=== PATIENT | female | born 1980 | race Caucasian/White ===

== ENCOUNTER 2020-01-22 07:10 | Emergency (ER) | payer OTHER, SELFPAY ==
[2020-01-22 07:11] VITALS: BP 134/115; PULSE 69; RESP 20; TEMP 36.2; O2SAT 99; BMI 40.9
--- NOTE | 2020-01-22 07:12 | CT_ITS ---
STUDY: CT ABDOMEN AND PELVIS WITHOUT CONTRAST REASON FOR EXAM: Female, 39 years old. RLQ PAIN, NAUSEA THIS AM RADIATION DOSAGE (If Supplied By Facility): CTDIvol = ( 14.80 ) mGy, DLP = ( 737.15 ) mGycm TECHNIQUE: Transaxial images were obtained from the dome of the diaphragm to the symphysis pubis without oral contrast, and without intravenous contrast. Sagittal and coronal images were reconstructed. Individualized dose optimization techniques were used for this CT. COMPARISON: None. FINDINGS: The visualized lung bases are unremarkable. The visualized portions of the heart are within normal limits. Normal liver. There is a solitary gallstone. It lies in the neck of the gallbladder. This measures 7.5 mm. Normal spleen. Normal pancreas. Normal bilateral adrenal glands. Normal right kidney. Normal left kidney. Normal visualized stomach. Normal small intestine. Normal colon. The appendix is visualized and appears normal. Normal abdominal aorta. Normal inferior vena cava. There is borderline retroperitoneal lymphadenopathy with enlarged nodes no greater than 10mm in the short axis diameter. Normal urinary bladder. IUD is seen within the lower uterine segment/cervix. There is a small umbilical hernia containing fat. Disc space narrowing and degeneration with subchondral sclerosis at the L5-S1 level. CT/Abdomen/Pelvis without Cont IMPRESSION: Solitary gallstone in the neck of the gallbladder. Low-lying IUD. Electronically Signed: Maged Madrid, at 8:04 EDT , Service support ,
[2020-01-22] MEDS: Ondansetron 4 MG/2 ML Vial IV (07:31)
[2020-01-22] MEDS: HYDROmorphone 1 MG/ML Syringe IV ×2 (07:31→10:41)
[2020-01-22] MEDS: 0.9% Normal Saline 1,000 ML 125 ML IV (07:31)
[2020-01-22] MEDS: Ketorolac 30 MG/ML Syringe IV (07:31)
--- NOTE | 2020-01-22 07:35 | ED.DCSUM_ITS ---
- ER Visit Summary Date of Service: 01/22/20 Chief Complaint: [Abdominal pain] History of Present Illness: The patient is a 39 F [presents to the emergency department complaint of abdominal pain that started early this morning while on her way to work. Patient describes it as right lower quadrant. Pain came on suddenly. She denies any pain in her back. She does have history of kidney stone about 10 years ago but states that this pain feels different because it is not in her back. Patient denies urinary symptoms. She is had no fever. She denies recent illness. Her last menstrual period was about 3 weeks ago. Patient has otherwise no medical history. Patient rates her pain a 10 out of 10. Patient's had nausea and has vomited with this.] Physical Examination: [HEENT-PERRLA, EOMI. Cranial nerves II through XII grossly intact. TMs clear. Mucous membranes moist. No adenopathy. Patient appears very uncomfortable and writhing around in pain. Cardiovascular-regular rate and rhythm without murmur or ectopy Lungs-clear to auscultation, chest wall stable without crepitus or subcu emphysema Abdomen-normoactive bowel sounds, soft. Patient has tenderness palpation to the right lower quadrant with guarding. Extremities-intact ?4, normal range of motion, normal pulses, atraumatic] Test Results: [CBC with differential obtained showed a slightly elevated white count of 13.1, hemoglobin 14.7, hematocrit 45, placed to 61. Chemistries unrem arkable. Urinalysis showed 10-25 WBCs and 0-5 RBCs. Patient had +2 calcium oxalate crystals. Lactate was slightly elevated 2.4. Initially a CT scan of the flank was obtained which initially was read by radiology is unremarkable. On my interpretation I felt patient had a small right-sided hydroureter with possibly a small stone in the base of the bladder and I discussed this with the radiologist and he is in agreement that patient may have passed a small stone into the bladder. I obtain an ultrasound of the pelvis to rule out torsion which was negative for torsion. Patient was noted to have an IUD in the lower uterine segment.] Emergency Department Course and Treatment: [IV line established and patient was medicated Toradol, Dilaudid, and Zofran. Patient had good pain relief.] Patient was given Cipro 500 mg p.o. Treatment Plan: [Patient to follow-up with urology in 3 to 5 days. Patient advised to return if worsening pain, fever, vomiting, or condition should worsen anyway.] Patient given a prescription for Cipro, Naprosyn, and [place]. Patient given urine strainers. Disposition: [Discharged home in stable condition] Impression: [Abdominal pain Passed kidney stone] This note was generated with [employer] dictation software. It may contain incorrect words, spelling, and punctuation that were not noted in review of the chart prior to signing ED Disposition - Plan for ED Patient: Referrals: Iain Fallon MD [Primary Care Provider] -
--- NOTE | 2020-01-22 07:41 | ED.RN ---
dr moreno states send her to ct scan. dont need to wait for serum preg. lmp 3 weeks ago. pt denies chance of
--- NOTE | 2020-01-22 07:53 | ED.RN ---
lab to come get bloodwork.
[2020-01-22 08:18] LABS: Absolute Neutrophil Count 10.5 X10^3/uL (2.0-7.7); Basophil# 0.05 X10^3/uL; Basophil% 0.4 % (0-1); Eosinophil# 0.07 X10^3/uL; Eosinophils% 0.5 % (0-5); Hematocrit 44.7 % (37-47); Hemoglobin 14.7 g/dL (12.0-15.0); Mean Corp Hgb Conc 32.9 g/dL (32-36); Mean Corpuscular Hgb 33.4 pg (27.0-32.0); Mean Corpuscular Volume 101.6 fL (81-99); Monocyte# 0.65 X10^3/uL; NRBC Flagged by Analyzer 0 % (0-5); Neutrophil # 10.53 X10^3/uL (2.7-7.7); Neutrophil % 80.6 % (47-70); Platelet Count 261 K/mm3 (150-450); RBC Distribution Width CV 13.5 % (11.6-14.6); RBC Distribution Width SD 50.5 fl (35.1-43.9); White Blood Count 13.1 K/mm3 (4.4-11.0)
--- NOTE | 2020-01-22 08:21 | US_ITS ---
STUDY: ULTRASOUND OF THE FEMALE PELVIS - COMPLETE REASON FOR EXAM: Female, 39 years old. PAIN LMP: 01/08/2020 TECHNIQUE: Transabdominal and Transvaginal TECHNICAL QUALITY: Adequate. COMPARISON: Comparison is made with prior examination done earlier in the day. FINDINGS: The uterus is anteverted and is in a midline position. The uterus measures 9 cm x 4.8 cm x 3.9 cm. Normal uterine cervix. The endometrium measures 8.3 mm in thickness, and is hyperechoic. There is no demonstrated endometrial mass. There is no demonstrated myometrial mass. I.U.D. - The patient does have an I.U.D. the IUD is in the lower uterine segment/cervix. The right ovary is visualized. The right ovary measures 2.7 cm x 2.8 cm x 1.8 cm. There is no right ovarian cyst or ovarian mass. There is no visualized right adnexal mass or complex lesion. There is normal arterial and normal venous vascularity. The left ovary is visualized. The left ovary measures 3.3 cm x 2.9 cm x 1.8 cm. There is no left ovarian cyst or ovarian mass. There is no visualized left adnexal mass or complex lesion. There is normal arterial and normal venous vascularity. There is no fluid in the cul-de-sac. US/Transvaginal Non- IMPRESSION: The IUD is within the lower uterine segment versus cervix Electronically Signed: Maged Madrid, at 10:05 EDT , Service support ,
[2020-01-22 08:31] LABS: Anion Gap 7 (5-15); BUN 12 mg/dL (7-18); BUN/Creat Ratio 13.4 RATIO (10-20); Calcium,Total 8.6 mg/dL (8.5-10.1); Chloride 112 mmol/L (98-107); Creatinine, Serum 0.89 mg/dL (0.55-1.02); EST Glomerular Filtration Rate 75 mL/min (>60); Est Glom Filt Rate - Afr Amer 90 mL/min (>60); Estimated Creatinine Clearance 76.36 ml/min; Glucose 121 mg/dL (74-106); Potassium 3.6 mmol/L (3.5-5.1); Sodium Level 140 mmol/L (136-145)
[2020-01-22 08:34] LABS: Internal QC Validated? YES +Cl - CLEAR BKGD; Pregnancy, Serum, hCG Quali. NEGATIVE Negative
[2020-01-22 08:49] LABS: Lactic Acid 2.4 mmol/L (0.4-1.9)
[2020-01-22 09:36] LABS: Color, Urine Yellow (Yellow); Glucose, Dipstick Normal (Normal); Ketone-Dipstick 50 mg/dl (Negative); Leukocyte Esterase-Dipstick 100 /ul (Negative); Nitrite-Dipstick Negative (Negative); Occult Blood-Urine 50 /ul (Negative); Protein-Dipstick 15 mg/dl (Negative); Specific Gravity, Urine 1.025 (1.002-1.030); Urine Bilirubin Dipstick Negative (Negative); Urine Clarity Sl. Cloudy (Clear); Urine Urobilinogen 1 mg/dl (Normal)
[2020-01-22 09:46] LABS: Bacteria 1+ /hpf (None Seen); Red Blood Cells-Urine 0-5 SEEN /hpf (0-5); Squamous Epithelial Cells - UA 0-5 SEEN /hpf (5-10); White Blood Cells 10-25 SEEN /hpf (0-5)
[2020-01-22 09:47] LABS: Calcium Oxalate Crystals Ur 2+ /hpf (<or=2+); Mucous, Urine 1+ /hpf (<or=2+)
[2020-01-22 10:07] VITALS: BP 140/71; PULSE 87; RESP 16; O2SAT 99
--- NOTE | 2020-01-22 10:14 | DCINST.ED_ITS ---
ED Disposition - Plan for ED Patient: Instructions: ED RENAL STONE Passed Prescriptions: Ciprofloxacin [Cipro] 500 mg PO BID #6 tab Prescription Printed Naproxen [Naprosyn] 500 mg PO BID PRN #20 tab Prescription Printed Hydrocodone Bitart/Apap 5-325 [[place] 5MG-325MG] 1 tab PO Q4H PRN PRN 2 Days #10 tab PRN Reason: Pain Prescription Printed Referrals: Iain Fallon MD [Primary Care Provider] - Alan Irizarry MD [STAFF PHYSICIAN] - 3-5 Days
[2020-01-22] MEDS: Ciprofloxacin 500 MG Tablet PO (10:29)
[2020-01-22 12:15] LABS: Reflex Lactate? Y
== END 2020-01-22 11:30 | disposition home or self-care (01) ==
PROVIDERS: Emergency Provider Emergency Medicine
DX: N13.2 Hydronephrosis with renal and ureteral calculous obstruction (principal); Z87.442 Personal history of urinary calculi; Z97.5 Presence of (intrauterine) contraceptive device
CPT/HCPCS: 36415; 74176; 76830; 80048; 81001; 83605; 84703; 85025; 87086; 87088; 93976; 96361; 96374; 96375; 96376; 99285; J7030; A4216; J2405

== ENCOUNTER 2021-06-07 16:31 | Outpatient (CLI) | payer OTHER, SELFPAY ==
--- NOTE | 2021-06-07 16:52 | RAD_ITS ---
STUDY: X-RAY - CERVICAL SPINE REASON FOR EXAM: Female, 40 years old. Headache and neck pain TECHNIQUE: 5 view(s) of the cervical spine were obtained. COMPARISON: None FINDINGS: Normal anterior atlantoaxial articulation. Normal odontoid process. There is straightening of the normal cervical lordosis. Normal vertebral bodies and endplates. Normal disc space heights. Normal visualized intervertebral neuroforamina. The soft tissue structures are unremarkable. RAD/Cerv Spine 4 or 5 Views IMPRESSION: Normal x-ray examination of the visualized cervical spine. Electronically Signed: Cody Green MD at 17:28 EST , Service support ,
== END 2021-06-07 23:59 | disposition short-term general hospital (02) ==
PROVIDERS: PCP Family Medicine; Referring Provider Chiropractor; Visit Provider Chiropractor
DX: M54.12 Radiculopathy, cervical region (principal)
CPT/HCPCS: 72050

== ENCOUNTER → 2022-03-20 | Outpatient (CLI) | payer OTHER, SELFPAY ==
[2022-03-20 16:55] LABS: Absolute Lymphocyte Count 3.68 X10^3/uL (0.83-4.51); Absolute Neutrophil Count 5.3 X10^3/uL (2.0-7.7); Basophil# 0.05 X10^3/uL; Basophil% 0.5 % (0-1); Eosinophil# 0.12 X10^3/uL; Eosinophils% 1.2 % (0-5); Hematocrit 41.3 % (37-47); Hemoglobin 14.4 g/dL (12.0-15.0); Lymphocyte # 3.68 X10^3/ul (0.83-4.51); Lymphocyte % 37.8 % (19-41); Mean Corp Hgb Conc 34.9 g/dL (32-36); Mean Corpuscular Hgb 34.3 pg (27.0-32.0); Mean Corpuscular Volume 98.3 fL (81-99); Mean Platelet Vol. 10.8 fl (6.2-12.0); Monocyte# 0.54 X10^3/uL; Monocyte% 5.5 % (0-10); NRBC Flagged by Analyzer 0 % (0-5); Neutrophil # 5.32 X10^3/uL (2.7-7.7); Neutrophil % 54.7 % (47-70); Platelet Count 286 K/mm3 (150-450); RBC Distribution Width CV 13.3 % (11.6-14.6); White Blood Count 9.7 K/mm3 (4.4-11.0)
[2022-03-20 16:59] LABS: AST(SGOT) 15 U/L (15-37); Alanine Aminotransfer ALT/SGPT 28 U/L (13-56); Albumin, Serum 3.7 g/dL (3.2-5.0); Alkaline Phosphatase 62 U/L (45-117); Anion Gap 8 (5-15); BUN 10 mg/dL (7-18); BUN/Creat Ratio 14.4 RATIO (10-20); Calcium,Total 9.2 mg/dL (8.5-10.1); Chloride 108 mmol/L (98-107); Cholesterol 174 mg/dL (200); Creatinine, Serum 0.69 mg/dL (0.55-1.02); EST Glomerular Filtration Rate 99 mL/min (>60); Est Glom Filt Rate - Afr Amer 120 mL/min (>60); Globulin 3.6 g/dL (2.2-4.2); Glucose 86 mg/dL (74-106); High Density Lipoprotein 38 mg/dL; Potassium 3.9 mmol/L (3.5-5.1); Protein, Total 7.3 g/dL (6.4-8.2); Sodium Level 140 mmol/L (136-145); Triglycerides 107 mg/dL; Very Low Density Lipoprotein 21 mg/dL (5-40)
[2022-03-20 20:04] LABS: Vitamin B12 320 pg/mL (211-911); Vitamin D,25 Hydroxy 32.9 ng/mL
== END | disposition home or self-care (01) ==
LOC: BIMLAB 15:01
PROVIDERS: PCP Internal Medicine; Referring Provider Internal Medicine; Visit Provider Internal Medicine
DX: F41.9 Anxiety disorder, unspecified (principal); E66.01 Morbid (severe) obesity due to excess calories; F32.A Depression, unspecified; E55.9 Vitamin D deficiency, unspecified
CPT/HCPCS: 36415; 80053; 80061; 82306; 82607; 85025

== ENCOUNTER → 2022-03-30 | Outpatient (CLI) | payer OTHER, SELFPAY ==
--- NOTE | 2022-03-30 16:08 | BI_ITS ---
MAMMOGRAPHY - BILATERAL SCREENING REASON FOR EXAM: Female, 41 years old. Routine annual screening examination. PERTINENT HISTORY: Aunt with breast cancer. TECHNIQUE: Digital bilateral breast jc (3D mammographic acquisition) in the CC and MLO projections. 2-D mediolateral oblique (MLO) and craniocaudad (CC) views of both breasts were obtained. CAD: Full Field Digital Mammography with Computer Added Detection was performed. COMPARISON: Comparison is made with prior abdomen examination dated 01/20/2021. FINDINGS: Breast Composition: There are scattered areas of fibroglandular density. There are no dominant masses or suspicious calcifications. Stable small benign appearing bilateral axillary nodes. No other significant abnormalities are identified. There has been no significant change since the prior study. BI/SCRN MAMM (CAD)W/JC BILAT IMPRESSION: Stable bilateral screening mammogram. Yearly follow-up mammogram recommended. (A) ASSESSMENT CATEGORY: BIRADS Category 2: Benign. A letter regarding these results will be sent to the patient by the facility within 30 days. Approximately 10% of breast cancers are not detected by mammography. A normal mammogram should not delay biopsy of a clinically suspicious abnormality. [id number] Electronically Signed: Maged Madrid MD at 8:31 EST ,
== END | disposition home or self-care (01) ==
LOC: OPBI 16:07
PROVIDERS: PCP Internal Medicine; Referring Provider Internal Medicine; Visit Provider Internal Medicine
DX: Z12.31 Encounter for screening mammogram for malignant neoplasm of breast (principal); Z80.3 Family history of malignant neoplasm of breast
CPT/HCPCS: 77063; 77067

== ENCOUNTER → 2022-12-14 | Outpatient (CLI) | payer OTHER, SELFPAY ==
--- NOTE | 2022-12-14 07:51 | US_ITS ---
STUDY: ULTRASOUND OF THE FEMALE PELVIS - COMPLETE REASON FOR EXAM: Female, 42 years old. Bleeding, check IUD LMP: No recent menses. TECHNIQUE: Transabdominal and Transvaginal TECHNICAL QUALITY: Adequate. COMPARISON: None. FINDINGS: The uterus is anteverted and is in a midline position. The uterus measures 8.1 cm x 5 cm x 4.1 cm. Normal uterine cervix. The endometrium measures 4.8 mm in thickness, and is hyperechoic. There is no demonstrated endometrial mass. There is no demonstrated myometrial mass. I.U.D. - The patient does have an I.U.D. . It is in the fundal portion of the uterus. The right ovary is visualized. The right ovary measures 2.1 cm x 1.7 cm x 1.3 cm. There is no right ovarian cyst or ovarian mass. There is no visualized right adnexal mass or complex lesion. There is normal arterial and normal venous vascularity. The left ovary is visualized. The left ovary measures 3.3 cm x 2 cm x 1.4 cm. There is no left ovarian cyst or ovarian mass. There is no visualized left adnexal mass or complex lesion. There is normal arterial and normal venous vascularity. There is no fluid in the cul-de-sac. The pre void volume of the bladder was 280 ml. US/Pelvic (Non ) IMPRESSION: Normal female pelvis. The IUD is seen within the fundal portion of the endometrium. Electronically Signed: Maged Madrid MD at 13:59 EDT ,
== END | disposition home or self-care (01) ==
PROVIDERS: PCP Internal Medicine; Referring Provider Nurse Practitioner Women's Health; Visit Provider Nurse Practitioner Women's Health
DX: N92.1 Excessive and frequent menstruation with irregular cycle (principal); Z30.431 Encounter for routine checking of intrauterine contraceptive device
CPT/HCPCS: 76830; 76856

== ENCOUNTER → 2023-02-19 | Outpatient (CLI) | payer OTHER, SELFPAY ==
--- NOTE | 2023-02-19 08:02 | VDLE_ITS ---
Reason For Study: Pain BLE RIGHT LEFT CFV is compressible, spontaneous, competent CFV is compressible, spontaneous, phasic, and demonstrates pulsatile venous flow. competent, and demonstrates normal FV is compressible, spontaneous, phasic, augmentation. competent and demonstrates normal FV is compressible, spontaneous, phasic, augmentation. competent and demonstrates normal POP V is compressible, spontaneous, phasic, augmentation. competent and demonstrates normal POP V is compressible, spontaneous, phasic, augmentation. competent and demonstrates normal T/P Trunk is compressible. augmentation. PTV is compressible. T/P Trunk is compressible. RT PerV is compressible. PTV is compressible. SFJ is competent and measures 1.14cm x 1.19 LT PerV is compressible. cm. SFJ is competent and measures 0.95cm x 0.98 GSV proximal thigh measures 0.56cm x 0.61 cm. cm. GSV at knee measures 0.49cm x 0.53 cm. GSV proximal thigh measures 0.65cm x 0.67 cm. GSV above knee is competent. GSV at knee measures 0.67cm x 0.73 cm. GSV below knee is INCOMPETENT for greater GSV INCOMPETENT throughout for greater than than 0.5 seconds. 0.5 seconds. ASV proximal calf is INCOMPETENT for greater ASV mid thigh is INCOMPETENT for greater than than 0.5 seconds and measures 0.26cm x 0.27 0.5 seconds and measures 0.23cm x 0.24 cm. cm. ASV at knee is INCOMPETENT for greater than SSV proximal calf is competent and measures 0.5 seconds and measures 0.46cm x 0.45 cm. 0.43cm x 0.50 cm. ASV distal calf is INCOMPETENT for greater Incompetent perf noted Rt Calf 23cm from than 0.5 seconds and measures 0.36cm x 0.40 medial malleolus. cm. Procedure SSV proximal calf is competent and measures This is a venous duplex using B-mode, color 0.78cm x 0.84 cm. flow and spectral Doppler. Exam performed in department. A preliminary report was called and/or faxed to Kirstin JURADO. VL/Venous Duplex US - Clifford Extrem Interpretation Summary Deep veins of the bilateral lower extremities are patent and compressible segme ntally. There is no evidence of bilateral lower extremity deep vein thrombosis. The bilateral great saphenous veins appear patent and compressible segmentally. Positive for reflux in the right great saphenous vein, accessory saphenous vein , and calf range manager vein. Positive for reflux in the left great saphenous vein, accessory saphenous vein, Ordering Physician: Kirstin Mukherjee Referring Physician: J Luis Gutierrez Performed By: Radha Ferrari, [place], RVT
== END | disposition home or self-care (01) ==
LOC: CVS 08:02
PROVIDERS: PCP Internal Medicine; Visit Provider Physician Assistant
DX: I83.812 Varicose veins of left lower extremity with pain (principal); I83.92 Asymptomatic varicose veins of left lower extremity
CPT/HCPCS: 93970

== ENCOUNTER → 2023-03-06 | Outpatient (CLI) | payer OTHER, MEDICAID, SELFPAY ==
[2023-03-06 07:50] LABS: Absolute Lymphocyte Count 2.37 X10^3/uL (0.83-4.51); Absolute Neutrophil Count 2.6 X10^3/uL (2.0-7.7); Basophil# 0.05 X10^3/uL; Basophil% 0.9 % (0-1); Eosinophils% 5.2 % (0-5); Hematocrit 41.8 % (37-47); Hemoglobin 13.6 g/dL (12.0-15.0); Lymphocyte # 2.37 X10^3/ul (0.83-4.51); Lymphocyte % 41.2 % (19-41); Mean Corp Hgb Conc 32.5 g/dL (32-36); Mean Corpuscular Hgb 33.7 pg (27.0-32.0); Mean Corpuscular Volume 103.7 fL (81-99); Monocyte# 0.43 X10^3/uL; Monocyte% 7.5 % (0-10); NRBC Flagged by Analyzer 0 % (0-5); Neutrophil # 2.58 X10^3/uL (2.7-7.7); Neutrophil % 44.9 % (47-70); Platelet Count 257 K/mm3 (150-450); RBC Distribution Width CV 13.2 % (11.6-14.6); RBC Distribution Width SD 51.5 fl (35.1-43.9); Red Blood Count 4.03 M/mm3 (4.2-5.4); White Blood Count 5.8 K/mm3 (4.4-11.0)
[2023-03-06 08:19] LABS: Vitamin B12 448 pg/mL (211-911); Vitamin D,25 Hydroxy 38.7 ng/mL
[2023-03-06 08:23] LABS: AST(SGOT) 9 U/L (15-37); Alanine Aminotransfer ALT/SGPT 22 U/L (13-56); Albumin, Serum 3.5 g/dL (3.2-5.0); Alkaline Phosphatase 44 U/L (45-117); Anion Gap 2 (5-15); BUN 17 mg/dL (7-18); BUN/Creat Ratio 25.2 RATIO (10-20); Calcium,Total 8.5 mg/dL (8.5-10.1); Chloride 110 mmol/L (98-107); Cholesterol 146 mg/dL (200); Creatinine, Serum 0.68 mg/dL (0.55-1.02); EST Glomerular Filtration Rate 102 mL/min (>60); Est Glom Filt Rate - Afr Amer 123 mL/min (>60); Globulin 3.4 g/dL (2.2-4.2); Glucose 101 mg/dL (74-106); High Density Lipoprotein 61 mg/dL; Potassium 4.5 mmol/L (3.5-5.1); Protein, Total 6.9 g/dL (6.4-8.2); Sodium Level 141 mmol/L (136-145); Triglycerides 33 mg/dL; Very Low Density Lipoprotein 7 mg/dL (5-40)
== END | disposition home or self-care (01) ==
LOC: LAB 07:22
PROVIDERS: PCP Internal Medicine; Referring Provider Internal Medicine; Visit Provider Internal Medicine
DX: Z00.00 Encounter for general adult medical examination without abnormal findings (principal); Z13.6 Encounter for screening for cardiovascular disorders; E53.8 Deficiency of other specified B group vitamins; E55.9 Vitamin D deficiency, unspecified
CPT/HCPCS: 36415; 80053; 80061; 82306; 82607; 85025

== ENCOUNTER → 2023-04-09 | Outpatient (CLI) | payer OTHER, MEDICAID, SELFPAY ==
--- NOTE | 2023-04-09 14:35 | BI_ITS ---
MAMMOGRAPHY - BILATERAL SCREENING REASON FOR EXAM: Female, 42 years old. Routine annual screening examination. PERTINENT HISTORY: Aunt with breast cancer. TECHNIQUE: Digital bilateral breast jc (3D mammographic acquisition) in the CC and MLO projections. 2-D mediolateral oblique (MLO) and craniocaudad (CC) views of both breasts were obtained. CAD: Full Field Digital Mammography with Computer Added Detection was performed. COMPARISON: Comparison is made with prior study March 30, 2022. FINDINGS: Breast Composition: There are scattered areas of fibroglandular density. There are no dominant masses or suspicious calcifications. Stable small benign-appearing bilateral axillary lymph nodes. No other significant abnormalities are identified. There has been no significant change since the prior study. BI/SCRN MAMM (CAD)W/JC BILAT IMPRESSION: Stable bilateral screening mammogram. Yearly follow-up mammogram recommended. (A) ASSESSMENT CATEGORY: BIRADS Category 2: Benign. A letter regarding these results will be sent to the patient by the facility within 30 days. Approximately 10% of breast cancers are not detected by mammography. A normal mammogram should not delay biopsy of a clinically suspicious abnormality. [id number] Electronically Signed: Maged Madrid MD at 10:02 EST ,
== END | disposition home or self-care (01) ==
LOC: OPBI 14:35
PROVIDERS: PCP Internal Medicine; Referring Provider Nurse Practitioner Women's Health; Visit Provider Nurse Practitioner Women's Health
DX: Z12.31 Encounter for screening mammogram for malignant neoplasm of breast (principal)
CPT/HCPCS: 77063; 77067

== ENCOUNTER → 2023-04-19 | Outpatient (CLI) | payer SELFPAY | END | disposition home or self-care (01) | PROVIDERS: PCP Internal Medicine; Referring Provider Family Medicine; Visit Provider Family Medicine | DX: R63.4 Abnormal weight loss (principal) | CPT/HCPCS: 76499 ==

== ENCOUNTER → 2023-09-06 | Outpatient (CLI) | payer OTHER, SELFPAY ==
[2023-09-06 15:25] LABS: Absolute Lymphocyte Count 3.19 X10^3/uL (0.83-4.51); Absolute Neutrophil Count 2.3 X10^3/uL (2.0-7.7); Basophil# 0.03 X10^3/uL; Basophil% 0.5 % (0-1); Eosinophil# 0.13 X10^3/uL; Eosinophils% 2.2 % (0-5); Hematocrit 40.1 % (37-47); Hemoglobin 13.7 g/dL (12.0-15.0); Lymphocyte # 3.19 X10^3/ul (0.83-4.51); Lymphocyte % 53.3 % (19-41); Mean Corp Hgb Conc 34.2 g/dL (32-36); Mean Corpuscular Hgb 34.3 pg (27.0-32.0); Mean Corpuscular Volume 100.5 fL (81-99); Mean Platelet Vol. 10.5 fl (6.2-12.0); Monocyte# 0.38 X10^3/uL; Monocyte% 6.3 % (0-10); NRBC Flagged by Analyzer 0 % (0-5); Neutrophil # 2.25 X10^3/uL (2.7-7.7); Neutrophil % 37.5 % (47-70); Platelet Count 250 K/mm3 (150-450); RBC Distribution Width CV 12.5 % (11.6-14.6); RBC Distribution Width SD 46.7 fl (35.1-43.9); Red Blood Count 3.99 M/mm3 (4.2-5.4)
[2023-09-06 15:54] LABS: ALB/GLOB Ratio 1.3 RATIO (0.9-2.4); AST(SGOT) 11 U/L (15-37); Alanine Aminotransfer ALT/SGPT 15 U/L (13-56); Albumin, Serum 3.9 g/dL (3.2-5.0); Alkaline Phosphatase 38 U/L (45-117); Anion Gap 4 (5-15); BUN 11 mg/dL (7-18); BUN/Creat Ratio 16.2 RATIO (10-20); Calcium,Total 8.9 mg/dL (8.5-10.1); Chloride 110 mmol/L (98-107); Creatinine, Serum 0.68 mg/dL (0.55-1.02); EST Glomerular Filtration Rate 101 mL/min (>60); Est Glom Filt Rate - Afr Amer 122 mL/min (>60); Globulin 3.1 g/dL (2.2-4.2); Glucose 120 mg/dL (74-106); Sodium Level 139 mmol/L (136-145)
== END | disposition home or self-care (01) ==
LOC: BIMLAB 13:39
PROVIDERS: PCP Internal Medicine; Referring Provider Internal Medicine; Visit Provider Internal Medicine
DX: F41.9 Anxiety disorder, unspecified (principal); F32.A Depression, unspecified
CPT/HCPCS: 36415; 80053; 85025

== ENCOUNTER → 2023-10-04 | Outpatient (CLI) | payer OTHER, SELFPAY ==
[2023-10-04 12:25] LABS: Absolute Lymphocyte Count 2.47 X10^3/uL (0.83-4.51); Absolute Neutrophil Count 2.7 X10^3/uL (2.0-7.7); Basophil# 0.05 X10^3/uL; Basophil% 0.9 % (0-1); Eosinophil# 0.06 X10^3/uL; Eosinophils% 1.1 % (0-5); Hematocrit 38.1 % (37-47); Hemoglobin 12.8 g/dL (12.0-15.0); Lymphocyte # 2.47 X10^3/ul (0.83-4.51); Lymphocyte % 44.3 % (19-41); Mean Corp Hgb Conc 33.6 g/dL (32-36); Mean Corpuscular Hgb 33.7 pg (27.0-32.0); Mean Corpuscular Volume 100.3 fL (81-99); Mean Platelet Vol. 10.7 fl (6.2-12.0); Monocyte% 5.4 % (0-10); NRBC Flagged by Analyzer 0 % (0-5); Neutrophil # 2.68 X10^3/uL (2.7-7.7); Neutrophil % 48.1 % (47-70); Platelet Count 247 K/mm3 (150-450); RBC Distribution Width CV 12.4 % (11.6-14.6); RBC Distribution Width SD 45.4 fl (35.1-43.9); White Blood Count 5.6 K/mm3 (4.4-11.0)
== END | disposition home or self-care (01) ==
LOC: BIMLAB 11:15
PROVIDERS: PCP Internal Medicine; Visit Provider Internal Medicine
DX: R79.89 Other specified abnormal findings of blood chemistry (principal)
CPT/HCPCS: 36415; 85025

== ENCOUNTER → 2023-11-30 | Outpatient (CLI) | payer OTHER, SELFPAY ==
[2023-11-30 15:07] LABS: Absolute Lymphocyte Count 2.81 X10^3/uL (0.83-4.51); Absolute Neutrophil Count 3.5 X10^3/uL (2.0-7.7); Basophil# 0.05 X10^3/uL; Basophil% 0.7 % (0-1); Eosinophil# 0.08 X10^3/uL; Eosinophils% 1.1 % (0-5); Hematocrit 40.5 % (37-47); Lymphocyte # 2.81 X10^3/ul (0.83-4.51); Lymphocyte % 39.9 % (19-41); Mean Corp Hgb Conc 34.6 g/dL (32-36); Mean Corpuscular Hgb 34.1 pg (27.0-32.0); Mean Corpuscular Volume 98.5 fL (81-99); Mean Platelet Vol. 10.4 fl (6.2-12.0); Monocyte# 0.54 X10^3/uL; Monocyte% 7.7 % (0-10); NRBC Flagged by Analyzer 0 % (0-5); Neutrophil # 3.54 X10^3/uL (2.7-7.7); Neutrophil % 50.3 % (47-70); Platelet Count 257 K/mm3 (150-450); RBC Distribution Width CV 12.3 % (11.6-14.6); RBC Distribution Width SD 44.8 fl (35.1-43.9); Red Blood Count 4.11 M/mm3 (4.2-5.4)
[2023-11-30 17:25] LABS: ALB/GLOB Ratio 1.3 RATIO (0.9-2.4); AST(SGOT) 11 U/L (15-37); Alanine Aminotransfer ALT/SGPT 15 U/L (13-56); Albumin, Serum 4.2 g/dL (3.2-5.0); Alkaline Phosphatase 40 U/L (45-117); Anion Gap 7 (5-15); BUN 15 mg/dL (7-18); BUN/Creat Ratio 16.9 RATIO (10-20); Calcium,Total 9.2 mg/dL (8.5-10.1); Chloride 108 mmol/L (98-107); Creatinine, Serum 0.89 mg/dL (0.55-1.02); EST Glomerular Filtration Rate 74 mL/min (>60); Est Glom Filt Rate - Afr Amer 89 mL/min (>60); Globulin 3.3 g/dL (2.2-4.2); Glucose 83 mg/dL (74-106); Potassium 4.1 mmol/L (3.5-5.1); Protein, Total 7.5 g/dL (6.4-8.2); Sodium Level 136 mmol/L (136-145); T4 Free Direct 1.07 ng/dL (0.76-1.46); Thyroid Stim Hormone (TSH) 1.78 uIU/mL (0.358-3.74)
== END | disposition home or self-care (01) ==
LOC: BIMLAB 14:17
PROVIDERS: PCP Internal Medicine; Referring Provider Internal Medicine; Visit Provider Internal Medicine
DX: R42 Dizziness and giddiness (principal); F41.9 Anxiety disorder, unspecified; F32.A Depression, unspecified
CPT/HCPCS: 36415; 80053; 84439; 84443; 85025

== ENCOUNTER → 2023-12-14 | Outpatient (CLI) | payer OTHER, SELFPAY | END | disposition home or self-care (01) | LOC: PSN 08:31 | PROVIDERS: PCP Internal Medicine; Referring Provider Internal Medicine; Visit Provider Internal Medicine | DX: R55 Syncope and collapse (principal); R00.0 Tachycardia, unspecified | CPT/HCPCS: 93225; 93226 ==

== ENCOUNTER 2023-12-19 08:29 | Day surgery (SDC) | payer OTHER, SELFPAY ==
[2023-12-19 08:38] VITALS: BMI 27.6
--- NOTE | 2023-12-19 09:48 | PCM.HP.STD ---
HPI - General HPI Narrative TATIANA MITTAL, is a 43 F who presents with painful left leg varicose veins that are refractory to compression. She has GSV reflux throughout and thigh accessory saphenous reflux. [facility] Medical History Pre-syncope Tachycardia Malaise Lightheadedness Abnormal CBC Preventative health care Screening for cardiovascular condition Health care maintenance Panic disorder MDD (major depressive disorder) Obstructive sleep apnea Morbid obesity Anxiety and depression Sleep apnea Vitamin B 12 deficiency Vitamin D deficiency Kidney stones IBS (irritable bowel syndrome) Gallstones Seasonal allergies Home Medications ?Medication ?Instructions ?Recorded ?Last Taken ?Type cholecalciferol (vitamin D3) 125 10,000 unit PO DAILY 03/28/22 Unknown History mcg (5,000 unit) capsule alprazolam 0.5 mg tablet (Xanax) 0.5 mg PO DAILY PRN anxiety #20 03/08/23 Unknown Rx tabs hydroxyzine pamoate 25 mg capsule 25 mg PO BID PRN anxiety #120 caps 03/08/23 Unknown Rx (Vistaril) bupropion HCl 150 mg 24 hr tablet, 150 mg PO QAM #90 tabs 09/06/23 12/19/23 Rx extended release (Wellbutrin XL) cyanocobalamin (vitamin B-12) 1,000 mcg IM QMONTH #10 mL 09/06/23 Unknown Rx 1,000 mcg/mL injection solution semaglutide 1 mg/dose (4 mg/3 mL) 1 mg subcut QWEEK 09/19/23 Unknown History subcutaneous pen injector Allergy/AdvReac Type Severity Reaction Status Date / Time Sulfa (Sulfonamide Allergy Severe Unknown Verified 11/30/23 13:42 Antibiotics) Family History Mother Diabetes Aunt Diabetes Depression Ovarian cancer Grandmother Myocardial infarction Other Anxiety Kidney disease Social History household members: spouse number of children: 2 current occupational status: employed 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 ROS Constitutional Constitutional: Denies chills, fever(s), frequent falls, lethargy or weakness Eyes Eyes: Denies blind spots, change in vision or loss of vision ENT HEENT: Denies bleeding gums, hoarseness or sore throat Cardiovascular Cardiovascular: Denies abdominal pain, bluish discoloration of hand/feet, chest pain with activity, claudication, cold extremities, cyanosis, dyspnea on exertion, erythema on extremities, irregular heart rhythm, leg edema, leg ulcers, numbness in extremities or weakness in extremities Respiratory/Chest Respiratory/Chest: Denies cough, excessive phlegm production, shortness of breath at rest, shortness of breath with exertion or wheezing Gastrointestinal Gastrointestinal: Denies anorexia, change in stool character, constipation, diarrhea, melena or rectal bleeding Genitourinary Genitourinary: Denies dysuria or hematuria Musculoskeletal Musculoskeletal: Denies abnormal gait Integumentary Integumentary: Reports other Details: ; Denies erythema, non-healing lesions or wounds Neurologic Neurologic: Denies abnormal speech, focal weakness, headache(s), loss of vision, numbness, paresthesias or sensory deficit Hematologic/Lymphatic Hematologic/Lymphatic: Denies easy bleeding, easy bruising or lymphadenopathy Vital Signs Vital Signs Vital Signs: Weight Weight: 156 lb Body Mass Index (BMI) 27.6 Physical Exam Const alert, oriented x3, no apparent distress and healthy appearing General Appearance: cooperative; Negative for combative or lethargic Orientation / Consciousness: awake Exam Limitations: no limitations HEENT Head and Scalp: normocephalic and atraumatic Eyes EOMs intact bilaterally General Eye: normal appearance of both eyes Neck full ROM, no lymphadenopathy, thyroid normal and No no carotid bruits General: trachea midline; Negative for lymphadenopathy or tenderness Thyroid: thyroid normal Lymph Lymphatic: Negative for no lymphadenopathy noted Resp normal respiratory effort and no use of accessory muscles Effort and Inspection: Negative for labored, stridor or audible wheezes Cardio regular rate and regular rhythm Back/Spine Cervical Spine: cervical ROM normal Extremity full ROM, normal capillary refill and no clubbing, cyanosis or edema Skin no rashes or lesions noted and no wounds Neuro oriented x3, CN's II-XII intact bilaterally, no focal motor deficits and no sensory deficits noted Psych thought process normal, cooperative, affect normal, speech normal and activity/motor behavior normal Assessment & Plan Assessment/Plan (1) Varicose veins of left lower extremity with pain: PLAN: -left GSV ablation, chemical
--- NOTE | 2023-12-19 10:49 | PCM.OPRPT ---
Report of Operation Date of Procedure: 12/19/23 Pre-Operative Diagnosis: varicose veins with pain, left lower extremity Post-Operative Diagnosis: same Surgery/Procedure Performed:: left GSV chemical ablation Surgeon: Fam Mora Type of Anesthesia: Local and Sedation,Conscious Estimated Blood Loss (mL): 2 Description of Procedure: HPI: Patient is a [age]-year-old female with symptomatic left lower extremity varicose veins with pain that have been refractory to compression therapy. She had venous duplex that revealed reflux throughout the great saphenous vein and thigh accessory saphenous veins that joint of the great saphenous in the mid thigh. Skin overlying the saphenous vein in the mid calf was anesthetized with 1% lidocaine and the vessel accessed with a micropuncture needle wire. This then exchanged for the 7 [place] ablation sheath and through this the [employer]son wire was advanced under ultrasound guidance to the saphenofemoral junction. Next the glue delivery guide was advanced over the wire and positioned at the saphenofemoral junction. Wires and dilator then withdrawn and the glue delivery catheter advanced into position inferior to the saphenofemoral junction. Glue was then infused over the length of the treatment zone from distal to the saphenofemoral junction to just above the ablation sheath. Upon completion the saphenofemoral junction and common femoral vein were assessed and there is no evidence of any deep vein thrombus. The sheath was then withdrawn and manual pressure held followed by dry sterile dressing and Michele wrap. Patient was taken to recovery room with plans to discharge to home.
== END 2023-12-19 12:01 | disposition home or self-care (01) ==
PROVIDERS: PCP Internal Medicine; Referring Provider Surgery Trauma Surgery; Visit Provider Surgery Trauma Surgery
DX: I83.812 Varicose veins of left lower extremity with pain (principal); G47.33 Obstructive sleep apnea (adult) (pediatric); Z79.899 Other long term (current) drug therapy; Z87.891 Personal history of nicotine dependence
CPT/HCPCS: 36482; 99152; 99153; C1894; J7040

== ENCOUNTER → 2023-12-21 | Outpatient (CLI) | payer OTHER, SELFPAY ==
[2023-12-18 09:10] VITALS: BMI 27.6
--- NOTE | 2023-12-21 08:56 | VDLE_ITS ---
Reason For Study: S/P Chemical Ablation RIGHT LEFT CFV is compressible, spontaneous, phasic, GSV is dilated and NONCOMPRESSIBLE from dist competent and demonstrates normal calf to approximately 0.62 cm distal to SFJ. augmentation. Intraluminal echoes are noted and finding is Procedure consistent with recent chemical ablation This is a venous duplex using B-mode, color procedure. flow and spectral Doppler. CFV is compressible, spontaneous, phasic, Exam performed in department. competent, and demonstrates normal The exam was diagnostic. augmentation. FV is compressible, spontaneous, phasic, competent and demonstrates normal augmentation. POP V is compressible, spontaneous, phasic, competent and demonstrates normal augmentation. T/P Trunk is compressible. PTV is compressible. LT PerV is compressible. VL/Venous Duplex US, Unilateral Interpretation Summary Deep veins of the left lower extremity are patent and compressible segmentally. There is no evidence of left lower extremity deep vein thrombosis. Left great saphenous vein occluded consistent with recent chemical ablation. Ordering Physician: Kirstin Mukherjee Referring Physician: J Luis Gutierrez Performed By: Brian Barrera RVT
== END | disposition home or self-care (01) ==
LOC: CVS 08:56
PROVIDERS: PCP Internal Medicine; Referring Provider Surgery Trauma Surgery; Visit Provider Surgery Trauma Surgery
DX: I83.812 Varicose veins of left lower extremity with pain (principal); Z48.812 Encounter for surgical aftercare following surgery on the circulatory system
CPT/HCPCS: 93971

== ENCOUNTER 2024-01-08 09:45 | Emergency (ER) | payer OTHER, SELFPAY ==
[2024-01-08 09:46] VITALS: BP 146/124; PULSE 54; RESP 18; TEMP 36.7; O2SAT 98
--- NOTE | 2024-01-08 09:50 | EX.ED.DYSGE1 ---
HPI History of Present Illness Chief Complaint: Abd Pain [facility] Medical History Pre-syncope Tachycardia Malaise Lightheadedness Abnormal CBC Preventative health care Screening for cardiovascular condition Health care maintenance Panic disorder MDD (major depressive disorder) Obstructive sleep apnea Morbid obesity Anxiety and depression Sleep apnea Vitamin B 12 deficiency Vitamin D deficiency Kidney stones IBS (irritable bowel syndrome) Gallstones Seasonal allergies Home Medications ?Medication ?Instructions ?Recorded ?Last Taken ?Type cholecalciferol (vitamin D3) 125 10,000 unit PO DAILY 03/28/22 Unknown History mcg (5,000 unit) capsule alprazolam 0.5 mg tablet (Xanax) 0.5 mg PO DAILY PRN anxiety #20 03/08/23 Unknown Rx tabs hydroxyzine pamoate 25 mg capsule 25 mg PO BID PRN anxiety #120 caps 03/08/23 Unknown Rx (Vistaril) bupropion HCl 150 mg 24 hr tablet, 150 mg PO QAM #90 tabs 09/06/23 12/19/23 Rx extended release (Wellbutrin XL) cyanocobalamin (vitamin B-12) 1,000 mcg IM QMONTH #10 mL 09/06/23 Unknown Rx 1,000 mcg/mL injection solution semaglutide 1 mg/dose (4 mg/3 mL) 1 mg subcut QWEEK 09/19/23 Unknown History subcutaneous pen injector cefdinir 300 mg capsule 600 mg (2 x 300 mg) PO DAILY #7 01/08/24 Unknown Rx caps ondansetron 4 mg disintegrating 4 mg PO Q8H PRN PRN Nausea #10 tabs 01/08/24 Unknown Rx tablet Allergy/AdvReac Type Severity Reaction Status Date / Time Sulfa (Sulfonamide Allergy Severe Unknown Verified 11/30/23 13:42 Antibiotics) Family History Mother Diabetes Aunt Diabetes Depression Ovarian cancer Grandmother Myocardial infarction Other Anxiety Kidney disease Social History household members: spouse number of children: 2 current occupational status: employed 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 EXAM Physical Exam Const Vital Signs: 01/08/24 09:46 01/08/24 10:35 01/08/24 10:58 Temperature 98.0 F Temperature Source Temporal Pulse Rate 54 L 56 L 67 Respiratory Rate 18 14 14 Blood Pressure 146/124 H 142/85 H 133/79 H Blood Pressure Mean 131 104 97 Pulse Ox 98 100 96 Oxygen Delivery Method Room Air Room Air Room Air 01/08/24 11:35 01/08/24 12:12 Temperature 98.8 F 98.8 F Temperature Source Oral Pulse Rate 56 L Respiratory Rate 18 Blood Pressure 115/66 Blood Pressure Mean 82 Pulse Ox 100 Oxygen Delivery Method MDM MDM MDM Narrative Medical decision making narrative: HISTORY OF PRESENT ILLNESS: 43-year-old female presents with abdominal pain. Right sided, does not radiate. It is associated with nausea and severe pain. Notes blood in her urine. Denies dysuria. Denies vaginal bleeding or discharge. REVIEW OF SYSTEMS: Pertinent positives: Abdominal pain Pertinent negatives: as per HPI PHYSICAL EXAM: Nursing triage notes reviewed, Vital signs reviewed Constitutional: please see mdm HENT: MMM Eyes: Pupils equal round and reactive to light, Extraocular muscles intact Neck: No stridor, no JVD, full neck ROM Lungs: Clear to auscultation, No wheezing or rales. No increased work of breathing, no conversational dyspnea, no accessory muscle use, no nasal flaring. No respiratory distress noted Heart: Regular rate and rhythm, No murmurs, No rubs and No gallops, 2+ distal pulses (radial, femoral, posterior tibial) in all extremities Abdomen: Soft, there is no tenderness, rigidity, rebound or guarding, no obvious peritoneal signs, no palpable pulsatile abdominal masses, no auscultated abdominal bruit : No CVAT Extremities: No edema Neuro: No focal neurological deficits, cranial nerves II through XII intact, 5/5 strength in all extremities. Intact sensation to light touch in all extremities, 2+ reflexes bilateral patella tendons. Normal gait. No ataxia. Skin: No rash or lesions noted MEDICAL DECISION MAKING: Chief Complaint: Abdominal pain External records reviewed: Reviewed prior imaging: Reviewed CT scan from 2019 which showed ureteral calculus, hydronephrosis Factors affecting care: Kidney stone Social determinants of health: History of mental health disorder History obtained from others: none Consults: none MDM Narrative: Patient was initially hemodynamically stable. Exam without peritoneal signs. No CVA tenderness. I considered the following differential diagnosis: Nephrolithiasis, pyelonephritis, UTI, AAA, musculoskeletal etiology I obtained a broad lab and imaging workup to further elucidate etiology of patient complaint specifically a CT scan without contrast rule out kidney stone, pyelonephritis, AAA. I obtain urine to rule out UTI, . I gave 1 L IV fluid, 4 mg IV Zofran and 4 mg of IV morphine for initial resuscitation and pain control. ALL IMAGES (IF OBTAINED) HAVE BEEN PERSONALLY REVIEWED AND INTERPRETED BY MYSELF. CT scan abdomen pelvis was read and reviewed person by myself shows evidence hydronephrosis of the right. Thought I noted a 2 mm stone distal ureter. Radiologist does not note a stone in the distal ureter. There is like field representative/health education of a recently passed kidney stone. Urinalysis consistent with infection. Will give a dose ceftriaxone here and send for urine culture CBC without leukocytosis, anemia or thrombocytopenia CMP without evidence of acute kidney injury, significant electrolyte abnormality, anion gap, no evidence hepatobiliary pathology. Urine test is negative The synthesis of the patient's history, physical exam, labs images suggest likely passed kidney stone as well as possible pyelonephritis. Will give oral antibiotics and Zofran to take as needed. Patient is able tolerate p.o. here in emergency department is appropriate discharge home. The patient and/or family, caregivers express understanding. The patient and/or family, caregivers agrees with the plan. Shared decision making: I will have a discussion with the patient and or visitors regarding risk/benefits of further testing or admission. They will be made aware of of the risk/benefits inherent in this decision they will be given the opportunity to voice understanding. Total critical care time today provided was at least 0 minutes. This excludes separately billable procedures. Critical care time (if documented) is secondary to the patient having high probability of clinically significant/life threatening deterioration in the patient's condition which required my urgent intervention. Impression: 1. Right side abdominal pain 2. History of nephrolithiasis 3. Hydronephrosis 4. Pyelonephritis Dispo: Discharge home This note was generated with Rabixoation software. It may contain incorrect words, spelling, and punctuation that were not noted in review of the chart prior to signing. Lab Data Labs: Laboratory Results - last 24 hr 01/08/24 01/08/24 09:48 10:15 WBC 6.3 RBC 4.18 L Hgb 14.1 Hct 42.2 MCV 101.0 H MCH 33.7 H MCHC 33.4 RDW Std Deviation 46.2 H RDW Coeff of Marifer 12.3 Plt Count 271 MPV 10.2 Sodium 139 Potassium 4.0 Chloride 109 H Carbon Dioxide 19.0 L Anion Gap 11 BUN 15 Creatinine 0.81 Est GFR (MDRD) Af Amer 99 Est GFR (MDRD) Non-Af 82 BUN/Creatinine Ratio 18.5 Glucose 106 Calcium 9.4 Total Bilirubin 0.60 AST 12 L ALT 16 Alkaline Phosphatase 45 Total Protein 7.2 Albumin 3.9 Globulin 3.3 Albumin/Globulin Ratio 1.2 Lipase 29 Serum , Qual NEGATIVE Urine Color Brown Urine Clarity Turbid Urine pH 6.0 Ur Specific [place] 1.025 Urine Protein 100 H Urine Glucose (UA) Normal Urine Ketones 5 H Urine Occult Blood 250 H Urine Nitrite Positive H Urine Bilirubin 1 H Urine Urobilinogen 1 H Ur Leukocyte Esterase 100 H Urine RBC > 100 SEEN Urine WBC 0 SEEN Ur Squamous Epith Cells 0 SEEN Urine Bacteria 0 SEEN Urine Mucus 0 SEEN Radiography Diagnostic Testing: Clinical Impression(s) from Imaging Studies Abdomen/Pelvis CT 01/08/24 09:59 IMPRESSION: 1. Mild right hydronephrosis and dilated right extrarenal pelvis. No CT evidence of any obstructing stones in the right kidney, right ureter or urinary bladder calculi. 2. No other significant findings or acute abnormality in the abdomen and pelvis Electronically Signed: Alfonso Tanner MD at 10:41 EDT , Discharge Plan Triage Chief Complaint: Abd Pain ED Provider: Tyrel Fontana Dx/Rx/DC Orders Clinical Impression: Hydronephrosis Instructions: ED Pyelonephritis, Female (Adult) Prescriptions: New cefdinir 300 mg capsule 600 mg PO DAILY Qty: 7 0RF ondansetron 4 mg tablet,disintegrating 4 mg PO Q8H PRN PRN (Reason: Nausea) Qty: 10 0RF No Action alprazolam [Xanax] 0.5 mg tablet 0.5 mg PO DAILY PRN (Reason: anxiety) Qty: 20 0RF hydroxyzine pamoate [Vistaril] 25 mg capsule 25 mg PO BID PRN (Reason: anxiety) Qty: 120 1RF cyanocobalamin (vitamin B-12) 1,000 mcg/mL solution 1,000 mcg IM QMONTH Qty: 10 4RF bupropion HCl [Wellbutrin XL] 150 mg tablet extended release 24 hr 150 mg PO QAM Qty: 90 1RF semaglutide 1 mg/dose (4 mg/3 mL) pen injector 1 mg subcut QWEEK cholecalciferol (vitamin D3) 125 mcg (5,000 unit) capsule 10,000 unit PO DAILY Primary Care Provider: J Luis Gutierrez Referrals: J Luis Gutierrez MD [Primary Care Provider] - Activity Restrictions/Additional Instructions: Thank you for trusting us with your care today! You have been diagnosed with urine infection possibly kidney infection. I suspect you passed a kidney stone as well. Please take antibiotics as prescribed. Please take Zofran as needed for nausea vomiting control. Please take Tylenol (2 pills, 650 mg), ibuprofen (2 pills, 400 mg) every 6 hours as needed for pain and fever control. Please return to the emergency department if your symptoms change or worsen. Please follow with your primary care physician for further outpatient evaluation and management. Print Language: Greek Disposition Disposition: Home, Self Care Discharge Date/Time: 01/08/24 12:13
--- NOTE | 2024-01-08 09:59 | CT_ITS ---
EXAM: CT ABDOMEN AND PELVIS WITHOUT INTRAVENOUS CONTRAST CLINICAL INDICATION: Right lower quadrant abdominal pain TECHNIQUE: Helically acquired images were obtained of the abdomen and pelvis without intravenous contrast. This CT exam was performed using one or more of the following dose reduction techniques: automated exposure control, adjustment of the mA and/or kV according to patient size, and/or use of iterative reconstruction technique. RADIATION DOSE: CTDIvol = 6.14 mGy, DLP = 295.91 mGy-cm COMPARISON: No relevant prior studies available. FINDINGS: LOWER THORAX: Unremarkable. Lung bases are clear. No cardiomegaly. No significant pericardial effusion. ABDOMEN: LIVER: Unremarkable. Homogeneous. GALLBLADDER AND BILE DUCTS: Unremarkable. No calcified gallstones. No gallbladder distention or wall edema. No intra- or extrahepatic biliary ductal dilation. PANCREAS: Unremarkable. No focal cystic mass. SPLEEN: Unremarkable. Normal size without focal cystic or solid mass. ADRENALS: Unremarkable. No nodules. KIDNEYS AND URETERS: Mild right hydronephrosis and dilated right extrarenal pelvis. No obstructing stones in the right kidney and right ureter. No stones or hydronephrosis in the left kidney. Normal renal size and position. STOMACH AND BOWEL: Unremarkable. No stomach or bowel distention. No focal inflammatory change. PELVIS: APPENDIX: The appendix is not visualized but no secondary signs of acute appendicitis. BLADDER: Unremarkable. No suspicious stones or mass inside the underdistended urinary bladder. REPRODUCTIVE: IUD device inside the anteverted uterus. No adnexal cyst or mass. ABDOMEN and PELVIS: INTRAPERITONEAL SPACE: Unremarkable. No ascites or other fluid collection. No free air. BONES/JOINTS: Unremarkable. No suspicious lytic or blastic abnormality. SOFT TISSUES: Unremarkable. No discrete abdominal or pelvic wall hernia. VASCULATURE: Calcified phleboliths in the pelvis. Abdominal aorta is non-dilated. LYMPH NODES: Unremarkable. No enlarged lymph nodes. OTHER FINDINGS: Pronounced L5-S1 disc space height narrowing with endplate sclerosis. CT/Abdomen/Pelvis without Cont IMPRESSION: 1. Mild right hydronephrosis and dilated right extrarenal pelvis. No CT evidence of any obstructing stones in the right kidney, right ureter or urinary bladder calculi. 2. No other significant findings or acute abnormality in the abdomen and pelvis Electronically Signed: Alfonso Tanner MD at 10:41 EDT ,
[2024-01-08 10:06] LABS: Bacteria 0 SEEN /hpf (None Seen); Mucous, Urine 0 SEEN /hpf (<or=2+); Squamous Epithelial Cells - UA 0 SEEN /hpf (5-10); White Blood Cells 0 SEEN /hpf (0-5)
[2024-01-08 10:09] LABS: Color, Urine Brown (Yellow); Glucose, Dipstick Normal (Normal); Ketone-Dipstick 5 mg/dl (Negative); Leukocyte Esterase-Dipstick 100 /ul (Negative); Nitrite-Dipstick Positive (Negative); Occult Blood-Urine 250 /ul (Negative); Protein-Dipstick 100 mg/dl (Negative); Specific Gravity, Urine 1.025 (1.002-1.030); Urine Bilirubin Dipstick 1 mg/dL (Negative); Urine Clarity Turbid (Clear); Urine Urobilinogen 1 mg/dl (Normal)
[2024-01-08] MEDS: Ondansetron 4 MG/2 ML Vial IV (10:09)
[2024-01-08] MEDS: 0.9% Normal Saline (1000mL) 1,000 ML 1000 ML IV (10:10)
[2024-01-08] MEDS: Ketorolac 15 MG/ML Vial IV (10:10)
[2024-01-08] MEDS: Morphine 4 MG/ML Syringe IV ×2 (10:11→11:08)
[2024-01-08 10:15] LABS: Red Blood Cells-Urine > 100 SEEN /hpf (0-5)
[2024-01-08 10:25] LABS: Hematocrit 42.2 % (37-47); Hemoglobin 14.1 g/dL (12.0-15.0); Mean Corp Hgb Conc 33.4 g/dL (32-36); Mean Corpuscular Hgb 33.7 pg (27.0-32.0); Mean Platelet Vol. 10.2 fl (6.2-12.0); Platelet Count 271 K/mm3 (150-450); RBC Distribution Width CV 12.3 % (11.6-14.6); RBC Distribution Width SD 46.2 fl (35.1-43.9); Red Blood Count 4.18 M/mm3 (4.2-5.4); White Blood Count 6.3 K/mm3 (4.4-11.0)
[2024-01-08 10:35] VITALS: BP 142/85; PULSE 56; RESP 14; O2SAT 100
[2024-01-08 10:42] LABS: Internal QC Validated? YES +Cl - CLEAR BKGD
[2024-01-08 10:43] LABS: Pregnancy, Serum, hCG Quali. NEGATIVE Negative
[2024-01-08 10:47] LABS: ALB/GLOB Ratio 1.2 RATIO (0.9-2.4); AST(SGOT) 12 U/L (15-37); Alanine Aminotransfer ALT/SGPT 16 U/L (13-56); Albumin, Serum 3.9 g/dL (3.2-5.0); Alkaline Phosphatase 45 U/L (45-117); Anion Gap 11 (5-15); BUN 15 mg/dL (7-18); BUN/Creat Ratio 18.5 RATIO (10-20); Calcium,Total 9.4 mg/dL (8.5-10.1); Chloride 109 mmol/L (98-107); Creatinine, Serum 0.81 mg/dL (0.55-1.02); EST Glomerular Filtration Rate 82 mL/min (>60); Est Glom Filt Rate - Afr Amer 99 mL/min (>60); Globulin 3.3 g/dL (2.2-4.2); Glucose 106 mg/dL (74-106); Lipase 29 U/L (13-75); Protein, Total 7.2 g/dL (6.4-8.2); Sodium Level 139 mmol/L (136-145)
[2024-01-08 10:58] VITALS: BP 133/79; PULSE 67; RESP 14; O2SAT 96
[2024-01-08] MEDS: Ceftriaxone 1 GM/50 ML BAG IV (10:58)
[2024-01-08] MEDS: Metoclopramide 10 MG/2 ML Vial 5 MG IV (11:15)
[2024-01-08 11:35] VITALS: TEMP 37.1
[2024-01-08 12:12] VITALS: BP 115/66; PULSE 56; RESP 18; TEMP 37.1; O2SAT 100
== END 2024-01-08 12:13 | disposition home or self-care (01) ==
PROVIDERS: Emergency Provider Emergency Medicine; PCP Internal Medicine; Visit Provider Emergency Medicine
DX: R10.9 Unspecified abdominal pain (principal); Z87.891 Personal history of nicotine dependence; N13.30 Unspecified hydronephrosis; F41.8 Other specified anxiety disorders; Z79.899 Other long term (current) drug therapy
CPT/HCPCS: 74176; 80053; 81001; 83690; 84703; 85027; 87086; 87088; 96361; 96374; 96375; 96376; 99283; J7030; A4216; J2405

== ENCOUNTER → 2024-02-12 | Outpatient (CLI) | payer OTHER, MEDICAID, SELFPAY ==
--- NOTE | 2024-02-12 16:35 | TILTTABLE_ITS ---
Staff Staff: Isabel Sheffield and Radha Hood Summary Pre Test Resting HR: 83 Pre Test Resting BP: 108/83 Minimum Test HR: 67 Maximum Test HR: 133 Minimum Test BP: 91/76 Maximum Test BP: 120/86 Reason for Test Termination: Reached Maximum Test Time Physician Tilt Table Report Patient's Physicians Primary Care Physician: J Luis Gutierrez Indications/Diagnosis: Dizziness and lightheadedness Procedure Comments: Patient was brought to the noninvasive lab in the postabsorptive nonsedated state. Informed consent was obtained. Initial blood pressure and heart rate was obtained as noted above. The patient was then put in the 70 degree head upright tilt position. Continuous EKG monitoring was performed as well as blood pressure monitoring. Patient complained of mild lightheadedness when patient was in the 70 degree head upright position. The patient was noted to have an increase in her heart rate of over 30 bpm to a maximum of 129 bpm with a blood pressure remaining stable at 108/79 mmHg complaining of mild lightheadedness. EKG did not demonstrate any significant changes other than the tachycardia. After the appropriate time. The patient was then brought back and put in the recumbent position. Heart rate came back d own to the 70s and 80s. Patient tolerated the procedure well. Summary: The above is suggestive of likely postural orthostatic tachycardia syndrome.
[2024-02-12 16:39] VITALS: BP 108/83; BP 120/86; BP 91/76
== END | disposition home or self-care (01) ==
LOC: CVS 09:02
PROVIDERS: PCP Internal Medicine; Referring Provider Internal Medicine; Visit Provider Internal Medicine
DX: R00.0 Tachycardia, unspecified (principal); R42 Dizziness and giddiness; R55 Syncope and collapse
CPT/HCPCS: 93660; J7040; A4216

== ENCOUNTER → 2024-04-10 | Outpatient (CLI) | payer MEDICAID, SELFPAY ==
--- NOTE | 2024-04-10 09:39 | BI_ITS ---
MAMMOGRAPHY - BILATERAL SCREENING REASON FOR EXAM: Female, 43 years old. Routine annual screening examination. PERTINENT HISTORY: Aunts with breast cancer. TECHNIQUE: Digital bilateral breast jc (3D mammographic acquisition) in the CC and MLO projections. 2-D mediolateral oblique (MLO) and craniocaudad (CC) views of both breasts were obtained. CAD: Full Field Digital Mammography with Computer Added Detection was performed. COMPARISON: Comparison is made with prior study April 09, 2023 and March 30, 2022. FINDINGS: Breast Composition: The breasts are heterogeneously dense, which may obscure small masses. There are no dominant masses or suspicious calcifications. Stable small benign-appearing bilateral axillary lymph nodes. No other significant abnormalities are identified. There has been no significant change since the prior study. BI/SCRN MAMM (CAD)W/JC BILAT IMPRESSION: Stable bilateral screening mammogram. Yearly follow-up mammogram recommended. (A) ASSESSMENT CATEGORY: BIRADS Category 2: Benign. A letter regarding these results will be sent to the patient by the facility within 30 days. Approximately 10% of breast cancers are not detected by mammography. A normal mammogram should not delay biopsy of a clinically suspicious abnormality. [id number] Electronically Signed: Maged Madrid MD at 11:13 EST ,
== END | disposition home or self-care (01) ==
LOC: OPBI 09:39
PROVIDERS: PCP Internal Medicine; Referring Provider Internal Medicine; Visit Provider Internal Medicine
DX: Z12.31 Encounter for screening mammogram for malignant neoplasm of breast (principal); Z80.3 Family history of malignant neoplasm of breast
CPT/HCPCS: 77063; 77067

== ENCOUNTER → 2024-04-22 | Outpatient (CLI) | payer OTHER, MEDICAID, SELFPAY ==
[2024-04-22 09:25] LABS: Absolute Lymphocyte Count 1.65 X10^3/uL (0.83-4.51); Absolute Neutrophil Count 1.7 X10^3/uL (2.0-7.7); Basophil# 0.04 X10^3/uL; Basophil% 1.1 % (0-1); Eosinophil# 0.08 X10^3/uL; Eosinophils% 2.1 % (0-5); Hematocrit 38.6 % (37-47); Hemoglobin 12.9 g/dL (12.0-15.0); Lymphocyte # 1.65 X10^3/ul (0.83-4.51); Mean Corp Hgb Conc 33.4 g/dL (32-36); Mean Corpuscular Hgb 33.4 pg (27.0-32.0); Mean Platelet Vol. 10.3 fl (6.2-12.0); Monocyte# 0.25 X10^3/uL; Monocyte% 6.7 % (0-10); NRBC Flagged by Analyzer 0 % (0-5); Neutrophil # 1.72 X10^3/uL (2.7-7.7); Neutrophil % 45.8 % (47-70); Platelet Count 239 K/mm3 (150-450); RBC Distribution Width CV 12.5 % (11.6-14.6); RBC Distribution Width SD 46.2 fl (35.1-43.9); Red Blood Count 3.86 M/mm3 (4.2-5.4); White Blood Count 3.8 K/mm3 (4.4-11.0)
[2024-04-22 09:45] LABS: Vitamin D,25 Hydroxy 35.2 ng/mL
[2024-04-22 11:17] LABS: Estradiol 47.7 pg/mL; Follicle Stimulating Hormone 8.7 mIU/mL; T4 Free Direct 0.99 ng/dL (0.76-1.46)
[2024-04-23 06:36] LABS: Thyroid Peroxidase AB 49 IU/mL (0-34)
== END | disposition home or self-care (01) ==
LOC: BWCLAB 08:49
PROVIDERS: PCP Internal Medicine; Referring Provider Nurse Practitioner Women's Health; Visit Provider Nurse Practitioner Women's Health
DX: Z13.29 Encounter for screening for other suspected endocrine disorder (principal); R23.2 Flushing; R53.83 Other fatigue; Z13.21 Encounter for screening for nutritional disorder
CPT/HCPCS: 36415; 82306; 82670; 83001; 84439; 84443; 85025; 86376

== ENCOUNTER → 2024-05-02 | Outpatient (CLI) | payer OTHER, MEDICAID, SELFPAY ==
--- NOTE | 2024-05-02 09:54 | ECHOD_ITS ---
Reason For Study: LIGHT-HEADEDNESS, POTS Procedure This was a 2D Doppler, Color Flow transthoracic echocardiogram. Exam performed in department. Left Ventricle Normal LV size. The estimated ejection fraction is 55 %. No evidence for diastolic dysfunction. No regional wall motion abnormalities noted. Right Ventricle Normal RV size. Normal systolic function. Atria The left and right atria are normal. No doppler evidence for ASD. Bubble contrast study negative for right to left interatrial shunt. Mitral Valve There is no mitral valve stenosis. No mitral valve insufficiency. Tricuspid Valve There is no tricuspid stenosis. Trivial tricuspid valve insufficiency. Unable to estimate RV systolic pressure due to insufficient tricuspid regurgitant envelope. Aortic Valve Trisinus/trileaflet aortic valve. There is no aortic stenosis. No aortic valve insufficiency. Pulmonic Valve There is no pulmonic valvular stenosis. No pulmonic valve insufficiency. Great Vessels Normal aortic root. Pericardium/Pleural No pericardial effusion. Medication 22 gauge I.V. with prn adaptor inserted into right arm. Performed a rapid injection of agitated mix of 9 cc saline and 1cc air to assess for atrial septal defect. MMode/2D Measurements & Calculations LVIDd: 4.4 cm IVSd: 0.99 cm Ao root diam: 2.6 cm LVIDs: 2.9 cm LVPWd: 0.97 cm RVDd: 2.6 cm FS: 33.8 % LAV(MOD-bp): 14.7 ml LVAd ap4: 22.4 cm2 SV(MOD-sp4): 40.0 ml LAV(MOD-bp) Indexed: 9.2 ml/m2 LVLd ap4: 7.0 cm SI(MOD-sp4): 25.1 ml/m2 LAV(MOD-sp2): 17.9 ml EDV(MOD-sp4): 61.0 ml LAV(MOD-sp4): 11.9 ml EDV(sp4-el): 61.4 ml LVAs ap4: 12.2 cm2 LVLs ap4: 5.8 cm ESV(MOD-sp4): 21.1 ml ESV(sp4-el): 21.8 ml EF(MOD-sp4): 65.5 % EF(sp4-el): 64.5 % SV(sp4-el): 39.6 ml LA A4 area: 7.5 cm2 LA dimension(2D): 2.7 cm RA A4 area: 7.3 cm2 TAPSE: 1.7 cm Time Measurements MV dec time: 0.24 sec Doppler Measurements & Calculations MV E max brad: 64.4 cm/sec Lat Peak E' Brad: 15.7 cm/sec Med Peak E' Brad: 10.4 cm/sec MV A max brad: 63.7 cm/sec E/E' lat: 4.1 E/E' med: 6.2 MV E/A: 1.0 MV dec slope: 276.8 cm/sec2 Ao V2 max: 99.3 cm/sec LV V1 max: 87.4 cm/sec Ao max P.9 mmHg LV V1 max P.1 mmHg Ao V2 mean: 79.3 cm/sec Ao mean P.6 mmHg Ao V2 VTI: 19.0 cm PA V2 max: 77.7 cm/sec TR max brad: 236.2 cm/sec TR max P.3 mmHg ECHO/Echo Complete Interpretation Summary The estimated ejection fraction is 55 %. No evidence for diastolic dysfunction. Ordering Physician: Álvaro Lopez Referring Physician: CRUZ ANN Performed By: Radha Ferrari, TULIO, RVT
== END | disposition home or self-care (01) ==
LOC: CVS 09:54
PROVIDERS: PCP Internal Medicine; Referring Provider Internal Medicine Cardiovascular Disease; Visit Provider Internal Medicine Cardiovascular Disease
DX: R42 Dizziness and giddiness (principal); G90.A Postural orthostatic tachycardia syndrome [POTS]; I36.1 Nonrheumatic tricuspid (valve) insufficiency
CPT/HCPCS: 93306; A4216

== ENCOUNTER → 2024-07-18 | Outpatient (CLI) | payer OTHER, MEDICAID, SELFPAY ==
[2024-07-18 07:53] LABS: Free T3 2.9 pg/mL (2.18-3.98)
[2024-07-19 04:07] LABS: Thyroid Peroxidase AB 37 IU/mL (0-34)
== END | disposition home or self-care (01) ==
LOC: LAB 06:20
PROVIDERS: Physician Assistant; PCP Internal Medicine; Referring Provider Internal Medicine; Visit Provider Internal Medicine
DX: E06.3 Autoimmune thyroiditis (principal)
CPT/HCPCS: 36415; 84439; 84443; 84481; 86376

== ENCOUNTER → 2024-10-08 | Outpatient (CLI) | payer OTHER, SELFPAY ==
[2024-10-08 07:38] LABS: Absolute Lymphocyte Count 2.34 X10^3/uL (0.83-4.51); Absolute Neutrophil Count 1.9 X10^3/uL (2.0-7.7); Basophil# 0.04 X10^3/uL; Basophil% 0.8 % (0-1); Eosinophil# 0.11 X10^3/uL; Eosinophils% 2.3 % (0-5); Hematocrit 37.2 % (37-47); Hemoglobin 13.2 g/dL (12.0-15.0); Lymphocyte # 2.34 X10^3/ul (0.83-4.51); Lymphocyte % 49.1 % (19-41); Mean Corp Hgb Conc 35.5 g/dL (32-36); Mean Corpuscular Hgb 35.5 pg (27.0-32.0); Monocyte# 0.41 X10^3/uL; Monocyte% 8.6 % (0-10); NRBC Flagged by Analyzer 0 % (0-5); Neutrophil # 1.86 X10^3/uL (2.7-7.7); Platelet Count 241 K/mm3 (150-450); RBC Distribution Width CV 12.5 % (11.6-14.6); RBC Distribution Width SD 46.3 fl (35.1-43.9); Red Blood Count 3.72 M/mm3 (4.2-5.4); White Blood Count 4.8 K/mm3 (4.4-11.0)
[2024-10-08 08:22] LABS: ALB/GLOB Ratio 1.7 RATIO (0.9-2.4); AST(SGOT) 13 U/L (<=31); Alanine Aminotransfer ALT/SGPT 8 U/L (<=34); Albumin, Serum 4.1 g/dL (3.5-5.0); Alkaline Phosphatase 38 U/L (35-104); Anion Gap 10 (5-15); BUN 11 mg/dL (4-19); BUN/Creat Ratio 14.3 RATIO (10-20); Calcium,Total 9.2 mg/dL (7.6-11.0); Carbon Dioxide 23.1 mmol/L (21.0-32.0); Chloride 107 mmol/L (98-108); Cholesterol 128 mg/dL (<=200); Creatinine, Serum 0.76 mg/dL (0.70-1.20); EST Glomerular Filtration Rate 100 (>60); Globulin 2.4 g/dL (2.2-4.2); Glucose 89 mg/dL (70-99); High Density Lipoprotein 54 mg/dL; Low Density Lipoprotein Calc. 64 mg/dL; Protein, Total 6.5 g/dL (5.9-8.4); Sodium Level 140 mmol/L (133-145); Total Bilirubin 0.49 mg/dL (0.00-1.30); Triglycerides 47 mg/dL; Very Low Density Lipoprotein 9 mg/dL (5-40); Vitamin B12 705 pg/mL (180-914); cholesterol:hdl ratio screen 2.35
== END | disposition home or self-care (01) ==
LOC: LAB 07:07
PROVIDERS: PCP Internal Medicine; Referring Provider Internal Medicine; Visit Provider Internal Medicine
DX: E06.3 Autoimmune thyroiditis (principal); D75.89 Other specified diseases of blood and blood-forming organs; Z13.6 Encounter for screening for cardiovascular disorders
CPT/HCPCS: 36415; 80053; 80061; 82607; 85025

== ENCOUNTER → 2024-12-08 | Outpatient (CLI) | payer OTHER, SELFPAY ==
--- OUTSIDE RECORDS SUMMARY | 2024-12-08 07:10 | XMS RPT_ITS | CCD ---
Author Organization [facility] CliniSymt Care Team Providers Care Addiction Professional Name Role Phone ANNAMARIE MARROQUIN Admitting Unavailable ANNAMARIE MARROQUIN Attending Unavailable ANNAMARIE MARROQUIN Primary Care Unavailable Mikayla Vasquez Unavailable Unavailable Mikayla Vasquez Unavailable Unavailable Mikayla Vasquez Unavailable Janice Raymundo Unavailable Unavailable Mikayla Vasquez Unavailable Unavailable Unavailable Mikayla Vasquez MD Primary Care Provider Dr. Mikayla Vasquez Primary Care Provider [phone] Mikayla Vasquez Referring Provider Dr. J Luis Gutierrez Attending Provider Dr. J Luis Gutierrez Primary Care Provider [phone] Sandra Vaca Attending Provider Unavailable Oleghe, Efewongbe Primary Care Unavailable Oleghe, Efewongbe Referring Unavailable Oleghe, Efewongbe Attending Unavailable Oleghe, Efewongbe Primary Care Unavailable Oleghe, Efewongbe Referring Unavailable Oleghe, Efewongbe Attending Unavailable Stevie Bailey Consulting Unavailable Oleghe, Efewongbe Attending Unavailable Oleghe, Efewongbe Referring Unavailable Oleghe, Efewongbe Primary Care Unavailable Fam Mora Attending Unavailable Fam Mora Referring Unavailable Oleghe, Efewongbe Primary Care Unavailable Oleghe, Efewongbe Referring Unavailable Oleghe, Efewongbe Consulting Unavailable Adarsh Collins Attending Unavailable Oleghe, Efewongbe Primary Care Unavailable Oleghe, Efewongbe Primary Care Unavailable Sami Tovar Attending Unavailable Oleghe, Efewongbe Referring Unavailable Oleghe, Efewongbe Referring Unavailable Stevie Bailey Attending Unavailable Oleghe, Efewongbe Primary Care Unavailable Oleghe, Efewongbe Referring Unavailable Regina Chavez NP Attending Unavailable Oleghe, Efewongbe Primary Care Unavailable Oleghe, Efewongbe Primary Care Unavailable Oleghe, Efewongbe Referring Unavailable Oleghe, Efewongbe Attending Unavailable Álvaro Lopez Attending Unavailable Álvaro Lopez Referring Unavailable Oleghe, Efewongbe Primary Care Unavailable Tyrel Fontana Attending Unavailable Oleghe, Efewongbe Primary Care Unavailable Oleghe, Efewongbe Attending Unavailable Oleghe, Efewongbe Referring Unavailable Oleghe, Efewongbe Primary Care Unavailable Oleghe, Efewongbe Referring Unavailable Oleghe, Efewongbe Attending Unavailable Oleghe, Efewongbe Primary Care Unavailable Oleghe, Efewongbe Referring Unavailable Kirstin Mukherjee Attending Unavailable Oleghe, Efewongbe Primary Care Unavailable JohnChristopherd Attending Unavailable Oleghe, Efewongbe Referring Unavailable Oleghe, Efewongbe Primary Care Unavailable Ryan Spring Attending Unavailable Oleghe, Efewongbe Referring Unavailable Oleghe, Efewongbe Primary Care Unavailable Sami Tovar Attending Unavailable Demiter Sami Referring Unavailable Oleghe, Efewongbe Primary Care Unavailable Regina Chavez NP Attending Unavailable Regina Chavez NP Referring Unavailable Oleghe, Efewongbe Primary Care Unavailable Fam Mora Attending Unavailable AbbyFam Referring Unavailable Oleghe, Efewongbe Primary Care Unavailable Oleghe, Efewongbe Referring Unavailable Oleghe, Efewongbe Attending Unavailable Oleghe, Efewongbe Primary Care Unavailable Oleghe, Efewongbe Primary Care Unavailable JohnChristopherd Attending Unavailable Oleghe, Efewongbe Referring Unavailable Oleghe, Efewongbe Primary Care Unavailable Oleghe, Efewongbe Attending Unavailable Oleghe, Efewongbe Referring Unavailable Oleghe, Efewongbe Primary Care Unavailable Nieves Villalobos Attending UnavailAdarsh Cerna Attending Unavailable Oleghe, Efewongbe Referring Unavailable Oleghe, Efewongbe Primary Care Unavailable Fam Mora Attending Unavailable Kirstin Mukherjee Referring Unavailable Olee, Efewongbe Primary Care Unavailable Fam Mora Attending Unavailable Fam Mora Referring Unavailable Fam Mora Consulting Unavailable Olee, Efewongbe Primary Care Unavailable Álvaro Lopez Attending Unavailable Olee, Efewongbe Referring Unavailable Olee, Efewongbe Primary Care Unavailable Olee, Efewongbe Primary Care Unavailable Robby Mckinney Attending Unavailable Olee, Efewongbe Referring Unavailable Allergies Allergy Classification Reported Allergen(s) Allergy Type Date of Onset Reaction(s) Facility Sulfonamides (antibiotic) (2 sources) Sulfonamides (Antibiotic); Translations: [Sulfa Drugs] Drug Allergy Hives/Urticari a [facility] (20 sources) Sulfonamides (Antibiotic); Translations: [Sulfa Drugs] Allergy to drug (finding) [facility] Work Phone: (1 source) Sulfonamides (Antibiotic) Drug Intolerance 2 Shortness of Breath [facility] Work Phone: (1 source) Sulfonamides (Antibiotic) Allergy to substance 2 Unknown [facility] Work Phone: (1 source) Sulfonamides (Antibiotic) Drug allergy (disorder) 5 [facility] Repository Medications Current Medications Medication Drug Class(es) Dates Sig (Normalized) Sig (Original) ALPRAZolam 0.5 mg oral tablet (20 sources) Benzodiazepine Start: 03-20-2022 End: 03-22-2022 take 1 tablet by mouth once daily Alprazolam (Xanax) 0.5 mg tablet Active 0.5 MG PO DAILY March 22, 2022 4:27pm Start: 05-05-2019 take 1 tablet by winston twice daily as needed for anxiety ALPRAZolam 0.5 MG Oral Tablet TAKE 1 TABLET Twice daily PRN anxiety/panic Quantity: 10 Refills: 0 Ordered: 18-Jan-2021 Mikayla Vasquez MD Start : 05-May-2019 Active Comment on above: Take 0.5 mg by mouth at bedtime as needed. 24 hr buPROPion hydrochloride 150 mg extended release oral tablet (20 sources) Aminoketone Start: 2 End: 2 take 1 tablet by mouth once daily in the morning Bupropion Hcl (Wellbutrin Xl) 150 mg tablet extended release 24 hr Active 150 MG PO EVERY MORNING March 21, 2022 2:15pm Start: 09-29-2020 take 1 tablet by winston th every twenty-four hours buPROPion HCl ER (XL) 150 MG Oral Tablet Extended Release 24 Hour TAKE 1 TABLET BY MOUTH EVERY 24 HOURS Quantity: 30 Refills: 11 Ordered: 18-Jan-2021 Mikayla Vasquez MD Start : 29-Sep-2020 Active take 1 tablet by winston th twice daily Wellbutrin 100 mg oral tablet ; 1 tab(s) orally 2 times a day Quantity: 0 Refills: 0 Ordered: 03-Nov-2020 Peggy Colmenares Generic Substitution Allowed cholecalciferol 0.125 mg oral capsule (15 sources) Vitamin D Start: 03-28-2022 take 40624 [IU] by mouth once daily Cholecalciferol (Vitamin D3) Active 70762 UNIT PO DAILY March 28, 2022 9:12am Start: 03-21-2022 End: 03-28-2022 take 125 ug by mouth once daily Cholecalciferol (Vitamin D3) Discontinued 125 MCG PO DAILY March 20, 2022 11:00pm March 28, 2022 9:13am Vitamin D (Ellie calciferol) 25 MCG (1000 UT) Oral Capsule Quantity: 0 Refills: 0 Ordered: 28-Mar-2021 DO Active fluconazole 150 mg oral tablet (2 sources) Azole Antifungal Start: 12-15-2021 End: 12-16-2021 take 1 tablet by mouth once daily fluconazole (DIFLUCAN) 150 mg tablet Indications: Urinary frequency Take 1 tablet by mouth once daily for 1 day. 1 tablet 0 12/15/2021 12/16/2021 Active Start: 04-09-2020 take 1 tablet by mouth once Fl uconazole 150 MG Oral Tablet TAKE 1 TABLET 1 TIME ONLY. Quantity: 1 Refills: 1 Mikayla Vasquez MD Start : 09-Apr-2020 Active Comment on above: Take 1 tablet by winston th once daily for 1 day. hydrOXYzine pamoate 25 mg oral capsule (20 sources) Antihistamine Start: 10-31-202 2 take 1 capsule by mouth twice daily Hydroxyzine Pamoate (Vistaril) 25 mg capsule Active 25 MG PO TWICE A DAY March 19, 2022 11:00pm Start: 01-18-2021 take 1 tablet by winston every four to six hours as needed for anxiety hydrOXYzine HCl - 25 MG Oral Tablet TAKE 1 TABLET BY MOUTH EVERY 4 TO 6 HOURS NEEDED FOR ANXIETY. Quantity: 30 Refills: 1 Ordered: 06-Jul-2021 Mikayla Vasquez MD Start : 18-Jan-2021 Active levonorgestrel 0.728588 mg/hr intrauterine system (10 sources) Progestin, Progestin-containing Intrauterine Device Start: 02-18-2021 Liletta (52 MG) 19.5 MCG/DAY Intrauterine Intrauterine Device 0 IUD IU Quantity: 0 Refills: 0 Ordered: 18-Feb-2021 Makeda Lucas DO Start : 18-Feb-2021 Complete Start: 07-11-2016 levonorgestrel (MIRENA) 20 mcg/24 hr (5 years) IUD Inserted in office 1 Each 0 07/11/2016 Active Mirena (52 MG) 2 0 MCG/24HR Intrauterine Intrauterine Device Quantity: 0 Refills: 0 Ordered: 12-Nov-2019 DO Active Comment on above: Inserted in office mecobalamin (2 sources) Start: 03-28-2022 take 42400 ug by mouth once daily Mecobalamin (Vitamin B12) Active 70084 MCG PO DAILY March 28, 2022 9:13am Start: 03-21-2022 End: 03-28-2022 take 5000 ug by mouth once daily Mecobalamin (Vitamin B12) Discontinued 5000 MCG PO DAILY March 20, 2022 11:00pm March 28, 2022 9:13am nitrofurantoin, macrocrystals 25 mg / nitrofurantoin, monohydrate 75 mg oral capsule (1 source) Nitrofuran Antibacterial Start: 12-15-2021 End: 12-20-2021 take 1 capsule by mouth twice daily nitrofurantoin monohydrate and macrocrystal (MACROBID) 100 mg capsule Indications: Urinary frequency Take 1 capsule by mouth twice daily for 5 days. 10 capsule 0 12/15/2021 12/20/2021 Active Comment on above: Take 1 capsule by mo [facility] twice daily for 5 days. Tirzepatide (Mounjaro) 10 mg/0.5 mL pen injector (1 source) Start: 03-20-2022 Tirzepatide (Mounjaro) 10 mg/0.5 mL pen injector Active 10 MG SC EVERY WEEK March 19, 2022 11:00pm Completed/Discontinued Medications Medication Drug Class(es) Dates Sig (Normalized) Sig (Original) acetaminophen 325 mg / HYDROcodone bitartrate 5 mg oral tablet (1 source) Opioid Agonist Start: 01-22-2020 End: 01-24-2020 take 1 tablet by mouth every four hours as needed Hydrocodone-Acetam inophen Discontinued 1 TABLET PO EVERY 4 HOURS NEEDED 02 19January 22, 2020 January 23, 2020 11:02pm cephalexin 500 mg oral tablet (2 sources) Cephalosporin Antibacterial Start: 04-09-2020 take 1 tablet by mouth three times daily Cephalexin 500 MG Oral Tablet TAKE 1 TABLET 3 times daily Quantity: 21 Refills: 0 Mikayla Vasquez MD Start : 09-Apr-2020 Active Start: 06-15-2019 End: 06-19-2019 take 1 capsule by mouth twice daily Keflex 500 mg oral capsule ; 1 cap(s) orally 2 times a day Quantity: 10 Refills: 0 Ordered: 15-Jun-2019 Juan Gomez Start: 15-Jun-2019 End: 19-Jun-2019 Generic Substitution Allowed Comments: Finish all this medication unless otherwise directed by prescriber. Comment on above: Finish all this medi cation unless otherwise directed by prescriber. ciprofloxacin 500 mg oral tablet (1 source) Quinolone Antimicrobial Start: 01-22-20 End: 03-20-20 22 take 500 mg by mouth twice daily Ciprofloxacin Hcl Discontinued 500 MG PO TWICE A DAY January 21, 2020 11:00pm March 20, 2022 1:15pm escitalopram 10 mg oral tablet (20 sources) Serotonin Reuptake Inhibitor Start: 09-16-19 21 escitalopram oxalate (LEXAPRO) 10 mg tablet Start: 08-25-2020 escitalopram o xalate (LEXAPRO) 5 mg tablet Take by mouth. 0 08/25/2020 Active take 2 tablets by mo [facility] once daily Lexapro 5 mg oral tablet ; 2 tab(s) orally once a day Quantity: 0 Refills: 0 Ordered: 03-Nov-2020 Peggy Colmenares Generic Substitution Allowed Comment on above: Take by mouth. fluticasone propionate 0.05 mg/actuat metered dose nasal spray (2 sources) Corticosteroid Start: 3 take 2 spray(s) by mouth once daily fluticasone (FLONASE) 50 mcg/actuation nasal spray Indications: Viral URI with cough Use 2 Sprays in each nostril once daily. Rinse mouth after use. 1 Bottle 11 01/31/2016 Active Comment on above: Use 2 Sprays in each nostril once daily. Use 2 Sprays in each nostril once daily. Rinse mouth after use. ibuprofen 800 mg oral tablet (20 sources) Nonsteroidal Anti-inflammatory Drug Start: take 1 tablet by mouth every eight hours as needed ibuprofen (MOTRIN) 800 mg tablet Take 1 tablet by mouth every 8 hours as needed for pain (with food.). 20 tablet 0 12/28/2020 Active Start: 12-28-2020 Ibuprofen 800 MG Oral Tablet Quantity: 20 Refills: 0 Ordered: 28-Dec-2020 DO Start : 28-Dec-2020 Active Comment on above: Take 1 tablet by winston th every 8 hours as needed for pain (with food.). loratadine 10 mg oral tablet (20 sources) Loratadine 10 MG Oral Tablet Quantity: 0 Refills: 0 Ordered: 18-Jan-2021 DO Active methylPREDNISolone (1 source) Corticosteroid Start: 2014 methylPREDNISolone (MEDROL, YOUNG,) 4 mg Dose-Pack Indications: Rash and other nonspecific skin eruption Use as directed 1 Package 0 01/31/2015 Active Comment on above: Use as directed miSOPROStol 0.2 mg oral tablet (1 source) Prostaglandin E1 Analog Start: 2016 take 1 tablet by mouth every six hours miSOPROStol (CYTOTEC) 200 mcg tablet Take 1 tablet by mouth every 6 hours. 2 tablet 0 06/22/2016 Active Comment on above: Take 1 tablet by winston th every 6 hours. Mounjaro 2.5 MG/0.5ML Subcutaneous Solution Pen-injector (1 source) Start: 2021 Mounjaro 2.5 MG/0.5ML Subcutaneous Solution Pen-injector INJECT UNIT Quantity: 1 Refills: 0 Ordered: 23-Nov-2021 Mikayla Vasquez MD Start : 23-Nov-2021 Active naproxen 500 mg oral tablet (1 source) Nonsteroidal Anti-inflammatory Drug Start: 2019 End: 2021 take 500 mg by mouth twice daily as needed Naproxen Discontinued 500 MG PO TWICE DAILY NEEDED January 21, 2020 11:00pm March 20, 2022 1:15pm rifAXIMin 550 mg oral tablet (6 sources) Rifamycin Antibacterial Start: 2020 End: 2021 take 1 tablet by mouth three times daily Xifaxan 550 MG Oral Tablet 1 tablet 3 times daily until gone Quantity: 42 Refills: 0 Ordered: 11-May-2021 Wojciechbelkis RICHARDS Monster Start : 11-May-2021 End : 21-Jul-2021 Complete tirzepatide (MOUNJARO) 2.5 mg/0.5 mL pen injector (1 source) Start: 2021 tirzepatide (MOUNJARO) 2.5 mg/0.5 mL pen injector Inject subcutaneously. 0 11/23/2021 Active Comment on above: Inject subcutaneousl y. Vitamin B12 TABS (13 sources) Vitamin B12 TABS Quantity: 0 Refills: 0 Ordered: 28-Mar-2021 DO Active Problems Active Problems Problem Classification Problem Date Documented Da te Episodic/Chronic Adjustment disorders (1 source) Adjustment disorder; Translations: [Adjustment disorder with other symptoms] Onset: 07-27-2010 07-27-2010 Chronic Anxiety disorders (20 sources) Anxiety disorder; Translations: [Anxiety state, unspecified] Chronic Biliary tract disease (20 sources) Gallstone; Translations: [Calculus of gallbladder without mention of cholecystitis, without mention of obstruction] Episodic Calculus of urinary tract (20 sources) Kidney stone; Translations: [Calculus of kidney] Episodic Cardiac dysrhythmias (2 sources) Tachycardia, unspecified; Translations: [Tachycardia, unspecified] Onset: 12-01-2024 Episodic Complication of device; implant or graft (11 sources) Malposition of intrauterine contraceptive device; Translations: [Other complications due to genitourinary device, implant, and graft] Episodic Conditions associated with dizziness or vertigo (2 sources) Dizziness and giddiness; Translations: [Dizziness and giddiness] Onset: 12-01-2024 Episodic Contraceptive and procreative management (20 sources) Intrauterine contraceptive device in situ; Translations: [Presence of intrauterine contraceptive device] Episodic Comment on above: 2017; Genitourinary symptoms and ill-defined conditions (3 sources) History of urinary tract infection; Translations: [Increased frequency of urination] Episodic Mood disorders (20 sources) Bipolar disorder; Translations: [Bipolar disorder, unspecified] Onset: 07-27-2010 Resolved: 09-15-2020 07-27-2010 Chronic Noninfectious gastroenteritis (20 sources) Chronic diarrhea; Translations: [Diarrhea] Episodic Nonmalignant breast conditions (20 sources) Fibrocystic disease of breast; Translations: [Diffuse cystic mastopathy] Chronic Nutritional deficiencies (2 sources) Vitamin D deficiency; Translations: [Vitamin D deficiency, unspecified] Chronic Nutritional deficiencies (20 sources) Decreased vitamin B12 level; Translations: [Other B-complex deficiencies] Episodic Other gastrointestinal disorders (20 sources) Irritable bowel syndrome; Translations: [Irritable bowel syndrome] Chronic Other lower respiratory disease (6 sources) Snoring; Translations: [Other respiratory abnormalities] Episodic Other nutritional; endocrine; and metabolic disorders (20 sources) Body mass index 40+ - severely obese; Translations: [Body Mass Index 40.0-44.9, adult] Chronic Other nutritional; endocrine; and metabolic disorders (1 source) Morbid obesity; Translations: [Morbid (severe) obesity due to excess calories] Chronic Other nutritional; endocrine; and metabolic disorders (1 source) Morbid (severe) obesity due to excess calories; Translations: [Morbid obesity] Chronic Other and delivery including normal (20 sources) Delivery normal; Translations: [Normal delivery] Episodic Comment on above: 01/2003; 36 WEEKS; MA LE; 6LBS 5OZ06/2005; 35 WEEKS; MALE; 6LBS 2OZ; Other upper respiratory disease (20 sources) Seasonal allergy; Translations: [Allergic rhinitis, cause unspecified] Chronic Residual codes; unclassified (4 sources) Sleep apnea; Translations: [Unspecified sleep apnea] Chronic Residual codes; unclassified (1 source) Obstructive sleep apnea syndrome; Translations: [Obstructive sleep apnea (adult) (pediatric)] Chronic Residual codes; unclassified (1 source) Obstructive sleep apnea (adult) (pediatric); Translations: [Obstructive sleep apnea (adult)(pediatric)] Chronic Residual codes; unclassified (20 sources) H/O: miscarriage; Translations: [Personal history of other genital system and obstetric disorders] Episodic Comment on above: 06/1999; Residual codes; unclassified (20 sources) Past history of procedure; Translations: [Other specified personal history presenting hazards to health] Episodic Comment on above: 01/20/2021; Thyroid disorders (1 source) Autoimmune thyroiditis; Translations: [Autoimmune thyroiditis] Onset: 10-10-2024 Chronic Unclassified (2 sources) HIVES 11-03-2020 Comment on above: HIVES Past or Other Problems Problem Classification Problem Date Documented Da te Episodic/Chronic Abdominal pain (1 source) Unspecified abdominal pain; Translations: [Unspecified abdominal pain] Onset: 01-31-2024 Episodic Administrative/social admission (1 source) Marital conflict; Translations: [Problems in relationship with spouse or partner] Onset: 01-04-2015 01-04-2015 Episodic Immunizations and screening for infectious disease (15 sources) Encounter for observation for suspected exposure to other biological agents ruled out; Translations: [Patient encounter status] Onset: 01-02-2020 Episodic Malaise and fatigue (7 sources) Fatigue; Translations: [Other malaise and fatigue] Onset: 04-22-2024 Episodic Other screening for suspected conditions (not mental disorders or infectious disease) (20 sources) Breast neoplasm screening status; Translations: [Other screening mammogram] Onset: 05-09-2024 Episodic Residual codes; unclassified (1 source) Flushing; Translations: [Flushing] Onset: 04-22-2024 Episodic Syncope (2 sources) Syncope and collapse; Translations: [Syncope and collapse] Onset: 03-05-2024 Episodic Unclassified (20 sources) Finding of menstrual bleeding; Translations: [Menstruation] Comment on above: AGE 12; Varicose veins of lower extremity (2 sources) Varicose veins of left lower extremity with pain; Translations: [Varicose veins of left lower extremity with pain] Onset: 12-27-2023 Episodic NEGATED: Highlighted row has not occurred!Residual codes; unclassified (3 sources) Disease Episodic Results Test Name Value Interpretation Reference Range Facility Cardiology Visit Reporton Cardiology Visit Report [facility] [address] [place] [address] OFFICE VISIT Date of Service: 12/01/24 MR#: [id number] Acct: [id number] Name: CARLIE GIPSON Rep #: [id number] : 1980 Provider: RHIANNON Wright Age/Sex: 44/F [place] [facility] [place] Status: Signed HPI HPI History of Present Illness Details: Carlie Gipson is a 44-year-old female who presents to the office today for monitoring her cardiovascular health. She has a history of POTS with a positive tilt table test 01/2024. Upon presentation today, patient reports ongoing dizziness, spots in her vision. This is noted to be worse in the evening and first thing in the morning. She is cautious with bending over. She finds herself SOB when she is outside and it is hot. She takes her metoprolol nightly and takes midodrine roughly 7am, 12pm and 4pm. BP at home runs lower 100s/70s. She reports ongoing episodes of rapid heart rate. Intake Vital Signs 10/09/24 18:28 12/01/24 06:44 Height 5 ft 3 in 5 ft 3 in Weight: 125 lb 125 lb BMI 22.1 22.1 BP 122/78 H 104/71 Blood Pressure Location Lt brachial Lt brachial Position Sitting Sitting Respiration 16 18 Pulse 77 73 Pulse Source Monitor Monitor Temp 99.1 F Pulse Oximetry (%) 99 98 Oxygen Delivery Method room air Intake Visit Reasons: 3 M FU Ortho Rn Required: No Is patient in pain?: No Allergies Sulfa (Sulfonamide Antibiotics) Allergy (Severe, Verified 12/01/24 13:00) PT UNSURE OF REACTION Medications ???Medication ???Instructions ???Recorded ???Confirmed ???Type alprazolam 0.5 mg tablet (Xanax) 0.5 mg PO DAILY PRN anxiety #20 12/01/24 Rx tabs hydroxyzine pamoate 25 mg capsule 25 mg PO BID PRN anxiety #120 cap s 03/13/24 12/01/24 Rx (Vistaril) metoprolol succinate 25 mg 25 mg PO .COMPLEX #30 tabs 07/14/ 5 12/01/24 Rx tablet,extended release 24 hr midodrine 10 mg tablet 10 mg PO TID #90 tabs 04/17/25 07/ 14/25 Rx cholecalciferol (vitamin D3) 125 5,000 unit PO DAILY 10/09/2412/01 History mcg (5,000 unit) capsule semaglutide 0.25 mg or 0.5 mg (2 0.25 mg subcut .o7micty 10/09/24 0 12/01/24 History mg/3 mL) subcutaneous pen injector bupropion HCl 150 mg 24 hr tablet, 150 mg PO QAM #90 tabs 12/01/24 Rx extended release (Wellbutrin XL) cyanocobalamin (vitamin B-12) 1,000 mcg IM QMONTH #10 mL 5 Rx 1,000 mcg/mL injection solution Ejection fraction %: 55 Have you fallen in the past year?: No PFSH Medical History Photosensitivity dermatitis due to sun Macrocytosis Pre-syncope Tachycardia Malaise Lightheadedness Abnormal CBC Preventative health care Screening for cardiovascular condition Health care maintenance Panic disorder MDD (major depressive disorder) Obstructive sleep apnea Morbid obesity Anxiety and depression Sleep apnea Vitamin B 12 deficiency Vitamin D deficiency Kidney stones IBS (irritable bowel syndrome) Gallstones Seasonal allergies Family History Mother Diabetes Aunt Diabetes Depression Ovarian cancer Grandmother Myocardial infarction Other Anxiety Kidney disease Social History household members: spouse number of children: 2 current occupational status: employed 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 ROS Const Const: Negative for fatigue, weakness, headache(s) or frequent falls Eyes Eyes: Negative for blurry vision ENT ENT: Positive for dizziness; Negative for headache(s) or Nosebleed/epistaxis Cardio Chest Pain: No Palpitations: No Edema: None Muscle aches with walking: None Additional Details: Feels rapid heart rates. Resp Respiratory: Negative for SOB with activity, SOB at rest or SOB orthopnea SOB lying down GI GI: Negative nausea, vomiting, heartburn, bright, red blood in stools or black,tarry stools : Negative for hematuria Neuro Neuro: Positive for dizziness and lightheadedness; Negative for near syncope, syncope, frequent falls, headache(s), weakness or blurry vision Endo Endo: Negative for fatigue Cardiology Exam Const Appearance: cooperative, comfortable, no acute distress and well developed; Negative diaphoretic or ill appearing Nutritional Appearance: average body habitus Orientation: alert and oriented x3 Ambulating without assistive device Head Head: normal (more content not included)... Normal [facility] Office Vis ito 10-09-2024 Internal Medicine Office Visit [facility] [address] [place] [address] [place] [address] OFFICE VISIT Date of Service: 10/09/24 MR#: [id number] Acct: [id number] Name: RENEEUSEBIACARLIE Rep #: [id number] : 1980 Provider: Dr. J Luis wolf MD Age/Sex: 43/F [place] [facility] [place] Status: Signed Intake Vital Signs 07/17/24 16:49 09/04/24 09:00 10/09/24 18:28 Height 5 ft 3 in 5 ft 3 in 5 ft 3 in Weight: 125 lb BMI 22.1 BP 122/78 H Blood Pressure Location Lt brachial Position Sitting Respiration 16 Pulse 77 Pulse Source Monitor Temp 99.1 F Temp Source Temporal Pulse Oximetry (%) 99 Oxygen Delivery Method room air Intake Visit Reasons: 3 M FU Chief Complaint: 4 M FU Ortho Rn Required: No Is patient in pain?: No Allergies Sulfa (Sulfonamide Antibiotics) Allergy (Severe, Verified 10/09/24 18:10) PT UNSURE OF REACTION Medications ???Medication ???Instructions ???Recorded ???Confirmed ???Type alprazolam 0.5 mg tablet (Xanax) 0.5 mg PO DAILY PRN anxiety #20 10/09/24 Rx tabs bupropion HCl 150 mg 24 hr tablet, 150 mg PO QAM #90 tabs 03/13/24 10/09/24 Rx extended release (Wellbutrin XL) cyanocobalamin (vitamin B-12) 1,000 mcg IM QMONTH #10 mL 4 10/09/24 Rx 1,000 mcg/mL injection solution hydroxyzine pamoate 25 mg capsule 25 mg PO BID PRN anxiety #120 cap s 03/13/24 10/09/24 Rx (Vistaril) metoprolol succinate 25 mg 25 mg PO .COMPLEX #30 tabs 5 10/09/24 Rx tablet,extended release 24 hr midodrine 10 mg tablet 10 mg PO TID #90 tabs 09/04/24 Rx cholecalciferol (vitamin D3) 125 5,000 unit PO DAILY 10/09/2410/09 History mcg (5,000 unit) capsule semaglutide 0.25 mg or 0.5 mg (2 0.25 mg subcut .n9wogef 10/09/24 0 10/09/24 History mg/3 mL) subcutaneous pen injector [facility] Medical History (Updated 10/09/24 @ 22:[address] J Luis Gutierrez MD) Photosensitivity dermatitis due to sun Macrocytosis Pre-syncope Tachycardia Malaise Lightheadedness Abnormal CBC Preventative health care Screening for cardiovascular condition Health care maintenance Panic disorder MDD (major depressive disorder) Obstructive sleep apnea Morbid obesity Anxiety and depression Sleep apnea Vitamin B 12 deficiency Vitamin D deficiency Kidney stones IBS (irritable bowel syndrome) Gallstones Seasonal allergies Family History Mother Diabetes Aunt Diabetes Depression Ovarian cancer Grandmother Myocardial infarction Other Anxiety Kidney disease Social History household members: spouse number of children: 2 current occupational status: employed 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 HPI HPI Chief Complaint: 4 M FU Details: CARLIE GIPSON, is a 43 F who presents to the office today for follow-up of her chronic conditions. Also has some concerns. Was away on vacation and following sun exposure, had redness and discomfort of her right lower extremity. Subsequently, exfoliation noted. She states that she has been applying [employer] ointment/cream on it. It is improving. Since her last visit, restarted semaglutide but she states that she is taking it only every other week. Restarted not necessarily for weight maintenance but because it has been helping with IBS. History of IBS-D, side effect of constipation from the GLP-1's has been helpful for this. Other chronic medical conditions are largely stable. ROS Const Constitutional: No body ache, chills, excessive sweating, fatigue, fever(s), frequent falls, headache(s), snoring, weakness, sleep problems or change in appetite Eyes Eyes: No blurry vision, change in vision, eye pain or Light sensitivity ENT ENT: No abnormal hearing, ear or mastoid pain, tinnitus, nasal congestion, headache(s), neck pain or sore throat Resp Respiratory: No cough, shortness of breath, snoring or wheezing Cardio Cardiology: No chest pain at rest, chest pain with exertion, excessive sweating, shortness of breath, dyspnea on exertion, lightheadedness, orthopnea or palpitations Gastro GI: No abdominal pain, change in bowel habits, constipation, cramping, diarrhea, nausea/dyspepsia or vomiting Genitourinary-Female: No burning urination, painful urination, urinary incontinence, urinary frequency, abnormal vaginal bleeding or pelvic pain Musc Musculoskeletal: No abnormal gait, joint pain, back pain, limited r (more content not included)... Normal [facility] CBC W/Diff, Automatedon 05-2 Absolute Lymph 2.34 X10 3/uL Normal 0.83-4.51 [facility] Comment on above: Performed By: #### L 503.0106, L500.4050, L100.0100, L500.4100 ####[facility] [address] [place], [address] Absolute Neut 1.9 X10 3/uL Low 2.0-7.7 [facility] Comment on above: Performed By: #### L 503.0106, L500.4050, L100.0100, L500.4100 ####[facility] [address] [place], [address] Basophils/100 WBC (Bld) 0.8 % Normal 0-1 [facility] Comment on above: Performed By: #### L 503.0106, L500.4050, L100.0100, L500.4100 ####[facility] [address] [place], [address] Eosinophils/100 WBC (Bld) 2.3 % Normal 0-5 [facility] Comment on above: Performed By: #### L 503.0106, L500.4050, L100.0100, L500.4100 ####[facility] [address] [place], [address] Erythrocyte distribution width (RBC) [Ratio] 12.5 % Normal 11.6-14.6 [facility] Comment on above: Performed By: #### L 503.0106, L500.4050, L100.0100, L500.4100 ####[facility] [address] [place], [address] Hematocrit (Bld) [Volume fraction] 37.2 % Normal 37-47 [facility] Comment on above: Performed By: #### L 503.0106, L500.4050, L100.0100, L500.4100 ####[facility] [address] [place], [address] Hemoglobin (Bld) [Mass/Vol] 13.2 g/dL Normal 12.0-15.0 [facility] Comment on above: Performed By: #### L 503.0106, L500.4050, L100.0100, L500.4100 ####[facility] [address] [place], [address] IG% 0.200 Normal 0.0-0.9 [facility] Comment on above: Result Comment: IG% - Immature Granulocytes (promyelocytes, myelocytes and metamyelocytes) > 1% indicates that a LEFT SHIFT is Present. Performed By: #### L 503.0106, L500.4050, L100.0100, L500.4100 ####[facility] [address] [place], [address] Lymphocytes/100 WBC (Bld) 49.1 % High 19-41 [facility] Comment on above: Performed By: #### L 503.0106, L500.4050, L100.0100, L500.4100 ####[facility] [address] [place], [address] MCH (RBC) [Entitic mass] 35.5 pg High 27.0-32.0 [facility] Comment on above: Performed By: #### L 503.0106, L500.4050, L100.0100, L500.4100 ####[facility] [address] [place], [address] MCHC (RBC) [Mass/Vol] 35.5 g/dL Normal 32-36 [facility] Comment on above: Performed By: #### L 503.0106, L500.4050, L100.0100, L500.4100 ####[facility] [address] [place], [address] MCV (RBC) [Entitic vol] 100.0 fL High 81-99 [facility] Comment on above: Performed By: #### L 503.0106, L500.4050, L100.0100, L500.4100 ####[facility] [address] [place], [address] Monocytes/100 WBC (Bld) 8.6 % Normal 0-10 [facility] Comment on above: Performed By: #### L 503.0106, L500.4050, L100.0100, L500.4100 ####[facility] [address] [place], [address] Neutrophils/100 WBC (Bld) 39.0 % Low 47-70 [facility] Comment on above: Performed By: #### L 503.0106, L500.4050, L100.0100, L500.4100 ####[facility] [address] [place], [address] Nucleated RBC (Bld) [#/Vol] 0 10*3/uL Normal 0-5 [facility] Comment on above: Performed By: #### L 503.0106, L500.4050, L100.0100, L500.4100 ####[facility] [address] [place], [address] Platelet mean volume (Bld) [Entitic vol] 10.0 fL Normal 6.2-12.0 [facility] Comment on above: Performed By: #### L 503.0106, L500.4050, L100.0100, L500.4100 ####[facility] [address] [place], [address] Platelets (Bld) [#/Vol] 241 10*3/uL Normal 150-450 [facility] Comment on above: Performed By: #### L 503.0106, L500.4050, L100.0100, L500.4100 ####[facility] [address] [place], [address] RBC (Bld) [#/Vol] 3.72 10*6/uL Low 4.2-5.4 [facility] Comment on above: Performed By: #### L 503.0106, L500.4050, L100.0100, L500.4100 ####[facility] [address] [place], [address] RDW SD 46.3 fl High 35.1-43.9 [facility] Comment on above: Performed By: #### L 503.0106, L500.4050, L100.0100, L500.4100 ####[facility] [address] [place], [address] WBC (Bld) [#/Vol] 4.8 10*3/uL Normal 4.4-11.0 [facility] Comment on above: Performed By: #### L 503.0106, L500.4050, L100.0100, L500.4100 ####[facility] [address] [place], [address] Comprehensive Metabolic Prof [facility] 10-08-2024 Albumin [Mass/Vol] 4.1 g/dL Normal 3.5-5.0 [facility] Comment on above: Performed By: #### L 503.0106, L500.4050, L100.0100, L500.4100 ####[facility] [address] [place], [address] Albumin/Globulin [Mass ratio] 1.7 {ratio} Normal 0.9-2.4 [facility] Comment on above: Performed By: #### L 503.0106, L500.4050, L100.0100, L500.4100 ####[facility] [address] [place], [address] ALK PHOS 38 U/L Normal 35-104 [facility] Comment on above: Performed By: #### L 503.0106, L500.4050, L100.0100, L500.4100 ####[facility] [address] [place], [address] ALT [Catalytic activity/Vol] 8 U/L Normal <=34 [facility] Comment on above: Performed By: #### L 503.0106, L500.4050, L100.0100, L500.4100 ####[facility] [address] [place], [address] AST [Catalytic activity/Vol] 13 U/L Normal <=31 [facility] Comment on above: Performed By: #### L 503.0106, L500.4050, L100.0100, L500.4100 ####[facility] [address] [place], [address] Bilirubin [Mass/Vol] 0.49 mg/dL Normal 0.00-1.30 [facility] Comment on above: Performed By: #### L 503.0106, L500.4050, L100.0100, L500.4100 ####[facility] [address] [place], [address] BUN/CRE 14.3 RATIO Normal 10-20 [facility] Comment on above: Performed By: #### L 503.0106, L500.4050, L100.0100, L500.4100 ####[facility] [address] [place], [address] Calcium [Mass/Vol] 9.2 mg/dL Normal 7.6-11.0 [facility] Comment on above: Performed By: #### L 503.0106, L500.4050, L100.0100, L500.4100 ####[facility] [address] [place], [address] Chloride [Moles/Vol] 107 mmol/L Normal 98-108 [facility] Comment on above: Performed By: #### L 503.0106, L500.4050, L100.0100, L500.4100 ####[facility] [address] [place], [address] CO2 [Moles/Vol] 23.1 mmol/L Normal 21.0-32.0 [facility] Comment on above: Performed By: #### L 503.0106, L500.4050, L100.0100, L500.4100 ####[facility] [address] [place], [address] Creatinine [Mass/Vol] 0.76 mg/dL Normal 0.70-1.20 [facility] Comment on above: Performed By: #### L 503.0106, L500.4050, L100.0100, L500.4100 ####[facility] [address] [place], [address] GAP 10 Normal 5-15 [facility] Comment on above: Performed By: #### L 503.0106, L500.4050, L100.0100, L500.4100 ####[facility] [address] [place], [address] GFR/1.73 sq M.predicted among non-blacks MDRD (S/P/Bld) [Vol rate/Area] 100 mL/min/{1.73_m2} Normal >60 [facility] Comment on above: Result Comment: mL/m in/1.73m2 CKD-EPI Creatinine Equation (2020) Performed By: #### L 503.0106, L500.4050, L100.0100, L500.4100 ####[facility] [address] [place], [address] Globulin (S) [Mass/Vol] 2.4 g/dL Normal 2.2-4.2 [facility] Comment on above: Performed By: #### L 503.0106, L500.4050, L100.0100, L500.4100 ####[facility] [address] [place], [address] Glucose [Mass/Vol] 89 mg/dL Normal 70-99 [facility] Comment on above: Performed By: #### L 503.0106, L500.4050, L100.0100, L500.4100 ####[facility] [address] [place], [address] Potassium [Moles/Vol] 4.0 mmol/L Normal 3.3-5.1 [facility] Comment on above: Performed By: #### L 503.0106, L500.4050, L100.0100, L500.4100 ####[facility] [address] [place], [address] Sodium [Moles/Vol] 140 mmol/L Normal 133-145 [facility] Comment on above: Performed By: #### L 503.0106, L500.4050, L100.0100, L500.4100 ####[facility] [address] [place], [address] T PROT 6.5 g/dL Normal 5.9-8.4 [facility] Comment on above: Performed By: #### L 503.0106, L500.4050, L100.0100, L500.4100 ####[facility] [address] [place], [address] Urea nitrogen [Mass/Vol] 11 mg/dL Normal 4-19 [facility] Comment on above: Performed By: #### L 503.0106, L500.4050, L100.0100, L500.4100 ####[facility] [address] [place], [address] Lipid Profileon 10-08-2024 CHOL:HDL 2.35 Normal [facility] Comment on above: Performed By: #### L 503.0106, L500.4050, L100.0100, L500.4100 ####[facility] [address] [place], [address] Cholesterol [Mass/Vol] 128 mg/dL Normal <=200 [facility] Comment on above: Result Comment: Chol esterol level, Desirable <200 mg/dL Borderline high cholesterol 200-239 mg/dL High cholesterol >=240 mg/dL Recommendations of the NCEP Adult Treatment Panel for the following risk-cutoff thresholds for the [place] population. Performed By: #### L 503.0106, L500.4050, L100.0100, L500.4100 ####[facility] [address] [place], [address] Cholesterol in HDL [Mass/Vol] 54 mg/dL Normal [facility] Comment on above: Result Comment: Becka onal Cholesterol Education Program (NCEP) guidelines: <40 mg/dL: Low HDL-cholesterol (major risk factor for CHD) >= 60 mg/dL: High HDL-cholesterol (negative risk factor for CHD) HDL-cholesterol is affected by a number of factors, e.g. smoking, exercise, hormones, sex and age. Performed By: #### L 503.0106, L500.4050, L100.0100, L500.4100 ####[facility] [address] [place], [address] Cholesterol in LDL [Mass/Vol] 64 mg/dL Normal [facility] Comment on above: Result Comment: Bord slaheu=338-444 mg/dL Higher Qegi=116 mg/dL or greater Performed By: #### L 503.0106, L500.4050, L100.0100, L500.4100 ####[facility] [address] [place], [address] Cholesterol in VLDL [Mass/Vol] 9 mg/dL Normal 5-40 [facility] Comment on above: Performed By: #### L 503.0106, L500.4050, L100.0100, L500.4100 ####[facility] [address] [place], [address] Triglyceride [Mass/Vol] 47 mg/dL Normal [facility] Comment on above: Result Comment: The drugs N-Acetylcysteine and Metamizole may falsely depress this assay. Normal range: <150 mg/dL Borderline High: 150-199 mg/dL High: 200-499 mg/dL Very High: >500 mg/dL Performed By: #### L 503.0106, L500.4050, L100.0100, L500.4100 ####[facility] [address] [place], [address] Vitamin B12on 10-08-2024 Cobalamin (Vitamin B12) [Mass/Vol] 705 pg/mL Normal 180-914 [facility] Comment on above: Performed By: #### L 503.0106, L500.4050, L100.0100, L500.4100 ####[facility] [address] [place], [address] Cardiology Visit Reporton Cardiology Visit Report [facility] [address] [place], [place] [address] OFFICE VISIT Date of Service: 09/04/24 MR#: [id number] Acct: [id number] Name: RENEEUSEBIACARLIE Rep #: [id number] : 1980 Provider: Dr. Álvaro Lopez MD Age/Sex: 43/F [place] [facility] Status: Signed HPI HPI History of Present Illness Details: This lady with history of POTS is here for follow-up visit. Her midodrine has gradually been increased to 7.5 mg 3 times a day. With that, her frequency of her lightheadedness and presyncopal symptoms has certainly decreased but not completely resolved. Also per the patient, she is feeling better with taking metoprolol extended release 25 mg at night. Per her, if she forgets her dose of metoprolol at night, the next day she does not feel good. No chest pains. No shortness of breath. No palpitations. Intake Vital Signs 07/17/24 16:49 09/04/24 09:00 Height 5 ft 3 in 5 ft 3 in Weight: 127 lb 126 lb BMI 22.4 22.3 BP 122/60 H 93/73 Blood Pressure Location Lt brachial Lt brachial Position Sitting Sitting Respiration 18 16 Pulse 73 74 Pulse Source Monitor NIBP Temp 97.8 F Pulse Oximetry (%) 98 Oxygen Delivery Method room air Intake Visit Reasons: 3 M FU Ortho Rn Required: No Accompanied by: Self Is patient in pain?: No Allergies Sulfa (Sulfonamide Antibiotics) Allergy (Severe, Verified 09/04/24 14:49) PT UNSURE OF REACTION Medications ???Medication ???Instructions ???Recorded ???Confirmed ???Type cholecalciferol (vitamin D3) 125 10,000 unit PO DAILY 03/28/2208/19 History mcg (5,000 unit) capsule alprazolam 0.5 mg tablet (Xanax) 0.5 mg PO DAILY PRN anxiety #20 09/04/24 Rx tabs bupropion HCl 150 mg 24 hr tablet, 150 mg PO QAM #90 tabs 03/13/24 09/04/24 Rx extended release (Wellbutrin XL) cyanocobalamin (vitamin B-12) 1,000 mcg IM QMONTH #10 mL 4 09/04/24 Rx 1,000 mcg/mL injection solution hydroxyzine pamoate 25 mg capsule 25 mg PO BID PRN anxiety #120 cap s 03/13/24 09/04/24 Rx (Vistaril) metoprolol succinate 25 mg 25 mg PO .COMPLEX #30 tabs 5 09/04/24 Rx tablet,extended release 24 hr midodrine 5 mg tablet 7.5 mg (1.5 x 5 mg) PO TID #90 tab s 07/14/24 09/04/24 Rx Ejection fraction %: 55 Have you fallen in the past year?: No PFSH Medical History Abnormal CBC Anxiety and depression Gallstones Health care maintenance IBS (irritable bowel syndrome) Kidney stones Lightheadedness Malaise MDD (major depressive disorder) Morbid obesity Obstructive sleep apnea Panic disorder Pre-syncope Preventative health care Screening for cardiovascular condition Seasonal allergies Sleep apnea Tachycardia Vitamin B 12 deficiency Vitamin D deficiency Family History Mother Diabetes Aunt Diabetes Depression Ovarian cancer Grandmother Myocardial infarction Other Anxiety Kidney disease Social History household members: spouse number of children: 2 current occupational status: employed 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 ROS Const Const: Negative for fatigue, weakness, headache(s) or weight gain ENT ENT: Positive for dizziness (less occurrences; more intense; better during daytime); Negative for headache(s), Nosebleed/epistaxis or balance problems Cardio Chest Pain: No Palpitations: No Edema: None Muscle aches with walking: None Resp Respiratory: Negative for SOB with activity, SOB at rest or SOB orthopnea SOB lying down GI GI: Negative nausea, vomiting or heartburn Musc Musc: Negative for muscle aches/ myalgia, muscle weakness, joint pain or balance problems Neuro Neuro: Positive for dizziness (less occurrences; more intense; better during daytime), lightheadedness and near syncope; Negative for syncope, headache(s) or weakness Endo Endo: Negative for fatigue Cardiology Exam Const Appearance: comfortable and no acute distress Nutritional Appearance: well nourished Neck Neck: no JVD Carotids: Negative bruit Chest Auscultation: Bilateral: Clear to Auscultation Cardio Rate: regular rate Rhythm: regular rhythm Heart sounds: S1 normal and S2 normal Neuro General: patient alert, patient awake and patient oriented x3 Extremities Lower Extremity Edema: None: Bilateral Supplemental Info Supplemental Info (more content not included)... Normal [facility] Thyroid Peroxidase ABon 03-0 THYR PEROX AB 37 IU/mL High 0-34 [facility] Comment on above: Result Comment: Perf ormed at: CB - [facility] [address] [id number] [place] Consultant: Salvador Jackson PhD, Phone: [phone] Performed By: #### L 6412.6356 #### [facility] [place], [address] Free T3on 07-18-2024 Free T3 [Mass/Vol] 2.9 pg/mL Normal 2.18-3.98 [facility] Comment on above: Order Comment: PT [place] NTED LABS DRWN TODAY NOT 08/05/24 Performed By: #### L 501.53572, L506.0400, L501.9520 #### [facility] [address] [place], [address] T4 Free Directon 07-18-2024 T4 FREE DIRECT 1.00 ng/dL Normal 0.76-1.46 [facility] Comment on above: Order Comment: PT OR NTED LABS DRWN TODAY NOT 08/05/24 Performed By: #### L 501.35781, L506.0400, L501.9520 #### [facility] [address] [place], [address] Thyroid Stim Hormone (TSH)on 07-18-2024 TSH 1.820 uIU/mL Normal 0.300-4.200 [facility] Comment on above: Order Comment: PT OR NTED LABS DRWN TODAY NOT 08/05/24 Performed By: #### L 501.45827, L506.0400, L501.9520 #### [facility] [address] [place], [address] Internal Medicine Office Vis ito 07-17-2024 Internal Medicine Office Visit [facility] [address] [place] [address] [address] [place] [address] OFFICE VISIT Date of Service: 07/17/24 MR#: [id number] Acct: [id number] Name: CARLIE GIPSON Rep #: [id number] : 1980 Provider: Dr. J Luis wolf MD Age/Sex: 43/F [place] [facility] Status: Signed Intake Vital Signs 03/13/24 17:41 06/27/24 17:02 07/17/24 16:49 Height 5 ft 3 in 5 ft 3 in 5 ft 3 in Weight: 127 lb BMI 22.4 BP 122/60 H Blood Pressure Location Lt brachial Position Sitting Respiration 18 Pulse 73 Pulse Source Monitor Temp 97.8 F Temp Source Temporal Pulse Oximetry (%) 98 Oxygen Delivery Method room air Intake Visit Reasons: 4 M FU Chief Complaint: 4 M FU Is patient in pain?: No Allergies Sulfa (Sulfonamide Antibiotics) Allergy (Severe, Verified 07/17/24 16:45) Unknown Medications ???Medication ???Instructions ???Recorded ???Confirmed ???Type cholecalciferol (vitamin D3) 125 10,000 unit PO DAILY 03/28/2206/22 History mcg (5,000 unit) capsule alprazolam 0.5 mg tablet (Xanax) 0.5 mg PO DAILY PRN anxiety #20 07/17/24 Rx tabs bupropion HCl 150 mg 24 hr tablet, 150 mg PO QAM #90 tabs 03/13/24 07/17/24 Rx extended release (Wellbutrin XL) cyanocobalamin (vitamin B-12) 1,000 mcg IM QMONTH #10 mL 4 07/17/24 Rx 1,000 mcg/mL injection solution hydroxyzine pamoate 25 mg capsule 25 mg PO BID PRN anxiety #120 cap s 03/13/24 07/17/24 Rx (Vistaril) metoprolol succinate 25 mg 25 mg PO .COMPLEX #30 tabs 5 07/17/24 Rx tablet,extended release 24 hr midodrine 5 mg tablet 7.5 mg (1.5 x 5 mg) PO TID #90 tab s 07/14/24 07/17/24 Rx Have you fallen in the past year?: No PFSH Medical History Pre-syncope Tachycardia Malaise Lightheadedness Abnormal CBC Preventative health care Screening for cardiovascular condition Health care maintenance Panic disorder MDD (major depressive disorder) Obstructive sleep apnea Morbid obesity Anxiety and depression Sleep apnea Vitamin B 12 deficiency Vitamin D deficiency Kidney stones IBS (irritable bowel syndrome) Gallstones Seasonal allergies Family History Mother Diabetes Aunt Diabetes Depression Ovarian cancer Grandmother Myocardial infarction Other Anxiety Kidney disease Social History household members: spouse number of children: 2 current occupational status: employed 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 HPI HPI Chief Complaint: 4 M FU Details: CARLIE GIPSON, is a 43 F who presents to the office today for follow-up of her chronic conditions. At her last visit, due to worsening depression/concern for seasonal affective disorder Wellbutrin was increased. She however states that she had to go back to her prior dose because she did not tolerate it at higher dose. Mood acosta, she states that she is doing okay overall. Had labs done by [employer] TECHNICIAN with very mildly elevated thyroid peroxidase antibody. Normal TSH and free T4. Also continues to follow-up with cardiology. Now on midodrine and metoprolol for POTS. She states that for the most part her symptoms are controlled at current dose/regimen. Chronic history of IBS D. This had been well-controlled on semaglutide however due to continued weight loss she has not taken semaglutide in over a month. Has noted worsening IBS symptoms thereafter. Has been taking Metamucil. ROS Const Constitutional: No body ache, chills, excessive sweating, fatigue, fever(s), frequent falls, headache(s), snoring, weight change, sleep problems, abnormal sleep pattern or change in appetite Eyes Eyes: No blurry vision, change in vision, floaters, visual disturbances, eye pain or Light sensitivity ENT ENT: No abnormal hearing, ear or mastoid pain, tinnitus, balance problems, nosebleed/epistaxis, nasal congestion, headache(s), neck pain or sore throat Resp Respiratory: No cough, excessive phlegm production, pain on inspiration, shortness of breath, snoring or wheezing Cardio Cardiology: No chest pain at rest, chest pain with exertion, excessive sweating, shortness of breath, dyspnea on exertion, lightheadedness, orthopnea or palpitations Gastro GI: No abdominal pain, change in bowel habits, constipation, cramping, diarrhea, nausea/dyspepsia or vomiting Genitourinary-Female: No burning urination, painful urination, uri (more content not included)... Normal [facility] Urgent Care Visit Reporton 0 06-27-2024 Urgent Care Visit Report [facility] [address], [address] [place], [place] [address] OFFICE VISIT Date of Service: 06/27/24 MR#: [id number] Acct: [id number] Name: CARLIE GIPSON Rep #: [id number] : 1980 Provider: RHIANNON Pozo Age/Sex: 43/F Location[place] [facility] Status: Signed Intake Vital Signs 06/10/24 08:56 06/27/24 17:02 Height 5 ft 3 in 5 ft 3 in Weight: 131 lb 125 lb 4 oz BMI 23.2 22.1 BP 119/73 126/80 H Blood Pressure Location Lt brachial Lt brachial Position Sitting Sitting Respiration 18 14 Pulse 73 67 Pulse Source NIBP NIBP Temp 98.6 F Temp Source Oral Pulse Oximetry (%) 98 Oxygen Delivery Method room air Intake Visit Reasons: Diarrhea Chief Complaint: diarrhea Ortho Rn Required: No Is patient in pain?: No Allergies Sulfa (Sulfonamide Antibiotics) Allergy (Severe, Verified 06/27/24 17:18) Unknown Medications ???Medication ???Instructions ???Recorded ???Confirmed ???Type cholecalciferol (vitamin D3) 125 10,000 unit PO DAILY 03/28/2212/12 History mcg (5,000 unit) capsule alprazolam 0.5 mg tablet (Xanax) 0.5 mg PO DAILY PRN anxiety #20 05/15/24 Rx tabs bupropion HCl 150 mg 24 hr tablet, 150 mg PO QAM #90 tabs 03/13/24 06/27/24 Rx extended release (Wellbutrin XL) cyanocobalamin (vitamin B-12) 1,000 mcg IM QMONTH #10 mL 4 06/27/24 Rx 1,000 mcg/mL injection solution hydroxyzine pamoate 25 mg capsule 25 mg PO BID PRN anxiety #120 cap s 03/13/24 05/15/24 Rx (Vistaril) semaglutide 1 mg/dose (4 mg/3 mL) 0.25 mg subcut QWEEK 04/22/2412/12 History subcutaneous pen injector midodrine 5 mg tablet 7.5 mg (1.5 x 5 mg) PO TID #90 tab s 06/25/24 06/27/24 Rx methylprednisolone 4 mg tablets in 4 mg PO PER PKG DIR 6 days #21 t abs 06/27/24 06/27/24 Rx a dose pack (Medrol (Young)) Is last menstrual period known: No Post menopausal: No Patient : No Have you fallen in the past year?: No Nurse's Note: diarrhea x 1 week. pt states any food at all goes right thru her. abd soreness, denies N/V/fever/cough/congestion. pt states worse at night, is up approx every 10-15 minutes. tried immodium bid without relief. denies travel, new meds, new diet. [facility] Medical History Pre-syncope Tachycardia Malaise Lightheadedness Abnormal CBC Preventative health care Screening for cardiovascular condition Health care maintenance Panic disorder MDD (major depressive disorder) Obstructive sleep apnea Morbid obesity Anxiety and depression Sleep apnea Vitamin B 12 deficiency Vitamin D deficiency Kidney stones IBS (irritable bowel syndrome) Gallstones Seasonal allergies Family History Mother Diabetes Aunt Diabetes Depression Ovarian cancer Grandmother Myocardial infarction Other Anxiety Kidney disease Social History household members: spouse number of children: 2 current occupational status: employed 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 HPI HPI Chief Complaint: diarrhea Details: CARLIE GIPSON, is a 43 F who presents to the office today for complaint of diarrhea for the past week. Patient denies fever, chills, sweats. She has tried multiple doses of Imodium with little to no relief. Patient does state that issue being worse at night keeping her awake. She denies any new foods, medications or travel. No hematuria, hematochezia or hemoptysis. No other associated symptoms or alleviating/aggravating factors. ROS Const Constitutional: No other (6 system ROS completed with pertinent findings in the HPI otherwise normal.) Exam Const General: cooperative and healthy appearing [facility] Head: normocephalic and atraumatic Ears: hearing grossly normal bilaterally Face and sinus: face symmetric Eyes General: appearance normal, both eyes and all related structures Pupils: PERRL Resp Effort Inspection: normal respiratory effort Auscultation: Bilateral: Clear to Auscultation Cardio Rate: regular rate Rhythm: regular rhythm GI Inspection: normal to inspection Auscultation: hyperactive bowel sounds Percussion: normal to percussion Palpation: soft, no hepatosplenomegaly, no guarding and nontender General: bimanual renal exam normal bilaterally and No CVA tenderness Skin General: no rashes or lesions noted Neuro General: patient alert and CN's II-XI (more content not included)... Normal [facility] Cardiology Visit Reporton Cardiology Visit Report [facility]. [address] [place] [address] OFFICE VISIT Date of Service: 06/10/24 MR#: [id number] Acct: [id number] Name: CARLIE GIPSON Rep #: [id number] : 1980 Provider: Dr. Álvaro Lopez MD Age/Sex: 43/F Location[place] [facility] Status: Signed HPI HPI History of Present Illness Details: This lady with history of symptomatic postural orthostatic tachycardia syndrome is here for follow- up visit. Since starting her on midodrine, her symptoms have improved but she still feels lightheaded and dizzy with standing up. Occasionally presyncopal. No syncope. Intake Vital Signs 05/07/24 11:26 06/10/24 08:56 Height 5 ft 3 in 5 ft 3 in Weight: 131 lb 131 lb BMI 23.2 23.2 BP 118/76 119/73 Blood Pressure Location Lt brachial Lt brachial Position Sitting Sitting Respiration 16 18 Pulse 76 73 Pulse Source Monitor NIBP Temp 98.1 F Pulse Oximetry (%) 97 Oxygen Delivery Method room air Intake Visit Reasons: 3 M FU Ortho Rn Required: No Accompanied by: Self Is patient in pain?: No Allergies Sulfa (Sulfonamide Antibiotics) Allergy (Severe, Verified 06/10/24 14:49) Unknown Medications ???Medication ???Instructions ???Recorded ???Confirmed ???Type cholecalciferol (vitamin D3) 125 10,000 unit PO DAILY 03/28/22 05/15/24 History mcg (5,000 unit) capsule alprazolam 0.5 mg tablet (Xanax) 0.5 mg PO DAILY PRN anxiety #20 03/13/24 05/15/24 Rx tabs bupropion HCl 150 mg 24 hr tablet, 150 mg PO QAM #90 tabs 03/13/24 05/15/24 Rx extended release (Wellbutrin XL) cyanocobalamin (vitamin B-12) 1,000 mcg IM QMONTH #10 mL 03/13/24 05/15/24 Rx 1,000 mcg/mL injection solution hydroxyzine pamoate 25 mg capsule 25 mg PO BID PRN anxiety #120 caps 03/13/24 05/15/24 Rx (Vistaril) midodrine 2.5 mg tablet 2.5 mg PO TID #180 tabs 04/10/24 05/15/24 Rx semaglutide 1 mg/dose (4 mg/3 mL) 0.25 mg subcut QWEEK 04/22/24 05/15/24 History subcutaneous pen injector Ejection fraction %: 55 Have you fallen in the past year?: No PFSH Medical History Abnormal CBC Anxiety and depression Gallstones Health care maintenance IBS (irritable bowel syndrome) Kidney stones Lightheadedness Malaise MDD (major depressive disorder) Morbid obesity Obstructive sleep apnea Panic disorder Pre-syncope Preventative health care Screening for cardiovascular condition Seasonal allergies Sleep apnea Tachycardia Vitamin B 12 deficiency Vitamin D deficiency Family History Mother Diabetes Aunt Diabetes Depression Ovarian cancer Grandmother Myocardial infarction Other Anxiety Kidney disease Social History household members: spouse number of children: 2 current occupational status: employed 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 ROS Const Const: Negative for fatigue, weakness, headache(s) or weight gain ENT ENT: Positive for dizziness and balance problems (w/ rapid position changes); Negative for headache(s) or Nosebleed/epistaxis Cardio Chest Pain: No Palpitations: No Edema: None Muscle aches with walking: None Resp Respiratory: Positive for SOB at rest (with tachycardia); Negative for SOB with activity or SOB orthopnea SOB lying down GI GI: Negative nausea, vomiting or heartburn Musc Musc: Positive for balance problems (w/ rapid position changes); Negative for muscle aches/ myalgia, muscle weakness or joint pain Neuro Neuro: Positive for dizziness and lightheadedness (with rapid position changes); Negative for near syncope, syncope, headache(s) or weakness Endo Endo: Negative for fatigue Cardiology Exam Const Appearance: comfortable and no acute distress Nutritional Appearance: well nourished Neck Neck: no JVD Carotids: Negative bruit Chest Auscultation: Bilateral: Clear to Auscultation Cardio Rate: regular rate Rhythm: regular rhythm Heart sounds: S1 normal and S2 normal Neuro General: patient alert, patient awake and patient oriented x3 Extremities Lower Extremity Edema: None: Bilateral Supplemental Info Supplemental Information Echocardiogram from 05/02/2024: Interpretation Summary The estimated ejection fraction is 55 %. No evidence for diastolic dysfunction. Cardiac Tilt Table TEST 02/12/2024: Summary: The above is suggestive of likely postural orthostatic tac (more content not included)... Normal [facility] Internal Medicine Office Vis linda 05-07-2024 Internal Medicine Office Visit [facility] [address] [place] [address] OFFICE VISIT Date of Service: 05/07/24 MR#: [id number] Acct: [id number] Name: CARLIE GIPSON Rep #: [id number] : 1980 Provider: RHIANNON Watt Age/Sex: 43/F Location[place] [facility] Status: Signed Intake Vital Signs 04/22/24 08:15 05/07/24 11:26 Height 5 ft 3 in 5 ft 3 in Weight: 131 lb BMI 23.2 BP 118/76 Blood Pressure Location Lt brachial Position Sitting Respiration 16 Pulse 76 Pulse Source Monitor Temp 98.1 F Temp Source Temporal Pulse Oximetry (%) 97 Oxygen Delivery Method room air Intake Visit Reasons: ACUTE FU ABNORMAL LABS Chief Complaint: f/u labs Ortho Rn Required: No Accompanied by: Self Is patient in pain?: No Allergies Sulfa (Sulfonamide Antibiotics) Allergy (Severe, Verified 05/07/24 11:23) Unknown Medications ???Medication ???Instructions ???Recorded ???Confirmed ???Type cholecalciferol (vitamin D3) 125 10,000 unit PO DAILY 03/28/22 05/07/24 History mcg (5,000 unit) capsule alprazolam 0.5 mg tablet (Xanax) 0.5 mg PO DAILY PRN anxiety #20 03/13/24 05/07/24 Rx tabs bupropion HCl 150 mg 24 hr tablet, 150 mg PO QAM #90 tabs 03/13/24 05/07/24 Rx extended release (Wellbutrin XL) cyanocobalamin (vitamin B-12) 1,000 mcg IM QMONTH #10 mL 03/13/24 05/07/24 Rx 1,000 mcg/mL injection solution hydroxyzine pamoate 25 mg capsule 25 mg PO BID PRN anxiety #120 caps 03/13/24 05/07/24 Rx (Vistaril) midodrine 2.5 mg tablet 2.5 mg PO TID #180 tabs 04/10/24 05/07/24 Rx semaglutide 1 mg/dose (4 mg/3 mL) 0.25 mg subcut QWEEK 04/22/24 05/07/24 History subcutaneous pen injector metoprolol succinate 25 mg 25 mg PO .COMPLEX #30 tabs 04/28/24 05/07/24 Rx tablet,extended release 24 hr PFSH Medical History Pre-syncope Tachycardia Malaise Lightheadedness Abnormal CBC Preventative health care Screening for cardiovascular condition Health care maintenance Panic disorder MDD (major depressive disorder) Obstructive sleep apnea Morbid obesity Anxiety and depression Sleep apnea Vitamin B 12 deficiency Vitamin D deficiency Kidney stones IBS (irritable bowel syndrome) Gallstones Seasonal allergies Family History Mother Diabetes Aunt Diabetes Depression Ovarian cancer Grandmother Myocardial infarction Other Anxiety Kidney disease Social History household members: spouse number of children: 2 current occupational status: employed 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 HPI HPI Chief Complaint: f/u labs Details: CARLIE GIPSON, is a 43 F who presents to the office today to discuss some recent labs that she had done. Patient states that she had labs ordered by her [employer]. Patient presented to the SPORTS [employer] office with some symptoms consisting of hot flashes, fatigue, difficulties with sleep, and decrease in libido. She was told that she had abnormal thyroid labs and that she would have to come here for management. ROS Const Constitutional: No body ache, chills, excessive sweating, fatigue, fever(s), frequent falls, headache(s), snoring, weakness or change in appetite Eyes Eyes: No blurry vision, change in vision, eye pain or Light sensitivity ENT ENT: No abnormal hearing, ear or mastoid pain, tinnitus, nasal congestion, headache(s), neck pain or sore throat Resp Respiratory: No cough, shortness of breath, snoring or wheezing Cardio Cardiology: No chest pain at rest, chest pain with exertion, excessive sweating, dyspnea on exertion, lightheadedness, orthopnea or palpitations Gastro GI: No abdominal pain, change in bowel habits, constipation, cramping, diarrhea, nausea/dyspepsia or vomiting Genitourinary-Female: No burning urination, painful urination, urinary incontinence or urinary frequency Musc Musculoskeletal: No abnormal gait, joint pain, back pain, limited range of motion, muscle weakness, neck pain or numbness Skin Skin: No dry skin, redness, lesions, itchy eyes, rash or wounds Neuro Neurology: No abnormal gait, abnormal hearing, weakness, frequent falls, headache(s), memory loss or numbness Psych Psychiatric: No anxiety, No change in appetite, No depression, No memory loss and No Thoughts of harming yourself/Others Endo Endocrine: No cold intolerance, excessive sweating, fatigue, flushing, heat intolerance, increased th (more content not included)... Normal [facility] Echo Completeon 05-02-2024 Echo Complete [facility] [address] [place] [address] Echo Complete 05/02/24 1000 MR#: [id number] Acct: [id number] Name: CARLIE GIPSON Rep #: [id number] : 1980 43 From: Nieves Villalobos MD Attending Dr: Dr. Álvaro Lopez MD Status: REG CLI Ordering Dr: Álvaro Lopez MD Date: 05/02/24 Location: [facility] Sex: F C Admitted: Reason For Study: LIGHT-HEADEDNESS, POTS Procedure This was a 2D Doppler, Color Flow transthoracic echocardiogram. Exam performed in department. Left Ventricle Normal LV size. The estimated ejection fraction is 55 %. No evidence for diastolic dysfunction. No regional wall motion abnormalities noted. Right Ventricle Normal RV size. Normal systolic function. Atria The left and right atria are normal. No doppler evidence for ASD. Bubble contrast study negative for right to left interatrial shunt. Mitral Valve There is no mitral valve stenosis. No mitral valve insufficiency. Tricuspid Valve There is no tricuspid stenosis. Trivial tricuspid valve insufficiency. Unable to estimate RV systolic pressure due to insufficient tricuspid regurgitant envelope. Aortic Valve Trisinus/trileaflet aortic valve. There is no aortic stenosis. No aortic valve insufficiency. Pulmonic Valve There is no pulmonic valvular stenosis. No pulmonic valve insufficiency. Great Vessels Normal aortic root. Pericardium/Pleural No pericardial effusion. Medication 22 gauge I.V. with prn adaptor inserted into right arm. Performed a rapid injection of agitated mix of 9 cc saline and 1cc air to assess for atrial septal defect. MMode/2D Measurements Calculations LVIDd: 4.4 cm IVSd: 0.99 cm Ao root diam: 2.6 cm LVIDs: 2.9 cm LVPWd: 0.97 cm RVDd: 2.6 cm FS: 33.8 % LAV(MOD-bp): 14.7 ml LVAd ap4: 22.4 cm2 SV(MOD-sp4): 40.0 ml LAV(MOD-bp) Indexed: 9.2 ml/m2 LVLd ap4: 7.0 cm SI(MOD-sp4): 25.1 ml/m2 LAV(MOD-sp2): 17.9 ml EDV(MOD-sp4): 61.0 ml LAV(MOD-sp4): 11.9 ml EDV(sp4-el): 61.4 ml LVAs ap4: 12.2 cm2 LVLs ap4: 5.8 cm ESV(MOD-sp4): 21.1 ml ESV(sp4-el): 21.8 ml EF(MOD-sp4): 65.5 % EF(sp4-el): 64.5 % SV(sp4-el): 39.6 ml LA A4 area: 7.5 cm2 LA dimension(2D): 2.7 cm RA A4 area: 7.3 cm2 TAPSE: 1.7 cm Time Measurements MV dec time: 0.24 sec Doppler Measurements Calculations MV E max benjamin: 64.4 cm/sec Lat Peak E' Benjamin: 15.7 cm/sec Med Peak E' Benjamin: 10.4 cm/sec MV A max benjamin: 63.7 cm/sec E/E' lat: 4.1 E/E' med: 6.2 MV E/A: 1.0 MV dec slope: 276.8 cm/sec2 Ao V2 max: 99.3 cm/sec LV V1 max: 87.4 cm/sec Ao max P.9 mmHg LV V1 max P.1 mmHg Ao V2 mean: 79.3 cm/sec Ao mean P.6 mmHg Ao V2 VTI: 19.0 cm PA V2 max: 77.7 cm/sec TR max benjamin: 236.2 cm/sec TR max P.3 mmHg ECHO/Echo Complete Interpretation Summary The estimated ejection fraction is 55 %. No evidence for diastolic dysfunction. Ordering Physician: Álvaro Lopez Referring Physician: BRENDA ANN Performed By: Radha Ferrari RDCS, RVT 05/06/24 1327 Date Nieves Villalobos MD CC: Dr. Álvaro Lopez MD; Dr. J Luis Gutierrez MD Date Dictated: 05/02/24 1000 Date Transcribed: 05/06/24 1327 Aviation Medicine Specialist: Signed Normal [facility] Thyroid Peroxidase ABon 12-0 THYR PEROX AB 49 IU/mL High 0-34 [facility] Comment on above: Result Comment: Perf ormed at: - [facility] [address] [id number] Ux Consultant: Salvador Jackson PhD, Phone: [phone] Performed By: #### L 3300.1750, L3100.5125, L501.9520, L506.0400, L506.1000, L3300.6900, L100.0100 ####[facility] [address] [place], [address] CBC W/Diff, Automatedon 12-0 Absolute Lymph 1.65 X10 3/uL Normal 0.83-4.51 [facility] Comment on above: Performed By: #### L 3300.1750, L3100.5125, L501.9520, L506.0400, L506.1000, L3300.6900, L100.0100 ####[facility] [address] [place], [address] Absolute Neut 1.7 X10 3/uL Low 2.0-7.7 [facility] Comment on above: Performed By: #### L 3300.1750, L3100.5125, L501.9520, L506.0400, L506.1000, L3300.6900, L100.0100 ####[facility] [address] [place], [address] Basophils/100 WBC (Bld) 1.1 % High 0-1 [facility] Comment on above: Performed By: #### L 3300.1750, L3100.5125, L501.9520, L506.0400, L506.1000, L3300.6900, L100.0100 ####[facility] [address] [place], [address] Eosinophils/100 WBC (Bld) 2.1 % Normal 0-5 [facility] Comment on above: Performed By: #### L 3300.1750, L3100.5125, L501.9520, L506.0400, L506.1000, L3300.6900, L100.0100 ####[facility] [address] [place], [address] Erythrocyte distribution width (RBC) [Ratio] 12.5 % Normal 11.6-14.6 [facility] Comment on above: Performed By: #### L 3300.1750, L3100.5125, L501.9520, L506.0400, L506.1000, L3300.6900, L100.0100 ####[facility] [address] [place], [address] Hematocrit (Bld) [Volume fraction] 38.6 % Normal 37-47 [facility] Comment on above: Performed By: #### L 3300.1750, L3100.5125, L501.9520, L506.0400, L506.1000, L3300.6900, L100.0100 ####[facility] [address] [place], [address] Hemoglobin (Bld) [Mass/Vol] 12.9 g/dL Normal 12.0-15.0 [facility] Comment on above: Performed By: #### L 3300.1750, L3100.5125, L501.9520, L506.0400, L506.1000, L3300.6900, L100.0100 ####[facility] [address] [place], [address] IG% 0.300 Normal 0.0-0.9 [facility] Comment on above: Result Comment: IG% - Immature Granulocytes (promyelocytes, myelocytes and metamyelocytes) > 1% indicates that a LEFT SHIFT is Present. Performed By: #### L 3300.1750, L3100.5125, L501.9520, L506.0400, L506.1000, L3300.6900, L100.0100 ####[facility] [address] [place], [address] Lymphocytes/100 WBC (Bld) 44.0 % High 19-41 [facility] Comment on above: Performed By: #### L 3300.1750, L3100.5125, L501.9520, L506.0400, L506.1000, L3300.6900, L100.0100 ####[facility] [address] [place], [address] MCH (RBC) [Entitic mass] 33.4 pg High 27.0-32.0 [facility] Comment on above: Performed By: #### L 3300.1750, L3100.5125, L501.9520, L506.0400, L506.1000, L3300.6900, L100.0100 ####[facility] [address] [place], [address] MCHC (RBC) [Mass/Vol] 33.4 g/dL Normal 32-36 [facility] Comment on above: Performed By: #### L 3300.1750, L3100.5125, L501.9520, L506.0400, L506.1000, L3300.6900, L100.0100 ####[facility] [address] [place], [address] MCV (RBC) [Entitic vol] 100.0 fL High 81-99 [facility] Comment on above: Performed By: #### L 3300.1750, L3100.5125, L501.9520, L506.0400, L506.1000, L3300.6900, L100.0100 ####[facility] [address] [place], [address] Monocytes/100 WBC (Bld) 6.7 % Normal 0-10 [facility] Comment on above: Performed By: #### L 3300.1750, L3100.5125, L501.9520, L506.0400, L506.1000, L3300.6900, L100.0100 ####[facility] [address] [place], [address] Neutrophils/100 WBC (Bld) 45.8 % Low 47-70 [facility] Comment on above: Performed By: #### L 3300.1750, L3100.5125, L501.9520, L506.0400, L506.1000, L3300.6900, L100.0100 ####[facility] [address] [place], [address] Nucleated RBC (Bld) [#/Vol] 0 10*3/uL Normal 0-5 [facility] Comment on above: Performed By: #### L 3300.1750, L3100.5125, L501.9520, L506.0400, L506.1000, L3300.6900, L100.0100 ####[facility] [address] [place], [address] Platelet mean volume (Bld) [Entitic vol] 10.3 fL Normal 6.2-12.0 [facility] Comment on above: Performed By: #### L 3300.1750, L3100.5125, L501.9520, L506.0400, L506.1000, L3300.6900, L100.0100 ####[facility] [address] [place], [address] Platelets (Bld) [#/Vol] 239 10*3/uL Normal 150-450 [facility] Comment on above: Performed By: #### L 3300.1750, L3100.5125, L501.9520, L506.0400, L506.1000, L3300.6900, L100.0100 ####[facility] [address] [place], [address] RBC (Bld) [#/Vol] 3.86 10*6/uL Low 4.2-5.4 [facility] Comment on above: Performed By: #### L 3300.1750, L3100.5125, L501.9520, L506.0400, L506.1000, L3300.6900, L100.0100 ####[facility] [address] [place], [address] RDW SD 46.2 fl High 35.1-43.9 [facility] Comment on above: Performed By: #### L 3300.1750, L3100.5125, L501.9520, L506.0400, L506.1000, L3300.6900, L100.0100 ####[facility] [address] [place], [address] WBC (Bld) [#/Vol] 3.8 10*3/uL Low 4.4-11.0 [facility] Comment on above: Performed By: #### L 3300.1750, L3100.5125, L501.9520, L506.0400, L506.1000, L3300.6900, L100.0100 ####[facility] [address] [place], [address] Estradiolon 04-22-2024 ESTRADIOL 47.7 pg/mL Normal [facility] Comment on above: Result Comment: NORM AL REFERENCE RANGES FEMALE FOLLICULAR 21.4 - 164.8 pg/mL MID-CYCLE PEAK 49.9 - 367.2 pg/mL LUTEAL 40.2 - 259.0 pg/mL POST-MENOPAUSAL ON MHT <11.0 - 462.1 pg/mL NOT ON MHT <11.0 - 58.3 pg/mL MALE <11.0 - 52.5 pg/mL NOTE: [facility] HAS CONFIRMED THE DRUG FULVETRANT (FASLODEX) MAY CAUSE FALSELY ELEVATED ESTRADIOL RESULTS WHEN USING THIS TEST METHOD. IF PATIENT IS TAKING FULVESTRANT AN ALTERNATIVE METHOD SHOULD BE USED TO DETERMINE ESTRADIOL CONCENTRATION. Performed By: #### L 3300.1750, L3100.5125, L501.9520, L506.0400, L506.1000, L3300.6900, L100.0100 ####[facility] [address] [place], [address] Follicle Stimulating Hormone on 04-22-2024 FSH 8.7 mIU/mL Normal [facility] Comment on above: Result Comment: NORMAL REFERENCE RANGES FEMALE FOLLICULAR 2.3 - 12.6 mIU/mL MID-CYCLE PEAK 5.2 - 17.5 mIU/mL LUTEAL 1.7 - 12.9 mIU/mL POST-MENOPAUSAL ON MHT 5.9 - 72.8 mIU/mL NOT ON MHT 12.7 - 132.2 mlU/mL MALE 0.7 - 10.8 mIU/mL Performed By: #### L 3300.1750, L3100.5125, L501.9520, L506.0400, L506.1000, L3300.6900, L100.0100 ####[facility] [address] [place], [place], [address] Retail Advertising Sales Manager Office Visit Reporton 04-22-2024 Retail Advertising Sales Manager Office Visit Report [facility] [address], [address] [place] [address] OFFICE VISIT Date of Service: 04/22/24 MR#: [id number] Acct: [id number] Name: CARLIE GIPSON Rep #: [id number] : 1980 Provider: ZENON charles Age/Sex: 43/F [place] [facility] Status: Signed Intake Vital Signs 03/13/24 17:41 04/10/24 08:36 04/22/24 08:10 04/22/24 08:15 Height 5 ft 3 in 5 ft 3 in 5 ft 3 in 5 ft 3 in Weight: 135 lb 131 lb 8 oz BMI 23.9 23.3 BP 109/76 102/64 Blood Pressure Location Lt brachial Position Sitting Respiration 18 Pulse 75 Pulse Source NIBP 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) Chief Complaint: Annual Ortho Rn Required: No Is patient in pain?: No Allergies Sulfa (Sulfonamide Antibiotics) Allergy (Severe, Verified 04/22/24 08:09) Unknown Medications ???Medication ???Instructions ???Recorded ???Confirmed ???Type cholecalciferol (vitamin D3) 125 10,000 unit PO DAILY 03/28/22 04/22/24 History mcg (5,000 unit) capsule alprazolam 0.5 mg tablet (Xanax) 0.5 mg PO DAILY PRN anxiety #20 03/13/24 04/22/24 Rx tabs bupropion HCl 150 mg 24 hr tablet, 150 mg PO QAM #90 tabs 03/13/24 04/22/24 Rx extended release (Wellbutrin XL) cyanocobalamin (vitamin B-12) 1,000 mcg IM QMONTH #10 mL 03/13/24 04/22/24 Rx 1,000 mcg/mL injection solution hydroxyzine pamoate 25 mg capsule 25 mg PO BID PRN anxiety #120 caps 03/13/24 04/22/24 Rx (Vistaril) midodrine 2.5 mg tablet 2.5 mg PO TID #180 tabs 04/10/24 04/22/24 Rx semaglutide 1 mg/dose (4 mg/3 mL) 0.25 mg subcut QWEEK 04/22/24 04/22/24 History subcutaneous pen injector Is last menstrual period known: No Post menopausal: No Patient : No : No Nurse's Note: No menses with IUD. [facility] Medical History Pre-syncope Tachycardia Malaise Lightheadedness Abnormal CBC Preventative health care Screening for cardiovascular condition Health care maintenance Panic disorder MDD (major depressive disorder) Obstructive sleep apnea Morbid obesity Anxiety and depression Sleep apnea Vitamin B 12 deficiency Vitamin D deficiency Kidney stones IBS (irritable bowel syndrome) Gallstones Seasonal allergies Family History Mother Diabetes Aunt Diabetes Depression Ovarian cancer Grandmother Myocardial infarction Other Anxiety Kidney disease Social History household members: spouse number of children: 2 current occupational status: employed 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 History Past Pregnancies Del. Date Name GA/Weeks Outcome Route Bth Weight Infant Gen Labor Lgth Anesthesia Del Locatn Provider FOB Unknown Candelario 2002 Unknown Omkar 2005 HPI Encounter for routine gynecological examination Details: CARLIE GIPSON is a 43 year old who presents for annual exam. Noting significant hot flashes, sleep disturbance, fatigue, lack of libido. Minimal menses currently with liletta IUD Last PAP: 2020 History of abnormal PAP: no Last mammogram: 03/2024 History of abnormal mammogram: no Colon cancer screening: age 45 Other preventative health care screenings: Brenda Female Reproductive History Questions: metorrhagia: No, sexually active: Yes, dyspareunia: No and PCB: No Exam Const General: cooperative, healthy appearing, no acute distress and well developed Orientation: alert, oriented to person and oriented to place HENTN Head: normal to inspection Neck Neck: normal visual inspection Thyroid: thyroid normal Lymphatic: no lymphadenopathy noted Chest Breast inspection: normal inspection of the breasts and normal inspection of the axillae Breast palpation: normal palpation of the breasts, normal palpation of the axillae and no axillary lymphadenopathy Resp Effort Inspection: normal respiratory effort GI Palpation: soft, no masses and nontender Rectal Exam: deferred External Female Exam: normal external appearance and normal appearance of the urethra Urethra: normal appearance of the urethra and normal palpation Speculum Exam - Vagina: normal appearance of the vagina and normal vaginal discharge Speculum Exam - Cervix: normal appearance of the cervix (unable to visualize strings/consistent finding) Bimanual Exam- Vagina Uterus: normal bimanual exam, uterine size normal, uterine shape normal and non-tender B (more content not included)... Normal [facility] T4 Free Directon 04-22-2024 T4 FREE DIRECT 0.99 ng/dL Normal 0.76-1.46 [facility] Comment on above: Performed By: #### L 3300.1750, L3100.5125, L501.9520, L506.0400, L506.1000, L3300.6900, L100.0100 ####[facility] [address] [place], [address] Thyroid Stim Hormone (TSH)on 04-22-2024 TSH 1.270 uIU/mL Normal 0.358-3.740 [facility] Comment on above: Performed By: #### L 3300.1750, L3100.5125, L501.9520, L506.0400, L506.1000, L3300.6900, L100.0100 ####[facility] [address] [place], [address] Vitamin D,25 Hydroxyon 04-22 Vitamin D 25-OH 35.2 ng/mL Normal [facility] Comment on above: Result Comment: Avis min D 25(OH) Status Range Deficiency <20 ng/mL (50nmol/L) Insufficiency 20 - 30 ng/mL (50 - 75 nmol/L) Sufficiency 30 - 100 ng/mL (75 - 250 nmol/L) Toxicity >100 ng/mL (>250 nmol/L) Performed By: #### L 3300.1750, L3100.5125, L501.9520, L506.0400, L506.1000, L3300.6900, L100.0100 ####[facility] [address] [place], [address] 12 Lead E[place] performed [place] [facility] [place] 12 Lead EKG performed by [facility] [address] [place] [address] 12 Lead EKG performed by [facility] 04/10/24 0900 MR#: [id number] Acct: [id number] Name: CARLIE GIPSON Rep #: [id number] : 1980 43 From: Álvaro Lopez MD Attending Dr: Dr. Álvaro Lopez MD Status: DEP AMB Ordering Dr: Álvaro Lopez MD Date: 04/10/24 Location: [facility] Sex: F C Admitted: BMS/12 Lead EKG performed [place] [facility] [place] Report Interpretation Si nus Rhythm WITHIN NORMAL LIMITSElectronically signed on 06/16/2024 at 11:[address] Álvaro Lopez [employer] Version [id number] 06/16/24 1130 Date Álvaro Lopez MD CC: Dr. J Luis Gutierrez MD Date Dictated: 04/10/24899 Date Transcribed: 04/10/24899 Aviation Medicine Specialist: GUNNAR Signed Normal [facility] Cardiology Visit Reporton Cardiology Visit Report [facility] [address] [place], [place] [address] OFFICE VISIT Date of Service: 04/10/24 MR#: [id number] Acct: [id number] Name: CARLIE GIPSON Rep #: [id number] : 1980 Provider: Dr. Álvaro Lopez MD Age/Sex: 43/F Location: [facility] Status: Signed HPI HPI History of Present Illness Details: This lady has recently been diagnosed with symptomatic POTS on a tilt table test. She has been referred to us for evaluation and management. Per patient, she has had symptoms of dizziness with standing up for past many years. However the symptoms have particularly worsened over the last 10 months. She feels dizzy and lightheaded most of the time when she stands up. No chest pains. No shortness of breath. At times, she feels as if she is going to pass out. No bobby syncopal episodes ever. The symptoms are relieved with lying down. According to the patient, the symptoms have been interfering with her quality of life. Denies any chest pains or shortness of breath either at rest or with exertion. Denies orthopnea or PND. No ankle edema. Patient was advised to increase her fluid and salt intake by her primary care physician. Per patient, she has had no improvement in her symptoms after doing so. She has also tried wearing compression stockings without any relief of symptoms. Intake Vital Signs 03/13/24 17:41 04/10/24 08:36 Height 5 ft 3 in 5 ft 3 in Weight: 136 lb 135 lb BMI 24.0 23.9 BP 112/70 109/76 Blood Pressure Location Lt brachial Lt brachial Position Sitting Sitting Respiration 14 18 Pulse 59 L 75 Pulse Source Monitor NIBP Temp 98.9 F Pulse Oximetry (%) 99 Oxygen Delivery Method room air Intake Visit Reasons: TACHYCARDIA (OLEGHE) Ortho Rn Required: No Accompanied by: Is patient in pain?: No Allergies Sulfa (Sulfonamide Antibiotics) Allergy (Severe, Verified 04/10/24 10:29) Unknown Medications ???Medication ???Instructions ???Recorded ???Confirmed ???Type cholecalciferol (vitamin D3) 125 10,000 unit PO DAILY 03/28/22 04/10/24 History mcg (5,000 unit) capsule semaglutide 1 mg/dose (4 mg/3 mL) 1 mg subcut QWEEK 09/19/23 04/10/24 History subcutaneous pen injector alprazolam 0.5 mg tablet (Xanax) 0.5 mg PO DAILY PRN anxiety #20 03/13/24 04/10/24 Rx tabs bupropion HCl 150 mg 24 hr tablet, 150 mg PO QAM #90 tabs 03/13/24 04/10/24 Rx extended release (Wellbutrin XL) cyanocobalamin (vitamin B-12) 1,000 mcg IM QMONTH #10 mL 03/13/24 04/10/24 Rx 1,000 mcg/mL injection solution hydroxyzine pamoate 25 mg capsule 25 mg PO BID PRN anxiety #120 caps 03/13/24 04/10/24 Rx (Vistaril) Have you fallen in the past year?: No PFSH Medical History Abnormal CBC Anxiety and depression Gallstones Health care maintenance IBS (irritable bowel syndrome) Kidney stones Lightheadedness Malaise MDD (major depressive disorder) Morbid obesity Obstructive sleep apnea Panic disorder Pre-syncope Preventative health care Screening for cardiovascular condition Seasonal allergies Sleep apnea Tachycardia Vitamin B 12 deficiency Vitamin D deficiency Family History Mother Diabetes Aunt Diabetes Depression Ovarian cancer Grandmother Myocardial infarction Other Anxiety Kidney disease Social History household members: spouse number of children: 2 current occupational status: employed 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 ROS Const Const: Positive for fatigue; Negative for weakness, headache(s) or weight gain ENT ENT: Positive for dizziness and balance problems; Negative for headache(s) or Nosebleed/epistaxis Cardio Chest Pain: Yes Character: other (heaviness) Palpitations: Yes (when standing) Edema: None Muscle aches with walking: None Resp Respiratory: Negative for SOB with activity, SOB at rest or SOB orthopnea SOB lying down GI GI: Negative nausea, vomiting or heartburn Musc Musc: Positive for balance problems; Negative for muscle aches/ myalgia, muscle weakness or joint pain Neuro Neuro: Positive for dizziness, lightheadedness and near syncope; Negative for syncope, headache(s) or weakness Endo Endo: Positive for fatigue Psych Psych: Positive for anxiety Cardiology Exam Const Appearance: comfortable and no acute distress Nutritional Appearance: well nou (more content not included)... Normal [facility] SCRN MAMM (CAD)W/JC GERMANAnika n 04-10-2024 SCRN MAMM (CAD)W/JC [facility] Imaging Services [address] [place] [address] SCRN MAMM (CAD)W/JC [facility] MR#: [id number] Acct: [id number] Name: CARLIE GIPSON Rep #: [id number] : 1980 F 43 From: Maged barclay MD PCP: Dr. J Luis Gutierrez MD Status: REG [facility] Study: SCRN MAMM (CAD)W/JC BILAT Date of Exam: 03/22 06/13 Exam# [id number] Ordering Dr: J Luis Gutierrez MD :[id number] MAMMOGRAPHY - BILATERAL SCREENING REASON FOR EXAM: Female, 43 years old. Routine annual screening examination. PERTINENT HISTORY: Aunts with breast cancer. TECHNIQUE: Digital bilateral breast jc (3D mammographic acquisition) in the CC and MLO projections. 2-D mediolateral oblique (MLO) and craniocaudad (CC) views of both breasts were obtained. CAD: Full Field Digital Mammography with Computer Added Detection was performed. COMPARISON: Comparison is made with prior study April 09, 2023 and March 30, 2022. FINDINGS: Breast Composition: The breasts are heterogeneously dense, which may obscure small masses. There are no dominant masses or suspicious calcifications. Stable small benign-appearing bilateral axillary lymph nodes. No other significant abnormalities are identified. There has been no significant change since the prior study. BI/SCRN MAMM (CAD)W/JC BILAT IMPRESSION: Stable bilateral screening mammogram. Yearly follow-up mammogram recommended. (A) ASSESSMENT CATEGORY: BIRADS Category 2: Benign. A letter regarding these results will be sent to the patient by the facility within 30 days. Approximately 10% of breast cancers are not detected by mammography. A normal mammogram should not delay biopsy of a clinically suspicious abnormality. [id number] Electronically Signed: Maged Madrid MD at 11:13 EST , CC: Dr. J Luis Gutierrez MD Aviation Medicine Specialist: Signed Normal [facility] Internal Medicine Office Vis linda 03-13-2024 Internal Medicine Office Visit [facility] [address] [place] [place] [address] OFFICE VISIT Date of Service: 03/13/24 MR#: [id number] Acct: [id number] Name: CARLIE GIPSON Rep #: [id number] : 1980 Provider: Dr. J Luis wolf MD Age/Sex: 43/F [place] [facility] Status: Signed Intake Vital Signs 01/08/24 09:46 03/13/24 17:41 Height 5 ft 3 in 5 ft 3 in Weight: 136 lb BMI 24.0 BP 112/70 Blood Pressure Location Lt brachial Position Sitting Respiration 14 Pulse 59 L Pulse Source Monitor Temp 98.9 F Temp Source Temporal Pulse Oximetry (%) 99 Oxygen Delivery Method room air Intake Visit Reasons: 6 month f/u Chief Complaint: Follow-up chronic conditions Ortho Rn Required: No Is patient in pain?: No Allergies Sulfa (Sulfonamide Antibiotics) Allergy (Severe, Verified 03/13/24 17:36) Unknown Medications ???Medication ???Instructions ???Recorded ???Confirmed ???Type cholecalciferol (vitamin D3) 125 10,000 unit PO DAILY 03/28/22 03/13/24 History mcg (5,000 unit) capsule semaglutide 1 mg/dose (4 mg/3 mL) 1 mg subcut QWEEK 09/19/23 03/13/24 History subcutaneous pen injector alprazolam 0.5 mg tablet (Xanax) 0.5 mg PO DAILY PRN anxiety #20 03/13/24 03/13/24 Rx tabs bupropion HCl 150 mg 24 hr tablet, 150 mg PO QAM #90 tabs 03/13/24 03/13/24 Rx extended release (Wellbutrin XL) cyanocobalamin (vitamin B-12) 1,000 mcg IM QMONTH #10 mL 03/13/24 03/13/24 Rx 1,000 mcg/mL injection solution hydroxyzine pamoate 25 mg capsule 25 mg PO BID PRN anxiety #120 caps 03/13/24 03/13/24 Rx (Vistaril) Nurse's Note: Wants to discuss tilt table test. Needs everything refilled. Needs order for mammogram sent. [facility] Medical History Pre-syncope Tachycardia Malaise Lightheadedness Abnormal CBC Preventative health care Screening for cardiovascular condition Health care maintenance Panic disorder MDD (major depressive disorder) Obstructive sleep apnea Morbid obesity Anxiety and depression Sleep apnea Vitamin B 12 deficiency Vitamin D deficiency Kidney stones IBS (irritable bowel syndrome) Gallstones Seasonal allergies Family History Mother Diabetes Aunt Diabetes Depression Ovarian cancer Grandmother Myocardial infarction Other Anxiety Kidney disease Social History household members: spouse number of children: 2 current occupational status: employed 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 HPI HPI Chief Complaint: Follow-up chronic conditions Details: CARLIE GIPSON, is a 43 F who presents to the office today for follow-up of her chronic medical conditions. No acute concerns at this time. Since her last visit, diagnosed with POTS following a tilt table test. Has been staying well- hydrated and increased salt intake and has found this helpful. No syncopal or near syncopal episodes reported. Chronic history of anxiety and depression, lately, she states that she has noted slight worsening depression. No significant worsening anxiety noted however she states that she has had to take hydroxyzine more often lately to help with sleep. Other chronic medical conditions are stable. ROS Const Constitutional: No body ache, chills, excessive sweating, fatigue, fever(s), frequent falls, headache(s), snoring, weakness, sleep problems or change in appetite Eyes Eyes: No blurry vision, change in vision, bulging eyes, floaters, visual disturbances, eye pain or Light sensitivity ENT ENT: No abnormal hearing, ear or mastoid pain, tinnitus, balance problems, nosebleed/epistaxis, nasal congestion, headache(s), neck pain or sore throat Resp Respiratory: No cough, excessive phlegm production, pain on inspiration, shortness of breath, snoring or wheezing Cardio Cardiology: No chest pain at rest, chest pain with exertion, excessive sweating, shortness of breath, dyspnea on exertion, lightheadedness, orthopnea or palpitations Gastro GI: No abdominal pain, change in bowel habits, constipation, cramping, diarrhea, nausea/dyspepsia or vomiting Genitourinary-Female: No burning urination, painful urination, urinary incontinence, urinary frequency, abnormal vaginal bleeding or pelvic pain Musc Musculoskeletal: No abnormal gait, joint pain, back pain, limited range of motion, neck pain or numbness Skin Skin: No dry sk (more content not included)... 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 J Luis Gutierrez MD Status: REG CLI Ordering Dr: J Luis Gutierrez MD Date: 02/12/24 Location: [facility] Sex: F C Admitted: Staff Staff: Isabel Sheffield and Radha Hood Summary Pre Test Resting HR: 83 Pre Test Resting BP: 108/83 Minimum Test HR: 67 Maximum Test HR: 133 Minimum Test BP: 91/76 Maximum Test BP: 120/86 Reason for Test Termination: Reached Maximum Test Time Physician Tilt Table Report Patient's Physicians Primary Care Physician: J Luis Gutierrez Indications/Diagnosis: Dizziness and lightheadedness Procedure Comments: Patient was brought to the noninvasive lab in the postabsorptive nonsedated state. Informed consent was obtained. Initial blood pressure and heart rate was obtained as noted above. The patient was then put in the 70 degree head upright tilt position. Continuous EKG monitoring was performed as well as blood pressure monitoring. Patient complained of mild lightheadedness when patient was in the 70 degree head upright position. The patient was noted to have an increase in her heart rate of over 30 bpm to a maximum of 129 bpm with a blood pressure remaining stable at 108/79 mmHg complaining of mild lightheadedness. EKG did not demonstrate any significant changes other than the tachycardia. After the appropriate time. The patient was then brought back and put in the recumbent position. Heart rate came back down to the 70s and 80s. Patient tolerated the procedure well. Summary: The above is suggestive of likely postural orthostatic tachycardia syndrome. 02/12/241638 Date Adarsh Collins MD CC: Dr. J Luis Gutierrez MD Date Dictated: 02/12/241634 Date Transcribed: 02/12/241634 Aviation Medicine Specialist: [place] Signed Normal [facility] MR/Maggie 01-25-2024 MR/BVRonny [facility] V[facility] Surgery [address] [place] [address] OFFICE VISIT Date of Service: 01/25/24 MR#: [id number] Acct: [id number] Name: CARLIE GIPSON Rep #: [id number] : 1980 Provider: RHIANNON Gray Age/Sex: 43/F Location: [facility] Status: Signed Intake Vital Signs 09/19/23 08:56 01/08/24 09:46 01/25/24 09:04 Height 5 ft 3 in 5 ft 3 in BP 102/70 Blood Pressure Location Lt brachial Position Sitting Pulse 84 Pulse Oximetry (%) 100 Oxygen Delivery Method room air Intake Visit Reasons: 3-4 W CATH F/U Chief Complaint: exhaustion/light headedness x 2 weeks Allergies Sulfa (Sulfonamide Antibiotics) Allergy (Severe, Verified 11/30/23 13:42) Unknown Medications ???Medication ???Instructions ???Recorded ???Confirmed ???Type cholecalciferol (vitamin D3) 125 10,000 unit PO DAILY 03/28/22 01/25/24 History mcg (5,000 unit) capsule alprazolam 0.5 mg tablet (Xanax) 0.5 mg PO DAILY PRN anxiety #20 03/08/23 01/25/24 Rx tabs hydroxyzine pamoate 25 mg capsule 25 mg PO BID PRN anxiety #120 caps 03/08/23 01/25/24 Rx (Vistaril) bupropion HCl 150 mg 24 hr tablet, 150 mg PO QAM #90 tabs 09/06/23 01/25/24 Rx extended release (Wellbutrin XL) cyanocobalamin (vitamin B-12) 1,000 mcg IM QMONTH #10 mL 09/06/23 01/25/24 Rx 1,000 mcg/mL injection solution semaglutide 1 mg/dose (4 mg/3 mL) 1 mg subcut QWEEK 09/19/23 01/25/24 History subcutaneous pen injector [facility] Medical History Pre-syncope Tachycardia Malaise Lightheadedness Abnormal CBC Preventative health care Screening for cardiovascular condition Health care maintenance Panic disorder MDD (major depressive disorder) Obstructive sleep apnea Morbid obesity Anxiety and depression Sleep apnea Vitamin B 12 deficiency Vitamin D deficiency Kidney stones IBS (irritable bowel syndrome) Gallstones Seasonal allergies Family History Mother Diabetes Aunt Diabetes Depression Ovarian cancer Grandmother Myocardial infarction Other Anxiety Kidney disease Social History household members: spouse number of children: 2 current occupational status: employed 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 She had initial postintervention venous duplex which revealed successful ablation and was negative for any DVT/SVT. She reports that her left lower extremity symptoms have resolved following his ablation. She does have a few spots which are hard to palpation but otherwise no concerns. She does still have aching and heaviness and bothersome varicosities in her right leg, but with fair control with conservative measures and not yet to the point where she would like to pursue intervention on this side. Exam Const General: cooperative, healthy appearing, comfortable and no acute distress Orientation: alert, awake and oriented x3 HENMT Head: normal to inspection, normocephalic and atraumatic Ears: hearing grossly normal bilaterally and external ears normal Nose: external nose normal Eyes General: appearance normal, both eyes and all related structures EOM: EOM intact bilaterally Neck Neck: normal visual inspection and trachea midline Carotids: no bruits Resp Effort Inspection: normal respiratory effort, able to speak in complete sentences, symmetric chest movement, no audible wheezes, no grunting, not labored, no retractions and no stridor Auscultation: clear to auscultation bilaterally Cardio Rate: regular rate Rhythm: regular rhythm Heart Sounds: no murmurs Bruits: no carotid bruits Pulses: brachial pulses present and radial pulses present Skin General: no rashes or lesions noted Trauma: no lacerations or abrasions Wounds: no wounds Neuro General: patient alert, patient awake, patient oriented x3, gait normal, moves all extremities, no focal motor deficits and CN's II-XI intact bilaterally Speech: speech normal Extremities Pulses: Normal: Right Dorsalis Pedis Pulse, Left Dorsalis Pedis Pulse, Right Posterior Tibial Pulse, Left Posterior Tibial Pulse, Right Radial Pulse and Left Radial Pulse Lower Extremity Edema: Trace: Bilateral Veins: Bilateral: Varicose Veins and Bilateral: Reticular Veins Psych Ap (more content not included)... Normal [facility] Urine Cultureon 01-10-2024 URC Mixed Gram Positive Organisms [place] Count 1000-10,000 MIXC Mixed contaminants. Submit a new specimen if indicated. Normal [facility] Comment on above: Performed By: #### M 100.2200 ####[facility] [address] [facility] [place], [address] Abdomen/Pelvis without Conto n 01-08-2024 Abdomen/Pelvis without Cont [facility] Imaging Services [address] [place] [address] Abdomen/Pelvis without Cont MR#: [id number] Acct: [id number] Name: CARLIE GIPSON Rep #: [id number] : 1980 F 43 From: Alfonso Tanner MD PCP: Dr. J Luis Gutierrez MD Status: PRE ER Study: Abdomen/Pelvis without Cont Date of Exam: 12/20 Exam# [id number] Ordering Dr: Tyrel Fontana DO :[id number] EXAM: CT ABDOMEN AND PELVIS WITHOUT INTRAVENOUS CONTRAST CLINICAL INDICATION: Right lower quadrant abdominal pain TECHNIQUE: Helically acquired images were obtained of the abdomen and pelvis without intravenous contrast. This CT exam was performed using one or more of the following dose reduction techniques: automated exposure control, adjustment of the mA and/or kV according to patient size, and/or use of iterative reconstruction technique. RADIATION DOSE: CTDIvol = 6.14 mGy, DLP = 295.91 mGy-cm COMPARISON: No relevant prior studies available. FINDINGS: LOWER THORAX: Unremarkable. Lung bases are clear. No cardiomegaly. No significant pericardial effusion. ABDOMEN: LIVER: Unremarkable. Homogeneous. GALLBLADDER AND BILE DUCTS: Unremarkable. No calcified gallstones. No gallbladder distention or wall edema. No intra- or extrahepatic biliary ductal dilation. PANCREAS: Unremarkable. No focal cystic mass. SPLEEN: Unremarkable. Normal size without focal cystic or solid mass. ADRENALS: Unremarkable. No nodules. KIDNEYS AND URETERS: Mild right hydronephrosis and dilated right extrarenal pelvis. No obstructing stones in the right kidney and right ureter. No stones or hydronephrosis in the left kidney. Normal renal size and position. STOMACH AND BOWEL: Unremarkable. No stomach or bowel distention. No focal inflammatory change. PELVIS: APPENDIX: The appendix is not visualized but no secondary signs of acute appendicitis. BLADDER: Unremarkable. No suspicious stones or mass inside the underdistended urinary bladder. REPRODUCTIVE: IUD device inside the anteverted uterus. No adnexal cyst or mass. ABDOMEN and PELVIS: INTRAPERITONEAL SPACE: Unremarkable. No ascites or other fluid collection. No free air. BONES/JOINTS: Unremarkable. No suspicious lytic or blastic abnormality. SOFT TISSUES: Unremarkable. No discrete abdominal or pelvic wall hernia. VASCULATURE: Calcified phleboliths in the pelvis. Abdominal aorta is non-dilated. LYMPH NODES: Unremarkable. No enlarged lymph nodes. OTHER FINDINGS: Pronounced L5-S1 disc space height narrowing with endplate sclerosis. CT/Abdomen/Pelvis without Cont IMPRESSION: 1. Mild right hydronephrosis and dilated right extrarenal pelvis. No CT evidence of any obstructing stones in the right kidney, right ureter or urinary bladder calculi. 2. No other significant findings or acute abnormality in the abdomen and pelvis Electronically Signed: Alfonso Tanner MD at 10:41 EDT , CC: Dr. J Luis Gutierrez MD; Dr. Tyrel Fontana DO Aviation Medicine Specialist: Signed Normal [facility] CBC-Complete Blood Cnt No Di syeda 01-08-2024 Erythrocyte distribution width (RBC) [Ratio] 12.3 % Normal 11.6-14.6 [facility] Comment on above: Performed By: #### L 700.6800, L501.2450, L500.4050, L100.0500 ####[facility] [address] [place], [address] Hematocrit (Bld) [Volume fraction] 42.2 % Normal 37-47 [facility] Comment on above: Performed By: #### L 700.6800, L501.2450, L500.4050, L100.0500 ####[facility] [address] [place], [address] Hemoglobin (Bld) [Mass/Vol] 14.1 g/dL Normal 12.0-15.0 [facility] Comment on above: Performed By: #### L 700.6800, L501.2450, L500.4050, L100.0500 ####[facility] [address] [place], [address] MCH (RBC) [Entitic mass] 33.7 pg High 27.0-32.0 [facility] Comment on above: Performed By: #### L 700.6800, L501.2450, L500.4050, L100.0500 ####[facility] [address] [place], [address] MCHC (RBC) [Mass/Vol] 33.4 g/dL Normal 32-36 [facility] Comment on above: Performed By: #### L 700.6800, L501.2450, L500.4050, L100.0500 ####[facility] [address] [place], [address] MCV (RBC) [Entitic vol] 101.0 fL High 81-99 [facility] Comment on above: Performed By: #### L 700.6800, L501.2450, L500.4050, L100.0500 ####[facility] [address] [place], [address] Platelet mean volume (Bld) [Entitic vol] 10.2 fL Normal 6.2-12.0 [facility] Comment on above: Performed By: #### L 700.6800, L501.2450, L500.4050, L100.0500 ####[facility] [address] [place], [address] Platelets (Bld) [#/Vol] 271 10*3/uL Normal 150-450 [facility] Comment on above: Performed By: #### L 700.6800, L501.2450, L500.4050, L100.0500 ####[facility] [address] [place], [address] RBC (Bld) [#/Vol] 4.18 10*6/uL Low 4.2-5.4 [facility] Comment on above: Performed By: #### L 700.6800, L501.2450, L500.4050, L100.0500 ####[facility] [address] [place], [address] RDW SD 46.2 fl High 35.1-43.9 [facility] Comment on above: Performed By: #### L 700.6800, L501.2450, L500.4050, L100.0500 ####[facility] [address] [place], [address] WBC (Bld) [#/Vol] 6.3 10*3/uL Normal 4.4-11.0 [facility] Comment on above: Performed By: #### L 700.6800, L501.2450, L500.4050, L100.0500 ####[facility] [address] [place], [address] Comprehensive Metabolic Prof ilon 01-08-2024 Albumin [Mass/Vol] 3.9 g/dL Normal 3.2-5.0 [facility] Comment on above: Performed By: #### L 700.6800, L501.2450, L500.4050, L100.0500 ####[facility] [address] [place], [address] Albumin/Globulin [Mass ratio] 1.2 {ratio} Normal 0.9-2.4 [facility] Comment on above: Performed By: #### L 700.6800, L501.2450, L500.4050, L100.0500 ####[facility] [address] [place], [address] ALK P 45 U/L Normal 45-117 [facility] Comment on above: Performed By: #### L 700.6800, L501.2450, L500.4050, L100.0500 ####[facility] [address] [place], [address] ALT [Catalytic activity/Vol] 16 U/L Normal 13-56 [facility] Comment on above: Performed By: #### L 700.6800, L501.2450, L500.4050, L100.0500 ####[facility] [address] [place], [address] AST [Catalytic activity/Vol] 12 U/L Low 15-37 [facility] Comment on above: Performed By: #### L 700.6800, L501.2450, L500.4050, L100.0500 ####[facility] [address] [place], [address] Bilirubin [Mass/Vol] 0.60 mg/dL Normal 0.20-1.00 [facility] Comment on above: Result Comment: For patients on eltrombopag therapy, use of Dimension [place] TBIL is not recommended. Performed By: #### L 700.6800, L501.2450, L500.4050, L100.0500 ####[facility] [address] [place], [address] BUN/CRE 18.5 RATIO Normal 10-20 [facility] Comment on above: Performed By: #### L 700.6800, L501.2450, L500.4050, L100.0500 ####[facility] [address] [place], [address] CA,Total 9.4 mg/dL Normal 8.5-10.1 [facility] Comment on above: Performed By: #### L 700.6800, L501.2450, L500.4050, L100.0500 ####[facility] [address] [place], [address] Chloride [Moles/Vol] 109 mmol/L High 98-107 [facility] Comment on above: Performed By: #### L 700.6800, L501.2450, L500.4050, L100.0500 ####[facility] [address] [place], [address] CO2 [Moles/Vol] 19.0 mmol/L Low 21.0-32.0 [facility] Comment on above: Performed By: #### L 700.6800, L501.2450, L500.4050, L100.0500 ####[facility] [address] [place], [address] Creatinine [Mass/Vol] 0.81 mg/dL Normal 0.55-1.02 [facility] Comment on above: Result Comment: The validity of the calculated GFR GFRAA in patients over 70 years has not been determined. Clinical correlation is essential. Performed By: #### L 700.6800, L501.2450, L500.4050, L100.0500 ####[facility] [address] [place], [address] EST GFR - AA 99 mL/min Normal >60 [facility] Comment on above: Result Comment: Afri can Ghanaian GFR Calc Performed By: #### L 700.6800, L501.2450, L500.4050, L100.0500 ####[facility] [address] [place], [address] GAP 11 Normal 5-15 [facility] Comment on above: Performed By: #### L 700.6800, L501.2450, L500.4050, L100.0500 ####[facility] [address] [place], [address] GFR/1.73 sq M.predicted among non-blacks MDRD (S/P/Bld) [Vol rate/Area] 82 mL/min/{1.73_m2} Normal >60 [facility] Comment on above: Result Comment: Non- GFR Calc Performed By: #### L 700.6800, L501.2450, L500.4050, L100.0500 ####[facility] [address] [place], [address] Globulin (S) [Mass/Vol] 3.3 g/dL Normal 2.2-4.2 [facility] Comment on above: Performed By: #### L 700.6800, L501.2450, L500.4050, L100.0500 ####[facility] [address] [place], [address] Glucose [Mass/Vol] 106 mg/dL Normal 74-106 [facility] Comment on above: Result Comment: Fast ing Glucose result from 100 to 125 mg/dL suggests IMPAIRED HOMEOSTASIS per A.D.A. criteria. Performed By: #### L 700.6800, L501.2450, L500.4050, L100.0500 ####[facility] [address] [place], [address] Potassium [Moles/Vol] 4.0 mmol/L Normal 3.5-5.1 [facility] Comment on above: Performed By: #### L 700.6800, L501.2450, L500.4050, L100.0500 ####[facility] [address] [place], [address] Sodium [Moles/Vol] 139 mmol/L Normal 136-145 [facility] Comment on above: Performed By: #### L 700.6800, L501.2450, L500.4050, L100.0500 ####[facility] [address] [place], [address] T PROT 7.2 g/dL Normal 6.4-8.2 [facility] Comment on above: Performed By: #### L 700.6800, L501.2450, L500.4050, L100.0500 ####[facility] [address] [place], [address] Urea nitrogen [Mass/Vol] 15 mg/dL Normal 7-18 [facility] Comment on above: Performed By: #### L 700.6800, L501.2450, L500.4050, L100.0500 ####[facility] [address] [place], [address] Emergency Department Summary on 01-08-2024 Emergency Department Summary [facility] Medical Records Department [address] [place] [address] Emergency Department Summary 01/08/24 MR#: [id number] Acct: [id number] Name: RENEEUSEBIACARLIE Rep #: [id number] : 1980 43 From: Tyrel Fontana DO PCP: Dr. J Luis Gutierrez MD Status:DEP ER Location: ED HPI History of Present Illness Chief Complaint: Abd Pain [facility] Medical History Pre-syncope Tachycardia Malaise Lightheadedness Abnormal CBC Preventative health care Screening for cardiovascular condition Health care maintenance Panic disorder MDD (major depressive disorder) Obstructive sleep apnea Morbid obesity Anxiety and depression Sleep apnea Vitamin B 12 deficiency Vitamin D deficiency Kidney stones IBS (irritable bowel syndrome) Gallstones Seasonal allergies Home Medications ???Medication ???Instructions ???Recorded ???Last Taken ???Type cholecalciferol (vitamin D3) 125 10,000 unit PO DAILY 03/28/22 Unknown History mcg (5,000 unit) capsule alprazolam 0.5 mg tablet (Xanax) 0.5 mg PO DAILY PRN anxiety #20 03/08/23 Unknown Rx tabs hydroxyzine pamoate 25 mg capsule 25 mg PO BID PRN anxiety #120 caps 03/08/23 Unknown Rx (Vistaril) bupropion HCl 150 mg 24 hr tablet, 150 mg PO QAM #90 tabs 09/06/23 12/19/23 Rx extended release (Wellbutrin XL) cyanocobalamin (vitamin B-12) 1,000 mcg IM QMONTH #10 mL 09/06/23 Unknown Rx 1,000 mcg/mL injection solution semaglutide 1 mg/dose (4 mg/3 mL) 1 mg subcut QWEEK 09/19/23 Unknown History subcutaneous pen injector cefdinir 300 mg capsule 600 mg (2 x 300 mg) PO DAILY #7 01/08/24 Unknown Rx caps ondansetron 4 mg disintegrating 4 mg PO Q8H PRN PRN Nausea #10 tabs 01/08/24 Unknown Rx tablet Allergy/AdvReac Type Severity Reaction Status Date / Time Sulfa (Sulfonamide Allergy Severe Unknown Verified 11/30/23 13:42 Antibiotics) Family History Mother Diabetes Aunt Diabetes Depression Ovarian cancer Grandmother Myocardial infarction Other Anxiety Kidney disease Social History household members: spouse number of children: 2 current occupational status: employed 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 EXAM Physical Exam Const Vital Signs: 01/08/24 09:46 01/08/24 10:35 01/08/24 10:58 Temperature 98.0 F Temperature Source Temporal Pulse Rate 54 L 56 L 67 Respiratory Rate 18 14 14 Blood Pressure 146/124 H 142/85 H 133/79 H Blood Pressure Mean 131 104 97 Pulse Ox 98 100 96 Oxygen Delivery Method Room Air Room Air Room Air 01/08/24 11:35 01/08/24 12:12 Temperature 98.8 F 98.8 F Temperature Source Oral Pulse Rate 56 L Respiratory Rate 18 Blood Pressure 115/66 Blood Pressure Mean 82 Pulse Ox 100 Oxygen Delivery Method MDM MDM MDM Narrative Medical decision making narrative: HISTORY OF PRESENT ILLNESS: 43-year-old female presents with abdominal pain. Right sided, does not radiate. It is associated with nausea and severe pain. Notes blood in her urine. Denies dysuria. Denies vaginal bleeding or discharge. REVIEW OF SYSTEMS: Pertinent positives: Abdominal pain Pertinent negatives: as per HPI PHYSICAL EXAM: Nursing triage notes reviewed, Vital signs reviewed Constitutional: please see mdm HENT: MMM Eyes: Pupils equal round and reactive to light, Extraocular muscles intact Neck: No stridor, no JVD, full neck ROM Lungs: Clear to auscultation, No wheezing or rales. No increased work of breathing, no conversational dyspnea, no accessory muscle use, no nasal flaring. No respiratory distress noted Heart: Regular rate and rhythm, No murmurs, No rubs and No gallops, 2+ distal pulses (radial, femoral, posterior tibial) in all extremities Abdomen: Soft, there is no tenderness, rigidity, rebound or guarding, no obvious peritoneal signs, no palpable pulsatile abdominal masses, no auscultated abdominal bruit : No CVAT Extremities: No edema Neuro: No focal neurological deficits, cranial nerves II through XII intact, 5/5 strength in all extremities. Intact sensation to light touch in all extremities, 2+ reflexes bilateral patella tendons. Normal gait. No ataxia. Skin: No rash or lesions noted MEDICAL DECISION MAKING: Chief Complaint: Abdominal pain External records reviewed: Reviewed prior imaging: Reviewed CT scan from 2019 (more content not included)... Normal [facility] Lipaseon 01-08-2024 Lipase [Catalytic activity/Vol] 29 U/L Normal 13-75 [facility] Comment on above: Result Comment: Misty hopson note: LIPASE revised reference range effective 22. New Lipase methodology. Expected to produce lower values than the previous assay method. NEW Reference Range: 13 - 75 U/L Performed By: #### L 700.6800, L501.2450, L500.4050, L100.0500 ####[facility] [address] [place], [address] ,Serum,hCG Quali.on 01-08-2024 HCG, SERUM QUAL Negative Normal [facility] Comment on above: Performed By: #### L 700.6800, L501.2450, L500.4050, L100.0500 ####[facility] [address] [place], [address] Urinalysis, Completeon 01-07 RBC > 100 SEEN Normal 0-5 [facility] Comment on above: Order Comment: COLOR OF URINE MAY AFFECT DIPSTICK RESULTS. CLEAN CATCH Performed By: #### L 400.0001 #### [facility] [address] [place], [address] BACTERIA 0 SEEN Normal None Seen [facility] Comment on above: Order Comment: COLOR OF URINE MAY AFFECT DIPSTICK RESULTS. CLEAN CATCH Performed By: #### L 400.0001 #### [facility] [address] [place], [address] EPI,SQUAMOUS 0 SEEN Normal 5-10 [facility] Comment on above: Order Comment: COLOR OF URINE MAY AFFECT DIPSTICK RESULTS. CLEAN CATCH Performed By: #### L 400.0001 #### [facility] [address] [place], [address] Mucus Ql (Urine sed) 0 SEEN Normal [facility] Comment on above: Order Comment: COLOR OF URINE MAY AFFECT DIPSTICK RESULTS. CLEAN CATCH Performed By: #### L 400.0001 #### [facility] [address] [place], [address] WBC 0 SEEN Normal 0-5 [facility] Comment on above: Order Comment: COLOR OF URINE MAY AFFECT DIPSTICK RESULTS. CLEAN CATCH Performed By: #### L 400.0001 #### [facility] [address] [place], [address] Venous Duplex US, Unilateral on 12-21-2023 Venous Duplex US, Unilateral [facility] [address] [place] [address] Venous Duplex US, Unilateral 12/21/23 0923 MR#: [id number] Acct: [id number] Name: CARLIE GIPSON Rep #: [id number] : 1980 43 From: Fam Mora MD Attending Dr: Dr. Fam Mora MD Status: REG C Ordering Dr: Kirstin Mukherjee Date: 12/21/23 Location: CVS Sex: F C Admitted: Reason For Study: S/P Chemical Ablation RIGHT LEFT CFV is compressible, spontaneous, phasic, GSV is dilated and NONCOMPRESSIBLE from dist competent and demonstrates normal calf to approximately 0.62 cm distal to SFJ. augmentation. Intraluminal echoes are noted and finding is Procedure consistent with recent chemical ablation This is a venous duplex using B-mode, color procedure. flow and spectral Doppler. CFV is compressible, spontaneous, phasic, Exam performed in department. competent, and demonstrates normal The exam was diagnostic. augmentation. FV is compressible, spontaneous, phasic, competent and demonstrates normal augmentation. POP V is compressible, spontaneous, phasic, competent and demonstrates normal augmentation. T/P Trunk is compressible. PTV is compressible. LT PerV is compressible. VL/Venous Duplex US, Unilateral Interpretation Summary Deep veins of the left lower extremity are patent and compressible segmentally. There is no evidence of left lower extremity deep vein thrombosis. Left great saphenous vein occluded consistent with recent chemical ablation. Ordering Physician: Kirstin Mukherjee Referring Physician: J Luis Gutierrez Performed By: Brian Barrera, T 12/24/23 1424 Date Fam Mora MD CC: RHIANNON Gray; Dr. J Luis Gutierrez MD; Dr. Fam Mora MD Date Dictated: 12/21/23922 Date Transcribed: 12/24/231423 Aviation Medicine Specialist: Signed Normal [facility] Operative Reporton Operative Report [facility] Medical Records Department [address] [place] [address] Operative Report 12/19/23 1049 MR#: [id number] Acct: [id number] Name: CARLIE GIPSON Rep #: [id number] : 1980 43 From: Fam Mora MD PCP: Dr. J Luis Gutierrez MD Status:[facility] Location: [facility] Report of Operation Date of Procedure: 12/19/23 Pre-Operative Diagnosis: varicose veins with pain, left lower extremity Post-Operative Diagnosis: same Surgery/Procedure Performed:: left GSV chemical ablation Surgeon: Fam Mora Type of Anesthesia: Local and Sedation,Conscious Estimated Blood Loss (mL): 2 Description of Procedure: HPI: Patient is a [age]-year-old female with symptomatic left lower extremity varicose veins with pain that have been refractory to compression therapy. She had venous duplex that revealed reflux throughout the great saphenous vein and thigh accessory saphenous veins that joint of the great saphenous in the mid thigh. Skin overlying the saphenous vein in the mid calf was anesthetized with 1% lidocaine and the vessel accessed with a micropuncture needle wire. This then exchanged for the 7 Kiswahili ablation sheath and through this the Bentson wire was advanced under ultrasound guidance to the saphenofemoral junction. Next the glue delivery guide was advanced over the wire and positioned at the saphenofemoral junction. Wires and dilator then withdrawn and the glue delivery catheter advanced into position inferior to the saphenofemoral junction. Glue was then infused over the length of the treatment zone from distal to the saphenofemoral junction to just above the ablation sheath. Upon completion the saphenofemoral junction and common femoral vein were assessed and there is no evidence of any deep vein thrombus. The sheath was then withdrawn and manual pressure held followed by dry sterile dressing and Michele wrap. Patient was taken to recovery room with plans to discharge to home. 12/19/23 1110 Cosigner Signature (if applicable): CC: Dr. J Luis Gutierrez MD; Dr. Fam Mora MD Signed Normal [facility] Absolute lymphocyte counton 03-20-2022 Lymphocytes Auto (Unsp spec) [#/Vol] 3.68 10*3/uL 0.83-4.51 [facility] Work Phone: Basophil percentageon 2021 Basophils/100 WBC (Bld) 0.5 % 0-1 [facility] Work Phone: [phone] Bilirubin [Mass/Vol] 0.50 mg/dL 0.20-1.00 [facility] Work Phone: Comment on above: For patients on eltr ombopag therapy, use of Dimension [place] TBIL is not recommended. Chloride [Moles/Vol] 108 mmol/L 98-107 [facility] Work Phone: [phone] Cholesterol [Mass/Vol] 174 mg/dL <200 [facility] Work Phone: [phone] Comment on above: <200 mg/dL Desirable 200-240 mg/dL Borderline >240 mg/dL High Risk Eosinophils/100 WBC (Bld) 1.2 % 0-5 [facility] Work Phone: [phone] Glucose [Mass/Vol] 86 mg/dL 74-106 [facility] Work Phone: [phone] Neutrophils (Bld) [#/Vol] 5.3 10*3/uL 2.0-7.7 [facility] Work Phone: Neutrophils/100 WBC (Bld) 54.7 % 47-70 [facility] Work Phone: [phone] Potassium [Moles/Vol] 3.9 mmol/L 3.5-5.1 [facility] Work Phone: [phone] Protein [Mass/Vol] 7.3 g/dL 6.4-8.2 [facility] Work Phone: [phone] Sodium [Moles/Vol] 140 mmol/L 136-145 [facility] Work Phone: [phone] Triglyceride [Mass/Vol] 107 mg/dL <199 [facility] Work Phone: [phone] Comment on above: The drugs N-Acetylcy steine and Metamizole may falsely depress this assay.Serum Triglycerides Reference Interval Normal <150 mg/dL Borderline high 150 - 199 mg/dL High 200 - 499 mg/dL Very High > or = 500 mg/dL WBC (Bld) [#/Vol] 9.7 10*3/uL 4.4-11.0 [facility] Work Phone: Blood erythrocytes count (nu mber/volume)on 03-20-2022 RBC (Bld) [#/Vol] 4.20 10*6/uL 4.2-5.4 [facility] Work Phone: Blood hemoglobin measurement (mass/volume)on 03-20-2022 Hemoglobin (Bld) [Mass/Vol] 14.4 g/dL 12.0-15.0 [facility] Work Phone: Blood lymphocytes/100 leukoc yteson 03-20-2022 Lymphocytes/100 WBC (Bld) 37.8 % 19-41 [facility] Work Phone: Blood monocytes/100 leukocyt eson 03-20-2022 Monocytes/100 WBC (Bld) 5.5 % 0-10 [facility] Work Phone: Blood platelet mean volumeon 03-20-2022 Platelet mean volume (Bld) [Entitic vol] 10.8 fL 6.2-12.0 [facility] Work Phone: [phone] Determination of erythrocyte mean corpuscular volume (MCV)on 03-20-2022 MCV (RBC) [Entitic vol] 98.3 fL 81-99 [facility] Work Phone: [phone] Hematocrit Auto (Bld) [Volum e fraction]on 03-20-2022 Hematocrit (Bld) [Volume fraction] 41.3 % 37-47 [facility] Work Phone: [phone] Laboratory - Chemistry and C hemistry - challengeon 03-20-2022 ALP [Catalytic activity/Vol] 62 U/L 45-117 [facility] Work Phone: [phone] ALT [Catalytic activity/Vol] 28 U/L 13-56 [facility] Work Phone: [phone] CO2 [Moles/Vol] 24.0 mmol/L 21.0-32.0 [facility] Work Phone: [phone] Cobalamin (Vitamin B12) [Mass/Vol] 320 pg/mL 211-911 [facility] Work Phone: [phone] Globulin (S) [Mass/Vol] 3.6 g/dL 2.2-4.2 [facility] Work Phone: [phone] Urea nitrogen/Creatinin e [Mass ratio] 14.4 mg/mg 10-20 [facility] Work Phone: [phone] Laboratory - Hematology and Cell countson 03-20-2022 Erythrocyte distribution width (RBC) [Entitic vol] 48.0 fL 35.1-43.9 [facility] Work Phone: [phone] Erythrocyte distribution width (RBC) [Ratio] 13.3 % 11.6-14.6 [facility] Work Phone: [phone] Immature granulocytes/100 WBC (Bld) 0.300 % 0.0-0.9 [facility] Work Phone: [phone] Comment on above: IG% - Immature Granu locytes (promyelocytes, myelocytes and metamyelocytes) > 1% indicates that a LEFT SHIFT is Present. MCH (RBC) [Entitic mass] 34.3 pg 27.0-32.0 [facility] Work Phone: Nucleated RBC/100 WBC (Bld) [Ratio] 0 % 0-5 [facility] Work Phone: [phone] MCHC Auto (RBC) [Mass/Vol]on 03-20-2022 MCHC (RBC) [Mass/Vol] 34.9 g/dL 32-36 [facility] Work Phone: No Panel Informationon 03-20 Estimated GFR (MDRD) Amer 120 mL/min >60 [facility] Work Phone: Comment on above: GFR Calc Estimated GFR (MDRD) Non-Af Amer 99 mL/min >60 [facility] Work Phone: [phone] Comment on above: Non- GFR Calc Vitamin D 25-Hydroxy 32.9 ng/mL [facility] Work Phone: Comment on above: Vitamin D 25(OH) Sta tus Range Deficiency <20 ng/mL (50nmol/L) Insufficiency 20 - 30 ng/mL (50 - 75 nmol/L) Sufficiency 30 - 100 ng/mL (75 - 250 nmol/L) Toxicity >100 ng/mL (>250 nmol/L) Platelets bldon 03-20-2022 Platelets (Bld) [#/Vol] 286 10*3/uL 150-450 [facility] Work Phone: [phone] Serum or plasma albumin faizan urement (mass/volume)on 03-20-2022 Albumin [Mass/Vol] 3.7 g/dL 3.2-5.0 [facility] Work Phone: [phone] Serum or plasma albumin/glob ulin mass ratioon 03-20-2022 Albumin/Globulin [Mass ratio] 1.0 {ratio} 0.9-2.4 [facility] Work Phone: [phone] Serum or plasma calcium faizan urement (mass/volume)on 03-20-2022 Calcium [Mass/Vol] 9.2 mg/dL 8.5-10.1 [facility] Work Phone: [phone] Serum or plasma cholesterol in HDL measurement (mass/volume)on 03-20-2022 Cholesterol in HDL [Mass/Vol] 38 mg/dL >40 [facility] Work Phone: Comment on above: The drugs N-Acetylcy steine and Metamizole may falsely depress this assay. Reference Range HDL <40 mg/dL Low HDL Cholesterol HDL >or= 60 mg/dL High HDL Cholesterol Serum or plasma cholesterol in VLDL measurement (mass/volume)on 03-20-2022 Cholesterol in VLDL [Mass/Vol] 21 mg/dL 5-40 [facility] Work Phone: [phone] Serum or plasma creatinine m easurement (mass/volume)on 03-20-2022 Creatinine [Mass/Vol] 0.69 mg/dL 0.55-1.02 [facility] Work Phone: Comment on above: The validity of the calculated GFR & GFRAA in patients over 70 years has not been determined. Clinical correlation is essential. Serum or plasma low density lipoprotein (LDL) cholesterol measurement (mass/volume)on 03-20-2022 Cholesterol in LDL [Mass/Vol] 115 mg/dL 0-130 [facility] Work Phone: Serum or plasma urea nitroge n measurement (mass/volume)on 03-20-2022 Urea nitrogen [Mass/Vol] 10 mg/dL 7-18 [facility] Work Phone: Thin prep Papanicolaou smear with manual screeningon 03-20-2022 Thin prep Papanicolaou smear with manual screening 15 U/L 15-37 [facility] Work Phone: [phone] Thin prep Papanicolaou smear with manual screening 8 5-15 [facility] Work Phone: Adalberto 12-19-2021 DANNY Telephone ([facility]) CARLIE GIPSON ([id number]) 1980 F Date Time Provider Department 12/19/21 MIKAYLA VASQUEZ [facility] During your visit today, we recorded the following information about you: Isabel Vega RN 12/19/2021 11:21 AM Signed Pt called in and reports she came in on 12/15/21 for frequency, urgency, and burning with urination. Pt reports those symptoms cleared up with the Macrobid, but now she has achy flank pain. Pt reports she has a history of kidney stones but this isn't that type of pain. Pt is wonder if the UTI traveled and the Macrobid wasn't strong enough. Please call and advise. Radha Strange MA 12/19/2021 11:28 AM Signed Spoke with pt and let her know that the antibiotic should clear up the infection and if symptoms persist or get worse to follow up with PCP. MAURISIO Grier APRN.MARK 12/19/2021 1:08 PM Signed Also advised if flank pain sever, and concerned about stone follow up with PCP or go to ED for further treatment. Scarlett Phillips APRN.LUSTER REPAIRER Allergies As of Date: 12/19/2021 Noted Allergy Reaction SULFA (SULFONAMIDE ANTIBIOTICS) 02/21/2012 12 - Shortness of Breath Date Reviewed: 12/15/2021 Reviewed by: Finn Christian PA-C - Fully Assessed Reason for Visit: Patient Question [5737] Prescriptions as of 12/19/2021 - tirzepatide (MOUNJARO) 2.5 mg/0.5 mL pen injector Inject subcutaneously. - nitrofurantoin monohydrate and macrocrystal (MACROBID) 100 mg capsule Take 1 capsule by mouth twice daily for 5 days. - escitalopram oxalate (LEXAPRO) 10 mg tablet - escitalopram oxalate (LEXAPRO) 5 mg tablet Take by mouth. - ibuprofen (MOTRIN) 800 mg tablet Take 1 tablet by mouth every 8 hours as needed for pain (with food.). - levonorgestrel (MIRENA) 20 mcg/24 hr (5 years) IUD Inserted in office - miSOPROStol (CYTOTEC) 200 mcg tablet Take 1 tablet by mouth every 6 hours. - fluticasone (FLONASE) 50 mcg/actuation nasal spray Use 2 Sprays in each nostril once daily. Rinse mouth after use. - methylPREDNISolone (MEDROL, YOUNG,) 4 mg Dose-Pack Use as directed - fluticasone (FLONASE) 50 mcg/actuation nasal spray Use 2 Sprays in each nostril once daily. - ALPRAZolam (XANAX) 0.5 mg tablet Take 0.5 mg by mouth at bedtime as needed. 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 Depression [F32.A] 07/27/2010 Marital conflict [Z63.0] 01/04/2015 Encounter Status:Closed by SCARLETT PHILLIPS on 12/19/21 [facility] Bacteria Ur Culton 2 Bacteria identified Cx Nom (U) CULTURE, URINE: Mixed microbiota: ORGANISM ID: 1 >=100,000 CFU/ml Citrobacter koseri ORGANISM ID: 2 50,000-<100,000 CFU/ml Escherichia coli ORGANISM ID: 1 (CITROBACTER KOSERI) ------ ANTIBIOTIC INTERPRETATION CANDY STATUS REFERENCE RANGE ------ Ampicillin R F Ampicillin/Sulbact S 4 F Susceptible <=8 , Intermediate >8 , Resistant >16 Cefazolin S <=4 F Susceptible 0-16 , Intermediate <0 or >16 , Resistant >16 Cefepime S <=1 F Susceptible <=2 , Intermediate >2 , Resistant >=16 Ceftriaxone S <=1 F Susceptible <=1 , Intermediate >1 , Resistant >=4 Ciprofloxacin S <=0.25 F Susceptible <0.5 , Intermediate >=.5 , Resistant >=1 Ertapenem S <=0.5 F Susceptible <=0.5 , Intermediate >.5 , Resistant >1 Gentamicin S <=1 F Susceptible <=4 , Intermediate >4 , Resistant >8 Meropenem S <=0.25 F Susceptible <=1 , Intermediate >1 , Resistant >2 Nitrofurantoin S 32 F Susceptible <=32 , Intermediate >32 , Resistant >64 Piperacillin/Tazobac S <=4 F Susceptible <=16 , Intermediate >16 , Resistant >64 Tobramycin S <=1 F Susceptible <=4 , Intermediate >4 , Resistant >8 Trimeth sulfameth S <=20 F Susceptible <=40 , Resistant >40 ORGANISM ID: 2 (ESCHERICHIA COLI) ------ ANTIBIOTIC INTERPRETATION CANDY STATUS REFERENCE RANGE ------ Ampicillin S <=2 F Susceptible <=8 , Intermediate >8 , Resistant >16 Ampicillin/Sulbact S <=2 F Susceptible <=8 , Intermediate >8 , Resistant >16 Cefazolin S <=4 F Susceptible 0-16 , Intermediate <0 or >16 , Resistant >16 Cefepime S <=1 F Susceptible <=2 , Intermediate >2 , Resistant >=16 Ceftriaxone S <=1 F Susceptible <=1 , Intermediate >1 , Resistant >=4 Ciprofloxacin S <=0.25 F Susceptible <0.5 , Intermediate >=.5 , Resistant >=1 Ertapenem S <=0.5 F Susceptible <=0.5 , Intermediate >.5 , Resistant >1 Gentamicin S <=1 F Susceptible <=4 , Intermediate >4 , Resistant >8 Meropenem S <=0.25 F Susceptible <=1 , Intermediate >1 , Resistant >2 Nitrofurantoin S <=16 F Susceptible <=32 , Intermediate >32 , Resistant >64 Piperacillin/Tazobac S <=4 F Susceptible <=16 , Intermediate >16 , Resistant >64 Tobramycin S <=1 F Susceptible <=4 , Intermediate >4 , Resistant >8 Trimeth sulfameth S <=20 F Susceptible <=40 , Resistant >40 Abnormal [facility] Comment on above: Performed By: #### 6 30-4 #### [facility] CLIA [id number] [address] [place] [address] OF [facility] CNOVon 12-15-2021 CNOV Office Visit ([facility] ) CARLIE GIPSON ([id number]) 1980 F Date Time Provider Department 12/15/21 1:00 PM [facility] During your visit today, we recorded the following information about you: Temperature Pulse Respiration Blood pressure 98.8 degrees 81/minute 18/minute 132/78 Weight Last Period 107.1 kg 11/27/21 Finn Christian PA-C 12/15/2021 2:24 PM Signed 12/15/2021 Patient presents with: Urinary Frequency: burning, x1 day SUBJECTIVE: This is a 41 year old that is here today for Complaint(s) of dysuria and urinary frequency x 1 days. Overall not feeling well. Having lower suprapubic cramping/pressure. Denies fever/chills, nausea, vomiting, back pain, abdominal pain, hematuria. Last UTI >6 months. No new sexual partners. Took motrin. Allergy to sulfa. PAST MEDICAL HISTORY Diagnosis Date - NEGATIVE MEDICAL HISTORY ALLERGIES Sulfa (Sulfonamide Antibiotics) MEDICATIONS Current Outpatient Medications Medication Sig - tirzepatide (MOUNJARO) 2.5 mg/0.5 mL pen injector Inject subcutaneously. - escitalopram oxalate (LEXAPRO) 5 mg tablet Take by mouth. - ibuprofen (MOTRIN) 800 mg tablet Take 1 tablet by mouth every 8 hours as needed for pain (with food.). - ALPRAZolam (XANAX) 0.5 mg tablet Take 0.5 mg by mouth at bedtime as needed. - escitalopram oxalate (LEXAPRO) 10 mg tablet (Patient not taking: Reported on 12/28/2020 ) - levonorgestrel (MIRENA) 20 mcg/24 hr (5 years) IUD Inserted in office (Patient not taking: Reported on 12/15/2021 ) - miSOPROStol (CYTOTEC) 200 mcg tablet Take 1 tablet by mouth every 6 hours. - fluticasone (FLONASE) 50 mcg/actuation nasal spray Use 2 Sprays in each nostril once daily. Rinse mouth after use. (Patient not taking: Reported on 12/28/2020 ) - methylPREDNISolone (MEDROL, YOUNG,) 4 mg Dose-Pack Use as directed - fluticasone (FLONASE) 50 mcg/actuation nasal spray Use 2 Sprays in each nostril once daily. No current facility-administered medications for this visit. SOCIAL HISTORY Social History Tobacco Use - Smoking status: Former Smoker Types: Cigarettes - Smokeless tobacco: Never Used Substance Use Topics - Alcohol use: Yes Comment: rare - Drug use: No REVIEW OF SYSTEMS See HPI OBJECTIVE: BP 132/78 Pulse 81 Temp 37.1 ?C (98.8 ?F) Resp 18 Wt 107.1 kg (236 lb 3.2 oz) LMP 11/27/2021 SpO2 98% BMI 41.84 kg/m? APPEARANCE Well appearing, alert, in no acute distress, well-hydrated, well nourished. ABDOMEN bowel sounds normoactive, no bruits, soft, non-tender, non-distended, without organomegaly or palpable masses, no tenderness to palpation BACK: Normal exam ASSESSMENT/PLAN: 1. Urinary frequency - ICD9: 788.41, ICD10: R35.0 acute - UA positive for maria esterase, hematuria and nitrates - Send urine for culture - Begin treatment with Macrobid 100 mg BID for 5 days - Patient education for prevention given - URINE CULTURE - NITROFURANTOIN MONOHYDRATE AND MACROCRYSTAL 100 MG ORAL CAP - FLUCONAZOLE 150 MG TABLET Reviewed previous urine culture. The patient indicates understanding of these issues and agrees with the plan. Reviewed red flags and when to seek care sooner. Finn Christian PA-C Referring Provider: SELF [200] Allergies As of Date: 12/15/2021 Noted Allergy Reaction SULFA (SULFONAMIDE ANTIBIOTICS) 02/21/2012 12 - Shortness of Breath Date Reviewed: 12/15/2021 Reviewed by: Finn Christian PA-C - Fully Assessed Reason for Visit: Urinary Frequency [1086] Cmt: burning, x1 day Primary Visit Diagnosis:Urinary frequency [R35.0] Order(s):URINE CULTURE [SQURCUL] Order #: [id number]. #:[id number] UA DIP, URINE (POC) [[id number]] Order #: [id number]. #:[id number] nitrofurantoin monohydrate and macrocrystal (MACROBID) 100 mg capsuleTake 1 capsule by mouth twice daily for 5 days.Disp: 10 capsuleRfl: 0 fluconazole (DIFLUCAN) 150 mg tabletTake 1 tablet by mouth once daily for 1 day.Disp: 1 tabletRfl: 0 Prescriptions as of 12/16/2021 - tirzepatide (MOUNJARO) 2.5 mg/0.5 mL pen injector Inject subcutaneously. - nitrofurantoin monohydrate and macrocrystal (MACROBID) 100 mg capsule Take 1 capsule by mouth twice daily for 5 days. - fluconazole (DIFLUCAN) 150 mg tablet Take 1 tablet by mouth once daily for 1 day. - escitalopram oxalate (LEXAPRO) 10 mg tablet - escitalopram oxalate (LEXAPRO) 5 mg tablet Take by mouth. - ibuprofen (MOTRIN) 800 mg tablet Take 1 tablet by mouth every 8 hours as needed for pain (with food.). - levonorgestrel (MIRENA) 20 mcg/24 hr (5 years) IUD Inserted in office - miSOPROStol (CYTOTEC) 200 mcg tablet Take 1 tablet by mouth every 6 hours. - fluticasone (FLONASE) 50 mcg/actuation nasal spray Use 2 Sprays in each nostril once daily. Rinse mouth after use. - methylPREDNISolone (MEDROL, YOUNG,) 4 mg Dose-Pack Use as directe (more content not included)... Normal [facility] UA DIP, URINE (POC)on 2021 BILIRUBIN UA (POCT) Negative Negative [facility] CLARITY UA (POCT) Clear [facility] GLUCOSE UA (POCT) Negative Negative mg/dL [facility] HEMOGLOBIN/BLOOD UA (POCT) Moderate Abnormal Negative [facility] KETONE UA (POCT) Trace Negative mg/dL [facility] LEUKOCYTES UA (POCT) Moderate Abnormal Negative [facility] NITRITE UA (POCT) Positive Abnormal Negative [facility] PH UA (POCT) 6.5 4.5 - 8.0 [facility] Protein Ql (U) 100 mg/dL Abnormal Negative mg/dL [facility] SPECIFIC GRAVITY UA (POCT) >=1.030 1.005 - 1.030 [facility] UROBILINOGEN UA (POCT) 0.2 E.U./dL Normal E.U./dL [facility] VITAMIN B12on 10-31-2021 Cobalamin (Vitamin B12) [Mass/Vol] 323 pg/mL Normal 211 - 911 [facility] Comment on above: Performed By: #### V TB12 #### [address] [address] VITAMIN D, 25-HYDROXYon 10-19 VITAMIN D, 25-HYDROXY 27 ng/mL Abnormal [facility] Comment on above: Result Comment: . DEFICIENCY: < 20 NG/ML INSUFFICIENCY: 20-29 NG/ML SUFFICIENCY: 30-100 NG/ML THIS ASSAY ACCURATELY QUANTIFIES THE SUM OF VITAMIN D3, 25-HYDROXY AND VIT D2,25-HYDROXY. Performed By: #### V TDOH #### [address] [address] Vitamin B12, Serumon 022 Cobalamin (Vitamin B12) [Mass/Vol] 323 pg/mL 211 - 911 [facility] 205 DO Work Phone: Vitamin D 25-Hydroxyon 10-31 25-hydroxyvitamin D3 [Mass/Vol] 27 ng/mL Abnormal -[facility] 205 DO Work Phone: Comment on above: .DEFICIENCY: < 20 NG /MLINSUFFICIENCY: 20-29 NG/MLSUFFICIENCY: 30-100 NG/MLTHIS ASSAY ACCURATELY QUANTIFIES THE SUM OFVITAMIN D3, 25-HYDROXY AND VIT D2,25-HYDROXY. [facility] Follow-up visit Diagnoses/Problems Obesity, morbid, BMI 40.0-49.9 (278.01) (E66.01) Low serum vitamin D (790.6) (R79.89) BMI 40.0-44.9, adult (V85.41) (Z68.41) Sleep apnea (780.57) (G47.30) Irritable bowel syndrome (564.1) (K58.9) Orders BMI 40.0-44.9, adult, Low serum vitamin D, Obesity, morbid, BMI 40.0-49.9 Comprehensive Weight Loss Referral (Diet/exercise/meds with [facility]. Surgical counseling if needed, gateway to all programs) Evaluation and Treatment Evaluate AND Treat Status: Hold For - Scheduling Requested for: 21Jul2021 Patient Discussion/Summary FOllowup October, labs prior, call concerns. Chief Complaint Pt presents for routine check up; med review; questions regarding CPAP machine, which is on backorder for 2 months; question regarding Wegovy injections for weight loss. History of Present Illness Carlie presents for followup on several issues. Low b12, and low vitamin D, on supplements, will monitor Anxiety/bipolar, declines psychiatry referral, Irritable bowel, has been to GI, tried medicine and did not tolerate Morbid obesity, she is interested in medication, discussed healthy diet, filling nutrient rich foods, and exercise. I recommend a comprehensive approach and she is agreeable. Sleep apnea, cpap ordered, on backorder, will follow up about a month after she starts. She has her husbands machine but its not auto titrate, he doesn't need it after weight loss. She would need to go have a titration study and doesn't want to do that, will just wait on the auto titrate machine. Review of Systems Constitutional: as noted in HPI. Cardiovascular: as noted in HPI. Gastrointestinal: as noted in HPI. Psychiatric: as noted in HPI. Endocrine: as noted in HPI. Active Problems Anxiety disorder (300.00) (F41.9) Bilateral kidney stones (592.0) (N20.0) History of Bipolar disease, chronic (296.80) (F31.9) BMI 40.0-44.9, adult (V85.41) (Z68.41) Fibrocystic breast disease (610.1) (N60.19) Gallstones (574.20) (K80.20) Irritable bowel syndrome (564.1) (K58.9) Low serum vitamin D (790.6) (R79.89) Low vitamin B12 level (266.2) (E53.8) Obesity, morbid, BMI 40.0-49.9 (278.01) (E66.01) Screening for breast cancer (V76.10) (Z12.39) Seasonal allergies (477.9) (J30.2) Sleep apnea (780.57) (G47.30) Past Medical History Anxiety disorder (300.00) (F41.9) History of Bipolar disease, chronic (296.80) (F31.9) Resolved Date: 15 Sep 2020 Encounter for preventive health examination (V70.0) (Z00.00) Resolved Date: History of screening mammography (V15.89) (Z92.89) 01/20/2021 History of spontaneous (V13.29) (Z87.59) 06/1999 History of IUD (intrauterine device) in place (V45.51) (Z97.5) 2016 History of Menstruation AGE 12 History of Normal vaginal delivery (650) (O80) 01/2003; 36 WEEKS; MALE; 6LBS 5OZ 06/2005; 35 WEEKS; MALE; 6LBS 2OZ History of Women's annual routine gynecological examination (V72.31) (Z01.419) Resolved Date: 31 Jan 2021 01/20/2021; COTEST NEG Surgical History History of [place] tooth extraction Family History Family history of cardiac arrhythmia (V17.49) (Z82.49) Family history of cardiac disorder (V17.49) (Z82.49) Family history of diabetes mellitus (V18.0) (Z83.3) Family history of hypertension (V17.49) (Z82.49) Family history of cardiac disorder (V17.49) (Z82.49) Family history of diabetes mellitus (V18.0) (Z83.3) Family history of diabetes mellitus (V18.0) (Z83.3) Family history of hypertension (V17.49) (Z82.49) Family history of malignant neoplasm of breast (V16.3) (Z80.3) MAternal GM 60s. Maternal Aunt 67 Family history of osteoporosis (V17.81) (Z82.62) Family history of cervical cancer (V16.49) (Z80.49) maternal Family history of malignant neoplasm of breast (V16.3) (Z80.3) MAternal GM 60s. Maternal Aunt 67 Social History Coffee Does not use illicit drugs (V49.89) (Z78.9) Former smoker (V15.82) (Z87.891) Patient has living will (V49.89) (Z78.9) Sexually active Very rarely consumes alcohol (V49.89) (Z78.9) Allergies Sulfa Drugs Recorded By: Su Martinez; 11/12/2019 2:58:34 PM Current Meds Medication NameInstructionReason Escitalopram Oxalate 5 MG Oral TabletTake 1 tablet dailyAnxiety disorder hydrOXYzine HCl - 25 MG Oral TabletTAKE 1 TABLET BY MOUTH EVERY 4 TO 6 HOURS NEEDED FOR ANXIETY.Anxiety disorder ALPRAZolam 0.5 MG Oral TabletTAKE 1 TABLET Twice daily PRN anxiety/panicAnxiety disorder, PMH: Encounter for preventive health examination buPROPion HCl ER (XL) 150 MG Oral Tablet Extended Release 24 HourTAKE 1 TABLET BY MOUTH EVERY 24 HOURSAnxiety disorder, PMH: Encounter for preventive health examination, Irritable bowel syndrome Ibuprofen 800 MG Oral Tablet Loratadine 10 MG Oral Tablet Vitamin B12 TABS Vitamin D (Cholecalciferol) 25 MCG (1000 UT) Oral Capsule Vitals Vital Signs Recorded: 21Jul2021 08:08AM Heart Rate96 [id number], LUE [id number], LUE Height5 ft 3 in [id number] lb 8 oz BMI (more content not included)... Normal [facility] Tobacco Screening.on 022 Fall risk assessment a) No falls within the last year [facility] Work Phone: Tobacco use status CPHS b) No [facility] Work Phone: Established Visit (Gastroent erology)on 05-11-2021 Established Visit (Gastroenterology) Diagnoses/Problems Assessed Irritable bowel syndrome (564.1) (K58.9) Orders Irritable bowel syndrome Start: Xifaxan 550 MG Oral Tablet; 1 tablet 3 times daily until gone Rx By: Monster Heredia; Dispense: 0 Days ; #:42 Tablet; Refill: 0;For: Irritable bowel syndrome; CHERI = N; Verified Transmission to [facility]; Last Updated By: SystemBionaturis; 05/11/2021 3:07:16 PM Provider Impressions Discussed treatment options. I suspect she has irritable bowel syndrome, diarrhea predominant. Advised her to continue lactose-free and gluten-free diet. Will begin Xifaxan 550 mg 3 times daily for 14 days. If fails will consider beginning Lotronex 0.5 mg twice daily. Chief Complaint FUV in office today from colonoscopy on 04/22/2021. Patient states her diarrhea is the same, has not been any better or worse. History of Present IllnessPatient seen today in follow-up. Work-up included stool for pancreatic elastase which was normal, serum celiac testing which was unremarkable and colonoscopy which was completed within the last 2 weeks. Colonic biopsies showed no evidence of microscopic colitis. Despite FODMAP diet she is continued have 6-8 loose stools daily with urgency. She denies any rectal bleeding. Discussed treatment options. I suspect she has irritable bowel syndrome, diarrhea predominant. Advised her to continue lactose-free and gluten-free diet. Will begin Xifaxan 550 mg 3 times daily for 14 days. If fails will consider beginning Lotronex 0.5 mg twice daily. Review of Systems Constitutional: no fever, no chills, not feeling tired and no recent weight loss. ENT: no lymphadenopathy. Cardiovascular: no shortness of breath and no chest pain. Respiratory: no cough. Gastrointestinal: as noted in HPI. Musculoskeletal: no joint swelling. Integumentary: no rashes, no skin lesions and was no jaundiced. All other systems have been reviewed and are negative for complaint. Active Problems Problems Anxiety disorder (300.00) (F41.9) Bilateral kidney stones (592.0) (N20.0) History of Bipolar disease, chronic (296.80) (F31.9) BMI 40.0-44.9, adult (V85.41) (Z68.41) Chronic diarrhea (787.91) (K52.9) Encounter for routine checking of intrauterine contraceptive device (IUD) (V25.42) (Z30.431) Fatigue (780.79) (R53.83) Fibrocystic breast disease (610.1) (N60.19) Gallstones (574.20) (K80.20) Irritable bowel syndrome (564.1) (K58.9) Low serum vitamin D (790.6) (R79.89) Low vitamin B12 level (266.2) (E53.8) Obesity, morbid, BMI 40.0-49.9 (278.01) (E66.01) Screening for breast cancer (V76.10) (Z12.39) Seasonal allergies (477.9) (J30.2) Snoring (786.09) (R06.83) Past Medical History Problems Anxiety disorder (300.00) (F41.9) History of Bipolar disease, chronic (296.80) (F31.9) Resolved Date: 15 Sep 2020 Encounter for preventive health examination (V70.0) (Z00.00) Resolved Date: History of screening mammography (V15.89) (Z92.89) 01/20/2021 History of spontaneous (V13.29) (Z87.59) 06/1999 History of IUD (intrauterine device) in place (V45.51) (Z97.5) 2016 History of Menstruation AGE 12 History of Normal vaginal delivery (650) (O80) 01/2003; 36 WEEKS; MALE; 6LBS 5OZ 06/2005; 35 WEEKS; MALE; 6LBS 2OZ History of Women's annual routine gynecological examination (V72.31) (Z01.419) Resolved Date: 31 Jan 2021 01/20/2021; COTEST NEG Surgical History Problems History of [place] tooth extraction Family History Mother Family history of cardiac arrhythmia (V17.49) (Z82.49) Family history of cardiac disorder (V17.49) (Z82.49) Family history of diabetes mellitus (V18.0) (Z83.3) Family history of hypertension (V17.49) (Z82.49) Father Family history of cardiac disorder (V17.49) (Z82.49) Grandparent Family history of diabetes mellitus (V18.0) (Z83.3) Grandmother Family history of diabetes mellitus (V18.0) (Z83.3) Family history of hypertension (V17.49) (Z82.49) Family history of malignant neoplasm of breast (V16.3) (Z80.3) MAternal GM 60s. Maternal Aunt 67 Family history of osteoporosis (V17.81) (Z82.62) Aunt Family history of cervical cancer (V16.49) (Z80.49) maternal Family history of malignant neoplasm of breast (V16.3) (Z80.3) MAternal GM 60s. Maternal Aunt 67 Social History Problems Coffee Does not use illicit drugs (V49.89) (Z78.9) Former smoker (V15.82) (Z87.891) Patient has living will (V49.89) (Z78.9) Sexually active Very rarely consumes alcohol (V49.89) (Z78.9) Allergies Medication Sulfa Drugs Recorded By: Su Martinez; 11/12/2019 2:58:34 PM Current Meds Medication NameInstruction ALPRAZolam 0.5 MG Oral TabletTAKE 1 TABLET Twice daily PRN anxiety/panic buPROPion HCl ER (XL) 150 MG Oral Tablet Extended Release 24 HourTAKE 1 TABLET BY MOUTH EVERY 24 HOURS Escitalopram Oxalate 5 MG Oral TabletTake 1 tablet daily hydrOXYzine HCl - 25 MG Oral TabletTAKE 1 TABLET EVERY 4 TO 6 HOURS NEEDED FOR ANXIETY. Ibuprofen 80 (more content not included)... Normal [facility] METHYLMALONIC ACIDon 12-20-2 021 METHYLMALONIC ACID 196 nmol/L Normal 0-378 [facility] Comment on above: Result Comment: This test was developed and its performance characteristics determined by [facility]. It has not been cleared or approved by the Food and Drug Administration. Performed By: #### M NM #### [facility] [place], [place] [id number] Office Visit (Family Nikkie wood)on 05-06-2021 Follow-up visit Diagnoses/Problems Snoring (786.09) (R06.83) Fatigue (780.79) (R53.83) Low serum vitamin D (790.6) (R79.89) Low vitamin B12 level (266.2) (E53.8) BMI 40.0-44.9, adult (V85.41) (Z68.41) Orders Fatigue In Lab PSG Sleep Study, 6 years of age and greater; Status:Hold For - Scheduling; Requested for:[id number]; Non-ambulatory,wheelchair,ot her physical limitations? : No Ensuresis(prep bed), Technology dependent(Gtube/trach)? : No O2 requirements during the study? : No PSG PRECAUTIONS: Please select any applicable precautions : None COMORBIDITIES : None PSG INDICATIONS : Evaluation/treatment of Obstructive Sleep Apnea [G47.33] Study Type : SPLIT - Diagnostic with Treatment Low serum vitamin D, Low vitamin B12 level Vitamin B12, Serum; Status:Active; Requested for:[id number]; Vitamin D 25-Hydroxy; Status:Active; Requested for:[id number]; Patient Discussion/Summary ROutine followup six months, and further followup pending sleep study results, call concerns. Chief Complaint Chief Complaint: CARLIE GIPSON is here with a chief complaint of 6 week check with labs. Waking herself up snoring . History of Present Illness Carlie presents for followup. Low vitamin D improving, continue supplement Low VItamin b12, improved, continue supplement Has been to DR Heredia for Diarrhea, workup nonrevealing so far, she is still having the same symptoms, recommend she call back to the office for follow up. Maame, states her made her promise to tell me this today, tired, does not feel well rested, recommend sleep study and she is agreeable BMI over 40, have reviewed benefits of working toward ideal body weight Review of Systems Constitutional: as noted in HPI. Cardiovascular: no chest pain. Respiratory: no shortness of breath during exertion. Gastrointestinal: diarrhea. Endocrine: as noted in HPI. Active Problems Anxiety disorder (300.00) (F41.9) Bilateral kidney stones (592.0) (N20.0) History of Bipolar disease, chronic (296.80) (F31.9) BMI 40.0-44.9, adult (V85.41) (Z68.41) Chronic diarrhea (787.91) (K52.9) Encounter for routine checking of intrauterine contraceptive device (IUD) (V25.42) (Z30.431) Fibrocystic breast disease (610.1) (N60.19) Gallstones (574.20) (K80.20) Irritable bowel syndrome (564.1) (K58.9) Low serum vitamin D (790.6) (R79.89) Low vitamin B12 level (266.2) (E53.8) Obesity, morbid, BMI 40.0-49.9 (278.01) (E66.01) Screening for breast cancer (V76.10) (Z12.39) Seasonal allergies (477.9) (J30.2) Past Medical History Anxiety disorder (300.00) (F41.9) History of Bipolar disease, chronic (296.80) (F31.9) Resolved Date: 15 Sep 2020 Encounter for preventive health examination (V70.0) (Z00.00) Resolved Date: History of screening mammography (V15.89) (Z92.89) 01/20/2021 History of spontaneous (V13.29) (Z87.59) 06/1999 History of IUD (intrauterine device) in place (V45.51) (Z97.5) 2016 History of Menstruation AGE 12 History of Normal vaginal delivery (650) (O80) 01/2003; 36 WEEKS; MALE; 6LBS 5OZ 06/2005; 35 WEEKS; MALE; 6LBS 2OZ History of Women's annual routine gynecological examination (V72.31) (Z01.419) Resolved Date: 31 Jan 2021 01/20/2021; COTEST NEG Surgical History History of [place] tooth extraction Family History Family history of cardiac arrhythmia (V17.49) (Z82.49) Family history of cardiac disorder (V17.49) (Z82.49) Family history of diabetes mellitus (V18.0) (Z83.3) Family history of hypertension (V17.49) (Z82.49) Family history of cardiac disorder (V17.49) (Z82.49) Family history of diabetes mellitus (V18.0) (Z83.3) Family history of diabetes mellitus (V18.0) (Z83.3) Family history of hypertension (V17.49) (Z82.49) Family history of malignant neoplasm of breast (V16.3) (Z80.3) MAternal GM 60s. Maternal Aunt 67 Family history of osteoporosis (V17.81) (Z82.62) Family history of cervical cancer (V16.49) (Z80.49) maternal Family history of malignant neoplasm of breast (V16.3) (Z80.3) MAternal GM 60s. Maternal Aunt 67 Social History Coffee Does not use illicit drugs (V49.89) (Z78.9) Former smoker (V15.82) (Z87.891) Patient has living will (V49.89) (Z78.9) Sexually active Very rarely consumes alcohol (V49.89) (Z78.9) Allergies Sulfa Drugs Recorded By: Su Martinez; 11/12/2019 2:58:34 PM Current Meds Medication NameInstructionReason Escitalopram Oxalate 5 MG Oral TabletTake 1 tablet dailyAnxiety disorder hydrOXYzine HCl - 25 MG Oral TabletTAKE 1 TABLET EVERY 4 TO 6 HOURS NEEDED FOR ANXIETY.Anxiety disorder ALPRAZolam 0.5 MG Oral TabletTAKE 1 TABLET Twice daily PRN anxiety/panicAnxiety disorder, PMH: Encounter for preventive health examination buPROPion HCl ER (XL) 150 MG Oral Tablet Extended Release 24 HourTAKE 1 TABLET BY MOUTH EVERY 24 HOURSAnxiety disorder, PMH: Encounter for preventive health examination, Irritable bowel syndrome Ibuprofen 800 MG Oral Tablet Loratadine (more content not included)... Normal [facility] Tobacco Screening.on 021 Tobacco use status CPHS b) No [employer] Phone: Methylmalonic Acid, Serumon 05-04-2021 Methylmalonate [Moles/Vol] 196 nmol/L 0-378 [facility] Phone: Comment on above: This test was develo ped and its performance characteristicsdetermined by [facility]. It has not been cleared or approvedby the Food and Drug Administration. VITAMIN B12on 05-04-2021 Cobalamin (Vitamin B12) [Mass/Vol] 231 pg/mL Normal 211 - 911 [facility] Comment on above: Performed By: #### V TB12 ####[address] [address] VITAMIN D, 25-HYDROXYon 04-20 VITAMIN D, 25-HYDROXY 24 ng/mL Abnormal [facility] Comment on above: Result Comment: . DEFICIENCY: < 20 NG/ML INSUFFICIENCY: 20-29 NG/ML SUFFICIENCY: 30-100 NG/ML THIS ASSAY ACCURATELY QUANTIFIES THE SUM OF VITAMIN D3, 25-HYDROXY AND VIT D2,25-HYDROXY. Performed By: #### V TDOH #### [address] [address] Vitamin B12, Serumon 021 Cobalamin (Vitamin B12) [Mass/Vol] 231 pg/mL 211 - 911 [facility] [employer] Work Phone: Vitamin D 25-Hydroxyon 05-04 25-hydroxyvitamin D3 [Mass/Vol] 24 ng/mL Abnormal [facility] [employer] Phone: Comment on above: .DEFICIENCY: < 20 NG /MLINSUFFICIENCY: 20-29 NG/MLSUFFICIENCY: 30-100 NG/MLTHIS ASSAY ACCURATELY QUANTIFIES THE SUM OFVITAMIN D3, 25-HYDROXY AND VIT D2,25-HYDROXY. No Panel Informationon 04-22 [facility] [employer] Work Phone: [email or web address] [facility] [employer] Work Phone: [facility] Surgical Pathology Depar tmenton 04-22-2021 [facility] Surgical Pathology Department Name CARLIE GIPSON Pathologist: LIBERTY LAW M.D., PhD. Date of Procedure: 04/22/2021 Date Received: 04/25/2021 Date Reported 04/29/2021 Submitting Physician: MONSTER HEREDIA DO Location: [facility] Endoscopy Copy To/Referring/Attending: MIKAYLA VASQUEZ MD Other External # FINAL DIAGNOSIS A. COLON, RANDOM, BIOPSY: --COLONIC MUCOSA, NO SIGNIFICANT PATHOLOGIC FINDINGS --NO EVIDENCE OF MICROSCOPIC COLITIS The gross and/or microscopic findings were reviewed in conjunction with pathology resident, Damien Fields M.D. Electronically Signed Out By LIBERTY LAW M.D., PhD./WLI By the signature on this report, the individual or group listed as making the Final Interpretation/Diagnosis certifies that they have reviewed this case. Clinical History: Physician Contact Number: [phone] Fixative (A): Formalin Clinical Diagnosis History DIARRHEA Specimens Submitted As: A: RANDOM COLON BX Gross Description: Received in formalin, labeled with the patient's name and hospital number and random colon biopsy, are multiple fragments of wilson, soft tissue aggregating to 1.4 x 1.3 x 0.2 cm. The specimen is submitted in toto in two cassettes. RCC rcc/04/25/2021 [facility] Department of Pathology [address] [place] [address] Normal [facility] Comment on above: Performed By: #### U [facility] #### [facility] Surgical Pathology Department [address] [place] [address] CORONAVIRUS 2019, SCREEN ASY MPTOMATICon 04-21-2021 SARS-CoV-2 (COVID-19) RNA TERE+probe Ql (Unsp spec) Not detected Normal Not Detected [facility] Comment on above: Result Comment: . This assay is designed to detect the N, ORF1ab and/or S genes of SARS-CoV-2 via nucleic acid amplification. A Negative (NOT DETECTED) result does not preclude 2019-nCoV infection since the adequacy of sample collection and/or low viral burden may result in presence of viral nucleic acids below the clinical sensitivity of this test method. Negative (NOT DETECTED) result should not be used as the sole basis for treatment or other patient management decisions. Rather negative results should be combined with clinical observations, patient history, and epidemiological information to make patient management decisions. Fact sheet for providers: https://www.fda.gov/media/767215/download Fact sheet for patients: https://www.fda.gov/media/515317/download This test has received FDA Emergency Use Authorization (EUA) and has been verified by [facility] ([facility]). This test is only authorized for the duration of time that circumstances exist to justify the authorization of the emergency use of in vitro diagnostic tests for the detection of SARS-CoV-2 virus and/or diagnosis of COVID-19 infection under section 564(b)(1) of the Act, 21 U.S.C. 360bbb-3(b)(1), unless the authorization is terminated or revoked sooner. [facility] is certified under CLIA-88 as qualified to perform high complexity testing. Testing is performed in the [facility] laboratories located at [address] [place] [address]. Performed By: #### C OVSC ####[id number] [facility] [address] Covid 19 Resultson 1 SARS-CoV-2 (COVID-19) RNA TERE+probe Ql (Unsp spec) NEGATIVE COVID-19 Test Coronaviruses are common world-wide and are the cause of many common colds. SARS-COV2 is a new coronavirus that began circulating worldwide in 2019 so we are calling it COVID-19. It has been estimated that four out of five patients with COVID-19 will recover at home without the need for medical attention. Symptoms of COVID-19 may include cough, fever, shortness of breath, loss of taste or smell and other flu-like symptoms including chills, sore muscles, sore throat, and headache. Severe illness is more common in older people and people with other health problems such as high blood pressure, obesity, and immune system problems. If the test is positive, you have COVID-19. You will be contacted by the ordering physicians office and instructed to remain on home isolation, in accordance with CDC guidelines. You may also be contacted by the [facility] to see if any of your close contacts may have been exposed to the virus and need to quarantine. If the test is negative, you likely do not have COVID-19 at this time, but you still may have a different illness that can spread to other people (like Influenza, or the Flu) and could still be at risk for getting COVID-19. We recommend that you stay away from other people to limit the spread of illness until your symptoms are improving and you are fever-free for 24 hours without the use of fever lowering medications such as acetaminophen or ibuprofen. No test is 100% accurate so if you are still concerned you may have COVID-19, talk to your doctor about the need to continue to stay away from others. Medicines Unless your provider told you not to use the following: Acetaminophen (Tylenol and others) is generally safe. Anti-inflammatory medications, such as Ibuprofen (Advil or Motrin) or Naproxen (Aleve) can also be used. Baoj-xwb-odznszz cough and cold medicines can be used according to the instructions on the package. Some gsag-ois-qxxxixc medicines also contain acetaminophen. Make sure you are not taking more than your recommended dose. For those not hospitalized, there is no specific treatment available for this illness. Antibiotics do not treat Coronaviruses. Follow-Up Follow up with your doctor by scheduling a virtual visit or consider follow-up at one of our urgent care fever clinics. If you are having difficulty breathing, or are very weak and having difficulty standing, this is a medical emergency. Call 911 or have someone take you to the nearest emergency room immediately. If possible, wear a facemask. Additional guidance from the CDC for patients who tested POSITIVE for COVID-19 How to isolate: Isolate yourself in a specific room at home and limit your contact with others. Use a separate bathroom from other members of the household, when possible. Leave home only to get essential medical care. Do not go to work, school or public areas. Avoid using public transportation, ride-sharing, or taxis. Restrict contact with pets and other animals. If you must care for your pet or be around animals while you are sick, wash your hands before and after your interaction and wear a facemask. Make sure that shared spaces in the home have good airflow, such as by an air conditioner or an opened window, weather permitting. Personal Hygiene Procedures: Wear a face mask when in the same room as other people or pets. If a face mask interferes with your breathing, others should wear a mask when sharing space with you. Frequent hand-washing: wash your hands with soap and water for at least 20 seconds. If soap and water are not available, use alcohol-based hand assembly machine operator. Avoid touching your eyes, nose, and mouth with unwashed hands. Household Hygiene Procedures: Avoid sharing personal household items such as dishes, glassware, cups, eating utensils, towels or bedding with other people or pets in your home. After use, these items should be washed with soap and hot water. Disinfect all high-touch surfaces every day with antibacterial cleaning solutions such as Lysol wipes, bleach, cleansers, etc. High-touch surfaces include tabletops, doorknobs, bathroom fixtures, toilets, phones, keyboards, tablets and bedside tables. Immediately clean any surfaces that may have blood, poop or body fluids on them, using antibacterial cleaning solutions such as Lysol wipes, bleach, cleansers, etc. If clothing or bedding come into contact with blood, poop or body fluids, they should be washed immediately. Follow the directions on the laundry detergent and clothing labels but hot water is recommended when possible. Stopping home isolation precautions: If possible, consult your doctor before stopping home isolation precautions. According to the CDC, you can discontinue home isolation precautions when you have met both of these criteria: Your fever and respiratory symptoms have been gone for 24 keely (more content not included)... Normal [facility] CORONAVIRUS 2019, SCREEN ASY MPTOMATICon 04-20-2021 Lab Specimen Source Nasal, Nasopharyngeal Normal [facility] Comment on above: Performed By: #### C OVSC ####[id number] [place] [address] Coronavirus 2019 RNA by PCR, Screening Asymptomticon 04-20-2021 Coronavirus 2019 RNA by PCR, Screening Asymptomtic Not detected Normal See Below -[facility] [address] Work Phone: Comment on above: SOURCE: Nasal, Nasop haryngealReference Range: Not Detected.This assay is designed to detect the N, ORF1ab and/or S genes of SARS-CoV-2 via nucleic acid amplification. A Negative (NOT DETECTED) result does not preclude 2019-nCoV infection since the adequacy of sample collection and/or low viral burden may result in presence of viral nucleic acids below the clinical sensitivity of this test method. Negative (NOT DETECTED) result should not be used as the sole basis for treatment or other patient management decisions. Rather negative results should be combined with clinical observations, patient history, and epidemiological information to make patient management decisions.Fact sheet for providers: https://www.fda.gov/media/454908/downloadFact sheet for patients: https://www.fda.gov/media/450218/downloadThis test has received FDA Emergency Use Authorization (EUA) and has been verified by [facility] ([facility]). This test is only authorized for the duration of time that circumstances exist to justify the authorization of the emergency use of in vitro diagnostic tests for the detection of SARS-CoV-2 virus and/or diagnosis of COVID-19 infection under section 564(b)(1) of the Act, 21 U.S.C. 360bbb-3(b)(1), unless the authorization is terminated or revoked sooner. [facility] is certified under CLIA-88 as qualified to perform high complexity testing. Testing is performed in the [facility] laboratories located at [address] [place] [address]. Office Visit (Family Lundy e)on 03-28-2021 Follow-up visit Diagnoses/Problems Chronic diarrhea (787.91) (K52.9) Low serum vitamin D (790.6) (R79.89) Low vitamin B12 level (266.2) (E53.8) Orders Chronic diarrhea, Low serum vitamin D, Low vitamin B12 level Methylmalonic Acid, Serum; Status:Active; Requested for:[id number]; Vitamin B12, Serum; Status:Active; Requested for:[id number]; Vitamin D 25-Hydroxy; Status:Active; Requested for:[id number]; Patient Discussion/Summary Followup four to six weeks, labs prior. Chief Complaint Chief Complaint: CARLIE GIPSON is here with a chief complaint of F/U LABS. History of Present Illness Carlie presents for followup labs. Has been to Dr Heredia for chronic diarrhea and workup is in progress. Celiac studies negative. Low b12, low vitamin D, started supplements, vitamin D significantly lower ( ? lab issue) and b12 about the same. Since followup labs she has been taking otc vitamin b12 5000 Mcb daily and vitamin D 5000 iu daily, both on an empty stomach . Recommend she take both with food, and we fup in four to six weeks with further labs. Pancreatic elastase pending. States she still doesn't feel much energy,sleep with four dogs in the bed with her and her . Review of Systems Constitutional: as noted in HPI. Endocrine: as noted in HPI. Active Problems Anxiety disorder (300.00) (F41.9) Bilateral kidney stones (592.0) (N20.0) History of Bipolar disease, chronic (296.80) (F31.9) BMI 40.0-44.9, adult (V85.41) (Z68.41) Chronic diarrhea (787.91) (K52.9) Encounter for routine checking of intrauterine contraceptive device (IUD) (V25.42) (Z30.431) Fibrocystic breast disease (610.1) (N60.19) Gallstones (574.20) (K80.20) Irritable bowel syndrome (564.1) (K58.9) Low serum vitamin D (790.6) (R79.89) Low vitamin B12 level (266.2) (E53.8) Malpositioned IUD (996.76) (T83.32XA) Negative test (V72.41) (Z32.02) Obesity, morbid, BMI 40.0-49.9 (278.01) (E66.01) Screening for breast cancer (V76.10) (Z12.39) Screening for STDs (sexually transmitted diseases) (V74.5) (Z11.3) Seasonal allergies (477.9) (J30.2) Past Medical History Anxiety disorder (300.00) (F41.9) History of Bipolar disease, chronic (296.80) (F31.9) Resolved Date: 15 Sep 2020 Encounter for preventive health examination (V70.0) (Z00.00) Resolved Date: History of screening mammography (V15.89) (Z92.89) 01/20/2021 History of spontaneous (V13.29) (Z87.59) 06/1999 History of IUD (intrauterine device) in place (V45.51) (Z97.5) 2016 History of Menstruation AGE 12 History of Normal vaginal delivery (650) (O80) 01/2003; 36 WEEKS; MALE; 6LBS 5OZ 06/2005; 35 WEEKS; MALE; 6LBS 2OZ History of Women's annual routine gynecological examination (V72.31) (Z01.419) Resolved Date: 31 Jan 2021 01/20/2021; COTEST NEG Surgical History History of [place] tooth extraction Family History Family history of cardiac arrhythmia (V17.49) (Z82.49) Family history of cardiac disorder (V17.49) (Z82.49) Family history of diabetes mellitus (V18.0) (Z83.3) Family history of hypertension (V17.49) (Z82.49) Family history of cardiac disorder (V17.49) (Z82.49) Family history of diabetes mellitus (V18.0) (Z83.3) Family history of diabetes mellitus (V18.0) (Z83.3) Family history of hypertension (V17.49) (Z82.49) Family history of malignant neoplasm of breast (V16.3) (Z80.3) MAternal GM 60s. Maternal Aunt 67 Family history of osteoporosis (V17.81) (Z82.62) Family history of cervical cancer (V16.49) (Z80.49) maternal Family history of malignant neoplasm of breast (V16.3) (Z80.3) MAternal GM 60s. Maternal Aunt 67 Social History Coffee Does not use illicit drugs (V49.89) (Z78.9) Former smoker (V15.82) (Z87.891) Patient has living will (V49.89) (Z78.9) Sexually active Very rarely consumes alcohol (V49.89) (Z78.9) Allergies Sulfa Drugs Recorded By: Su Martinez; 11/12/2019 2:58:34 PM Current Meds Medication NameInstructionReason Escitalopram Oxalate 5 MG Oral TabletTake 1 tablet dailyAnxiety disorder hydrOXYzine HCl - 25 MG Oral TabletTAKE 1 TABLET EVERY 4 TO 6 HOURS NEEDED FOR ANXIETY.Anxiety disorder ALPRAZolam 0.5 MG Oral TabletTAKE 1 TABLET Twice daily PRN anxiety/panicAnxiety disorder, PMH: Encounter for preventive health examination buPROPion HCl ER (XL) 150 MG Oral Tablet Extended Release 24 HourTAKE 1 TABLET BY MOUTH EVERY 24 HOURSAnxiety disorder, PMH: Encounter for preventive health examination, Irritable bowel syndrome Ibuprofen 800 MG Oral Tablet Loratadine 10 MG Oral Tablet Vitamin B12 TABS Vitamin D (Cholecalciferol) 25 MCG (1000 UT) Oral Capsule Vitals Vital Signs Recorded: 28Mar2021 08:43AM Qyfqkucibgv75.4 F Heart Rate84 Ofkkblru803, LUE, Sitting Rkvpdwdyc61, LUE, Sitting Height5 ft 3 in Cttiny009 lb 9 oz BMI Uyulejqjhy82.61 kg/m2 BSA Calculated2.09 Tobacco Useb) No Physical Exam Constitutional: Alert and in no acute distress. Well developed, well nourished. (more content not included)... Normal [facility] PANCREATIC ELASTASE,FECALon 03-28-2021 PANCREATIC ELASTASE,FECAL >800 Normal >=100 [facility] Comment on above: Result Comment: REFE RENCE INTERVAL: Pancreatic Elastase Fecal by Immunoassay Less than 100 ug/g............Severe insufficiency 100 - 199 ug/g................Moderate insufficiency 200 ug/g or greater...........Normal INTERPRETIVE INFORMATION: Pancreatic Elastase Fecal by Immunoassay Reference intervals do not apply for infants less than one month old. Performed by [facility], [address] [facility], [place] [id number] www.[email or web address], Carole Sandoval MD - Lab. Director Performed By: #### E LAST #### [facility] [address] [place] [address] Tobacco Screening.on 021 Tobacco use status CPHS b) No -[facility] [address] Work Phone: CELIAC DISEASE SEROLOGY PANE Bharath 03-25-2021 DEAMIDATED GLIADIN PEPTIDE IGG <1 Normal 0 - 14 [facility] Comment on above: Result Comment: Fals e negative Deamidated Gliadin Peptide Antibody, IgG results can occur in patients already adhering to a gluten-free diet. Tissue Transglutaminase Antibody, IgA is the preferred test for screening patients with suspected Celiac Disease. Performed By: #### C ELP1 #### [facility] [address] [place] [address] TTG AB,IGG <1 Normal 0 - 14 [facility] Comment on above: Result Comment: Fals e negative Tissue Transglutaminase Antibody, IgG results can occur in patients already adhering to a gluten-free diet. Tissue Transglutaminase Antibody, IgA is the preferred test for screening patients with suspected Celiac Disease. Performed By: #### C ELP1 #### [facility] [address] [place] [address] DEAMIDATED GLIADIN PEPTIDE IGA <1 Normal 0 - 14 [facility] Comment on above: Result Comment: Fals e negative Deamidated Gliadin Peptide Antibody, IgA results can occur in patients already adhering to a gluten-free diet or patients with IgA deficiency. Tissue Transglutaminase Antibody, IgA is the preferred test for screening patients with suspected Celiac Disease. Performed By: #### C ELP1 #### [facility] [address] [place] [address] TTG AB,IGA <1 Normal 0 - 14 [facility] Comment on above: Result Comment: Lori ac disease is unlikely. False negative Tissue Transglutaminase Antibody, IgA results can occur in approximately 10% of patients with celiac disease, patients already adhering to a gluten-free diet, or patients with IgA deficiency. Performed By: #### C ELP1 #### [facility] [address] [place] [address] Laboratory - Serology - non- microon 03-25-2021 Gliadin peptide IgA IA Qn (S) <1 0 - 14 [employer] Work Phone: Comment on above: False negative Deami dated Gliadin Peptide Antibody, IgA results can occur in patients already adhering to a gluten-free diet or patients with IgA deficiency. Tissue Transglutaminase Antibody, IgA is the preferred test for screening patients with suspected Celiac Disease. tTG IgA IA Qn (S) <1 0 - 14 [employer] Work Phone: Comment on above: Celiac disease is un likely. False negative Tissue Transglutaminase Antibody, IgA results can occur in approximately 10% of patients with celiac disease, patients already adhering to a gluten-free diet, or patients with IgA deficiency. tTG IgG IA Qn (S) <1 0 - 14 [employer] Work Phone: Comment on above: False negative Tissu e Transglutaminase Antibody, IgG results can occur in patients already adhering to a gluten-free diet. Tissue Transglutaminase Antibody, IgA is the preferred test for screening patients with suspected Celiac Disease. No Panel Informationon 03-25 <1 0 - 14 [facility] Work Phone: Comment on above: False negative Deami dated Gliadin Peptide Antibody, IgG results can occur in patients already adhering to a gluten-free diet. Tissue Transglutaminase Antibody, IgA is the preferred test for screening patients with suspected Celiac Disease. SPORTS ANCHOR - Office Visiton SPORTS ANCHOR - Office Visit Diagnoses/Problems Assessed Encounter for routine checking of intrauterine contraceptive device (IUD) (V25.42) (Z30.431) Orders Follow-up PRN Outpatient Follow-up Status: Active Requested for: 25Mar2021 Provider Impressions 1) encounter for IUD fxumkv-xy-ANW clinically in place. Reviewed bleeding profile length with patient. All questions answered. Precautions reviewed return Chief Complaint ck iud string no concerns History of Present Ocddtov43-bpmn-lvv presents for IUD follow-up. Patient doing well. However the cramps during placement afterwards but since then delivered spotting. Patient unsure of her cycle after a day after the IUD and it was normal. Patient notes her last cycle this time was not anywhere near his clot if no clots at all. Patient has not had intimacy yet. Review of Systems Constitutional: No fevers, chills Eye:no vision changes Respiratory: no SOB Cardiovascular: no chest pain Gastrointestinal: No nausea, vomiting, diarrhea, constipation, abdominal pain Genitourinary:no dysuria Gynecology: See HPI Active Problems Problems Anxiety disorder (300.00) (F41.9) Bilateral kidney stones (592.0) (N20.0) History of Bipolar disease, chronic (296.80) (F31.9) BMI 40.0-44.9, adult (V85.41) (Z68.41) Chronic diarrhea (787.91) (K52.9) Fibrocystic breast disease (610.1) (N60.19) Gallstones (574.20) (K80.20) Irritable bowel syndrome (564.1) (K58.9) Low serum vitamin D (790.6) (R79.89) Low vitamin B12 level (266.2) (E53.8) Malpositioned IUD (996.76) (T83.32XA) Negative test (V72.41) (Z32.02) Obesity, morbid, BMI 40.0-49.9 (278.01) (E66.01) Screening for breast cancer (V76.10) (Z12.39) Screening for STDs (sexually transmitted diseases) (V74.5) (Z11.3) Seasonal allergies (477.9) (J30.2) Past Medical History Problems Anxiety disorder (300.00) (F41.9) History of Bipolar disease, chronic (296.80) (F31.9) Resolved Date: 15 Sep 2020 Encounter for preventive health examination (V70.0) (Z00.00) Resolved Date: History of screening mammography (V15.89) (Z92.89) 01/20/2021 History of spontaneous (V13.29) (Z87.59) 06/1999 History of IUD (intrauterine device) in place (V45.51) (Z97.5) 2016 History of Menstruation AGE 12 History of Normal vaginal delivery (650) (O80) 01/2003; 36 WEEKS; MALE; 6LBS 5OZ 06/2005; 35 WEEKS; MALE; 6LBS 2OZ History of Women's annual routine gynecological examination (V72.31) (Z01.419) Resolved Date: 31 Jan 2021 01/20/2021; COTEST NEG Surgical History Problems History of [place] tooth extraction Family History Mother Family history of cardiac arrhythmia (V17.49) (Z82.49) Family history of cardiac disorder (V17.49) (Z82.49) Family history of diabetes mellitus (V18.0) (Z83.3) Family history of hypertension (V17.49) (Z82.49) Father Family history of cardiac disorder (V17.49) (Z82.49) Grandparent Family history of diabetes mellitus (V18.0) (Z83.3) Grandmother Family history of diabetes mellitus (V18.0) (Z83.3) Family history of hypertension (V17.49) (Z82.49) Family history of malignant neoplasm of breast (V16.3) (Z80.3) MAternal GM 60s. Maternal Aunt 67 Family history of osteoporosis (V17.81) (Z82.62) Aunt Family history of cervical cancer (V16.49) (Z80.49) maternal Family history of malignant neoplasm of breast (V16.3) (Z80.3) MAternal GM 60s. Maternal Aunt 67 Social History Problems Coffee Does not use illicit drugs (V49.89) (Z78.9) Former smoker (V15.82) (Z87.891) Patient has living will (V49.89) (Z78.9) Sexually active Very rarely consumes alcohol (V49.89) (Z78.9) Allergies Medication Sulfa Drugs Recorded By: Su Martinez; 11/12/2019 2:58:34 PM Current Meds Medication NameInstruction ALPRAZolam 0.5 MG Oral TabletTAKE 1 TABLET Twice daily PRN anxiety/panic buPROPion HCl ER (XL) 150 MG Oral Tablet Extended Release 24 HourTAKE 1 TABLET BY MOUTH EVERY 24 HOURS Escitalopram Oxalate 5 MG Oral TabletTake 1 tablet daily hydrOXYzine HCl - 25 MG Oral TabletTAKE 1 TABLET EVERY 4 TO 6 HOURS NEEDED FOR ANXIETY. Ibuprofen 800 MG Oral Tablet Loratadine 10 MG Oral Tablet Vitals Vital Signs Recorded: 25Mar2021 08:41AM Feqobhwdqsx68.9 F Tvvhcrzu513 Wwcapcdyi89 Height5 ft 3 in Mmkcpf948 lb BMI Amenypketh57.87 kg/m2 BSA Calculated2.1 Tobacco Useb) No Fall Screeninga) No falls within the last year Physical Exam General: None acute distress Eye: Intraocular movements are intact HEENT: Normocephalic Cardiovascular: Regular rate Respiratory: Respirations are nonlabored Gynecologic: External genitalia normal Vagina with minimal to scant old blood noted. IUD strings appropriate length. No bimanual tenderness. Gastrointestinal: Nondistended Musculoskeletal: Normal range of motion Neurologic: Alert and oriented x3 Psychiatric: Cooperative appropriate mood and affect. Signatures Electronically signed by : Makeda Lucas DO; Mar 25 2021 1:13 (more content not included)... Normal [employer] Pancreatic Elastase, Stoolon 03-25-2021 Elastase.pancreati c (Stl) [Mass/Mass] >800 >=100 [facility] [address] Work Phone: Comment on above: REFERENCE INTERVAL: Pancreatic Elastase Fecal by Immunoassay Less than 100 ug/g............Severe insufficiency 100 - 199 ug/g................Moderate insufficiency 200 ug/g or greater...........NormalINTERPRETIVE INFORMATION: Pancreatic Elastase Fecal by ImmunoassayReference intervals do not apply for infants less than one month old.Performed by [facility], [address] [place] [id number] www.[employer], Carole Sandoval MD - Lab. Director Tobacco Screening.on 021 Fall risk assessment a) No falls within the last year [facility] [address] [employer] Work Phone: [phone] Tobacco use status CPHS b) No [facility] [address] [employer] Work Phone: [phone] Initial Visit (Gastroenterol ogy)on 03-21-2021 Initial Visit (Gastroenterology) Diagnoses/Problems Assessed Chronic diarrhea (787.91) (K52.9) Orders Chronic diarrhea CELIAC DISEASE SEROLOGY PANEL; Status:Active; Requested for:21Mar2021; Perform:Lab Services - Lab To Draw (Blood Test); Due:19Jun2021;Ordered; For:Chronic diarrhea; Ordered By:Monster Heredia; Colonoscopy Diagnostic; Status:Hold For - Scheduling; Requested for:21Mar2021; Perform:[facility]; Due:19Jun2021;Ordered; For:Chronic diarrhea; Ordered By:Monster Heredia; Patient competent to provide consent? : Yes-pt mentally competent to provide consent Pancreatic Elastase, Stool; Status:Active; Requested for:21Mar2021; Perform:Lab Services - Lab To Draw (Non-Blood Test); Due:19Jun2021;Ordered; For:Chronic diarrhea; Ordered By:Monster Heredia; Provider Impressions Given her persistent diarrhea doubt IBS his symptoms began later in life. May represent microscopic colitis or malabsorption. Will check serum celiac panel. Stool for pancreatic elastase and begin FODMAP diet. We will schedule colonoscopy given her bleeding and need to eliminate microscopic colitis as a cause. If above work-up is unfruitful then will begin treatment for chronic diarrhea, IBS with Lotronex. Chief Complaint NPV in office today for chronic diarrhea. Patient has had this for approx 5-6 years questionable darker blood on occasion. Stress makes the diarrhea worse. Approd 6-15 times daily, bloating, hair loss, fatigue. Patient has tried and failed OTC Imodium History of Present IllnessPatient is a pleasant 40-year-old female referred for chronic diarrhea. Diarrhea began approximately 5 to 6 years ago averaging 6 bowel movements on a typical day with upwards of 12 move movements on a bad day. Bowel movements are soft with urgency rare incontinence. She is having nocturnal bowel movements as well. She did go on an elimination diet without any demonstrable improvement. She admits that occasionally she will have some bleeding but is maroonish dark mixed in with her stool. She will have occasional was there is bright red blood on toilet tissue as well. Family history negative for inflammatory bowel disease or colon cancer. She has used Imodium in the past and is no longer effective. Weight is stable although she does notice bloating after meals she has no right upper quadrant pain but a recent CT scan of her abdomen done in January 2020 did show isolated gallstone measuring 7.5 mm, without gallbladder wall thickening. Review of Systems Constitutional: no fever, no chills, not feeling tired and no recent weight loss. ENT: no lymphadenopathy. Cardiovascular: no shortness of breath and no chest pain. Respiratory: no cough. Gastrointestinal: as noted in HPI. Musculoskeletal: no joint swelling. Integumentary: no rashes, no skin lesions and was no jaundiced. All other systems have been reviewed and are negative for complaint. Active Problems Problems Anxiety disorder (300.00) (F41.9) Bilateral kidney stones (592.0) (N20.0) History of Bipolar disease, chronic (296.80) (F31.9) BMI 40.0-44.9, adult (V85.41) (Z68.41) Chronic diarrhea (787.91) (K52.9) Encounter for removal and reinsertion of intrauterine contraceptive device (IUD) (V25.13) (Z30.433) Fibrocystic breast disease (610.1) (N60.19) Gallstones (574.20) (K80.20) Irritable bowel syndrome (564.1) (K58.9) Low serum vitamin D (790.6) (R79.89) Low vitamin B12 level (266.2) (E53.8) Malpositioned IUD (996.76) (T83.32XA) Negative test (V72.41) (Z32.02) Obesity, morbid, BMI 40.0-49.9 (278.01) (E66.01) Screening for breast cancer (V76.10) (Z12.39) Screening for STDs (sexually transmitted diseases) (V74.5) (Z11.3) Seasonal allergies (477.9) (J30.2) Past Medical History Problems Anxiety disorder (300.00) (F41.9) History of Bipolar disease, chronic (296.80) (F31.9) Resolved Date: 15 Sep 2020 Encounter for preventive health examination (V70.0) (Z00.00) Resolved Date: History of screening mammography (V15.89) (Z92.89) 01/20/2021 History of spontaneous (V13.29) (Z87.59) 06/1999 History of IUD (intrauterine device) in place (V45.51) (Z97.5) 2016 History of Menstruation AGE 12 History of Normal vaginal delivery (650) (O80) 01/2003; 36 WEEKS; MALE; 6LBS 5OZ 06/2005; 35 WEEKS; MALE; 6LBS 2OZ History of Women's annual routine gynecological examination (V72.31) (Z01.419) Resolved Date: 31 Jan 2021 01/20/2021; COTEST NEG Surgical History Problems History of [place] tooth extraction Family History Mother Family history of cardiac arrhythmia (V17.49) (Z82.49) Family history of cardiac disorder (V17.49) (Z82.49) Family history of diabetes mellitus (V18.0) (Z83.3) Family history of hypertension (V17.49) (Z82.49) Father Family history of cardiac disorder (V17.49) (Z82.49) Grandparent Family history of diabetes mellitus (V18.0) (Z83.3) Grandmother Family history of diabetes mellitus (V18.0) (Z83.3) Family history of hypertension (V17.49) ( (more content not included)... Normal [employer] VITAMIN B12on 03-21-2021 Cobalamin (Vitamin B12) [Mass/Vol] 126 pg/mL Low 211 - 911 [facility] Comment on above: Performed By: #### V TB12 #### [address] [address] VITAMIN D, 25-HYDROXYon VITAMIN D, 25-HYDROXY 11 ng/mL Abnormal [facility] Comment on above: Result Comment: . DEFICIENCY: < 20 NG/ML INSUFFICIENCY: 20-29 NG/ML SUFFICIENCY: 30-100 NG/ML THIS ASSAY ACCURATELY QUANTIFIES THE SUM OF VITAMIN D3, 25-HYDROXY AND VIT D2,25-HYDROXY. Performed By: #### V TDOH #### [address] [address] Vitamin B12, Serumon 021 Cobalamin (Vitamin B12) [Mass/Vol] 126 pg/mL below low threshold 211 - 911 [facility] Work Phone: Vitamin D 25-Hydroxyon 03-21 25-hydroxyvitamin D3 [Mass/Vol] 11 ng/mL Abnormal [facility] Phone: Comment on above: .DEFICIENCY: < 20 NG /MLINSUFFICIENCY: 20-29 NG/MLSUFFICIENCY: 30-100 NG/MLTHIS ASSAY ACCURATELY QUANTIFIES THE SUM OFVITAMIN D3, 25-HYDROXY AND VIT D2,25-HYDROXY. GC + CHLAMYDIA BY AMPLIFIED DETECTIONon 02-19-2021 CHLAMYDIA TRACH.,AMPLIFIED Negative Normal Negative [facility] Comment on above: Result Comment: The APTIMA Combo 2 assay is FDA-approved for Chlamydia trachomatis and Neisseria gonorrhoeae testing on female endocervical and vaginal swabs, ThinPrep liquid pap samples, male urine samples and urethral swabs. Performance characteristics for Chlamydia trachomatis and Neisseria gonorrhoeae testing on specific frz-CNK-mtmzaksd sample types (female urine samples) have been validated by [facility]. This laboratory is certified by CLIA to perform high complexity testing. Samples from all other sites are not validated for this method. Performed By: #### [facility] ####[id number] [place] [address] N.GONORRHEA,AMPLIF IED Negative Normal Negative [facility] Comment on above: Result Comment: The APTIMA Combo 2 assay is FDA-approved for Chlamydia trachomatis and Neisseria gonorrhoeae testing on female endocervical and vaginal swabs, ThinPrep liquid pap samples, male urine samples and urethral swabs. Performance characteristics for Chlamydia trachomatis and Neisseria gonorrhoeae testing on specific sbm-RXJ-garaypxi sample types (female urine samples) have been validated by [facility]. This laboratory is certified by CLIA to perform high complexity testing. Samples from all other sites are not validated for this method. Performed By: #### [facility] ####[id number] [place] [address] GC + CHLAMYDIA BY AMPLIFIED DETECTIONon 02-18-2021 Lab Specimen Source Urine Normal [facility] Comment on above: Performed By: #### [facility] ####[id number] [place] [address] GC + Chlamydia By Amplified Detectionon 02-18-2021 C. trachomatis rRNA TERE+probe Ql (Unsp spec) Negative Negative [facility] [address] Work Phone: Comment on above: The APTIMA Combo 2 a ssay is FDA-approved for Chlamydia trachomatis and Neisseria gonorrhoeae testing on female endocervical and vaginal swabs, ThinPrep liquid pap samples, male urine samples and urethral swabs. Performance characteristics for Chlamydia trachomatis and Neisseria gonorrhoeae testing on specific mkz-JZJ-lvtjupxf sample types (female urine samples) have been validated by [facility]. This laboratory is certified by CLIA to perform high complexity testing. Samples from all other sites are not validated for this method. N. gonorrhoeae rRNA TERE+probe Ql (Unsp spec) Negative Negative [facility] [address] [employer] Work Phone: Comment on above: SOURCE: Urine The AP TRICE Combo 2 assay is FDA-approved for Chlamydia trachomatis and Neisseria gonorrhoeae testing on female endocervical and vaginal swabs, ThinPrep liquid pap samples, male urine samples and urethral swabs. Performance characteristics for Chlamydia trachomatis and Neisseria gonorrhoeae testing on specific nwj-IWN-gnmilmpr sample types (female urine samples) have been validated by [facility]. This laboratory is certified by CLIA to perform high complexity testing. Samples from all other sites are not validated for this method. IO HCG, Urine Test on 02-18-2021 HCG ( test) Ql (U) Negative [facility] [address] [employer] Work Phone: LMPon 02-18-2021 Last menstrual period start date 21Jan2021 [facility] [address] [employer] Work Phone: SPORTS ANCHOR - Post Opon SPORTS ANCHOR - Post Op No report was sent Normal [employer] SPORTS ANCHOR - Procedure Visiton 1 SPORTS ANCHOR - Procedure Visit Diagnoses/Problems Negative test (V72.41) (Z32.02) Screening for STDs (sexually transmitted diseases) (V74.5) (Z11.3) Malpositioned IUD (996.76) (T83.32XA) Encounter for removal and reinsertion of intrauterine contraceptive device (IUD) (V25.13) (Z30.433) Orders Encounter for removal and reinsertion of intrauterine contraceptive device (IUD) Administered: Liletta (52 MG) 19.5 MCG/DAY Intrauterine Intrauterine Device Encounter for removal and reinsertion of intrauterine contraceptive device (IUD), Malpositioned IUD Follow-up visit in 1 month Outpatient Follow-up Status: Hold For - Scheduling Requested for: 18Feb2021 Negative test IO HCG, Urine Test; Status:Resulted - Requires Verification; Done: 18Feb2021 08:51AM Screening for STDs (sexually transmitted diseases) GC + Chlamydia By Amplified Detection; Status:In Progress - Specimen/Data Collected; Done: 18Feb2021 Provider Impressions 1) encounter for IUD removal and reinsertion-IUD was malpositioned on ultrasound. On clinical exam and had further move down since her annual exam. Was at external os. IUD removed with little bit of extra traction. Removed intact. New IUD placed without difficulty. Patient tolerated the procedure well. Precautions reviewed. Follow-up for string check Chief Complaint PT IS HERE TODAY FOR THE REMOVAL OF THE MIRENA AND THE INSERT OF THE LILETTA. HAS NO CONCNERS. LMP: 01/21/2021 OFFICE SUPPLY, NDC: [id number], LOT: [id number], EXP: 06/2024 History of Present Avebvob17-byna-sua presents for IUD removal and reinsertion. Patient notes more pain and clots with this last IUD. Patient notes prior IUD had no pain or bleeding at all. Patient is no acute concerns Review of Systems Constitutional: No fevers, chills Eye:no vision changes Respiratory: no SOB Cardiovascular: no chest pain Gastrointestinal: No nausea, vomiting, diarrhea, constipation, abdominal pain Genitourinary:no dysuria Gynecology: See HPI Active Problems Problems Anxiety disorder (300.00) (F41.9) Bilateral kidney stones (592.0) (N20.0) History of Bipolar disease, chronic (296.80) (F31.9) BMI 40.0-44.9, adult (V85.41) (Z68.41) Chronic diarrhea (787.91) (K52.9) Fibrocystic breast disease (610.1) (N60.19) Gallstones (574.20) (K80.20) Irritable bowel syndrome (564.1) (K58.9) Low serum vitamin D (790.6) (R79.89) Low vitamin B12 level (266.2) (E53.8) Negative test (V72.41) (Z32.02) Obesity, morbid, BMI 40.0-49.9 (278.01) (E66.01) Screening for breast cancer (V76.10) (Z12.39) Screening for STDs (sexually transmitted diseases) (V74.5) (Z11.3) Seasonal allergies (477.9) (J30.2) Past Medical History Problems Anxiety disorder (300.00) (F41.9) History of Bipolar disease, chronic (296.80) (F31.9) Resolved Date: 15 Sep 2020 Encounter for preventive health examination (V70.0) (Z00.00) Resolved Date: History of screening mammography (V15.89) (Z92.89) 01/20/2021 History of spontaneous (V13.29) (Z87.59) 06/1999 History of IUD (intrauterine device) in place (V45.51) (Z97.5) 2016 History of Menstruation AGE 12 History of Normal vaginal delivery (650) (O80) 01/2003; 36 WEEKS; MALE; 6LBS 5OZ 06/2005; 35 WEEKS; MALE; 6LBS 2OZ History of Women's annual routine gynecological examination (V72.31) (Z01.419) Resolved Date: 31 Jan 2021 01/20/2021; COTEST NEG Surgical History Problems History of [place] tooth extraction Family History Mother Family history of cardiac arrhythmia (V17.49) (Z82.49) Family history of cardiac disorder (V17.49) (Z82.49) Family history of diabetes mellitus (V18.0) (Z83.3) Family history of hypertension (V17.49) (Z82.49) Father Family history of cardiac disorder (V17.49) (Z82.49) Grandparent Family history of diabetes mellitus (V18.0) (Z83.3) Grandmother Family history of diabetes mellitus (V18.0) (Z83.3) Family history of hypertension (V17.49) (Z82.49) Family history of malignant neoplasm of breast (V16.3) (Z80.3) MAternal GM 60s. Maternal Aunt 67 Family history of osteoporosis (V17.81) (Z82.62) Aunt Family history of cervical cancer (V16.49) (Z80.49) maternal Family history of malignant neoplasm of breast (V16.3) (Z80.3) MAternal GM 60s. Maternal Aunt 67 Social History Problems Coffee Does not use illicit drugs (V49.89) (Z78.9) Former smoker (V15.82) (Z87.891) Patient has living will (V49.89) (Z78.9) Sexually active Very rarely consumes alcohol (V49.89) (Z78.9) Allergies Medication Sulfa Drugs Recorded By: Su Martinez; 11/12/2019 2:58:34 PM Current Meds Medication NameInstruction ALPRAZolam 0.5 MG Oral TabletTAKE 1 TABLET Twice daily PRN anxiety/panic buPROPion HCl ER (XL) 150 MG Oral Tablet Extended Release 24 HourTAKE 1 TABLET BY MOUTH EVERY 24 HOURS Escitalopram Oxalate 5 MG Oral TabletTake 1 tablet daily hydrOXYzine HCl - 25 MG Oral TabletTAKE 1 TABLET EVERY 4 TO 6 HOURS NEEDED FOR ANXIETY. (more content not included)... [facility] (Family Nikkie wood)on 01-31-2021 Follow-up visit Diagnoses/Problems Low vitamin B12 level (266.2) (E53.8) Low serum vitamin D (790.6) (R79.89) Seasonal allergies (477.9) (J30.2) Orders Low serum vitamin D, Low vitamin B12 level Vitamin B12, Serum; Status:Active; Requested for:[id number]; Vitamin D 25-Hydroxy; Status:Active; Requested for:[id number]; Patient Discussion/Summary Repeat labs in amonth or so after starting supplements, treat allergies as above. Chief Complaint Chief Complaint: CARLIE GIPSON is here with a chief complaint of follow up labs. Sneezing, watery eyes started . Woke up Sunday no taste. Pcr test came keene negative. Still no taste or smell. An interactive audio and video telecommunication system which permits real time communications between the patient (at the originating site) and provider (at the distant site) was utilized to provide this telehealth service. History of Present Illness Carlie presents virtually for followup on several issues, see previous notes. REviewed labs with her, low b12, borderline low D. Recommend she start a daily multivitamin as well as vitamin b12 1000 mcg Has GI appt pending for chronic diarrhea. She has seasonal allergies, has developed sneezing, congestion, cough . Went to [facility] in [place] over the weekend and had a negative covid test. She is fully vaccinated against Covid 19. She has loratadine at home, recommend she add flonase and she will let us know if that is not helping. Review of Systems Constitutional: as noted in HPI. ENT: as noted in HPI. Gastrointestinal: as noted in HPI. Active Problems Anxiety disorder (300.00) (F41.9) Bilateral kidney stones (592.0) (N20.0) History of Bipolar disease, chronic (296.80) (F31.9) BMI 40.0-44.9, adult (V85.41) (Z68.41) Chronic diarrhea (787.91) (K52.9) Fibrocystic breast disease (610.1) (N60.19) Gallstones (574.20) (K80.20) Irritable bowel syndrome (564.1) (K58.9) Obesity, morbid, BMI 40.0-49.9 (278.01) (E66.01) Screening for breast cancer (V76.10) (Z12.39) Past Medical History Anxiety disorder (300.00) (F41.9) History of Bipolar disease, chronic (296.80) (F31.9) Resolved Date: 15 Sep 2020 Encounter for preventive health examination (V70.0) (Z00.00) Resolved Date: History of spontaneous (V13.29) (Z87.59) 06/1999 History of IUD (intrauterine device) in place (V45.51) (Z97.5) 2016 History of Menstruation AGE 12 History of Normal vaginal delivery (650) (O80) 01/2003; 36 WEEKS; MALE; 6LBS 5OZ 06/2005; 35 WEEKS; MALE; 6LBS 2OZ Surgical History History of [place] tooth extraction Family History Family history of cardiac arrhythmia (V17.49) (Z82.49) Family history of cardiac disorder (V17.49) (Z82.49) Family history of diabetes mellitus (V18.0) (Z83.3) Family history of hypertension (V17.49) (Z82.49) Family history of cardiac disorder (V17.49) (Z82.49) Family history of diabetes mellitus (V18.0) (Z83.3) Family history of diabetes mellitus (V18.0) (Z83.3) Family history of hypertension (V17.49) (Z82.49) Family history of malignant neoplasm of breast (V16.3) (Z80.3) MAternal GM 60s. Maternal Aunt 67 Family history of osteoporosis (V17.81) (Z82.62) Family history of cervical cancer (V16.49) (Z80.49) maternal Family history of malignant neoplasm of breast (V16.3) (Z80.3) MAternal GM 60s. Maternal Aunt 67 Social History Coffee Does not use illicit drugs (V49.89) (Z78.9) Former smoker (V15.82) (Z87.891) Patient has living will (V49.89) (Z78.9) Sexually active Very rarely consumes alcohol (V49.89) (Z78.9) Allergies Sulfa Drugs Recorded By: Su Martienz; 11/12/2019 2:58:34 PM Current Meds Medication NameInstructionReason Escitalopram Oxalate 5 MG Oral TabletTake 1 tablet dailyAnxiety disorder hydrOXYzine HCl - 25 MG Oral TabletTAKE 1 TABLET EVERY 4 TO 6 HOURS NEEDED FOR ANXIETY.Anxiety disorder ALPRAZolam 0.5 MG Oral TabletTAKE 1 TABLET Twice daily PRN anxiety/panicAnxiety disorder, PMH: Encounter for preventive health examination buPROPion HCl ER (XL) 150 MG Oral Tablet Extended Release 24 HourTAKE 1 TABLET BY MOUTH EVERY 24 HOURSAnxiety disorder, PMH: Encounter for preventive health examination, Irritable bowel syndrome Loratadine 10 MG Oral Tablet Mirena (52 MG) 20 MCG/24HR Intrauterine Intrauterine Device Physical Exam Constitutional: Alert and in no acute distress. Well developed, well nourished. Results/Data Complete Blood Count + [id number] 01:08PMMikayla Vasquez Test NameResultFlagReference White Blood Cell Count8.2 x10E9/L4.4 - 11.3 Red Blood Cell Count4.32 x10E12/LSee Below Reference Range: 4.00 - 5.20 Nucleated Erythrocyte Count0.1 /100 WBC Qohblfqsej59.4 g/dLSee Below Reference Range: 12.0 - 16.0 HCT43.2 %See Below Reference Range: 36.0 - 46.0 PBZ450 fL80 - 100 MCHC33.4 g/dLSee Below Reference Range: 32.0 - 36.0 Platelet Mkbwo284 x10E9/L150 - 450 RDW-CV13.9 %See Below Reference Range: 11.5 - 14.5 Neutrop (more content not included)... Normal [facility] STOOL PATHOGEN PCR PANELon 0 01-21-2021 CAMPYLOBACTER GP. Not detected Normal NOT DETECTED [facility] Comment on above: Performed By: #### S TLPP #### [facility] [address] [place] [id number] NOROVIRUS GI/GII Not detected Normal NOT DETECTED [facility] Comment on above: Performed By: #### S TLPP #### [facility] [address] [place] [id number] ROTAVIRUS A Not detected Normal NOT DETECTED [facility] Comment on above: Result Comment: The enteric PCR panel is a panel of sensitive and specific amplified nucleic acid tests indicated as an aid in the diagnosis of specific bacterial and viral agents of gastrointestinal illness, in conjunction with other clinical, laboratory, and epidemiological information. This test is not approved for monitoring these infections. Monitoring is available for Salmonella and Shigella infections-request test Stool PCR Follow-Up (STLPF). Monitoring tests are not available at this time for other enteric agents in this panel. Performed By: #### S TLPP #### [facility] [address] [place] [address] SALMONELLA SP. Not detected Normal NOT DETECTED [facility] Comment on above: Performed By: #### S TLPP #### [facility] [address] [place] [id number] SHIGA TOXIN 1 Not detected Normal NOT DETECTED [facility] Comment on above: Performed By: #### S TLPP #### [facility] [address] [place] [id number] SHIGA TOXIN 2 Not detected Normal NOT DETECTED [facility] Comment on above: Performed By: #### S TLPP #### [facility] [address] [place] [id number] SHIGELLA SP. Not detected Normal NOT DETECTED [facility] Comment on above: Performed By: #### S TLPP #### [facility] [address] [place] [id number] VIBRIO [employer] Not detected Normal NOT DETECTED [facility] Comment on above: Performed By: #### S TLPP #### [facility] [address] [place] [address] YERSINIA ENTEROCOLITICA Not detected Normal NOT DETECTED [facility] Comment on above: Performed By: #### S TLPP #### [facility] [address] [place] [address] CBC AND DIFFERENTIALon 01-20 Basophils (Bld) [#/Vol] 0.10 10*3/uL Normal 0.00 - 0.10 [facility] Comment on above: Performed By: #### C BCDF #### [address] [address] Basophils/100 WBC (Bld) 0.9 % Normal 0.0 - 2.0 [facility] Comment on above: Performed By: #### C BCDF #### [address] [address] Eosinophils (Bld) [#/Vol] 0.10 10*3/uL Normal 0.00 - 0.70 [facility] Comment on above: Performed By: #### C BCDF #### [address] [address] Eosinophils/100 WBC (Bld) 1.5 % Normal 0.0 - 6.0 [facility] Comment on above: Performed By: #### C BCDF #### [address] [address] Erythrocyte distribution width (RBC) [Ratio] 13.9 % Normal 11.5 - 14.5 [facility] Comment on above: Performed By: #### C BCDF #### [address] [address] Hematocrit (Bld) [Volume fraction] 43.2 % Normal 36.0 - 46.0 [facility] Comment on above: Performed By: #### C BCDF #### [address] [address] Hemoglobin (Bld) [Mass/Vol] 14.4 g/dL Normal 12.0 - 16.0 [facility] Comment on above: Performed By: #### C BCDF #### [address] [address] Lymphocytes (Bld) [#/Vol] 2.50 10*3/uL Normal 1.20 - 4.80 [facility] Comment on above: Performed By: #### C BCDF #### [address] [address] Lymphocytes/100 WBC (Bld) 30.9 % Normal 13.0 - 44.0 [facility] Comment on above: Performed By: #### C BCDF #### [address] [address] MCHC (RBC) [Mass/Vol] 33.4 g/dL Normal 32.0 - 36.0 [facility] Comment on above: Performed By: #### C BCDF #### [address] [address] MCV (RBC) [Entitic vol] 100 fL Normal 80 - 100 [facility] Comment on above: Performed By: #### C BCDF #### [address] [address] Monocytes (Bld) [#/Vol] 0.50 10*3/uL Normal 0.10 - 1.00 [facility] Comment on above: Performed By: #### C BCDF #### [address] [address] Monocytes/100 WBC (Bld) 6.4 % Normal 2.0 - 10.0 [facility] Comment on above: Performed By: #### C BCDF #### [address] [address] Neutrophils (Bld) [#/Vol] 4.90 10*3/uL Normal 1.20 - 7.70 [facility] Comment on above: Result Comment: Perc ent differential counts (%) should be interpreted in the context of the absolute cell counts (cells/L). Performed By: #### C BCDF #### [address] [address] Neutrophils/100 WBC (Bld) 60.3 % Normal 40.0 - 80.0 [facility] Comment on above: Performed By: #### C BCDF #### [address] [address] NUCLEATED RBC 0.1 /100 WBC Normal [facility] Comment on above: Performed By: #### C BCDF #### [address] [address] Platelets (Bld) [#/Vol] 274 10*3/uL Normal 150 - 450 [facility] Comment on above: Performed By: #### C BCDF #### [address] [address] RBC 4.32 x10E12/L Normal 4.00 - 5.20 [facility] Comment on above: Performed By: #### C BCDF #### [address] [address] WBC (Bld) [#/Vol] 8.2 10*3/uL Normal 4.4 - 11.3 [facility] Comment on above: Performed By: #### C BCDF #### [address] [address] CLOST DIFF. TOXIN, PCRon CLOST.DIFF.TOXIN,P CR Not detected Normal Not Detected [facility] Comment on above: Result Comment: This assay detects the presence of the tcdB (toxin B) gene via DNA amplification, and results should be interpreted in the context of the patients history and clinical findings. This test cannot be performed on formed stools or used as a test of cure, and should not be performed more than once per 7 days. Performed By: #### C DTPC #### [address] [address] C. difficile toxin genes TERE+probe Ql (Stl) Not detected See Below [facility] [address] Work Phone: Comment on above: Reference Range: Not Detected This assay detects the presence of the tcdB (toxin B) gene via DNA amplification, and results should be interpreted in the context of the patients history and clinical findings. This test cannot be performed on formed stools or used as a test of cure, and should not be performed more than once per 7 days. COMPREHENSIVE PANELon 2020 Albumin [Mass/Vol] 4.2 g/dL Normal 3.4 - 5.0 [facility] Comment on above: Performed By: #### C MP #### [address] [address] ALP [Catalytic activity/Vol] 61 U/L Normal 33 - 110 [facility] Comment on above: Performed By: #### C MP #### [address] [address] ALT [Catalytic activity/Vol] 13 U/L Normal 7 - 45 [facility] Comment on above: Result Comment: Beatriz ents treated with Sulfasalazine may generate falsely decreased results for ALT. Performed By: #### C MP #### [address] [address] Anion gap [Moles/Vol] 10 mmol/L Normal 10 - 20 [facility] Comment on above: Performed By: #### C MP #### [address] [address] AST [Catalytic activity/Vol] 12 U/L Normal 9 - 39 [facility] Comment on above: Performed By: #### C MP #### [address] [address] Bilirubin [Mass/Vol] 0.6 mg/dL Normal 0.0 - 1.2 [facility] Comment on above: Performed By: #### C MP #### [address] [address] Calcium [Mass/Vol] 9.1 mg/dL Normal 8.6 - 10.3 [facility] Comment on above: Performed By: #### C MP #### [address] [address] Chloride [Moles/Vol] 107 mmol/L Normal 98 - 107 [facility] Comment on above: Performed By: #### C MP #### [address] [address] Creatinine [Mass/Vol] 0.74 mg/dL Normal 0.50 - 1.05 [facility] Comment on above: Performed By: #### C MP #### [address] [address] GFR- AM. >60 Normal >60 [facility] Comment on above: Result Comment: CALC ULATIONS OF ESTIMATED GFR ARE PERFORMED USING THE MDRD STUDY EQUATION FOR THE IDMS-TRACEABLE CREATININE METHODS. CLIN CHEM 2007;53:766-72 Performed By: #### C MP #### [address] [address] GFR-NON AM. >60 Normal >60 [facility] Comment on above: Performed By: #### C MP #### [address] [address] Glucose [Mass/Vol] 80 mg/dL Normal 74 - 99 [facility] Comment on above: Performed By: #### C MP #### [address] [address] HCO3 (Bld) [Moles/Vol] 25 mmol/L Normal 21 - 32 [facility] Comment on above: Performed By: #### C MP #### [address] [address] Potassium [Moles/Vol] 4.2 mmol/L Normal 3.5 - 5.3 [facility] Comment on above: Performed By: #### C MP #### [address] [address] Protein [Mass/Vol] 7.1 g/dL Normal 6.4 - 8.2 [facility] Comment on above: Performed By: #### C MP #### [address] [address] Sodium [Moles/Vol] 138 mmol/L Normal 136 - 145 [facility] Comment on above: Performed By: #### C MP #### [address] [address] Urea nitrogen [Mass/Vol] 12 mg/dL Normal 6 - 23 [facility] Comment on above: Performed By: #### C MP #### [address] [place] [address] Complete Blood Count + Kaykay coe 01-20-2021 Basophils/100 WBC (Bld) 0.9 % 0.0 - 2.0 [facility] [address] Work Phone: [phone] Erythrocyte distribution width (RBC) [Ratio] 13.9 % See Below [facility] [address] Work Phone: [phone] Comment on above: Reference Range: 11. 5 - 14.5 Hematocrit (Bld) [Volume fraction] 43.2 % See Below [facility] [address] Work Phone: [phone] Comment on above: Reference Range: 36. 0 - 46.0 Hemoglobin (Bld) [Mass/Vol] 14.4 g/dL See Below [facility] [address] Work Phone: [phone] Comment on above: Reference Range: 12. 0 - 16.0 Lymphocytes/100 WBC (Bld) 30.9 % See Below [facility] [address] Work Phone: [phone] Comment on above: Reference Range: 13. 0 - 44.0 MCHC (RBC) [Mass/Vol] 33.4 g/dL See Below [facility] [address] Work Phone: [phone] Comment on above: Reference Range: 32. 0 - 36.0 MCV (RBC) [Entitic vol] 100 fL 80 - 100 [facility] [address] Work Phone: [phone] Monocytes/100 WBC (Bld) 6.4 % 2.0 - 10.0 [facility] [address] Work Phone: [phone] Neutrophils/100 WBC (Bld) 60.3 % See Below [facility] [address] Work Phone: [phone] Comment on above: Reference Range: 40. 0 - 80.0 Platelets (Bld) [#/Vol] 274 10*3/uL 150 - 450 [facility] [address] Work Phone: [phone] RBC (Bld) [#/Vol] 4.32 {x10E12/L} See Below [facility] [address] Work Phone: [phone] Comment on above: Reference Range: 4.0 0 - 5.20 WBC (Bld) [#/Vol] 8.2 10*3/uL 4.4 - 11.3 [facility] [address] Work Phone: [phone] Complete Blood Count + Differential 0.10 {x10E9/L} See Below [facility] [address] Work Phone: [phone] Comment on above: Reference Range: 0.0 0 - 0.10 Reference Range: 0.0 0 - 0.70 Complete Blood Count + Differential 0.50 {x10E9/L} See Below [facility] [address] Work Phone: [phone] Comment on above: Reference Range: 0.1 0 - 1.00 Complete Blood Count + Differential 2.50 {x10E9/L} See Below [facility] [address] Work Phone: [phone] Comment on above: Reference Range: 1.2 0 - 4.80 Complete Blood Count + Differential 4.90 {x10E9/L} See Below [facility] [address] Work Phone: [phone] Comment on above: Reference Range: 1.2 0 - 7.70 Percent differential counts (%) should be interpreted in the context of the absolute cell counts (cells/L). Complete Blood Count + Differential 1.5 % 0.0 - 6.0 [facility] [address] Work Phone: [phone] Complete Blood Count + Differential 0.1 {/100_WBC} [facility] [address] Work Phone: DIGITAL MAMM SCREENING W/ TO Louise 01-20-2021 DIGITAL MAMM SCREENING W/ JC Patient Name: CARLIE GIPSON STUDY: Digital mammography screening with jc; 01/20/2021 2:51 pm ACCESSION NUMBER(S): [id number] ORDERING CLINICIAN: MIKAYLA VASQUEZ INDICATION: Screening. COMPARISON: No prior studies are available for comparison FINDINGS: CC and MLO 2D digital mammograms and digital breast tomosynthesis images were obtained of the bilateral breasts. 3-D volume images were reconstructed in 4 views at an independent workstation as 1 mm slices through the breasts in both the CC and MLO projections. There are areas of scattered fibroglandular tissue. No discrete mass or focal asymmetry is identified. No suspicious microcalcifications or foci of architectural distortion are seen. This study was interpreted with CAD. IMPRESSION: No mammographic evidence of malignancy. BI-RADS CATEGORY: Category: 1 - Negative. Recommendation: 1 Year Screening. Electronically signed by: TARUN LYNCH MD Normal [facility] LIPID PANEL (CORONARY RISK 2 )on 01-20-2021 Cholesterol [Mass/Vol] 178 mg/dL Normal 0 - 199 [facility] Comment on above: Result Comment: . AGE DESIRABLE BORDERLINE HIGH HIGH 0-19 Y 0 - 169 170 - 199 >/= 200 20-24 Y 0 - 189 190 - 224 >/= 225 >24 Y 0 - 199 200 - 239 >/= 240 All ranges are based on fasting samples. Specific therapeutic targets will vary based on patient-specific cardiac risk. . Pediatric guidelines reference:Pediatrics 2011, 128(S5). Adult guidelines reference: NCEP ATPIII Guidelines, ELENA 2001, 258:2486-97 . Venipuncture immediately after or during the administration of Metamizole may lead to falsely low results. Testing should be performed immediately prior to Metamizole dosing. Performed By: #### L IPID #### [address] [address] Cholesterol in HDL [Mass/Vol] 41.0 mg/dL Normal [facility] Comment on above: Result Comment: . AGE VERY LOW LOW NORMAL HIGH 0-19 Y < 35 < 40 40-45 ---- 20-24 Y ---- < 40 >45 ---- >24 Y ---- < 40 40-60 >60 . Performed By: #### L IPID #### [address] [address] Cholesterol in LDL [Mass/Vol] 113 mg/dL High 0 - 99 [facility] Comment on above: Result Comment: . NEAR BORD AGE DESIRABLE OPTIMAL HIGH HIGH VERY HIGH 0-19 Y 0 - 109 --- 110-129 >/= 130 ---- 20-24 Y 0 - 119 --- 120-159 >/= 160 ---- >24 Y 0 - 99 100-129 130-159 160-189 >/=190 . Performed By: #### L IPID #### [address] [address] Cholesterol in VLDL [Mass/Vol] 24 mg/dL Normal 0 - 40 [facility] Comment on above: Performed By: #### L IPID #### [address] [address] Cholesterol.total/ Cholesterol in HDL [Mass ratio] 4.3 {ratio} Normal [facility] Comment on above: Result Comment: REF VALUES DESIRABLE < 3.4 HIGH RISK > 5.0 Performed By: #### L IPID #### [address] [address] Triglyceride [Mass/Vol] 122 mg/dL Normal 0 - 149 [facility] Comment on above: Result Comment: . AGE DESIRABLE BORDERLINE HIGH HIGH VERY HIGH 0 D-90 D 19 - 174 ---- ---- ---- 91 D- 9 Y 0 - 74 75 - 99 >/= 100 ---- 10-19 Y 0 - 89 90 - 129 >/= 130 ---- 20-24 Y 0 - 114 115 - 149 >/= 150 ---- >24 Y 0 - 149 150 - 199 200- 499 >/= 500 . Venipuncture immediately after or during the administration of Metamizole may lead to falsely low results. Testing should be performed immediately prior to Metamizole dosing. Performed By: #### L IPID #### [address] [address] LMPon 01-20-2021 Last menstrual period start date 01Jan2021 [facility] [address] Work Phone: Laboratory - Chemistry and C hemistry - challengeon 01-20-2021 Albumin BCP dye [Mass/Vol] 4.2 g/dL 3.4 - 5.0 [facility] [address] Work Phone: ALP [Catalytic activity/Vol] 61 U/L 33 - 110 [facility] [employer] Work Phone: [phone] ALT With P-5'-P [Catalytic activity/Vol] 13 U/L 7 - 45 [facility] [employer] Work Phone: [phone] Comment on above: Patients treated wit h Sulfasalazine may generate falsely decreased results for ALT. Anion gap [Moles/Vol] 10 mmol/L 10 - 20 [facility] [employer] Work Phone: [phone] AST With P-5'-P [Catalytic activity/Vol] 12 U/L 9 - 39 [facility] [employer] Work Phone: [phone] Bilirubin [Mass/Vol] 0.6 mg/dL 0.0 - 1.2 [facility] [employer] Work Phone: [phone] Calcium [Mass/Vol] 9.1 mg/dL 8.6 - 10.3 [facility] [employer] Work Phone: [phone] Chloride [Moles/Vol] 107 mmol/L 98 - 107 [facility] [employer] Work Phone: [phone] CO2 [Moles/Vol] 25 mmol/L 21 - 32 [facility] [employer] Work Phone: [phone] Creatinine [Mass/Vol] 0.74 mg/dL See Below [facility] [employer] Work Phone: [phone] Comment on above: Reference Range: 0.5 0 - 1.05 Glucose [Mass/Vol] 80 mg/dL 74 - 99 [facility] [employer] Work Phone: [phone] Potassium [Moles/Vol] 4.2 mmol/L 3.5 - 5.3 [facility] [employer] Work Phone: [phone] Protein [Mass/Vol] 7.1 g/dL 6.4 - 8.2 [facility] [employer] Work Phone: [phone] Sodium [Moles/Vol] 138 mmol/L 136 - 145 [facility] [employer] Work Phone: [phone] Urea nitrogen [Mass/Vol] 12 mg/dL 6 - 23 [facility] [address] [employer] Work Phone: [phone] Laboratory - Cytologyon Cytology report Cyto stain.thin prep Doc (Cvx/Vag) [facility] [address] [employer] Work Phone: [phone] Lipid Panelon 01-20-2020 Cholesterol [Mass/Vol] 178 mg/dL 0 - 199 [facility] [employer] Work Phone: [phone] Comment on above: . AGE DESIRABLE BORD DAVIDE HIGH HIGH 0-19 Y 0 - 169 170 - 199 >/= 200 20-24 Y 0 - 189 190 - 224 >/= 225 >24 Y 0 - 199 200 - 239 >/= 240 All ranges are based on fasting samples. Specific therapeutic targets will vary based on patient-specific cardiac risk.. Pediatric guidelines reference:Pediatrics 2011, 128(S5). Adult guidelines reference: NCEP ATPIII Guidelines, ELENA 2001, 258:2486-97. Venipuncture immediately after or during the administration of Metamizole may lead to falsely low results. Testing should be performed immediately prior to Metamizole dosing. Cholesterol in HDL [Mass/Vol] 41.0 mg/dL [facility] [employer] Work Phone: [phone] Comment on above: . AGE VERY LOW LOW N ORMAL HIGH 0-19 Y < 35 < 40 40-45 ---- 20- 24 Y ---- < 40 >45 ---- >24 Y ---- < 40 40-60 >60. Cholesterol in LDL [Mass/Vol] 113 mg/dL above high threshold 0 - 99 [facility] [address] [employer] Work Phone: [phone] Comment on above: . NEAR BORD AGE MYA RABLE OPTIMAL HIGH HIGH VERY HIGH 0-19 Y 0 - 109 --- 110-129 >/= 130 ---- 20-24 Y 0 - 119 --- 120-159 >/= 160 ---- >24 Y 0 - 99 100-129 130-159 160-189 >/=190. Cholesterol.total/ Cholesterol in HDL [Mass ratio] 4.3 {ratio} [facility] Phone: [phone] Comment on above: REF VALUESDESIRABLE < 3.4HIGH RISK > 5.0 Triglyceride [Mass/Vol] 122 mg/dL 0 - 149 [employer] [email or web address] Phone: [phone] Comment on above: . AGE DESIRABLE BORD DAVIDE HIGH HIGH VERY HIGH 0 D-90 D 19 - 174 ---- ---- ----91 D- 9 Y 0 - 74 75 - 99 >/= 100 ---- 10-19 Y 0 - 89 90 - 129 >/= 130 ---- 20-24 Y 0 - 114 115 - 149 >/= 150 ---- >24 Y 0 - 149 150 - 199 200- 499 >/= 500. Venipuncture immediately after or during the administration of Metamizole may lead to falsely low results. Testing should be performed immediately prior to Metamizole dosing. Lipid Panel 24 mg/dL 0 - 40 [facility] Work Phone: [phone] Mamm - Screening Mammogram w / Tomosynthesison 01-20-2021 MG Breast Screening Normal [facility] Work Phone: MG Breast Screening Please click on the link to view the study images Normal [facility] Phone: [phone] No Panel Informationon 01-20 >60 >60 [facility] [employer] Work Phone: Comment on above: CALCULATIONS OF MARIKA MATED GFR ARE PERFORMED USING THE MDRD STUDY EQUATION FOR THE IDMS-TRACEABLE CREATININE METHODS. 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 CBE benign. Mammogram ordered. Colon cancer screening is up to date. Pap obtained today. Discussed safe sex practices. Discussed diet and exercise. Reviewed bone health, namely exercise with vitamin D/calcium. Reviewed fertility goals, vasectomy. Patient notes IUD is not working well plan to replace next visit. 2) family history of breast cancer-Reviewed hereditary cancer screening. Discussed that patient is at increased risk. Discussed potentially doing genetic testing. Reviewed risk. Discussed monthly self breast exams. Patient considering will reevaluate in the near future all questions answered. Chief Complaint PT IS A NEW PT HERE TODAY FOR HER ANNUAL EXAM. BEEN AT LEAST 5 YEARS SINCE SHE HAD A PAP DONE. HAS NO CONCERNS. DOES NOT DO A SELF BREAST CHECK. MAMMOGRAM IS SCHEDULED FOR 01/20/2021. LMP: 12/22/2020 History of Present [id number] presents for annual exam. Patient safe home denies abuse. Patient sexually active without concern. Patient notes she has an IUD but it is not in right and she been having heavy bleeding since placement. Patient is with her last prior IUD was also with no periods. Patient does not do self breast exams. Patient working on physical activity. Patient has no other acute concerns. Patient scheduled for mammogram today. Review of Systems Constitutional: No fevers, chills Eye:no vision changes Respiratory: no SOB Cardiovascular: no chest pain Breast: No lump/mass or discharge Gastrointestinal: No nausea, vomiting, diarrhea, constipation, abdominal pain Genitourinary:no dysuria Gynecology: See HPI Endocrine: No heat or cold intolerance Musculoskeletal: No decreased ROM Skin:No rash Neurologic: No numbness tingling Psychiatric: Anxiety All other: all other systems reviewed and negative for complaint Active Problems Problems Anxiety disorder (300.00) (F41.9) Bilateral kidney stones (592.0) (N20.0) History of Bipolar disease, chronic (296.80) (F31.9) BMI 40.0-44.9, adult (V85.41) (Z68.41) Chronic diarrhea (787.91) (K52.9) Fibrocystic breast disease (610.1) (N60.19) Gallstones (574.20) (K80.20) Irritable bowel syndrome (564.1) (K58.9) Obesity, morbid, BMI 40.0-49.9 (278.01) (E66.01) Other screening mammogram (V76.12) (Z12.31) Screening for breast cancer (V76.10) (Z12.39) Screening for cervical cancer (V76.2) (Z12.4) Women's annual routine gynecological examination (V72.31) (Z01.419) Past Medical History Problems Anxiety disorder (300.00) (F41.9) History of Bipolar disease, chronic (296.80) (F31.9) Resolved Date: 15 Sep 2020 Encounter for preventive health examination (V70.0) (Z00.00) Resolved Date: History of spontaneous (V13.29) (Z87.59) 06/1999 History of IUD (intrauterine device) in place (V45.51) (Z97.5) History of Menstruation AGE 12 History of Normal vaginal delivery (650) (O80) 01/2003; 36 WEEKS; MALE; 6LBS 5OZ 06/2005; 35 WEEKS; MALE; 6LBS 2OZ Surgical History Problems History of [place] tooth extraction Family History Mother Family history of cardiac arrhythmia (V17.49) (Z82.49) Family history of cardiac disorder (V17.49) (Z82.49) Family history of diabetes mellitus (V18.0) (Z83.3) Family history of hypertension (V17.49) (Z82.49) Father Family history of cardiac disorder (V17.49) (Z82.49) Grandparent Family history of diabetes mellitus (V18.0) (Z83.3) Grandmother Family history of diabetes mellitus (V18.0) (Z83.3) Family history of hypertension (V17.49) (Z82.49) Family history of malignant neoplasm of breast (V16.3) (Z80.3) MAternal GM 60s. Maternal Aunt 67 Family history of osteoporosis (V17.81) (Z82.62) Aunt Family history of cervical cancer (V16.49) (Z80.49) Family history of malignant neoplasm of breast (V16.3) (Z80.3) MAternal GM 60s. Maternal Aunt 67 Social History Problems Coffee Does not use illicit drugs (V49.89) (Z78.9) Former smoker (V15.82) (Z87.891) Patient has living will (V49.89) (Z78.9) Sexually active Very rarely consumes alcohol (V49.89) (Z78.9) Allergies Medication Sulfa Drugs Recorded By: Su Martinez; 11/12/2019 2:58:34 PM Current Meds Medication NameInstruction ALPRAZolam 0.5 MG Oral TabletTAKE 1 TABLET Twice daily PRN anxiety/panic buPROPion HCl ER (XL) 150 MG Oral Tablet Extended Release 24 HourTAKE 1 TABLET BY MOUTH EVERY 24 HOURS Escitalopram Oxalate 5 MG Oral TabletTake 1 tablet daily hydrOXYzine HCl - 25 MG Oral T (more content not included)... Normal [facility] STOOL PATHOGEN PCR PANELon 0 01-20-2021 Lab Specimen Source Normal [facility] Comment on above: Performed By: #### S TLPP #### [facility] [address] [place] [address] Campylobacter sp DNA.diarrheagenic TERE+probe Ql (Stl) Not detected See Below [facility] [employer] Phone: Comment on above: Reference Range: NOT DETECTED E. coli stx1 gene TERE+probe Ql (Unsp spec) Not detected See Below [facility] [employer] Phone: Comment on above: Reference Range: NOT DETECTED E. coli stx2 gene TERE+probe Ql (Unsp spec) Not detected See Below [facility] [employer] Phone: Comment on above: Reference Range: NOT DETECTED Norovirus genogroup I and II RNA TERE+probe Nom (Stl) Not detected See Below [facility] [employer] Phone: Comment on above: Reference Range: NOT DETECTED Rotavirus RNA TERE+probe Nom (Stl) Not detected See Below [facility] [employer] Work Phone: Comment on above: Reference Range: NOT DETECTED The enteric PCR panel is a panel of sensitive and specific amplified nucleic acid tests indicated as an aid in the diagnosis of specific bacterial and viral agents of gastrointestinal illness, in conjunction with other clinical, laboratory, and epidemiological information. This test is not approved for monitoring these infections. Monitoring is available for Salmonella and Shigella infections-request test Stool PCR Follow-Up (STLPF). Monitoring tests are not available at this time for other enteric agents in this panel. Shigella sp DNA TERE+probe Ql (Unsp spec) Not detected See Below [facility] [employer] Work Phone: Comment on above: Reference Range: NOT DETECTED Vibrio sp DNA TERE+probe Nom (Unsp spec) Not detected See Below [facility] [employer] Work Phone: Comment on above: Reference Range: NOT DETECTED Yersinia sp DNA TERE+probe Nom (Unsp spec) Not detected See Below [facility] [employer] Phone: Comment on above: SOURCE: Reference Ra nge: NOT DETECTED STOOL PATHOGEN PCR PANEL Not detected See Below [facility] [employer] Phone: Comment on above: Reference Range: NOT DETECTED TSH WITH REFLEX TO FREE T4 I F ABNORMALon 01-20-2021 TSH Qn 1.40 m[IU]/L Normal 0.44 - 3.98 [facility] [address] [employer] Work Phone: Comment on above: Reference Range: 0.4 4 - 3.98 TSH testing is performed using different testing methodology at [facility] than at other [facility]. Direct result comparisons should only be made within the same method. Result Comment: TSH testing is performed using different testing methodology at [facility] than at other [facility]. Direct result comparisons should only be made within the same method. Performed By: #### T HYDS #### [place] [id number] [place] [id number] VITAMIN B12on 01-20-2021 Cobalamin (Vitamin B12) [Mass/Vol] 123 pg/mL Low 211 - 911 [facility] Comment on above: Performed By: #### V TB12 #### [address] [address] VITAMIN D, 25-HYDROXYon VITAMIN D, 25-HYDROXY 27 ng/mL Abnormal [facility] Comment on above: Result Comment: . DEFICIENCY: < 20 NG/ML INSUFFICIENCY: 20-29 NG/ML SUFFICIENCY: 30-100 NG/ML THIS ASSAY ACCURATELY QUANTIFIES THE SUM OF VITAMIN D3, 25-HYDROXY AND VIT D2,25-HYDROXY. Performed By: #### V TDOH #### [address] [id number] [place] [address] Vitamin B12, Serumon 021 Cobalamin (Vitamin B12) [Mass/Vol] 123 pg/mL below low threshold - 1 [facility] [address] [employer] Work Phone: Vitamin D 25-Hydroxyon 01-20 25-hydroxyvitamin D3 [Mass/Vol] 27 ng/mL Abnormal [facility] [address] [employer] Work Phone: Comment on above: .DEFICIENCY: < 20 NG /MLINSUFFICIENCY: 20-29 NG/MLSUFFICIENCY: 30-100 NG/MLTHIS ASSAY ACCURATELY QUANTIFIES THE SUM OFVITAMIN D3, 25-HYDROXY AND VIT D2,25-HYDROXY. [facility] Follow-up visit Diagnoses/Problems Encounter for preventive health examination (V70.0) (Z00.00) BMI 40.0-44.9, adult (V85.41) (Z68.41) Obesity, morbid, BMI 40.0-49.9 (278.01) (E66.01) Chronic diarrhea (787.91) (K52.9) History of Bipolar disease, chronic (296.80) (F31.9) Irritable bowel syndrome (564.1) (K58.9) Anxiety disorder (300.00) (F41.9) Other screening mammogram (V76.12) (Z12.31) Orders Anxiety disorder Start: hydrOXYzine HCl - 25 MG Oral Tablet; TAKE 1 TABLET EVERY 4 TO 6 HOURS NEEDED FOR ANXIETY Renew: Escitalopram Oxalate 5 MG Oral Tablet (Lexapro); Take 1 tablet daily Anxiety disorder, Health Maintenance Renew: ALPRAZolam 0.5 MG Oral Tablet; TAKE 1 TABLET Twice daily PRN anxiety/panic Anxiety disorder, Health Maintenance, Irritable bowel syndrome Renew: buPROPion HCl ER (XL) 150 MG Oral Tablet Extended Release 24 Hour (Wellbutrin XL); TAKE 1 TABLET BY MOUTH EVERY 24 HOURS Chronic diarrhea Gastroenterology Referral Evaluation and Treatment Evaluate AND Treat Status: Hold For - Scheduling Requested for: 18Jan2021 Health Maintenance Gynecology Referral Evaluation and Treatment Evaluate AND Treat Status: Hold For - Scheduling Requested for: 18Jan2021 Other screening mammogram Mamm - Screening Mammogram w/ Tomosynthesis; Status:Hold For - Scheduling; Requested for:18Jan2021; Radiologist to Determine Optimal Study : Y What are the patient's signs and symptoms ? : Annual Screening Mammogram PMH: Bipolar disease, chronic, Chronic diarrhea, Irritable bowel syndrome CLOST DIFF. TOXIN, PCR; Status:Active; Requested for:18Jan2021; Complete Blood Count + Differential; Status:Active; Requested for:17Bfr2682; Comprehensive Metabolic Panel; Status:Active; Requested for:07Bub5022; Lipid Panel; Status:Active; Requested for:18Jan2021; STOOL PATHOGEN PCR PANEL; Status:Active; Requested for:18Jan2021; TSH WITH REFLEX TO FREE T4 IF ABNORMAL; Status:Active; Requested for:42Mzq9980; Vitamin B12, Serum; Status:Active; Requested for:12Rhi5465; Vitamin D 25-Hydroxy; Status:Active; Requested for:28Awd9522; Patient Discussion/Summary Followup q 6 -12 mos, call concerns. Chief Complaint Chief Complaint: CARLIE GIPSON is here with a chief complaint of HERE FOR MED CHECK; MED REFILLS. History of Present Illness Carlie presents for periodic surveillance of chronic medical problems. Anxiety, history of depression, doing better with addition of wellbutrin, psychiatry appt is pending in February, encouraged her to keep that. Requests refill of alprazolam, oarrs reviewed and appropriate, discussed risks of medication, also recommend we try hydroxyzine for prn use to reduce or eliminate alprazolam use, discussed once she is established with psych the alprazolam will not be something I continue prescribing, will leave that to their discretion BMI over 40 Due for balance staff staker care and mammogram. Has had daily chronic diarrhea for at least five years, states was told in the past she had irritable bowel and advised to use more fiber, it used to help but hasn't recently. Multiple loose watery stools daily. Advised not to use hydroxyzine and alprazolam together.1 1 Amended By: Mikayla Vasquez; Jan 18 2021 8:36 AM ESTReview of Systems Constitutional: as noted in HPI. Cardiovascular: no chest pain. Respiratory: no shortness of breath during exertion. Gastrointestinal: as noted in HPI. Integumentary: as noted in HPI. Active Problems Anxiety disorder (300.00) (F41.9) Bilateral kidney stones (592.0) (N20.0) History of Bipolar disease, chronic (296.80) (F31.9) Fibrocystic breast disease (610.1) (N60.19) Gallstones (574.20) (K80.20) Irritable bowel syndrome (564.1) (K58.9) Past Medical History Anxiety disorder (300.00) (F41.9) History of Bipolar disease, chronic (296.80) (F31.9) Resolved Date: 15 Sep 2020 Surgical History History of [place] tooth extraction Family History Family history of cardiac arrhythmia (V17.49) (Z82.49) Family history of diabetes mellitus (V18.0) (Z83.3) Family history of malignant neoplasm of breast (V16.3) (Z80.3) Social History Coffee Former smoker (V15.82) (Z87.891) Patient has living will (V49.89) (Z78.9) Very rarely consumes alcohol (V49.89) (Z78.9) Allergies Sulfa Drugs Recorded By: Su Martinez; 11/12/2019 2:58:34 PM Current Meds Medication NameInstructionReason Escitalopram Oxalate 5 MG Oral TabletTake 1 tablet dailyAnxiety disorder ALPRAZolam 0.5 MG Oral TabletTAKE 1 TABLET Twice daily PRN anxiety/panicAnxiety disorder, Health Maintenance buPROPion HCl ER (XL) 150 MG Oral Tablet Extended Release 24 HourTAKE 1 TABLET BY MOUTH EVERY 24 HOURSAnxiety disorder, Health Maintenance, Irritable bowel syndrome Loratadine 10 MG Oral Tablet Mirena (52 MG) 20 MCG/24HR Intrauterine Intrauterine Device Vitals Vital Signs Recorded: [id number] 08:09AM Ontspphmfxx92.4 F Heart Rate72 Ubohjdye092, LUE, Sitting Clyxgmuff68, LUE, Sitting Height5 ft 3 in Weight (more content not included)... Normal [employer] Tobacco Screening.on 021 Tobacco use status [facility] b) No [facility] Phone: CNOVon 12-28-2020 CNOV Office Visit ([facility] ) DAXACARLIE Fuentes ([id number]) 1980 F Date Time Provider Department 12/28/20 7:45 PM [facility]ERSON [facility] During your visit today, we recorded the following information about you: Temperature Pulse Respiration Blood pressure 98.1 degrees 83/minute 16/minute 128/76 Weight 107.2 kg Tiesha Anderson PA-C 12/28/2020 8:24 PM Signed This note was created using [employer]. Subjective Carlie Gipson is a 40 year old female. HPI Patient presents with urinary frequency and lower back pain for 2 days. She does have a history of kidney stones but states it does not hurt quite the same as when she has had a stone. She denies seeing any blood in her urine. Denies dysuria. She has had some pelvic pressure. No vomiting. No diarrhea. She has not had a fever. No vaginal discharge. Review of Systems Constitutional: Negative. HENT: Negative. Respiratory: Negative. Cardiovascular: Negative. Gastrointestinal: Negative. Genitourinary: Positive for frequency, pelvic pain and urgency. Negative for dysuria and hematuria. Musculoskeletal: Positive for back pain. All other systems reviewed and are negative. PAST MEDICAL HISTORY Diagnosis Date - NEGATIVE MEDICAL HISTORY Current Outpatient Medications Medication Sig Dispense Refill - escitalopram oxalate (LEXAPRO) 5 mg tablet Take by mouth. - levonorgestrel (MIRENA) 20 mcg/24 hr (5 years) IUD Inserted in office 1 Each 0 - ALPRAZolam (XANAX) 0.5 mg tablet Take 0.5 mg by mouth at bedtime as needed. - escitalopram oxalate (LEXAPRO) 10 mg tablet (Patient not taking: Reported on 12/28/2020 ) - cephALEXin (KEFLEX) 500 mg capsule Take 1 capsule by mouth twice daily for 7 days. 14 capsule 0 - ibuprofen (MOTRIN) 800 mg tablet Take 1 tablet by mouth every 8 hours as needed for pain (with food.). 20 tablet 0 - miSOPROStol (CYTOTEC) 200 mcg tablet Take 1 tablet by mouth every 6 hours. 2 tablet 0 - fluticasone (FLONASE) 50 mcg/actuation nasal spray Use 2 Sprays in each nostril once daily. Rinse mouth after use. (Patient not taking: Reported on 12/28/2020 ) 1 Bottle 11 - methylPREDNISolone (MEDROL, YOUNG,) 4 mg Dose-Pack Use as directed 1 Package 0 - fluticasone (FLONASE) 50 mcg/actuation nasal spray Use 2 Sprays in each nostril once daily. 1 Bottle 0 No current facility-administered medications for this visit. PAST SURGICAL HISTORY Procedure Laterality Date - NONE FAMILY HISTORY Problem Relation Age of Onset - Heart Mother - Diabetes Mother - Cancer Brother brain Social History Tobacco Use - Smoking status: Former Smoker Types: Cigarettes - Smokeless tobacco: Never Used Substance Use Topics - Alcohol use: Yes Comment: rare - Drug use: No Objective BP 128/76 Pulse 83 Temp 36.7 ?C (98.1 ?F) Resp 16 Wt 107.2 kg (236 lb 6.4 oz) LMP 07/06/2016 (Exact Date) SpO2 98% BMI 41.88 kg/m? Physical Exam Vitals reviewed. Constitutional: Appearance: Normal appearance. HENT: Head: Normocephalic and atraumatic. Cardiovascular: Rate and Rhythm: Normal rate and regular rhythm. Pulses: Normal pulses. Heart sounds: Normal heart sounds. Pulmonary: Effort: Pulmonary effort is normal. Breath sounds: Normal breath sounds. Abdominal: General: Abdomen is flat. Palpations: Abdomen is soft. Tenderness: There is no abdominal tenderness. There is no right CVA tenderness or left CVA tenderness. Skin: General: Skin is warm and dry. Neurological: General: No focal deficit present. Mental Status: She is alert and oriented to person, place, and time. Assessment and Plan ASSESSMENT/PLAN: 1. Urinary frequency - ICD9: 788.41, ICD10: R35.0 acute - UA positive for maria esterase and hematuria - Send urine for culture - Begin treatment with keflex for 7 days - discussed possibility of kidney stone, patient not in distress here. Red flags for er care discussed. Follow up with Dr. luis With urology as needed. She is agreeable with plan. - UA DIP, URINE (POC) - URINE CULTURE Tiesha Anderson PA-C Referring Provider: SELF [200] Allergies As of Date: 12/28/2020 Noted Allergy Reaction SULFA (SULFONAMIDE ANTIBIOTICS) 02/21/2012 12 - Shortness of Breath Date Reviewed: 12/28/2020 Reviewed by: Dorcas Mon LPN - Fully Assessed Reason for Visit: Urinary Frequency [1086] Cmt: frequency, lower back pain x 2 days Primary Visit Diagnosis:Urinary frequency [R35.0] Order(s):UA DIP, URINE (POC) [[id number]] Order #: [id number]. #:[id number] URINE CULTURE [SQURCUL] Order #: [id number] cephALEXin (KEFLEX) 500 mg capsuleTake 1 capsule by mouth twice daily for 7 days.Disp: 14 capsuleRfl: 0 ibuprofen (MOTRIN) 800 mg tabletTake 1 tablet by mouth every 8 hours as needed for pain (with food.).Disp: 20 tabletRfl: 0 Prescriptions as of 12/28/2020 - escitalopram oxalate (LEXAPRO) 10 mg tabl (more content not included)... Normal [facility] [place] Urine Cultureon 12-28-2020 Bacteria identified Cx Nom (U) Sp. Request/Comment: - Specimen received in preservative Culture Result - <10,000 CFU/ml Lactose negative gram negative bacilli --> ABNORMAL ALERT Insignificant colony count. No further workup. --> ABNORMAL ALERT 10,000 - <50,000 CFU/ml Normal urogenital jed Critically abnormal [facility] [place] Comment on above: Performed By: #### U RCUL #### [facility] [address] [place], [place] [address] Provider Note - ED v2on 10-19 Provider Note - ED v2 Provider Note - ED v2: Chart Review: HISTORY OF PRESENTING ILLNESS CARLIE is a 39 year old Female and was seen by me at 03-Nov-2020 09:30. The historian is the patient. Triage Information: Most recent Vital Sign Value Date PAST MEDICAL HISTORY ATTESTATION: I have reviewed and confirmed nurse's/medic's notes for patient's medications, allergies, and medical, surgical, family and social history ALLERGIES/INTOLERANCES: Allergy Allergen: sulfa drugs Type: Drug Category Reaction: Hives/Urticaria HEALTH HISTORY: No known health issues. Family history: no pertinent history. Social history: Non-smoker. Has 1 child. OUTPATIENT MEDICATIONS: Home Medications Review Status for Reconciliation: Complete Med Status: Patient Currently Takes Medications Drug Name: Lexapro 5 mg oral tablet Instructions: 2 tab(s) orally once a day Drug Name: Wellbutrin 100 mg oral tablet Instructions: 1 tab(s) orally 2 times a day Drug Name: IUD for contraception SIGNIFICANT EVENTS: No known significant events or known past surgical history. SPORTS ANCHOR: Is : no Is : no RESULTS/VITAL SIGNS VITAL SIGNS: T PRBP SpO2O2(LPM) %FiO2 Method 03-Nov-2020 09:01:[id number] 97 MEDICAL DECISION MAKING/ED COURSE MDM/ED COURSE: This note was generated with voice recognition software and may contain errors including spelling, grammar, syntax, and misrecognization of what was dictated CHIEF COMPLAINT hives HISTORY OF PRESENT ILLNESS Patient presents today for evaluation of hives that started yesterday. Reports she noticed her elbows were a little itchy yesterday, I thought they were just dry. However, over the course of the next 12 hours, she started developing hives, and they seem to be spreading. Reports she now has itchy hives scattered on her scalp, wrists, abdomen, legs, both arms, and groin. She reports the raised areas are extremely itchy; denies any drainage, other rashes, or open areas. Denies any fever/chills, sore/swollen throat or tongue, wheezing/shortness of breath, cough, swelling, vomiting (was a little nauseous after taking benadryl, but not since then), recent illness, headaches, or other systemic symptoms. Reports has a history of seasonal allergies, but they have not been too bad this year; denies any other known allergies. Denies any known irritants - no new medications, recent antibiotic use, new household products, exposures to new environments/foods, etc. Reports she took benadryl a few times since onset of the hives, but it makes her a little nauseated, so she does not like taking it. Has not tried any other OTC medications for her symptoms. Denies any known health issues; follows regularly with her PCP but was unable to get an appt today. REVIEW OF SYSTEMS 10 systems reviewed negative with exception of history of present illness listed above PHYSICAL EXAMINATION General: Pleasant female, alert and oriented, in no acute distress. Sitting comfortably on exam table, although scratching at arms, etc, during visit. Eyes: Pupils equal, round and reactive to light. Eyes non-icteric; conjunctiva clear. No rash noted to eyelids or immediate periorbital area. HENT: Airway patent. Normocephalic. TMs and ear canals clear. Nares patent. Posterior pharynx clear; able to swallow and talk without difficulty. Neck: Supple; no lymphadenopathy Respiratory: Lungs are clear to auscultation, Respirations are non-labored, Breath sounds are equal, Symmetrical chest wall expansion. Cardiovascular: Normal rate, Regular rhythm. Normal S1S2. No m/r/g. Musculoskeletal: Grossly normal for age. Able to move all extremities without pain/limitation. Integumentary: Fair skin. [place] wheals of varying sizes scattered in patches to bilat arms, abdomen, groin/thighs, bilat legs, and few on back. None noted to face, palms, or ankles. No tenderness or surrounding erythema; skin intact. No pustules or vesicles. No fluctuance, or pointing; no streaking. Neurologic: Alert, Oriented, Normal sensory, Normal motor function. Cognition and Speech: Oriented, Speech clear and coherent. Psychiatric: Cooperative, Appropriate mood & affect. MEDICAL DECISION MAKING Course: Worsening; stable. Impression/Plan: Unknown etiology for urticaria noted on today's exam. No red flags; no known irritants. Discussed oral steroid taper, but pt states would rather avoid d/t sensitivity (nausea) with prednisone in the past. Agrees to SoluMedrol injection (125 mg IM) in office. Will start Zyrtec QD + PRN Benadryl (urged caution with benadryl - can cause drowsiness); also encouraged to use H2 nolan (such as Pepcid) as adjunct to help increase effects of Zyrtec. Cool compresses may also be helpful. Discussed expectations for resolution of urticaria at length, as well as prevention strategies for the future - urged to monitor e (more content not included)... Normal [facility] Office Visit (Family Medicin e)on 09-29-2020 Follow-up visit Diagnoses/Problems Encounter for preventive health examination (V70.0) (Z00.00) Anxiety disorder (300.00) (F41.9) Irritable bowel syndrome (564.1) (K58.9) Orders Anxiety disorder Changed: From Escitalopram Oxalate 10 MG Oral Tablet Take 1 tablet daily To Escitalopram Oxalate 5 MG Oral Tablet (Lexapro) Take 1 tablet daily Adult Psychiatry Referral Evaluation and Treatment Evaluate AND Treat, possible bipolar previous diagnosis Status: Hold For - Scheduling Requested for: [id number] Anxiety disorder, Health Maintenance, Irritable bowel syndrome Start: buPROPion HCl ER (XL) 150 MG Oral Tablet Extended Release 24 Hour (Wellbutrin XL); TAKE 1 TABLET BY MOUTH EVERY 24 HOURS Patient Discussion/Summary Fup 2-3 weeks, virtual is fine. Chief Complaint Chief Complaint: CARLIE GIPSON is here with a chief complaint of VIRTUAL VISIT; WOULD LIKE TO DISCUSS HER LEXAPRO; STATES IT IS NOT HELPING. An interactive audio and video telecommunication system which permits real time communications between the patient (at the originating site) and provider (at the distant site) was utilized to provide this telehealth service. History of Present Illness Carlie presents virtually for followup anxiety . Last visit she felt some better on lexapro but not quite where she wanted to be , so we increased the dose to 10 mg. September 15, She states she feels worse on the higher dose, is mean, irritable angry. Denies SI. SHe has a possible history of bipolar disorder, and she states she had two providers with discrepancies in diagnosis, one said she did, one said she didn't. We have discussed that lexapro and these meds can cause edgardo exacerbations, etc, . I think the fact that she is worse, we should involve mental health professions , first to confirm the correct diagnosis, and second for treatment recommendations, and she is agreable. In the meantime we can try adding wellbutrin 150 xl, and going back to the 5 mg of lexapro that she tolerated. Review of Systems Constitutional: as noted in HPI. Active Problems Anxiety disorder (300.00) (F41.9) Bilateral kidney stones (592.0) (N20.0) History of Bipolar disease, chronic (296.80) (F31.9) Fibrocystic breast disease (610.1) (N60.19) Gallstones (574.20) (K80.20) Irritable bowel syndrome (564.1) (K58.9) Past Medical History Anxiety disorder (300.00) (F41.9) History of Bipolar disease, chronic (296.80) (F31.9) Resolved Date: 15 Sep 2020 Surgical History History of [place] tooth extraction Family History Family history of cardiac arrhythmia (V17.49) (Z82.49) Family history of diabetes mellitus (V18.0) (Z83.3) Family history of malignant neoplasm of breast (V16.3) (Z80.3) Social History Coffee Former smoker (V15.82) (Z87.891) Patient has living will (V49.89) (Z78.9) Very rarely consumes alcohol (V49.89) (Z78.9) Allergies Sulfa Drugs Recorded By: Su Martinez; 11/12/2019 2:58:34 PM Current Meds Medication NameInstructionReason Escitalopram Oxalate 10 MG Oral TabletTake 1 tablet dailyAnxiety disorder ALPRAZolam 0.5 MG Oral TabletTAKE 1 TABLET Twice daily PRN anxiety/panicAnxiety disorder, Health Maintenance Mirena (52 MG) 20 MCG/24HR Intrauterine Intrauterine Device Vitals Vital Signs Recorded: 29Sep2020 09:38AM Tobacco Useb) No Physical Exam Constitutional: Alert and in no acute distress. Well developed, well nourished. speech normal, not rapid. 'Scores and Scales' Signatures Electronically signed by : Mikayla Vasquez MD; Sep 29 2020 1:21PM EST (Author) Normal [facility] Office Visit (Family Nikkie wood)on 09-15-2020 Follow-up visit Diagnoses/Problems Anxiety disorder (300.00) (F41.9) History of Bipolar disease, chronic (296.80) (F31.9) Orders Anxiety disorder Renew: Escitalopram Oxalate 10 MG Oral Tablet (Lexapro); Take 1 tablet daily Patient Discussion/Summary Followup 3-4 weeks after increasing the dose of the medication, call concerns, virtual/phone appointment is okay for this. Chief Complaint Chief Complaint: CARLIE GIPSON is here with a chief complaint of VIRTUAL VISIT; F/U LEXAPRO; STATES IS IT HELPING A LITTLE. An interactive audio and video telecommunication system which permits real time communications between the patient (at the originating site) and provider (at the distant site) was utilized to provide this telehealth service. History of Present Illness Pt presents virtually for follow up on starting escitalopram 5 mg for anxiety. She states at first it made her tired, that has improved. She feels better, but not quite where she would like to be, and is intersted in a higher dose. Recommend we increase to 10 mg with close followup. She has a possibe history of bipolar disorder, states past providers had differing opinions on that, and we have discussed that SSRIS can sometimes induce edgardo in these settings. Have recommended establish with psych, she declines for now . Denies problems otherwise. Review of Systems Constitutional: as noted in HPI. Active Problems Anxiety disorder (300.00) (F41.9) Bilateral kidney stones (592.0) (N20.0) History of Bipolar disease, chronic (296.80) (F31.9) Fibrocystic breast disease (610.1) (N60.19) Gallstones (574.20) (K80.20) Irritable bowel syndrome (564.1) (K58.9) Past Medical History Anxiety disorder (300.00) (F41.9) History of Bipolar disease, chronic (296.80) (F31.9) Resolved Date: 15 Sep 2020 Surgical History History of [place] tooth extraction Family History Family history of cardiac arrhythmia (V17.49) (Z82.49) Family history of diabetes mellitus (V18.0) (Z83.3) Family history of malignant neoplasm of breast (V16.3) (Z80.3) Social History Coffee Former smoker (V15.82) (Z87.891) Patient has living will (V49.89) (Z78.9) Very rarely consumes alcohol (V49.89) (Z78.9) Allergies Sulfa Drugs Recorded By: Su Martinez; 11/12/2019 2:58:34 PM Current Meds Medication NameInstructionReason Escitalopram Oxalate 5 MG Oral TabletTAKE 1 TABLET BY MOUTH EVERY DAYAnxiety disorder ALPRAZolam 0.5 MG Oral TabletTAKE 1 TABLET Twice daily PRN anxiety/panicAnxiety disorder, Health Maintenance Mirena (52 MG) 20 MCG/24HR Intrauterine Intrauterine Device Physical Exam Constitutional: Alert and in no acute distress. Well developed, well nourished. Pulmonary: No respiratory distress. Psychiatric: Judgment and insight: Intact. Mood and affect: Normal. 'Scores and Scales' Signatures Electronically signed by : Mikayla Vasquez MD; Sep 15 2020 8:49AM EST (Author) Normal [facility] Office Visit (Family Medicin e)on 08-25-2020 Follow-up visit Chief Complaint Chief Complaint: CARLIE GIPSON is here with a chief complaint of VIRTUAL VISIT; WOULD LIKE TO DISCUSS GETTING ON A DAILY ANXIETY MEDICATION. An interactive audio and video telecommunication system which permits real time communications between the patient (at the originating site) and provider (at the distant site) was utilized to provide this telehealth service. History of Present Illness Pt presents virtually with concerns of anxiety. States for last month has been on edge and very irritable, and weepy. She states she sleeps well, averages 6-7 hours per night and does feel well rested. Is not sad, but is quick to tear up. She states she uses xanax prn, but thinks she needs something daily to help. She used to see Dr Fallon before he retired, and he worked with her psychologist at the as far as managing her medications . She has a history of bipolar disorder, and used to be on depakote. States she does not feel manic, but in the past had three days they thought might be a manic episode. We discussed getting into psychiatry to appropriately manage bipolar disorder, and she rightly states it will take a long time to get in. However I think it is best. She declines for now, but does agree to make an appoitnment with her psychologist. We discussed that SsrIs can precipitate a manic episdoe and she appears to understand that. We discussed a trial of low dose lexapro, and close followup. OARRS reviewed, agreed to short term limited supply of xanax, and will need contact from the psychologist as well and she understands. Review of Systems Constitutional: as noted in HPI. Cardiovascular: as noted in HPI. Respiratory: as noted in HPI. Psychiatric: as noted in HPI. Active Problems Anxiety disorder (300.00) (F41.9) Bilateral kidney stones (592.0) (N20.0) Bipolar disease, chronic (296.80) (F31.9) Fibrocystic breast disease (610.1) (N60.19) Gallstones (574.20) (K80.20) History of UTI (V13.02) (Z87.440) Irritable bowel syndrome (564.1) (K58.9) Past Medical History Anxiety disorder (300.00) (F41.9) Bipolar disease, chronic (296.80) (F31.9) Surgical History History of [place] tooth extraction Family History Family history of cardiac arrhythmia (V17.49) (Z82.49) Family history of diabetes mellitus (V18.0) (Z83.3) Family history of malignant neoplasm of breast (V16.3) (Z80.3) Social History Coffee Former smoker (V15.82) (Z87.891) Patient has living will (V49.89) (Z78.9) Very rarely consumes alcohol (V49.89) (Z78.9) Allergies Sulfa Drugs Recorded By: Su Martinez; 11/12/2019 2:58:34 PM Current Meds ALPRAZolam 0.5 MG Oral Tablet; TAKE 0.5 TABLET Twice daily PRN anxiety; Therapy: [id number] to (Evaluate:[id number]) Requested for: [id number]; Last Rx:[id number] Ordered Rx By: Mikayla Vasquez; Dispense: 20 Days ; #:20 Tablet; Refill: 0;For: Anxiety disorder, Health Maintenance; CHERI = N; Verified Transmission to [facility]; Last Updated By: [employer]Social; 08/25/2020 8:41:42 AM Mirena (52 MG) 20 MCG/24HR Intrauterine Intrauterine Device; Therapy: (Recorded:12Nov2019) to Recorded Dispense: 0 Days ; #: Sufficient; Refill: 0; CHERI = N; Record; Last Updated By: Su Martinez; 11/12/2019 2:34:33 PM Vitals Vital Signs Recorded: 25Aug2020 08:03AM Tobacco Useb) No Physical Exam Constitutional: Alert and in no acute distress. Well developed, well nourished. Pulmonary: No respiratory distress. Diagnoses/Problems Anxiety disorder (300.00) (F41.9) Orders Anxiety disorder Start: Escitalopram Oxalate 5 MG Oral Tablet (Lexapro); TAKE 1 TABLET BY MOUTH EVERY DAY Rx By: Mikayla Vasquez; Dispense: 30 Days ; #:30 Tablet; Refill: 2;For: Anxiety disorder; CHERI = N; Sent To: [facility]; Last Updated By: CYPHER; 08/25/2020 8:41:38 AM Anxiety disorder, Health Maintenance Renew: ALPRAZolam 0.5 MG Oral Tablet; TAKE 1 TABLET Twice daily PRN anxiety/panic Rx By: Mikayla Vasquez; Dispense: 5 Days ; #:10 Tablet; Refill: 0;For: Anxiety disorder, Health Maintenance; CHERI = N; Sent To: [facility]; Last Updated By: CYPHER; 08/25/2020 8:41:42 AM Patient Discussion/Summary Followup 3 weeks, virtual is fine, call concerns. 'Scores and Scales' Signatures Electronically signed by : Mikayla Vasquez MD; Aug 25 2020 8:42AM EST (Author) Normal [facility] Cult, Urineon 04-09-2020 Bacteria identified Cx Nom (U) PATIENT: CARLIE GIPSON LOCATION: [facility] BILL#: [id number] : 80 AGE: SEX: F ORDERED BY: CARRILLO VASQUEZ: URINE COLLECTED: 04/09/20 14:34ANTIBIOTICS AT MERVAT.: RECEIVED : 04/09/20 23:32SITE: Clean Catch/Voided Clean Catch/Voided Clean Catch/Voided Clean Catch/Voided Clean Catch/Voided Clean Catch/Voided R E S U L T S URINE CULTURE,BACTERIAL FINAL 04/11/20 08:46 NO SIGNIFICANT GROWTH. 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 This test was developed and its performance characteristics determined by [facility] [place]. This test has been authorized by [facility] under an Emergency Use Authorization (EUA). This test has been validated in accordance with the FDA's Guidance Document Policy for Diagnostics Testing in Laboratories Certified to Perform High Complexity Testing under CLIA prior to Emergency use Authorization for Coronavirus Disease 2019 during the Public Health Emergency issued on July 19, 2019. [address] [place] [address] Winston Urias III, M.D. 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 [facility] Reference [facility] Comment on above: Result Comment: Nega tive for This test was developed and its performance characteristics determined by [facility] [place]. This test has been authorized by FDA under an Emergency Use Authorization (EUA). This test has been validated in accordance with the FDA's Guidance Document Policy for Diagnostics Testing in Laboratories Certified to Perform High Complexity Testing under CLIA prior to Emergency use Authorization for Coronavirus Disease 2019 during the Public Health Emergency issued on July 19, 2019. COVID19 (SARS This test was developed and its performance characteristics determined by [facility] [place]. This test has been authorized by FDA under an Emergency Use Authorization (EUA). This test has been validated in accordance with the FDA's Guidance Document Policy for Diagnostics Testing in Laboratories Certified to Perform High Complexity Testing under CLIA prior to Emergency use Authorization for Coronavirus Disease 2019 during the Public Health Emergency issued on July 19, 2019. CoV2) by PCR. This test was developed and its performance characteristics determined by [facility] [place]. This test has been authorized by FDA under an Emergency Use Authorization (EUA). This test has been validated in accordance with the FDA's Guidance Document Policy for Diagnostics Testing in Laboratories Certified to Perform High Complexity Testing under CLIA prior to Emergency use Authorization for Coronavirus Disease 2019 during the Public Health Emergency issued on July 19, 2019. 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 Normal [facility] Comment on above: Performed By: #### C OVID #### [facility] Routine Lab [address] [id number] [place] Mamm Diag w/CAD if perf a nd 3D Bilon 01-13-2019 Bilirubin.direct [Mass/Vol] Exam Date/Time: 01/06/2019 08:27 EDT Reason for Exam: FIBROCYSTIC BREAST DISEASE DIFFUSE CYSTIC MASTOPATHY OF RIGHT BREAST 3D PT NEEDS BILAT BREAST US;Other (please specify) Report STUDY: Digital diagnostic mammogram bilateral with jc, right breast ultrasound; 01/06/2019 8:27 am; 01/06/2019 8:41 am ACCESSION NUMBER(S): [id number]; [id number] ORDERING CLINICIAN: Mikayla Vasquez INDICATION: Palpable mass right breast COMPARISON: None. TECHNIQUE: Mammography: CC and MLO 2D digital mammograms and digital breast tomosynthesis images were obtained of the bilateral breasts. 3-D volume images were reconstructed in 4 views at an independent workstation as 1 mm slices through the breasts in both the CC and MLO projections. A skin marker was placed at the site of palpable abnormality. Ultrasound: Multiple grayscale ultrasonographic images were obtained through the right breast in the region of palpable abnormality. FINDINGS: Mammography: There are areas of scattered fibroglandular tissue. No discrete mass or focal asymmetry is identified. No suspicious microcalcifications or foci of architectural distortion are seen. Further evaluation with ultrasound was obtained. This study was interpreted with CAD. Ultrasound: There is a small, 8 x 7 x 2 mm, hypoechoic focus within the dermis in the right breast in the region of palpable abnormality. No discrete mass or ultrasonographic asymmetry is seen within the breast. IMPRESSION: Small hypoechoic focus within the dermis in the right breast, corresponding with the palpable abnormality, of uncertain etiology. No ultrasonographic evidence of breast malignancy is seen. BI-RADS CATEGORY: Category: 2 - Benign Finding. Exam Date/Time: 01/06/2019 08:27 EDT Report Recommendation: Normal Interval Follow-up, Under Age 40. Recall Interval: 12 Months. Breast Density: Scattered Fibroglandular Density. Negative or benign mammogram and ultrasound should not preclude further evaluation of a suspicious clinical abnormality. FINAL REPORT Dictated: 01/07/2019 8:50 am Tarun Lynch MD Signed (Electronic Signature): 01/13/2019 9:44 am Signed by: Tarun Lynch MD Technologist: CEC Assessment: BI-RADS Category 2-Benign finding Recommendation: Normal interval follow-up Normal [facility] US Breast Unilateral Rt Roloi amadoon 01-13-2019 US Breast Unilateral Rt Limited Exam Date/Time: 01/06/2019 08:41 EDT Reason for Exam: FIBROCYSTIC BREAST DISEASE DIFFUSE CYSTIC MASTOPATHY OF RIGHT BREAST 3D PT NEEDS BILAT BREAST US;Fibrocystic Breast Disease Report STUDY: Digital diagnostic mammogram bilateral with jc, right breast ultrasound; 01/06/2019 8:27 am; 01/06/2019 8:41 am ACCESSION NUMBER(S): [id number]; [id number] ORDERING CLINICIAN: Mikayla Vasquez INDICATION: Palpable mass right breast COMPARISON: None. TECHNIQUE: Mammography: CC and MLO 2D digital mammograms and digital breast tomosynthesis images were obtained of the bilateral breasts. 3-D volume images were reconstructed in 4 views at an independent workstation as 1 mm slices through the breasts in both the CC and MLO projections. A skin marker was placed at the site of palpable abnormality. Ultrasound: Multiple grayscale ultrasonographic images were obtained through the right breast in the region of palpable abnormality. FINDINGS: Mammography: There are areas of scattered fibroglandular tissue. No discrete mass or focal asymmetry is identified. No suspicious microcalcifications or foci of architectural distortion are seen. Further evaluation with ultrasound was obtained. This study was interpreted with CAD. Ultrasound: There is a small, 8 x 7 x 2 mm, hypoechoic focus within the dermis in the right breast in the region of palpable abnormality. No discrete mass or ultrasonographic asymmetry is seen within the breast. IMPRESSION: Small hypoechoic focus within the dermis in the right breast, corresponding with the palpable abnormality, of uncertain etiology. No ultrasonographic evidence of breast malignancy is seen. BI-RADS CATEGORY: Category: 2 - Benign Finding. Exam Date/Time: 01/06/2019 08:41 EDT Report Recommendation: Normal Interval Follow-up, Under Age 40. Recall Interval: 12 Months. Breast Density: Scattered Fibroglandular Density. Negative or benign mammogram and ultrasound should not preclude further evaluation of a suspicious clinical abnormality. FINAL REPORT Dictated: 01/07/2019 8:50 am Tarun Lynch MD Signed (Electronic Signature): 01/13/2019 9:44 am Signed by: Tarun Lynch MD Technologist: TOD Assessment: BI-RADS Category 2-Benign finding Recommendation: Normal interval follow-up Normal [facility] Vital Signs Date Time Vital Sign Value Performing Clinician Facility 03-20-2022 14:23-0400 Body height 165.[address] Mikayla Vasquez Work Phone: [facility] Work Phone: 03-20-2022 14:23-0400 Body mass index (BMI) [Ratio] 34.9 kg/m2 Dr. Mikayla Vasquez Work Phone: [facility] Work Phone: 03-20-2022 14:23-0400 Body temperature 98.3 [degF] Dr. Mikayla Vasquez Work Phone: [facility] Work Phone: 03-20-2022 14:23-0400 Body weight 95.[address] Mikayla Vasquez Work Phone: [facility] Work Phone: 03-20-2022 14:23-0400 Diastolic blood pressure 84 mm[Hg] Dr. Mikayla Vasquez Work Phone: [facility] Work Phone: 03-20-2022 14:23-0400 Heart rate 75 /min Dr. Mikayla Vasquez Work Phone: [facility] Work Phone: 03-20-2022 14:23-0400 Respiratory rate 14 /min Dr. Mikayla Vasquez Work Phone: [facility] Work Phone: 03-20-2022 14:23-0400 SaO2% (BldA) [Mass fraction] 99 % Dr. Mikayla Vasquez Work Phone: [facility] Work Phone: 03-20-2022 14:23-0400 Systolic blood pressure 116 mm[Hg] Dr. Mikayla Vasquez Work Phone: [facility] Work Phone: 12-15-2021 13:07-0400 Body temperature 98.8 [degF] Finn Christian PA-C Work Phone: [facility] 12-15-2021 13:07-0400 Body weight 107.14 kg Finn Christian PA-C Work Phone: [facility] 12-15-2021 13:07-0400 Diastolic blood pressure 78 mm[Hg] Finn Christian PA-C Work Phone: [facility] 12-15-2021 13:07-0400 Heart rate 81 /min Finn Bogner PA-C Work Phone: [facility] 12-15-2021 13:07-0400 Respiratory rate 18 /min Finn Bogner PA-C Work Phone: [facility] 12-15-2021 13:07-0400 SaO2% (BldA) [Mass fraction] 98 % Finn Bogner PA-C Work Phone: [facility] 12-15-2021 13:07-0400 Systolic blood pressure 132 mm[Hg] Finn Bogner PA-C Work Phone: [facility] 07-21-2021 08:08-0500 Body height 160.02 cm Mikayla Vasquez Work Phone: [facility] Work Phone: 07-21-2021 08:08-0500 Body mass index (BMI) [Ratio] 42.25 kg/m2 Mikayla Vasquez Work Phone: [facility] Work Phone: 07-21-2021 08:08-0500 Body surface area Derived from formula 2.08 m2 Mikayla Vasquez Work Phone: [facility] Work Phone: 07-21-2021 08:08-0500 Body weight 108.18 kg Mikayla Vasquez Work Phone: [facility] Work Phone: 07-21-2021 08:08-0500 Diastolic blood pressure 84 mm[Hg] Mikayla Vasquez Work Phone: [facility] Work Phone: 07-21-2021 08:08-0500 Heart rate 96 /min Mikayla Vasquez Work Phone: [facility] Work Phone: 07-21-2021 08:08-0500 SaO2% (BldA) [Mass fraction] 98 % Mikayla Vasquez Work Phone: [facility] Work Phone: 07-21-2021 08:08-0500 Systolic blood pressure 124 mm[Hg] Mikayla Vasquez Work Phone: [facility] Work Phone: 05-11-2021 10:13-0500 Body height 160.02 cm Mikayla Vasquez Work Phone: [facility] Work Phone: 05-11-2021 10:13-0500 Body mass index (BMI) [Ratio] 42.51 kg/m2 Mikayla Vasquez Work Phone: [facility] Work Phone: 05-11-2021 10:13-0500 Body surface area Derived from formula 2.09 m2 Mikayla Vasquez Work Phone: [facility] Work Phone: 05-11-2021 10:13-0500 Body temperature 97.3 [degF] Mikayla Vasquez Work Phone: [facility] Work Phone: 05-11-2021 10:13-0500 Body weight 108.86 kg Mikayla Vasquez Work Phone: [facility] Work Phone: 05-11-2021 10:13-0500 Diastolic blood pressure 80 mm[Hg] Mikayla Vasquez Work Phone: [facility] Work Phone: 05-11-2021 10:13-0500 Respiratory rate 16 /min Mikayla Vasquez Work Phone: [facility] Work Phone: 05-11-2021 10:13-0500 Systolic blood pressure 110 mm[Hg] Mikayla Vasquez Work Phone: [facility] Work Phone: 05-06-2021 08:48-0500 Body height 160.02 cm Mikayla Manzanares Vasquez Work Phone: [facility] Work Phone: 05-06-2021 08:48-0500 Body mass index (BMI) [Ratio] 42.53 kg/m2 Mikayla Manzanares Vasquez Work Phone: [facility] Work Phone: 05-06-2021 08:48-0500 Body surface area Derived from formula 2.09 m2 Mikayla Vasquez Work Phone: [facility] Work Phone: 05-06-2021 08:48-0500 Body temperature 97.5 [degF] Mikayla Vasquez Work Phone: [facility] Work Phone: 05-06-2021 08:48-0500 Body weight 108.89 kg Mikayla Vasquez Work Phone: [facility] Work Phone: 05-06-2021 08:48-0500 Diastolic blood pressure 80 mm[Hg] Mikayla Vasquez Work Phone: [facility] Work Phone: 05-06-2021 08:48-0500 Heart rate 84 /min Mikayla Vasquez Work Phone: [facility] Work Phone: 05-06-2021 08:48-0500 Systolic blood pressure 126 mm[Hg] Mikayla Vasquez Work Phone: [facility] Work Phone: 03-28-2021 08:43-0500 Body height 160.02 cm Mikayla Vasquez Work Phone: [facility] Work Phone: 03-28-2021 08:43-0500 Body mass index (BMI) [Ratio] 42.61 kg/m2 Mikayla Vasquez Work Phone: [facility] Work Phone: 03-28-2021 08:43-0500 Body surface area Derived from formula 2.09 m2 Mikayla Vasquez Work Phone: [facility] Work Phone: 03-28-2021 08:43-0500 Body temperature 98.4 [degF] Mikayla Vasquez Work Phone: [facility] Work Phone: 03-28-2021 08:43-0500 Body weight 109.12 kg Mikayla Vasquez Work Phone: [facility] Work Phone: 03-28-2021 08:43-0500 Diastolic blood pressure 80 mm[Hg] Mikayla Vasquez Work Phone: [facility] Work Phone: 03-28-2021 08:43-0500 Heart rate 84 /min Mikayla Vasquez Work Phone: [facility] Work Phone: 03-28-2021 08:43-0500 Systolic blood pressure 128 mm[Hg] Mikayla Vasquez Work Phone: [facility] Work Phone: 03-25-2021 08:41-0400 Body height 160.02 cm Mikayla Vasquez Work Phone: [address] Work Phone: 03-25-2021 08:41-0400 Body mass index (BMI) [Ratio] 42.87 kg/m2 Mikayla Vasquez Work Phone: [address] Work Phone: 03-25-2021 08:41-0400 Body surface area Derived from formula 2.1 m2 Mikayla Vasquez Work Phone: [address] Work Phone: 03-25-2021 08:41-0400 Body temperature 96.9 [degF] Mikayla Vasquez Work Phone: [address] Work Phone: 03-25-2021 08:41-0400 Body weight 109.77 kg Mikayla Vasquez Work Phone: [address] Work Phone: 03-25-2021 08:41-0400 Diastolic blood pressure 80 mm[Hg] Mikayla Vasquez Work Phone: [address] Work Phone: 03-25-2021 08:41-0400 Systolic blood pressure 126 mm[Hg] Mikayla Vasquez Work Phone: [address] Work Phone: 03-21-2021 09:51-0400 Body height 160.02 cm Mikayla Vasquez Work Phone: [facility] Work Phone: 03-21-2021 09:51-0400 Body mass index (BMI) [Ratio] 41.63 kg/m2 Mikayla Vasquez Work Phone: [facility] Work Phone: 03-21-2021 09:51-0400 Body surface area Derived from formula 2.07 m2 Mikayla Vasquez Work Phone: [facility] Work Phone: 03-21-2021 09:51-0400 Body temperature 97.5 [degF] Mikayla Vasquez Work Phone: [facility] Work Phone: 03-21-2021 09:51-0400 Body weight 106.6 kg Mikayla Vasquez Work Phone: [facility] Work Phone: 03-21-2021 09:51-0400 Diastolic blood pressure 84 mm[Hg] Mikayla Vasquez Work Phone: [facility] Work Phone: 03-21-2021 09:51-0400 Systolic blood pressure 120 mm[Hg] Mikayla [facility]quez [facility] Work Phone: 02-18-2021 09:08-0400 Body height 160.02 cm Mikayla Vasquez Work Phone: [address] Work Phone: 02-18-2021 09:08-0400 Body mass index (BMI) [Ratio] 41.63 kg/m2 Mikayla Vasquez Work Phone: [address] Work Phone: 02-18-2021 09:08-0400 Body surface area Derived from formula 2.07 m2 Mikayla Vasquez Work Phone: [address] Work Phone: 02-18-2021 09:08-0400 Body temperature 97.8 [degF] Mikayla Vasquez Work Phone: [address] Work Phone: 02-18-2021 09:08-0400 Body weight 106.6 kg Mikayla Vasquez Work Phone: [address] Work Phone: 02-18-2021 09:08-0400 Diastolic blood pressure 80 mm[Hg] Mikayla Vasquez Work Phone: [place] [address] [address] Work Phone: 02-18-2021 09:08-0400 Systolic blood pressure 120 mm[Hg] Mikayla Vasquez Work Phone: [place] [address] [address] Work Phone: 01-20-2021 13:52-0400 Body height 160.02 cm Mikayla Vasquez Work Phone: [place] [address] [address] Work Phone: 01-20-2021 13:52-0400 Body mass index (BMI) [Ratio] 41.63 kg/m2 Mikayla Vasquez Work Phone: [place] [address] [address] Work Phone: 01-20-2021 13:52-0400 Body surface area Derived from formula 2.07 m2 Mikayla Vasquez Work Phone: [place] [address] [address] Work Phone: 01-20-2021 13:52-0400 Body temperature 97.8 [degF] Mikayla Vasquez Work Phone: [place] [address] [address] Work Phone: 01-20-2021 13:52-0400 Body weight 106.6 kg Mikayla Vasquez Work Phone: [place] [address] [address] Work Phone: 01-20-2021 13:52-0400 Diastolic blood pressure 80 mm[Hg] Mikayla Vasquez Work Phone: [place] [address] [address] Work Phone: 01-20-2021 13:52-0400 Systolic blood pressure 118 mm[Hg] Mikayla Vasquez Work Phone: [place] [address] [address] Work Phone: 01-18-2021 08:09-0400 Body height 160.02 cm Mikayla Vasquez Work Phone: [facility] Work Phone: 01-18-2021 08:09-0400 Body mass index (BMI) [Ratio] 41.63 kg/m2 Mikayla Vasquez Work Phone: [facility] Work Phone: 01-18-2021 08:09-0400 Body surface area Derived from formula 2.07 m2 Mikayla Vasquez Work Phone: [facility] Work Phone: 01-18-2021 08:09-0400 Body temperature 98.4 [degF] Mikayla Vasquez Work Phone: [facility] Work Phone: 01-18-2021 08:09-0400 Body weight 106.6 kg Mikayla Vasquez Work Phone: [facility] Work Phone: 01-18-2021 08:09-0400 Diastolic blood pressure 80 mm[Hg] Mikayla Vasquez Work Phone: [facility] Work Phone: 01-18-2021 08:09-0400 Heart rate 72 /min Mikayla Vasquez Work Phone: [facility] Work Phone: 01-18-2021 08:09-0400 Systolic blood pressure 130 mm[Hg] Mikayla Vasquez Work Phone: [facility] Work Phone: 11-03-2020 11:01-0400 Body height 160 cm Mikayla Vasquez Other Phone: [facility] 11-03-2020 11:01-0400 Body temperature 98.6 [degF] Mikayla Vasquez Other Phone: [facility] 11-03-2020 11:01-0400 Diastolic blood pressure 86 mm[Hg] Mikayla Vasquez Other Phone: [facility] 11-03-2020 11:01-0400 Heart rate 77 /min Mikayla Vasquez Other Phone: [facility] 11-03-2020 11:01-0400 Respiratory rate 16 /min Mikayla Vasquez Other Phone: [facility] 11-03-2020 11:01-0400 SaO2% (BldA) [Mass fraction] 97 % Mikayla Vasquez Other Phone: [facility] 11-03-2020 11:01-0400 Systolic blood pressure 121 mm[Hg] Mikayla Vasquez Other Phone: [facility] Encounters Encounter Date Encounter Type Care Provider Facility Start: 12-08-2024 ambulatory Sami Demiter Facility :[facility] Start: 12-01-2024 End: 12-01-2024 ambulatory Efewongbe Oleghe Facility:[facility] Start: 10-09-2024 End: 10-09-2024 ambulatory Efewongbe Oleghe Facility:[facility] Start: 10-08-2024 End: 10-08-2024 ambulatory Efewongbe Oleghe Facility:[facility] Start: 09-04-2024 End: 09-04-2024 ambulatory Efewongbe Oleghe Facility:[facility] Start: 07-17-2024 End: 07-18-2024 ambulatory Efewongbe Oleghe Facility:[facility] Start: 06-27-2024 End: 06-27-2024 ambulatory Efewongbe Oleghe Facility:[facility] Start: 06-10-2024 End: 06-10-2024 ambulatory Álvaro John Facility:[facility] Start: 05-07-2024 End: 05-07-2024 ambulatory Efewongbe Oleghe Facility:[facility] Start: 05-02-2024 ambulatory Efewongbe Oleghe Facili ty:[facility] Start: 05-02-2024 End: 05-02-2024 ambulatory Álvaro John Facility:[facility] Start: 04-22-2024 End: 04-22-2024 ambulatory Efewongbe Olelupise Facility:[facility] Start: 04-22-2024 End: 04-22-2024 ambulatory Regina Chavez [employer]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 Facility:[facility] Start: 04-10-2024 End: 04-10-2024 ambulatory Álvaro John Facility:[facility] Start: 04-10-2024 End: 04-10-2024 ambulatory Efewstewardsonbe Olee Facility:[facility] Start: 03-13-2024 End: 03-13-2024 ambulatory Efewongbe Olelupise Facility:[facility] Start: 02-12-2024 ambulatory Efewongbe Olelupise Facili ty:[facility] Start: 02-12-2024 End: 02-12-2024 ambulatory Efewstewardsonbe Olee Facility:[facility] Start: 01-25-2024 End: 01-25-2024 ambulatory Efmanolostewardsonbe Sharie Facility:[facility] Start: 01-08-2024 End: 01-08-2024 Emergency department patient visit Tyrel Fontana Facility:[facility] Start: 12-21-2023 ambulatory Fam Abby [facility] Start: 12-21-2023 End: 12-21-2023 ambulatory Fam Rusk Facility:[facility] Start: 12-19-2023 ambulatory Fam Abby [facility] Start: 12-19-2023 End: 12-19-2023 ambulatory Fam Abby Facility:[facility] Start: 12-18-2023 End: 12-18-2023 ambulatory Ryan JURADO Facility:[facility] Start: 12-14-2023 ambulatory Adarsh Collins [facility] Start: 12-14-2023 End: 12-14-2023 ambulatory Efewstewardsonbe Olee Facility:[facility] Start: 03-30-2022 End: 03-30-[address] Mikayla Vasquez Work Phone: [facility] Work Phone: Start: 03-30-2022 End: 03-30-[address] Mikayla Vasquez Work Phone: [facility] Start: 03-21-2022 Non-patient / Non-visit Dr. Suzanne Vasquez Work Phone: [facility] Start: 03-20-[address] Mikayla Vasquez Work Phone: [facility] Work Phone: Start: 03-20-2022 End: 03-20-2022 Encounter for general adult medical examination without abnormal findings Dr. Mikayla Vasuqez Work Phone: [facility] Start: 03-20-2022 End: 03-20-[address] Mikayla Vasquez Work Phone: [facility] Start: 12-15-2021 End: 12-15-2021 Office outpatient new 30 minutes Finn Christian PA-C Work Phone: [facility] Comment on above: Urinary frequency (P rimary Dx) Start: 11-23-2021 AUDIT Mikayla Vasquez Work Phone: [facility] [address] DO Work Phone: Start: 07-21-2021 Office outpatient vi sit 25 minutes Mikayla Vasquez Work Phone: [facility] Work Phone: Start: 07-13-2021 Patient encounter procedure Mikayla Vasquez Work Phone: [facility] Work Phone: Start: 07-06-2021 Rx Renewal Mikayla Vasquez Work Phone: [facility] 205 DO Work Phone: Start: 05-11-2021 FUV, Provider: [employer] Heredia, Status: Pen, Time: 2:30 PM Mikayla Vasquez Work Phone: [facility] Work Phone: Start: 05-11-2021 Office outpatient vi sit 15 minutes Mikayla Vasquez Work Phone: [facility] 120 Work Phone: Start: 05-10-2021 Chart Update Mikayla Vasquez Work Phone: [facility] Work Phone: Start: 05-06-2021 FUV, Provider: Mikayla Vasquez, Status: Pen, Time: 8:40 AM Mikayla Vasquez Work Phone: [facility] Work Phone: Start: 05-06-2021 Office outpatient vi sit 25 minutes Mikayla Vasquez Work Phone: [facility] Work Phone: Start: 05-05-2021 Chart Update Mikayla Vasquez Work Phone: [facility] Work Phone: Start: 04-25-2021 AUDIT Mikayla Vasquez Work Phone: [facility] Work Phone: Start: 04-22-2021 COLON, Provider: Monster Heredia, Status: Pen, Time: 9:30 AM Mikayla Vasquez Work Phone: [facility] [address] Work Phone: Start: 04-21-2021 Chart Update Mikayla Vasquez Work Phone: [facility] [address] Work Phone: Start: 03-29-2021 Chart Update Mikayla Vasquez Work Phone: [facility] [address] Work Phone: Start: 03-25-2021 FUV, Provider: Makeda Lucas, Status: Pen, Time: 8:45 AM Mikayla Vasquez Work Phone: [facility] [address] Work Phone: Start: 03-25-2021 Office outpatient vi sit 10 minutes Mikayla Vasquez Work Phone: [place] [address] [address] Work Phone: Start: 03-22-2021 Chart Update Mikayla Vasquez Work Phone: [facility] Work Phone: Start: 03-21-2021 Office outpatient ne w 45 minutes Mikayla Vasquez Work Phone: [facility] [address] Work Phone: Start: 02-21-2021 Chart Update Mikayla Vasquez Work Phone: [place] [address] [address] Work Phone: Start: 02-18-2021 Patient encounter procedure Mikayla Vasquez Work Phone: [place] [address] [address] Work Phone: Start: 01-28-2021 Chart Update Mikayla Vasquez Work Phone: [place] [address] [address] Work Phone: Start: 01-25-2021 Chart Update Mikayla Vasquez Work Phone: [facility] Work Phone: Start: 01-22-2021 Chart Update Mikayla Vasquez Work Phone: [facility] Work Phone: Start: 01-21-2021 Chart Update Mikayla Vasquez Work Phone: [facility] Work Phone: Start: 01-20-2021 Initial preventive medicine new patient 40-64yrs Mikayla Vasquez Work Phone: [place] [address] [address] Work Phone: Start: 01-18-2021 Office outpatient vi sit 25 minutes Mikayla Vasquez Work Phone: [employer] Work Phone: Start: 12-20-2020 Chart Update Mikayla Vasquez Work Phone: [employer] Work Phone: Start: 11-03-2020 End: 11-03-2020 Emergency department patient visit Janice Raymundo [facility] Start: 04-09-2020 Patient encounter procedure Mikayla Vasquez [employer] Work Phone: Start: 02-04-2020 Patient encounter procedure Mikayla Vasquez [employer] Work Phone: Start: 01-02-2020 End: 01-02-2020 Patient encounter procedure ANNAMARIE MARROQUIN [facility] Start: 11-13-2019 Patient encounter procedure Mikayla Vasquez [employer] Work Phone: Start: End: Patient encounter status Mikayla Vasquez Work Phone: [employer] Work Phone: Patient encounter procedure Mikayla Vasquez Work Phone: [employer] Work Phone: End: 01-31-2021 Patient encounter procedure Mikayla Vasquez Work Phone: [employer] Work Phone: Comment on above: 01/20/2021; COTEST NEG ; Procedures Date Procedure Procedure Detail Performing Clinician Start: 03-30-2022 Screening mammography D r. Mikayla Vasquez Work Phone: Start: 12-15-2021 Urnls dip stick/tabl et rgnt auto w/o microscopy [facility] Provider Start: 04-22-2021 Colonoscopy Mikayla turner Work Phone: Start: 04-09-2020 Culture bacterial quanttative colony count urine Mikayla Vasquez Extraction of wisdom tooth J kayemaciel Vasquez Plan of Treatment Date Care Activity Detail Author Start: 03-20-2022 Patient referral [facility] Work Phone: Start: 02-10-2022 Patient encounter procedure ANNUAL, Provider: Makeda Lucas, Status: Pen, Time: 8:[address] Work Phone: Start: 01-19-2022 Influenza vaccination INFLUENZA (#1) [facility] Start: 12-02-2021 FUV, Provider: Makeda Lucas, Status: Pen, Time: 1:30 PM FUV, Provider: Makeda Lucas, Status: Pen, Time: 1:30 PM [facility] 205 DO Work Phone: Start: 11-04-2021 EPV, Provider: Mikayla Vasquez, Status: Pen, Time: 8:00 AM EPV, Provider: Mikayla Vasquez, Status: Pen, Time: 8:00 AM [facility] Work Phone: Start: 07-21-2021 EPV, Provider: Mikayla Vasquez, Status: Pen, Time: 8:00 AM EPV, Provider: Mikayla Vasquez, Status: Pen, Time: 8:00 AM [facility] Work Phone: Start: 07-14-2021 ADLTSPLIT, Provider: [facility] RM 2,[id number], Status: Pen, Time: 8:30 PM ADLTSPLIT, Provider: [facility] RM 2,[id number], Status: Pen, Time: 8:30 PM [facility] 205 DO Work Phone: Start: 07-06-2021 ADLTSPLIT, Provider: [facility] RM 1,[id number], Status: Pen, Time: 7:30 PM ADLTSPLIT, Provider: [facility] RM 1,[id number], Status: Pen, Time: 7:30 PM [facility] Work Phone: Start: 05-06-2021 FUV, Provider: Mikayla Vasquez, Status: Pen, Time: 8:40 AM FUV, Provider: Mikayla Vasquez, Status: Pen, Time: 8:40 AM [facility] Work Phone: Start: 04-22-2021 COLON, Provider: Monster Heredia, Status: Pen, Time: 9:30 AM COLON, Provider: [employer] He[employer], Status: Pen, Time: 9:30 AM [facility] Work Phone: Start: 03-28-2021 FUV, Provider: Mikayla Vasquez, Status: Pen, Time: 8:40 AM FUV, Provider: Mikayla Vasquez, Status: Pen, Time: 8:40 AM [facility] Work Phone: Start: 03-25-2021 FUV, Provider: Makeda Lucas, Status: Pen, Time: 8:45 AM FUV, Provider: Makeda Lucas, Status: Pen, Time: 8:[address] Work Phone: Start: 03-21-2021 NPV, Provider: Monster Heredia, Status: Pen, Time: 9:45 AM NPV, Provider: [employer] Heredia, Status: Pen, Time: 9:45 AM [facility] Work Phone: Start: 02-18-2021 IUDRMVL, Provider: Makeda Lucas, Status: Pen, Time: 8:45 AM IUDRMVL, Provider: Makeda Lucas, Status: Pen, Time: 8:[address] Work Phone: Start: 01-31-2021 VIRFUVHOME, Provider : Mikayla Vasquez, Status: Pen, Time: 8:20 AM [facility], Provider: Mikayla Vasquez, Status: Pen, Time: 8:[address] Work Phone: Start: 01-20-2021 NPV, Provider: Makeda Lucas, Status: Pen, Time: 1:30 PM NPV, Provider: Makeda Lucas, Status: Pen, Time: 1:30 PM [facility] Work Phone: Start: 2020 Mammography MAMMOGRAM [facility] Start: 2010 HPV TESTING HPV TESTING [facility] Start: 2001 PAP TESTING PAP TESTING [facility] Start: 11-22-1999 Urine microalbumin profile DTAP,TDAP,TD (1 - Tdap) [facility] Start: 1998 HEPATITIS C SCREENING HEPATITIS C SC REENING [facility] Start: 1998 HIV SCREENING HIV SCREENING [facility] Bacteria identified in Urine by Culture URINE CULTURE Microbiology Routine Urinary frequency Ordered: 12/15/2021 [facility] Work Phone: Comment on above: Ordered: 12/15/2021 Patient referral [facility] Work Phone: Immunizations Immunization Date Immunization Notes Care Provider [facility] 03-20-2022 influenza, seasonal, injectable Dr. Mikayla Vasquez Work Phone: [facility] Work Phone: 02-25-2021 Pfizer-BioNTech COVI D-19 Vacc 30 MCG/0.3ML Intramuscular Suspension Mikayla Vasquez Work Phone: [facility] Work Phone: 01-19-2021 influenza virus vacc ine, unspecified formulation Mikayla Vasquez Work Phone: [facility] Work Phone: Comment on above: Series: 01-19-2021 influenza, injectabl e, quadrivalent, preservative free Mikayla Vasquez Work Phone: [address] Work Phone: 06-05-2020 Pfizer-BioNTech COVI D-19 Vacc 30 MCG/0.3ML Intramuscular Suspension Mikayla Vasquez Work Phone: [facility] Work Phone: 05-15-2020 [employer] COVI D-19 Vacc 30 MCG/0.3ML Intramuscular Suspension Mikayla Vasquez Work Phone: [facility] Work Phone: 03-03-2020 influenza virus vacc ine, unspecified formulation Mikayla Vasquez Work Phone: [facility] Work Phone: Comment on above: Series: 03-03-2020 influenza, seasonal, injectable Mikayla Vasquez [facility] Work Phone: 03-13-2018 influenza, injectabl e, quadrivalent, preservative free Mikayla Vasquez Work Phone: [facility] Work Phone: 03-13-2013 influenza, seasonal, injectable Mikayla Vasquez Work Phone: [facility] Work Phone: 05-23-2009 novel influenza-H1N1 -09, preservative-free, injectable Mikayla Vasquez Work Phone: [facility] Work Phone: 03-20-2009 influenza virus vacc ine, whole virus Mikayla Vasquez Work Phone: [facility] Work Phone: 04-26-2008 influenza virus vacc ine, whole virus Mikayla Vasquez Work Phone: [facility] Work Phone: 04-11-2007 influenza virus vacc ine, whole virus Mikayla Vasquez Work Phone: [facility] Work Phone: 07-20-2006 tetanus toxoid, adsorbed River Vasquez Work Phone: [facility] Work Phone: 07-13-2006 hepatitis B vaccine, adult dosage Mikayla Vasquez Work Phone: [facility] Work Phone: Payers Date Payer Category Payer Unknown [id number] 2023 Self-pay [id number] 2023 Unknown [id number] 2023 Unknown [id number] 2023 Unknown [id number] 2020 Unknown MMO MMO [employer]PER[employer] PLUS [id number] 2020-[facility] [phone] [address] [place] [address] PPO [id number] 1980 Unknown [id number] 51 Private Health Insurance [id number] Private Health Insurance [employer] [id number] Unknown Unknown [id number] 62 Unknown [id number] [id number] 62 Unknown [id number] [id number] 62 Unknown [id number] [id number] 62 Unknown [id number] [id number] 62 Unknown [id number] [id number] 62 Unknown [id number] 2.16.840.1.541428.3.579.2.4 62 Unknown [id number] 2.16.840.1.969885.3.579.2.4 62 Unknown [id number] 2.16.840.1.455434.3.579.2.4 62 Unknown [id number] [id number] 62 Unknown [id number] 2.16.840.1.747158.3.579.2.4 62 Unknown [id number] 2.16.840.1.010351.3.579.2.4 62 Unknown [id number] 2.16.840.1.100069.3.579.2.4 62 Unknown [id number] 2.16.840.1.159884.3.579.2.4 62 Unknown [id number] 2.16.840.1.797140.3.579.2.4 62 Unknown [id number] [id number] 62 Unknown [id number] 62 Unknown [id number] 62 Unknown [id number] 62 Unknown [id number] [id number] 62 Unknown [id number] 2.16.840.1.626110.3.579.2.4 62 Unknown [id number] [id number] 62 Unknown [id number] [id number] 62 Unknown [id number] 2.16.840.1.512308.3.579.2.4 62 Unknown [id number] 2.16.840.1.716471.3.579.2.4 62 Unknown [id number] [id number] 62 Unknown [id number] [id number] 62 Unknown [id number] 62 Social History Date Type Detail Facility Start: 03-20-2022 Tobacco smokin g consumption unknown [facility] Former smoker Former smoker [facility] Work Phone: Start: 01-31-2015 Tobacco smoking status NHIS Ex-smoker [facility] History of tobacco use Cigarette Smoker [facility] Start: 01-31-2015 Tobacco use and exposure Smokeless tobacco non-user [facility] Start: 12-15-2021 Alcohol intake Current drinke r of alcohol (finding) [facility] Start: 06-22-2016 History SDOH Alcohol Comment rare [facility] Start: 1980 Sex Assigned At Not on file [facility] Start: 12-05-2021 End: 12-15-2021 Exposure to SARS-CoV-2 (event) Not sure [facility] Start: 1980 Sex Assigned At Female [facility] Work Phone: NEGATED: Highlighted row - - [facility] Work Phone: Functional Status Date Assessment Result Facility NEGATED: Highlighted row Functional performance Functional status health issues are not documented Disease [facility] Work Phone: Mental Status Date Assessment Result Facility NEGATED: Highlighted row Cognitive function [Interpretation] Cognitive status health issues are not documented Disease [facility] [employer]files Phone: Clinical Notes 03-21-2015 to 12-19-2023 Finn Christian PA-C - 12/15/2021 1:16 PM EDT Note Date & Type Note Facility 12-19-2023 Note [facility] Medical Records Department [address] [place] [address] History Physical Exam 12/19/23 0948 MR#: [id number] Acct: [id number] Name: CARLIE GIPSON Rep #: [id number] : 1980 43 From: Fam Mora MD PCP: Dr. J Luis Gutierrez MD Status:REG [facility] Location: [facility] HPI - General HPI Narrative CARLIE GIPSON, is a 43 F who presents with painful left leg varicose veins that are refractory to compression. She has GSV reflux throughout and thigh accessory saphenous reflux. [facility] Medical History Pre-syncope Tachycardia Malaise Lightheadedness Abnormal CBC Preventative health care Screening for cardiovascular condition Health care maintenance Panic disorder MDD (major depressive disorder) Obstructive sleep apnea Morbid obesity Anxiety and depression Sleep apnea Vitamin B 12 deficiency Vitamin D deficiency Kidney stones IBS (irritable bowel syndrome) Gallstones Seasonal allergies Home Medications ???Medication ???Instructions ???Recorded ???Last Taken ???Type cholecalciferol (vitamin D3) 125 10,000 unit PO DAILY 03/28/22 Unknown History mcg (5,000 unit) capsule alprazolam 0.5 mg tablet (Xanax) 0.5 mg PO DAILY PRN anxiety #20 03/08/23 Unknown Rx tabs hydroxyzine pamoate 25 mg capsule 25 mg PO BID PRN anxiety #120 caps 03/08/23 Unknown Rx (Vistaril) bupropion HCl 150 mg 24 hr tablet, 150 mg PO QAM #90 tabs 09/06/23 12/19/23 Rx extended release (Wellbutrin XL) cyanocobalamin (vitamin B-12) 1,000 mcg IM QMONTH #10 mL 09/06/23 Unknown Rx 1,000 mcg/mL injection solution semaglutide 1 mg/dose (4 mg/3 mL) 1 mg subcut QWEEK 09/19/23 Unknown History subcutaneous pen injector Allergy/AdvReac Type Severity Reaction Status Date / Time Sulfa (Sulfonamide Allergy Severe Unknown Verified 11/30/23 13:42 Antibiotics) Family History Mother Diabetes Aunt Diabetes Depression Ovarian cancer Grandmother Myocardial infarction Other Anxiety Kidney disease Social History household members: spouse number of children: 2 current occupational status: employed 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 ROS Constitutional Constitutional: Denies chills, fever(s), frequent falls, lethargy or weakness Eyes Eyes: Denies blind spots, change in vision or loss of vision ENT HEENT: Denies bleeding gums, hoarseness or sore throat Cardiovascular Cardiovascular: Denies abdominal pain, bluish discoloration of hand/feet, chest pain with activity, claudication, cold extremities, cyanosis, dyspnea on exertion, erythema on extremities, irregular heart rhythm, leg edema, leg ulcers, numbness in extremities or weakness in extremities Respiratory/Chest Respiratory/Chest: Denies cough, excessive phlegm production, shortness of breath at rest, shortness of breath with exertion or wheezing Gastrointestinal Gastrointestinal: Denies anorexia, change in stool character, constipation, diarrhea, melena or rectal bleeding Genitourinary Genitourinary: Denies dysuria or hematuria Musculoskeletal Musculoskeletal: Denies abnormal gait Integumentary Integumentary: Reports other Details: ; Denies erythema, non-healing lesions or wounds Neurologic Neurologic: Denies abnormal speech, focal weakness, headache(s), loss of vision, numbness, paresthesias or sensory deficit Hematologic/Lymphatic Hematologic/Lymphatic: Denies easy bleeding, easy bruising or lymphadenopathy Vital Signs Vital Signs Vital Signs: Weight Weight: 156 lb Body Mass Index (BMI) 27.6 Physical Exam Const alert, oriented x3, no apparent distress and healthy appearing General Appearance: cooperative; Negative for combative or lethargic Orientation / Consciousness: awake Exam Limitations: no limitations HEENT Head and Scalp: normocephalic and atraumatic Eyes EOMs intact bilaterally General Eye: normal appearance of both eyes Neck full ROM, no lymphadenopathy, thyroid normal and No no carotid bruits General: trachea midline; Negative for lymphadenopathy or tenderness Thyroid: thyroid normal Lymph Lymphatic: Negative for no lymphadenopathy noted Resp normal respiratory effort and no use of accessory muscles Effort and Inspection: Negative for labored, stridor or audible wheezes Cardio regular rate and regular rhythm Back/Spine Cervical Spine: cervical ROM normal Extremity ful (more content not included)... [facility] 12-15-2021 Note HNO ID: [id number] Author: Finn Christian PA-C Service: ? Author Type: Physician Lap Regulator Type: Progress Notes Filed: 12/15/2021 2:24 PM Note Text: 12/15/2021 Patient presents with: Urinary Frequency: burning, x1 day SUBJECTIVE: This is a 41 year old that is here today for Complaint(s) of dysuria and urinary frequency x 1 days. Overall not feeling well. Having lower suprapubic cramping/pressure. Denies fever/chills, nausea, vomiting, back pain, abdominal pain, hematuria. Last UTI >6 months. No new sexual partners. Took motrin. Allergy to sulfa. PAST MEDICAL HISTORY Diagnosis Date - NEGATIVE MEDICAL HISTORY ALLERGIES Sulfa (Sulfonamide Antibiotics) MEDICATIONS Current Outpatient Medications Medication Sig - tirzepatide (MOUNJARO) 2.5 mg/0.5 mL pen injector Inject subcutaneously. - escitalopram oxalate (LEXAPRO) 5 mg tablet Take by mouth. - ibuprofen (MOTRIN) 800 mg tablet Take 1 tablet by mouth every 8 hours as needed for pain (with food.). - ALPRAZolam (XANAX) 0.5 mg tablet Take 0.5 mg by mouth at bedtime as needed. - escitalopram oxalate (LEXAPRO) 10 mg tablet (Patient not taking: Reported on 12/28/2020 ) - levonorgestrel (MIRENA) 20 mcg/24 hr (5 years) IUD Inserted in office (Patient not taking: Reported on 12/15/2021 ) - miSOPROStol (CYTOTEC) 200 mcg tablet Take 1 tablet by mouth every 6 hours. - fluticasone (FLONASE) 50 mcg/actuation nasal spray Use 2 Sprays in each nostril once daily. Rinse mouth after use. (Patient not taking: Reported on 12/28/2020 ) - methylPREDNISolone (MEDROL, YOUNG,) 4 mg Dose-Pack Use as directed - fluticasone (FLONASE) 50 mcg/actuation nasal spray Use 2 Sprays in each nostril once daily. No current facility-administered medications for this visit. SOCIAL HISTORY Social History Tobacco Use - Smoking status: Former Smoker Types: Cigarettes - Smokeless tobacco: Never Used Substance Use Topics - Alcohol use: Yes Comment: rare - Drug use: No REVIEW OF SYSTEMS See HPI OBJECTIVE: BP 132/78 Pulse 81 Temp 37.1 ?C (98.8 ?F) Resp 18 Wt 107.1 kg (236 lb 3.2 oz) LMP 11/27/2021 SpO2 98% BMI 41.84 kg/m? APPEARANCE Well appearing, alert, in no acute distress, well-hydrated, well nourished. ABDOMEN bowel sounds normoactive, no bruits, soft, non-tender, non-distended, without organomegaly or palpable masses, no tenderness to palpation BACK: Normal exam ASSESSMENT/PLAN: 1. Urinary frequency - ICD9: 788.41, ICD10: R35.0 acute - UA positive for maria esterase, hematuria and nitrates - Send urine for culture - Begin treatment with Macrobid 100 mg BID for 5 days - Patient education for prevention given - URINE CULTURE - NITROFURANTOIN MONOHYDRATE AND MACROCRYSTAL 100 MG ORAL CAP - FLUCONAZOLE 150 MG TABLET Reviewed previous urine culture. The patient indicates understanding of these issues and agrees with the plan. Reviewed red flags and when to seek care sooner. Finn Christian PA-C [facility] 12-15-2021 History of Present illness Narrative 12/15/2021 Patient presents with: Urinary Frequency: burning, x1 day SUBJECTIVE: This is a 41 year old that is here today for Complaint(s) of dysuria and urinary frequency x 1 days. Overall not feeling well. Having lower suprapubic cramping/pressure. Denies fever/chills, nausea, vomiting, back pain, abdominal pain, hematuria. Last UTI >6 months. No new sexual partners. Took motrin. Allergy to sulfa. PAST MEDICAL HISTORY Diagnosis Date NEGATIVE MEDICAL HISTORY ALLERGIES Sulfa (Sulfonamide Antibiotics) MEDICATIONS Current Outpatient Medications Medication Sig tirzepatide (MOUNJARO) 2.5 mg/0.5 mL pen injector Inject subcutaneously. escitalopram oxalate (LEXAPRO) 5 mg tablet Take by mouth. ibuprofen (MOTRIN) 800 mg tablet Take 1 tablet by mouth every 8 hours as needed for pain (with food.). ALPRAZolam (XANAX) 0.5 mg tablet Take 0.5 mg by mouth at bedtime as needed. escitalopram oxalate (LEXAPRO) 10 mg tablet (Patient not taking: Reported on 12/28/2020 ) levonorgestrel (MIRENA) 20 mcg/24 hr (5 years) IUD Inserted in office (Patient not taking: Reported on 12/15/2021 ) miSOPROStol (CYTOTEC) 200 mcg tablet Take 1 tablet by mouth every 6 hours. fluticasone (FLONASE) 50 mcg/actuation nasal spray Use 2 Sprays in each nostril once daily. Rinse mouth after use. (Patient not taking: Reported on 12/28/2020 ) methylPREDNISolone (MEDROL, YOUNG,) 4 mg Dose-Pack Use as directed fluticasone (FLONASE) 50 mcg/actuation nasal spray Use 2 Sprays in each nostril once daily. No current facility-administered medications for this visit. SOCIAL HISTORY Social History Tobacco Use Smoking status: Former Smoker Types: Cigarettes Smokeless tobacco: Never Used Substance Use Topics Alcohol use: Yes Comment: rare Drug use: No REVIEW OF SYSTEMS See HPI OBJECTIVE: BP 132/78 Pulse 81 Temp 37.1 C (98.8 F) Resp 18 Wt 107.1 kg (236 lb 3.2 oz) LMP 11/27/2021 SpO2 98% BMI 41.84 kg/m APPEARANCE Well appearing, alert, in no acute distress, well-hydrated, well nourished. ABDOMEN bowel sounds normoactive, no bruits, soft, non-tender, non-distended, without organomegaly or palpable masses, no tenderness to palpation BACK: Normal exam ASSESSMENT/PLAN: 1. Urinary frequency - ICD9: 788.41, ICD10: R35.0 acute - UA positive for maria esterase, hematuria and nitrates - Send urine for culture - Begin treatment with Macrobid 100 mg BID for 5 days - Patient education for prevention given - URINE CULTURE - NITROFURANTOIN MONOHYDRATE & MACROCRYSTAL 100 MG ORAL CAP - FLUCONAZOLE 150 MG TABLET Reviewed previous urine culture. The patient indicates understanding of these issues and agrees with the plan. Reviewed red flags and when to seek care sooner. Finn Christian PA-C documented in this encounter [facility] 04-27-2021 History of Present illness Narrative Patient seen today in follow-up. Work-up included stool for pancreatic elastase which was normal, serum celiac testing which was unremarkable and colonoscopy which was completed within the last 2 weeks. Colonic biopsies showed no evidence of microscopic colitis.Despite FODMAP diet she is continued have 6-8 loose stools daily with urgency. She denies any rectal bleeding.Discussed treatment options. I suspect she has irritable bowel syndrome, diarrhea predominant. Advised her to continue lactose-free and gluten-free diet. Will begin Xifaxan 550 mg 3 times daily for 14 days. If fails will consider beginning Lotronex 0.5 mg twice daily. [facility] [address] Work Phone: 01-20-2021 Note 21 Date of Procedure: 01/20/2021 Pathologist: [facility], Cytology Date Reported: 01/28/2021 Date Received: 01/21/2021 Submitting Physician: MAKEDA LUCAS, DO FINAL CYTOLOGICAL INTERPRETATION A. THINPREP PAP CERVICAL: Specimen adequacy: SATISFACTORY FOR EVALUATION. Quality Indicator: Endocervical/transformation zone component is present. General Categorization: NEGATIVE FOR INTRAEPITHELIAL LESION OR MALIGNANCY. HIGH RISK HPV TEST RESULT: HPV GENOTYPE 16 NEGATIVE HPV GENOTYPE 18 NEGATIVE HPV GENOTYPE OTHER NEGATIVE Reference Range: Negative Testing for high-risk (HR) type of human papilloma virus (HPV) is performed by the Юлия saniya HPV Test. The saniya HPV Test is a qualitative polymerase chain reaction that amplifies DNA of HPV16, HPV18 and 12 other high-risk HPV types (31, 33, 35, 39, 45, 51, 52, 56, 58, 59, 66, and 68) associated with cervical cancer and its precursor lesions. A positive result indicates the presence of HPV DNA due to one or more of the 14 genotypes: 16, 18, 31, 33, 35, 39, 45, 51, 52, 56, 58, 59, 66, and 68. Negative results indicate HPV DNA concentrations are undetectable or below the pre-set threshold for detection. False negative results may be associated with unoptimized sampling. A negative HR HPV result does not exclude the possibility of future cytologic HSIL or underlying CIN2-3 or cancer. This test is approved for cervical specimens by the [place] Food and Drug Administration. Results of this test should be interpreted in conjunction with the patient?s Pap test results. Please refer to ASC current guidelines for the use of HPV DNA testing, result interpretation, and patient management. The performance of this test was verified by the Molecular Diagnostic Laboratory at [facility]. The lab is certified under the Clinical Laboratory Amendments of 1988 (CLIA 88) as qualified to perform high complexity clinical laboratory testing. This specimen has been analyzed by the Transpondp Imaging System ([employer] an automated imaging and review system, which assists the laboratory in evaluating cells on ThinPrep Pap tests. Following automated imaging, selected galeana from every slide were reviewed by a visual merchandising coordinator and/or pathologist. Electronically Signed Out By [facility], Cytology//LHP By the signature on this report, the individual or group listed as making the Final Interpretation/Diagnosis certifies that they have reviewed this case. Educational Note: Cervical cytology is a screening procedure primarily for squamous cancers and precursors and has associated false-negative and false-positive results as evidenced by published data. Your patient?s test should be interpreted in this context, together with patient?s history and clinical findings. Regular sampling and follow-up of unexplained clinical signs and symptoms are recommended to minimize false negative results. Clinical History Date of Last Menstrual Period: 01/01/2021 Other Clinical Conditions: COTEST HPV(Genotype) except for ASC-H, HSIL, Carcinoma - Include HPV Genotype testing Annual Clinical Diagnosis History: Screening for cervical cancer - (Z12.4) Source of Specimen A: THINPREP PAP CERVICAL [facility] Department of Pathology [id number] Comment on above: Performed By: #### C ####[facility] [id number] [place] [address] 01-12-2021 History of Present illness Narrative Initial Fall Risk Screening:CARLIE has not fallen in the last 6 months. Her fall did not result in injury. CARLIE does not have a fear of falling. She does not need assistance with sitting, standing or walking. Does not need assistance walking in her home. She does not need assistance in an unfamiliar setting. The patient is not using an assistive device. [facility] Work Phone: 01-11-2021 History of Present illness Narrative Initial Fall Risk Screening:CARLIE has not fallen in the last 6 months. Her fall did not result in injury. CARLIE does not have a fear of falling. She does not need assistance with sitting, standing or walking. Does not need assistance walking in her home. She does not need assistance in an unfamiliar setting. The patient is not using an assistive device. [facility] Work Phone: 12-28-2020 Note HNO ID: [id number] Author: Tiesha Anderson PA-C Service: ? Author Type: Physician Lap Regulator Type: Progress Notes Filed: 12/28/2020 8:24 PM Note Text: This note was created using [employer]. Subjective Carlie Gipson is a 40 year old female. HPI Patient presents with urinary frequency and lower back pain for 2 days. She does have a history of kidney stones but states it does not hurt quite the same as when she has had a stone. She denies seeing any blood in her urine. Denies dysuria. She has had some pelvic pressure. No vomiting. No diarrhea. She has not had a fever. No vaginal discharge. Review of Systems Constitutional: Negative. HENT: Negative. Respiratory: Negative. Cardiovascular: Negative. Gastrointestinal: Negative. Genitourinary: Positive for frequency, pelvic pain and urgency. Negative for dysuria and hematuria. Musculoskeletal: Positive for back pain. All other systems reviewed and are negative. PAST MEDICAL HISTORY Diagnosis Date - NEGATIVE MEDICAL HISTORY Current Outpatient Medications Medication Sig Dispense Refill - escitalopram oxalate (LEXAPRO) 5 mg tablet Take by mouth. - levonorgestrel (MIRENA) 20 mcg/24 hr (5 years) IUD Inserted in office 1 Each 0 - ALPRAZolam (XANAX) 0.5 mg tablet Take 0.5 mg by mouth at bedtime as needed. - escitalopram oxalate (LEXAPRO) 10 mg tablet (Patient not taking: Reported on 12/28/2020 ) - cephALEXin (KEFLEX) 500 mg capsule Take 1 capsule by mouth twice daily for 7 days. 14 capsule 0 - ibuprofen (MOTRIN) 800 mg tablet Take 1 tablet by mouth every 8 hours as needed for pain (with food.). 20 tablet 0 - miSOPROStol (CYTOTEC) 200 mcg tablet Take 1 tablet by mouth every 6 hours. 2 tablet 0 - fluticasone (FLONASE) 50 mcg/actuation nasal spray Use 2 Sprays in each nostril once daily. Rinse mouth after use. (Patient not taking: Reported on 12/28/2020 ) 1 Bottle 11 - methylPREDNISolone (MEDROL, YOUNG,) 4 mg Dose-Pack Use as directed 1 Package 0 - fluticasone (FLONASE) 50 mcg/actuation nasal spray Use 2 Sprays in each nostril once daily. 1 Bottle 0 No current facility-administered medications for this visit. PAST SURGICAL HISTORY Procedure Laterality Date - NONE FAMILY HISTORY Problem Relation Age of Onset - Heart Mother - Diabetes Mother - Cancer Brother brain Social History Tobacco Use - Smoking status: Former Smoker Types: Cigarettes - Smokeless tobacco: Never Used Substance Use Topics - Alcohol use: Yes Comment: rare - Drug use: No Objective BP 128/76 Pulse 83 Temp 36.7 ?C (98.1 ?F) Resp 16 Wt 107.2 kg (236 lb 6.4 oz) LMP 07/06/2016 (Exact Date) SpO2 98% BMI 41.88 kg/m? Physical Exam Vitals reviewed. Constitutional: Appearance: Normal appearance. HENT: Head: Normocephalic and atraumatic. Cardiovascular: Rate and Rhythm: Normal rate and regular rhythm. Pulses: Normal pulses. Heart sounds: Normal heart sounds. Pulmonary: Effort: Pulmonary effort is normal. Breath sounds: Normal breath sounds. Abdominal: General: Abdomen is flat. Palpations: Abdomen is soft. Tenderness: There is no abdominal tenderness. There is no right CVA tenderness or left CVA tenderness. Skin: General: Skin is warm and dry. Neurological: General: No focal deficit present. Mental Status: She is alert and oriented to person, place, and time. Assessment and Plan ASSESSMENT/PLAN: 1. Urinary frequency - ICD9: 788.41, ICD10: R35.0 acute - UA positive for maria esterase and hematuria - Send urine for culture - Begin treatment with keflex for 7 days - discussed possibility of kidney stone, patient not in distress here. Red flags for er care discussed. Follow up with Dr. janelle With urology as needed. She is agreeable with plan. - UA DIP, URINE (POC) - URINE CULTURE Tiesha Anderson PA-C [facility] 03-24-2015 History of Present illness Narrative Patient is a pleasant 40-year-old female referred for chronic diarrhea. Diarrhea began approximately 5 to 6 years ago averaging 6 bowel movements on a typical day with upwards of 12 move movements on a bad day. Bowel movements are soft with urgency rare incontinence. She is having nocturnal bowel movements as well. She did go on an elimination diet without any demonstrable improvement. She admits that occasionally she will have some bleeding but is maroonish dark mixed in with her stool. She will have occasional was there is bright red blood on toilet tissue as well. Family history negative for inflammatory bowel disease or colon cancer.She has used Imodium in the past and is no longer effective. Weight is stable although she does notice bloating after meals she has no right upper quadrant pain but a recent CT scan of her abdomen done in January 2020 did show isolated gallstone measuring 7.5 mm, without gallbladder wall thickening. [facility] Work Phone: 03-21-2015 History of Present illness Narrative Patient is a pleasant 40-year-old female referred for chronic diarrhea. Diarrhea began approximately 5 to 6 years ago averaging 6 bowel movements on a typical day with upwards of 12 move movements on a bad day. Bowel movements are soft with urgency rare incontinence. She is having nocturnal bowel movements as well. She did go on an elimination diet without any demonstrable improvement. She admits that occasionally she will have some bleeding but is maroonish dark mixed in with her stool. She will have occasional was there is bright red blood on toilet tissue as well. Family history negative for inflammatory bowel disease or colon cancer.She has used Imodium in the past and is no longer effective. Weight is stable although she does notice bloating after meals she has no right upper quadrant pain but a recent CT scan of her abdomen done in January 2020 did show isolated gallstone measuring 7.5 mm, without gallbladder wall thickening. 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 * Anxiety, history of depression, doing better with addition of wellbutrin, psychiatry appt is pending in February, encouraged her to keep that. Requests refill of alprazolam, oarrs reviewed and appropriate, discussed risks of medication, also recommend we try hydroxyzine for prn use to reduce or elimi nicholas alprazolam use, discussed once she is established with psych the alprazolam will not be something I continue prescribing, will leave that to their discretion * BMI over 40 * Due for balance staff staker care and mammogram. * Has had daily chronic diarrhea for at least five years, states was told in the past she had irritable bowel and advised to use more fiber, it used to help but hasn't recently. Multiple loose watery stools daily. * Advised not to use hydroxyzine and alprazolam together. [facility] Work Phone: History of Present illness [id number] presents for annual exam. Patient safe home denies abuse. Patient sexually active without concern. Patient notes she has an IUD but it is not in right and she been having heavy bleeding since placement. Patient is with her last prior IUD was also with no periods. Patient does not do self breast exams. Patient working on physical activity. Patient has no other acute concerns. Patient s cheduled for mammogram today.[facility] Work Phone: History of Present illness [id number] presents for IUD removal and reinsertion. Patient notes more pain and clots with this last IUD. Patient notes prior IUD had no pain or bleeding at all. Patient is no acute concernsW[facility] systems[facility] Work Phone: History of Present illness [id number] presents for IUD follow-up. Patient doing well. However the cramps during placement afterwards but since then delivered spotting. Patient unsure of her cycle after a day after the IUD andit was normal. Patient notes her last cycle this time was not anywhere near his clot if no clots atall. Patient has not had intimacy yet.[facility] [address] Work Phone: History of Present illness Narrative* Carlie presents for followup. * Low vitamin D improving, continue supplement * Low VItamin b12, improved, continue supplement * Has been to DR Heredia for Diarrhea, workup nonrevealing so far, she is still having the same symptoms, recommend she call back to the office for follow up. * Snkhoa, states her made her promise to tell me this today, tired, does not feel well rested, recommend sleep study and she is agreeable * BMI over 40, have reviewed benefits of working toward ideal body weight [facility] Work Phone: History of Present illness Narrative* Carlie presents for followup on several issues. * Low b12, and low vitamin D, on supplements, will monitor * Anxiety/bipolar, declines psychiatry referral, * Irritable bowel, has been to GI, tried medicine and did not tolerate * Morbid obesity, she is interested in medication, discussed healthy diet, filling nutrient rich foods, and exercise. I recommend a comprehensive approach and she is agreeable. * Sleep apnea, cpap ordered, on backorder, will follow up about a month after she starts. She has herhusbands machine but its not auto titrate, he doesn't need it after weight loss. She would need to go have a titration study and doesn't want to do that, will just wait on the auto titrate machine. [facility] Work Phone: History of Present illness Narrative* Carlie presents for followup on several issues. * Low b12, and low vitamin D, on supplements, will monitor * Anxiety/bipolar, declines psychiatry referral, * Irritable bowel, has been to GI, tried medicine and did not tolerate * Morbid obesity, she is interested in medication, discussed healthy diet, filling nutrient rich foods, and exercise. I recommend a comprehensive approach and she is agreeable. * Sleep apnea, cpap ordered, on backorder, will follow up about a month after she starts. She has herhusbands machine but its not auto titrate, he doesn't need it after weight loss. She would need to go have a titration study and doesn't want to do that, will just wait on the auto titrate machine. [facility] Work Phone: Summary Purpose Family History No Family History Records Found Grandparent Name Dates Details Family history of diabetes m ellitus(V18.0, Z83.3) Status:Active Family history of malignant neoplasm of breast(V16.3, Z80.3) Status:Active Mother Name Dates Details Family history of cardiac ar rhythmia(V17.49, Z82.49) Status:Active Unknown Family Member Name Dates Details Family history of diabetes m ellitus: Grandparent(V18.0, Z83.3) Status:Active Family history of malignant neoplasm of breast: Grandparent(V16.3, Z80.3) Status:Active Family history of cardiac ar rhythmia: Mother(V17.49, Z82.49) Status:Active Unknown Family Member Name Dates Details Family history of diabetes m ellitus: Grandparent(V18.0, Z83.3) Status:Active Family history of malignant neoplasm of breast: Grandparent(V16.3, Z80.3) Status:Active Family history of cardiac ar rhythmia: Mother(V17.49, Z82.49) Status:Active Unknown Family Member Name Dates Details Family history of cardiac ar rhythmia: Mother(V17.49, Z82.49) Status:Active Family history of diabetes m ellitus: Grandparent, Mother, Grandmother(V18.0, Z83.3) Status:Active Family history of hypertensi on: Mother, Grandmother(V17.49, Z82.49) Status:Active Family history of cardiac di sorder: Mother, Father(V17.49, Z82.49) Status:Active Family history of osteoporos is: Grandmother(V17.81, Z82.62) Status:Active Family history of malignant neoplasm of breast: Grandmother, Aunt(V16.3, Z80.3) Comments:MAternal GM 60s. Ma ternal Aunt 67; Status:Active Family history of cervical c ancer: Aunt(V16.49, Z80.49) Comments:maternal; Status:Active Unknown Family Member Name Dates Details Family history of cardiac ar rhythmia: Mother(V17.49, Z82.49) Status:Active Family history of diabetes m ellitus: Grandparent, Mother, Grandmother(V18.0, Z83.3) Status:Active Family history of hypertensi on: Mother, Grandmother(V17.49, Z82.49) Status:Active Family history of cardiac di sorder: Mother, Father(V17.49, Z82.49) Status:Active Family history of osteoporos is: Grandmother(V17.81, Z82.62) Status:Active Family history of malignant neoplasm of breast: Grandmother, Aunt(V16.3, Z80.3) Comments:MAternal GM 60s. Ma ternal Aunt 67; Status:Active Family history of cervical c ancer: Aunt(V16.49, Z80.49) Comments:maternal; Status:Active Unknown Family Member Name Dates Details Family history of cardiac ar rhythmia: Mother(V17.49, Z82.49) Status:Active Family history of diabetes m ellitus: Grandparent, Mother, Grandmother(V18.0, Z83.3) Status:Active Family history of hypertensi on: Mother, Grandmother(V17.49, Z82.49) Status:Active Family history of cardiac di sorder: Mother, Father(V17.49, Z82.49) Status:Active Family history of osteoporos is: Grandmother(V17.81, Z82.62) Status:Active Family history of malignant neoplasm of breast: Grandmother, Aunt(V16.3, Z80.3) Comments:MAternal GM 60s. Ma ternal Aunt 67; Status:Active Family history of cervical c ancer: Aunt(V16.49, Z80.49) Comments:maternal; Status:Active Unknown Family Member Name Dates Details Family history of cardiac ar rhythmia: Mother(V17.49, Z82.49) Status:Active Family history of diabetes m ellitus: Grandparent, Mother, Grandmother(V18.0, Z83.3) Status:Active Family history of hypertensi on: Mother, Grandmother(V17.49, Z82.49) Status:Active Family history of cardiac di sorder: Mother, Father(V17.49, Z82.49) Status:Active Family history of osteoporos is: Grandmother(V17.81, Z82.62) Status:Active Family history of malignant neoplasm of breast: Grandmother, Aunt(V16.3, Z80.3) Comments:MAternal GM 60s. Ma terjada Aunt 67; Status:Active Family history of cervical c ancer: Aunt(V16.49, Z80.49) Comments:maternal; Status:Active Unknown Family Member Name Dates Details Family history of cardiac ar rhythmia: Mother(V17.49, Z82.49) Status:Active Family history of diabetes m ellitus: Grandparent, Mother, Grandmother(V18.0, Z83.3) Status:Active Family history of hypertensi on: Mother, Grandmother(V17.49, Z82.49) Status:Active Family history of cardiac di sorder: Mother, Father(V17.49, Z82.49) Status:Active Family history of osteoporos is: Grandmother(V17.81, Z82.62) Status:Active Family history of malignant neoplasm of breast: Grandmother, Aunt(V16.3, Z80.3) Comments:MAternal GM 60s. Ma ternal Aunt 67; Status:Active Family history of cervical c ancer: Aunt(V16.49, Z80.49) Comments:maternal; Status:Active Unknown Family Member Name Dates Details Family history of cardiac ar rhythmia: Mother(V17.49, Z82.49) Status:Active Family history of diabetes m ellitus: Grandparent, Mother, Grandmother(V18.0, Z83.3) Status:Active Family history of hypertensi on: Mother, Grandmother(V17.49, Z82.49) Status:Active Family history of cardiac di sorder: Mother, Father(V17.49, Z82.49) Status:Active Family history of osteoporos is: Grandmother(V17.81, Z82.62) Status:Active Family history of malignant neoplasm of breast: Grandmother, Aunt(V16.3, Z80.3) Comments:MAternal GM 60s. Ma ternal Aunt 67; Status:Active Family history of cervical c ancer: Aunt(V16.49, Z80.49) Comments:maternal; Status:Active Unknown Family Member Name Dates Details Family history of cardiac ar rhythmia: Mother(V17.49, Z82.49) Status:Active Family history of diabetes m ellitus: Grandparent, Mother, Grandmother(V18.0, Z83.3) Status:Active Family history of hypertensi on: Mother, Grandmother(V17.49, Z82.49) Status:Active Family history of cardiac di sorder: Mother, Father(V17.49, Z82.49) Status:Active Family history of osteoporos is: Grandmother(V17.81, Z82.62) Status:Active Family history of malignant neoplasm of breast: Grandmother, Aunt(V16.3, Z80.3) Comments:MAternal GM 60s. Ma ternal Aunt 67; Status:Active Family history of cervical c ancer: Aunt(V16.49, Z80.49) Comments:maternal; Status:Active Unknown Family Member Name Dates Details Family history of cardiac ar rhythmia: Mother(V17.49, Z82.49) Status:Active Family history of diabetes m ellitus: Grandparent, Mother, Grandmother(V18.0, Z83.3) Status:Active Family history of hypertensi on: Mother, Grandmother(V17.49, Z82.49) Status:Active Family history of cardiac di sorder: Mother, Father(V17.49, Z82.49) Status:Active Family history of osteoporos is: Grandmother(V17.81, Z82.62) Status:Active Family history of malignant neoplasm of breast: Grandmother, Aunt(V16.3, Z80.3) Comments:MAternal GM 60s. Ma ternal Aunt 67; Status:Active Family history of cervical c ancer: Aunt(V16.49, Z80.49) Comments:maternal; Status:Active Unknown Family Member Name Dates Details Family history of cardiac ar rhythmia: Mother(V17.49, Z82.49) Status:Active Family history of diabetes m ellitus: Grandparent, Mother, Grandmother(V18.0, Z83.3) Status:Active Family history of hypertensi on: Mother, Grandmother(V17.49, Z82.49) Status:Active Family history of cardiac di sorder: Mother, Father(V17.49, Z82.49) Status:Active Family history of osteoporos is: Grandmother(V17.81, Z82.62) Status:Active Family history of malignant neoplasm of breast: Grandmother, Aunt(V16.3, Z80.3) Comments:MAternal GM 60s. Ma ternal Aunt 67; Status:Active Family history of cervical c ancer: Aunt(V16.49, Z80.49) Comments:maternal; Status:Active Unknown Family Member Name Dates Details Family history of cardiac ar rhythmia: Mother(V17.49, Z82.49) Status:Active Family history of diabetes m ellitus: Grandparent, Mother, Grandmother(V18.0, Z83.3) Status:Active Family history of hypertensi on: Mother, Grandmother(V17.49, Z82.49) Status:Active Family history of cardiac di sorder: Mother, Father(V17.49, Z82.49) Status:Active Family history of osteoporos is: Grandmother(V17.81, Z82.62) Status:Active Family history of malignant neoplasm of breast: Grandmother, Aunt(V16.3, Z80.3) Comments:MAternal GM 60s. Ma ternal Aunt 67; Status:Active Family history of cervical c ancer: Aunt(V16.49, Z80.49) Comments:maternal; Status:Active Unknown Family Member Name Dates Details Family history of cardiac ar rhythmia: Mother(V17.49, Z82.49) Status:Active Family history of diabetes m ellitus: Grandparent, Mother, Grandmother(V18.0, Z83.3) Status:Active Family history of hypertensi on: Mother, Grandmother(V17.49, Z82.49) Status:Active Family history of cardiac di sorder: Mother, Father(V17.49, Z82.49) Status:Active Family history of osteoporos is: Grandmother(V17.81, Z82.62) Status:Active Family history of malignant neoplasm of breast: Grandmother, Aunt(V16.3, Z80.3) Comments:MAternal GM 60s. Maurisio terjada Aunt 67; Status:Active Family history of cervical c ancer: Aunt(V16.49, Z80.49) Comments:maternal; Status:Active Unknown Family Member Name Dates Details Family history of cardiac ar rhythmia: Mother(V17.49, Z82.49) Status:Active Family history of diabetes m ellitus: Grandparent, Mother, Grandmother(V18.0, Z83.3) Status:Active Family history of hypertensi on: Mother, Grandmother(V17.49, Z82.49) Status:Active Family history of cardiac di sorder: Mother, Father(V17.49, Z82.49) Status:Active Family history of osteoporos is: Grandmother(V17.81, Z82.62) Status:Active Family history of malignant neoplasm of breast: Grandmother, Aunt(V16.3, Z80.3) Comments:MAternal GM 60s. Maurisio james Aunt 67; Status:Active Family history of cervical c ancer: Aunt(V16.49, Z80.49) Comments:maternal; Status:Active Unknown Family Member Name Dates Details Family history of cardiac ar rhythmia: Mother(V17.49, Z82.49) Status:Active Family history of diabetes m ellitus: Grandparent, Mother, Grandmother(V18.0, Z83.3) Status:Active Family history of hypertensi on: Mother, Grandmother(V17.49, Z82.49) Status:Active Family history of cardiac di sorder: Mother, Father(V17.49, Z82.49) Status:Active Family history of osteoporos is: Grandmother(V17.81, Z82.62) Status:Active Family history of malignant neoplasm of breast: Grandmother, Aunt(V16.3, Z80.3) Comments:MAternal GM 60s. Maurisio terjada Aunt 67; Status:Active Family history of cervical c ancer: Aunt(V16.49, Z80.49) Comments:maternal; Status:Active Unknown Family Member Name Dates Details Family history of cardiac ar rhythmia: Mother(V17.49, Z82.49) Status:Active Family history of diabetes m ellitus: Grandparent, Mother, Grandmother(V18.0, Z83.3) Status:Active Family history of hypertensi on: Mother, Grandmother(V17.49, Z82.49) Status:Active Family history of cardiac di sorder: Mother, Father(V17.49, Z82.49) Status:Active Family history of osteoporos is: Grandmother(V17.81, Z82.62) Status:Active Family history of malignant neoplasm of breast: Grandmother, Aunt(V16.3, Z80.3) Comments:MAternal GM 60s. Ma ternal Aunt 67; Status:Active Family history of cervical c ancer: Aunt(V16.49, Z80.49) Comments:maternal; Status:Active Unknown Family Member Name Dates Details Family history of cardiac ar rhythmia: Mother(V17.49, Z82.49) Status:Active Family history of diabetes m ellitus: Grandparent, Mother, Grandmother(V18.0, Z83.3) Status:Active Family history of malignant neoplasm of breast: Grandmother, Aunt(V16.3, Z80.3) Comments:MAternal GM 60s. Ma ternal Aunt 67; Status:Active Family history of cervical c ancer: Aunt(V16.49, Z80.49) Comments:maternal; Status:Active Family history of osteoporos is: Grandmother(V17.81, Z82.62) Status:Active Family history of cardiac di sorder: Mother, Father(V17.49, Z82.49) Status:Active Family history of hypertensi on: Mother, Grandmother(V17.49, Z82.49) Status:Active Unknown Family Member Name Dates Details Family history of cardiac ar rhythmia: Mother(V17.49, Z82.49) Status:Active Family history of diabetes m ellitus: Grandparent, Mother, Grandmother(V18.0, Z83.3) Status:Active Family history of hypertensi on: Mother, Grandmother(V17.49, Z82.49) Status:Active Family history of cardiac di sorder: Mother, Father(V17.49, Z82.49) Status:Active Family history of osteoporos is: Grandmother(V17.81, Z82.62) Status:Active Family history of malignant neoplasm of breast: Grandmother, Aunt(V16.3, Z80.3) Comments:MAternal GM 60s. Maurisio terjada Aunt 67; Status:Active Family history of cervical c ancer: Aunt(V16.49, Z80.49) Comments:maternal; Status:Active Unknown Family Member Name Dates Details Family history of cardiac ar rhythmia: Mother(V17.49, Z82.49) Status:Active Family history of diabetes m ellitus: Grandparent, Mother, Grandmother(V18.0, Z83.3) Status:Active Family history of hypertensi on: Mother, Grandmother(V17.49, Z82.49) Status:Active Family history of cardiac di sorder: Mother, Father(V17.49, Z82.49) Status:Active Family history of osteoporos is: Grandmother(V17.81, Z82.62) Status:Active Family history of malignant neoplasm of breast: Grandmother, Aunt(V16.3, Z80.3) Comments:MAternal GM 60s. Maurisio terjada Aunt 67; Status:Active Family history of cervical c ancer: Aunt(V16.49, Z80.49) Comments:maternal; Status:Active Unknown Family Member Name Dates Details Family history of cardiac ar rhythmia: Mother(V17.49, Z82.49) Status:Active Family history of diabetes m ellitus: Grandparent, Mother, Grandmother(V18.0, Z83.3) Status:Active Family history of hypertensi on: Mother, Grandmother(V17.49, Z82.49) Status:Active Family history of cardiac di sorder: Mother, Father(V17.49, Z82.49) Status:Active Family history of osteoporos is: Grandmother(V17.81, Z82.62) Status:Active Family history of malignant neoplasm of breast: Grandmother, Aunt(V16.3, Z80.3) Comments:MAternal GM 60s. Maurisio terjada Aunt 67; Status:Active Family history of cervical c ancer: Aunt(V16.49, Z80.49) Comments:maternal; Status:Active Unknown Family Member Name Dates Details Family history of cardiac ar rhythmia: Mother(V17.49, Z82.49) Status:Active Family history of diabetes m ellitus: Grandparent, Mother, Grandmother(V18.0, Z83.3) Status:Active Family history of hypertensi on: Mother, Grandmother(V17.49, Z82.49) Status:Active Family history of cardiac di sorder: Mother, Father(V17.49, Z82.49) Status:Active Family history of osteoporos is: Grandmother(V17.81, Z82.62) Status:Active Family history of malignant neoplasm of breast: Grandmother, Aunt(V16.3, Z80.3) Comments:MAternal GM 60s. Ma ternal Aunt 67; Status:Active Family history of cervical c ancer: Aunt(V16.49, Z80.49) Comments:maternal; Status:Active Unknown Family Member Name Dates Details Family history of cardiac ar rhythmia: Mother(V17.49, Z82.49) Status:Active Family history of diabetes m ellitus: Grandparent, Mother, Grandmother(V18.0, Z83.3) Status:Active Family history of malignant neoplasm of breast: Grandmother, Aunt(V16.3, Z80.3) Comments:MAternal GM 60s. Ma ternal Aunt 67; Status:Active Family history of cervical c ancer: Aunt(V16.49, Z80.49) Comments:maternal; Status:Active Family history of osteoporos is: Grandmother(V17.81, Z82.62) Status:Active Family history of cardiac di sorder: Mother, Father(V17.49, Z82.49) Status:Active Family history of hypertensi on: Mother, Grandmother(V17.49, Z82.49) Status:Active Unknown Family Member Name Dates Details Family history of cardiac ar rhythmia: Mother(V17.49, Z82.49) Status:Active Family history of diabetes m ellitus: Grandparent, Mother, Grandmother(V18.0, Z83.3) Status:Active Family history of hypertensi on: Mother, Grandmother(V17.49, Z82.49) Status:Active Family history of cardiac di sorder: Mother, Father(V17.49, Z82.49) Status:Active Family history of osteoporos is: Grandmother(V17.81, Z82.62) Status:Active Family history of malignant neoplasm of breast: Grandmother, Aunt(V16.3, Z80.3) Comments:MAternal GM 60s. Ma ternal Aunt 67; Status:Active Family history of cervical c ancer: Aunt(V16.49, Z80.49) Comments:maternal; Status:Active Unknown Family Member Name Dates Details Family history of cardiac ar rhythmia: Mother(V17.49, Z82.49) Status:Active Family history of diabetes m ellitus: Grandparent, Mother, Grandmother(V18.0, Z83.3) Status:Active Family history of hypertensi on: Mother, Grandmother(V17.49, Z82.49) Status:Active Family history of cardiac di sorder: Mother, Father(V17.49, Z82.49) Status:Active Family history of osteoporos is: Grandmother(V17.81, Z82.62) Status:Active Family history of malignant neoplasm of breast: Grandmother, Aunt(V16.3, Z80.3) Comments:MAternal GM 60s. Ma ternal Aunt 67; Status:Active Family history of cervical c ancer: Aunt(V16.49, Z80.49) Comments:maternal; Status:Active Unknown Family Member Name Dates Details Family history of cardiac ar rhythmia: Mother(V17.49, Z82.49) Status:Active Family history of diabetes m ellitus: Grandparent, Mother, Grandmother(V18.0, Z83.3) Status:Active Family history of hypertensi on: Mother, Grandmother(V17.49, Z82.49) Status:Active Family history of cardiac di sorder: Mother, Father(V17.49, Z82.49) Status:Active Family history of osteoporos is: Grandmother(V17.81, Z82.62) Status:Active Family history of malignant neoplasm of breast: Grandmother, Aunt(V16.3, Z80.3) Comments:MAternal GM 60s. Ma ternal Aunt 67; Status:Active Family history of cervical c ancer: Aunt(V16.49, Z80.49) Comments:maternal; Status:Active Unknown Family Member Name Dates Details Family history of cardiac ar rhythmia: Mother(V17.49, Z82.49) Status:Active Family history of diabetes m ellitus: Grandparent, Mother, Grandmother(V18.0, Z83.3) Status:Active Family history of hypertensi on: Mother, Grandmother(V17.49, Z82.49) Status:Active Family history of cardiac di sorder: Mother, Father(V17.49, Z82.49) Status:Active Family history of osteoporos is: Grandmother(V17.81, Z82.62) Status:Active Family history of malignant neoplasm of breast: Grandmother, Aunt(V16.3, Z80.3) Comments:MAternal GM 60s. Ma ternal Aunt 67; Status:Active Family history of cervical c ancer: Aunt(V16.49, Z80.49) Comments:maternal; Status:Active Unknown Family Member Name Dates Details Family history of cardiac ar rhythmia: Mother(V17.49, Z82.49) Status:Active Family history of diabetes m ellitus: Grandparent, Mother, Grandmother(V18.0, Z83.3) Status:Active Family history of hypertensi on: Mother, Grandmother(V17.49, Z82.49) Status:Active Family history of cardiac di sorder: Mother, Father(V17.49, Z82.49) Status:Active Family history of osteoporos is: Grandmother(V17.81, Z82.62) Status:Active Family history of malignant neoplasm of breast: Grandmother, Aunt(V16.3, Z80.3) Comments:MAternal GM 60s. Ma ternal Aunt 67; Status:Active Family history of cervical c ancer: Aunt(V16.49, Z80.49) Comments:maternal; Status:Active Relationship Condition Age at Onset Recorded Date/T neva Not Specified Anxiety Unknown Kidney disorder Unknown mother Diabetes mellitus Unknown aunt Diabetes mellitus Unknown Depression Unknown Malignant neoplasm of ovary Unknown grandmother Myocardial infarction Unknown Advance Directives No Advanced Directives Records Found Advance Directive Response Recorded Date/ Time Living Will No January 21 6:11am Power of Bill Of Materials Clerk No January 22, 2020 6:11am Chief Complaint Chief Complaint: CARLIE GIPSON is here with a chief complaint of HERE FOR MED CHECK; MED REFILLS.PT IS A NEW PT HERE TODAY FOR HER ANNUAL EXAM. BEEN AT LEAST 5 YEARS SINCE SHE HAD A PAP DONE. HAS NO CONCERNS. DOES NOT DO A SELF BREAST CHECK. MAMMOGRAM IS SCHEDULED FOR 01/20/2021. LMP: 12/22/2020* PT IS HERE TODAY FOR THE REMOVAL OF THE MIRENA AND THE INSERT OF THE LILETTA. HAS NO CONCNERS. LMP: 01/21/2021 * OFFICE SUPPLY, NDC: [id number], LOT: [id number], EXP: 06/2024 NPV in office today for chronic diarrhea. Patient has had this for approx 5-6 years questionable darker blood on occasion. Stress makes the diarrhea worse. Approd 6-15 times daily, bloating, hair loss, fatigue. Patient has tried and failed OTC ImodiumNPV in office today for chronic diarrhea. Patient has had this for approx 5-6 years questionable darker blood on occasion. Stress makes the diarrhea worse. Approd 6-15 times daily, bloating, hair loss, fatigue. Patient has tried and failed OTC Imodiumck iud string no concernsck iud string no concernsChief Complaint: CARLIE GIPSON is here with a chief complaint of 6 week check with labs. Waking herself up snoring .FUV in office today from colonoscopy on 04/22/2021. Patient states her diarrhea is the same, has not been any better or worse.Pt presents for routine check up; med review; questions regarding CPAP machine, which is on backorder for 2 months; question regarding Wegovy injections for weight loss.Pt presents for routine check up; med review; questions regarding CPAP machine, which is on backorder for 2 months; question regarding Wegovy injections for weight loss. 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 NPP Amb Documentation SCREENING Reason for Visit Preventative health care Anxiety and depression Morbid obesity Obstructive sleep apnea Vitamin B 12 deficiency Vitamin D deficiency Additional Source Comments INFORMATION SOURCE (unrecogn ized section and content) DATE CREATED AUTHOR 01/17/2019 [facility] DATE CREATED AUTHOR AUTHOR'S ORGANIZ ATION 01/04/2020 [facility] DATE CREATED AUTHOR AUTHOR'S ORGANIZ ATION 01/13/2020 [facility] DATE CREATED AUTHOR AUTHOR'S ORGANIZ ATION 07/19/2021 [facility] DATE CREATED AUTHOR AUTHOR'S ORGANIZ ATION 07/22/2021 [facility] DATE CREATED AUTHOR AUTHOR'S ORGANIZ ATION 10/31/2021 [facility] DATE CREATED AUTHOR AUTHOR'S ORGANIZ ATION 12/19/2021 [facility] DATE CREATED AUTHOR AUTHOR'S ORGANIZ ATION 12/04/2024 [facility] <item> Privacy Markings (unrecogniz ed section and content) Section Author: Irene Addison PROHIBITION ON REDISCLOSURE OF CONFIDENTIAL INFORMATION This notice accompanies a disclosure of information concerning a client made to you with the consent of such client. Source Comments (unrecognize d section and content) In the event this informatio n is protected by the Federal Confidentiality of Alcohol and Drug Abuse Patient Records regulations: The Federal rules restrict any use of the information to criminally investigate or prosecute any alcohol or drug abuse patient.[facility] Reason for Visit (unrecogniz ed section and content) Reason Comments Urinary Frequency burning, x1 day Care Teams (unrecognized sec tion and content) Addiction Professional Relationship Specialty Start Date End Date Mikayla Vasquez MD [address] [id number] PCP - General Family Practice 7/28/22 Goals (unrecognized section and content) Goals may be documented in a n alternate section FOR RECORDS PERTAINING TO PATIENTS WHO ARE OR HAVE BEEN ENROLLED IN A CHEMICAL DEPENDENCY/SUBSTANCEABUSE PROGRAM, SOME INFORMATION MAY BE OMITTED. This clinical summary was aggregated from multiple sources. Caution should be exercised in using it in the provision of clinical care. This summary normalizes information from multiple sources, and as a consequence, information in this document may materially change the coding, format and clinical context of patient data. In addition, data may be omitted in some cases. CLINICAL DECISIONS SHOULD BE BASED ON THE PRIMARY CLINICAL RECORDS. [facility] [employer] [facility]. provides no warranty or guarantee of the accuracy or completeness of information in this document.
== END | disposition home or self-care (01) ==
PROVIDERS: PCP Internal Medicine; Referring Provider Student in an Organized Health Care Education/Training Program; Visit Provider Student in an Organized Health Care Education/Training Program
DX: R00.0 Tachycardia, unspecified (principal); R42 Dizziness and giddiness
CPT/HCPCS: 93225; 93226

== ENCOUNTER → 2025-02-12 | Outpatient (CLI) | payer OTHER, SELFPAY ==
[2025-02-12 12:44] LABS: Mucous, Urine 0 SEEN /hpf (<or=2+); Red Blood Cells-Urine 0 SEEN /hpf (0-5)
[2025-02-12 13:06] LABS: Color, Urine Yellow (Yellow); Glucose, Dipstick Normal (Normal); Ketone-Dipstick Negative (Negative); Leukocyte Esterase-Dipstick 100 /ul (Negative); Nitrite-Dipstick Negative (Negative); Occult Blood-Urine Negative /ul (Negative); Protein-Dipstick 15 mg/dl (Negative); Specific Gravity, Urine 1.025 (1.002-1.030); Urine Bilirubin Dipstick Negative (Negative)
[2025-02-12 13:15] LABS: Squamous Epithelial Cells - UA 0-5 SEEN /hpf (5-10)
[2025-02-12 13:16] LABS: Calcium Oxalate Crystals Ur 1+ /hpf (<or=2+)
== END | disposition home or self-care (01) ==
LOC: LABSPEC 12:26
PROVIDERS: PCP Internal Medicine; Referring Provider Internal Medicine; Visit Provider Internal Medicine
DX: R35.0 Frequency of micturition (principal)
CPT/HCPCS: 81001

== ENCOUNTER → 2025-03-23 | Outpatient (CLI) | payer OTHER, SELFPAY ==
--- NOTE | 2025-03-23 12:54 | ST.MBS ---
Modified Barium Swallow Patient Information Study Date: 03/23/25 Study Time: 12:45 Direct Billable Minutes: 55 Total Minutes procedure & reportin Diagnosis: Globus sensation R09.A2 Referring Physician: J Luis Gutierrez Reason for Referral: Pt and family had sore throats and URI a few months back. Ever since this illness, pt has had increased swallowing difficulty characterized by globus sensation and more effortful swallowing of solids and pills. She senses foods catching or coating her throat, requiring multiple swallows or liquid washes to clear. She denies hx of choking, hx of PNA, hx of GERD symptoms w/ the exception of HB during years back. No particular foods give her more difficulty than others. PCP referred her for this MBSS to further assess concerns for pharyngeal dysphagia and globus sensation. Medical History: Medical History (Updated 02/11/25 @ 16:[address] J Luis Gutierrez MD) Flu vaccine need Low back pain Globus sensation Urinary frequency Photosensitivity dermatitis due to sun Macrocytosis Pre-syncope Tachycardia Malaise Lightheadedness Abnormal CBC Preventative health care Screening for cardiovascular condition Health care maintenance Panic disorder MDD (major depressive disorder) Obstructive sleep apnea Morbid obesity Anxiety and depression Sleep apnea Vitamin B 12 deficiency Vitamin D deficiency Kidney stones IBS (irritable bowel syndrome) Gallstones Seasonal allergies Current Diet Ordered: Regular textures / Thin liquids Dentition: Upper Dentures and Missing Teeth (lower dentition) Mental Status: WNL Respiratory Status: Oxygenating on Room Air Penetration-Aspiration Scale Penetration-Aspiration Scale: OBJECTIVE ASSESSMENT OF SWALLOW FUNCTION (QUANTITATIVE – PER TRIAL): PENETRATION / ASPIRATION SCALE (SAWYER): 1 = does not enter airway 2 = enters airway/above vocal folds/ejected 3 = enters airway/above vocal folds/not ejected 4 = enters airway/contacts vocal folds/ejected 5 = enters airway/contacts vocal folds/not ejected 6 = enters airway/below vocal folds/ejected 7 = enters airway/below vocal folds/not ejected despite effort 8 = enters airway/below vocal folds/no effort VIDEOFLOROSCOPIC SCALE SCORE (SAWYER): Grade I = aspiration of material that has penetrated into the laryngeal vestibule, intact cough reflex Grade II = aspiration < 10 % of the bolus, intact cough reflex Grade III = aspiration of < 10 % of the bolus, reduced cough reflex or aspiration of > 10 % of the bolus, intact cough reflex Grade IV = aspiration of > 10 % of the bolus, reduced cough reflex Penetration-Aspiration Scale Score Thin Liquid via teaspoon: Result: 1= does not enter airway Thin Liquid via teaspoon Trial 2: Result: 1= does not enter airway Thin Liquid via large single sip: cup: Result: 1= does not enter airway Thin Liquid via sequential sips: cup: Result: 1= does not enter airway Comment: Esophageal screen - Complete clearance. Pudding via teaspoon: Result: 1= does not enter airway Comment: Esophageal screen - Moderate retention of pudding throughout the esophagus. 1/2 Cookie: Result: 1= does not enter airway Comment: Esophageal screen - Moderate-severe retention of cookie throughout the esophagus w/ min retrograde flow. Thin Liquid via single sip: straw: Result: 1= does not enter airway Comment: Esophageal screen - First liquid wash somewhat cleared retention of cookie and pudding through the LES. Min retrograde flow of liquids. A second liquid wash was provided during the esophageal screen, which cleared a majority of the barium pudding/cookie through the LES. Oral Phase Labial Seal: No Labial Escape Tongue Control During Bolus Hold: Posterior escape of greater than half of bolus Bolus Preparation/Mastication: Timely and efficient chewing and mashing Bolus Transport/Lingual Motion: Brisk tongue motion Oral Residue: Residue collection on oral structures (piecemeal deglutition) Pharyngeal Phase Initiation of Pharyngeal Swallow: Bolus head in pyriforms Soft Palate Elevation: No bolus between soft palate and pharyngeal wall Laryngeal Elevation: Comp. Superior move thyroid cart w/comp. apprx arytenoid cart-epig pet Anterior Hyoid Excursion: Partial anterior movement Epiglottic Movement: Complete inversion Laryngeal Vestibule Closure at Height of Swallow: Complete; no air/contrast in laryngeal vestibule Pharyngeal Stripping Wave: Present - complete Pharyngoesophageal Segment Opening: Complete distension and complete duration; no obstruction of flow Tongue Base Retraction: Trace column of contrast between tongue base & post. pharyngeal wall Pharyngeal Residue: Trace residue within or on pharyngeal structures Esophageal Phase Esophageal Clearance: Esophageal retention w/ retrograde flow below pharyngoesophageal seg. Diagnosis/Impression Diagnosis: Esophageal dysphagia R13.14; Oropharyngeal swallow function is grossly WNL MBS Impressions: The patient's oropharyngeal swallow function is grossly WNL. The esophageal phase is primarily marked by... -Moderate retention of pudding throughout the esophagus. -Moderate-severe retention of cookie throughout the esophagus w/ min retrograde flow. -Two liquid washes effectively cleared majority of retention of barium pudding and barium cookie through the LES. Recommendations Diet: Regular Textures (Moisten Dry Textures) and Thin Liquids Compensatory Strategies: Small Bites, Slow Rate, Alternate bites/solids and sips/liquids (Take 1-2 sips after each bite, especially if sensing retention), Sitting upright and Remain sitting upright for 30 minutes after PO intake Recommend Repeat Modified Barium Swallow: No Need for Skilled Speech Therapy Services: No Recommended Referrals: GI Consult Education Completed: 1. Described result of evaluation. Status Active ST Patient: Active Contact Information [facility] Speech Therapy:: Janice Waldron M.A. [facility] Speech-Language Pathologist [facility] [address] [place] [address] [email or web address] [phone]
== END | disposition home or self-care (01) ==
LOC: RAD 12:44
PROVIDERS: PCP Internal Medicine; Referring Provider Internal Medicine; Visit Provider Internal Medicine
DX: R09.A2 Foreign body sensation, throat (principal)
CPT/HCPCS: 74230; 92611

== ENCOUNTER → 2025-04-13 | Outpatient (CLI) | payer OTHER, SELFPAY ==
--- NOTE | 2025-04-13 07:30 | BI_ITS ---
EXAM: SCRN MAMM (CAD)W/JC BILAT DATE: 04/13/2025 CLINICAL HISTORY: F, Age 44 y/o , BREAST CANCER SCREENING TECHNIQUE: Procedure Code: [id number] Modality: MG Procedure: SCRN MAMM (CAD)W/JC BILAT COMPARISON: Prior exam(s) were compared FINDINGS: TISSUE DENSITY: The breasts are heterogeneously dense, which may obscure small masses. Bilateral Breast Mammographic Findings: Left breast: There is focal asymmetry in the central inner left breast posterior depth. Recommend diagnostic left breast mammogram spot compression CC and MLO views, full field true lateral view and possible targeted ultrasound scanning the left breast from 8:00 to 10:00 locations about 10 cm from the nipple. Right breast: No significant masses, calcifications or other abnormalities are identified. BI/SCRN MAMM (CAD)W/JC BILAT IMPRESSION: Focal asymmetry in the central inner left breast posterior depth. Recommend katheryn gnostic left breast mammogram spot compression CC and MLO views, full field true lateral view and possible targeted ultrasound sc anning the left breast from 8:00 to 10:00 locations about 10 cm from the nipple. No mammographic evidence of malignancy in the right breast. OVERALL FINAL ASSESSMENT BI-RADS 0: INCOMPLETE - NEED ADDITIONAL IMAGING EVALUATION. RECOMMENDATION: Additional Views obtained/call backs Additional Recommendation none A letter with findings and recommendations will be mailed to the patient. Reading Location: [id number]
== END | disposition home or self-care (01) ==
LOC: OPBI 07:27
PROVIDERS: PCP Internal Medicine; Referring Provider Internal Medicine; Visit Provider Internal Medicine
DX: Z12.31 Encounter for screening mammogram for malignant neoplasm of breast (principal)
CPT/HCPCS: 77063; 77067

== ENCOUNTER → 2025-04-22 | Outpatient (CLI) | payer OTHER, SELFPAY ==
--- NOTE | 2025-04-22 12:56 | US_ITS ---
PROCEDURE: BREAST LIMITED UNILATERAL 04/22/2025 REASON FOR EXAM: F, Age 44 y/o , ABN MAMM COMPARISON: Prior mammogram done earlier in the day.. TECHNIQUE: Procedure Code: [id number] Modality: US Procedure: BREAST LIMITED UNILATERAL. The upper medial aspect of the left breast was examined with ultrasound. FINDINGS: There is a 3 mm x 3 mm x 3 mm cyst at the 10 o'clock position of the breast at 7 cm from the nipple. US/Breast Limited Unilateral IMPRESSION: 3 mm x 3 mm x 3 mm cyst at the 10 o'clock position of the breast at 7 cm from t he nipple. BI-RADS 2: BENIGN RECOMMENDATION: Routine annual follow-up in 1 Year Reading Location: [place] [id number]
--- NOTE | 2025-04-22 12:56 | BI_ITS ---
EXAM: DIAG MAMM W/CAD, UNILAT 04/22/2025 CLINICAL HISTORY: F, Age 44 y/o , ABN MAMM. Focal asymmetry in the central inner left breast. TECHNIQUE: Procedure Code: [id number] Modality: MG Procedure: DIAG MAMM W/CAD, UNILAT. Compression spot views of the left breast were obtained. COMPARISON: Prior exam(s) dated April 13, 2025. FINDINGS: TISSUE DENSITY: The breasts are extremely dense, which lowers the sensitivity of mammography. Bilateral Breast Mammographic Findings: No significant masses, calcifications or other abnormalities are identified. BI/DIAG MAMM W/CAD, UNILAT IMPRESSION: Unremarkable diagnostic mammogram. Targeted ultrasound of the left breast shane mmended. OVERALL FINAL ASSESSMENT BI-RADS 0: INCOMPLETE - NEED ADDITIONAL IMAGING EVALUATION. RECOMMENDATION: Ultrasound Recommended Additional Recommendation none A letter with findings and recommendations will be mailed to the patient. Reading Location: [place] [id number]
--- OUTSIDE RECORDS SUMMARY | 2025-04-22 14:08 | XMS RPT_ITS | CCD ---
Author Organization [facility] CliniSytn Care Team Providers Care Revival Clerk Name Role Phone ANNAMARIE MARROQUIN Admitting Unavailable CARAANNAMARIE MUHAMMAD Attending Unavailable ANNAMARIE MARROQUIN Primary Care Unavailable Mikayla Vasquez Unavailable Unavailable Mikayla Vasquez Unavailable Unavailable Mikayla Vasquez Unavailable Janice Raymundo Unavailable Unavailable Mikayla Vasquez Unavailable Unavailable Unavailable Mikayla Vasquez MD Primary Care Provider Dr. Mikayla Vasquez Primary Care Provider Dr. Mikayla Vasquez Referring Provider [phone] Dr. J Luis Gutierrez Attending Provider Dr. J Luis Gutierrez Primary Care Provider Sandra Vaca Attending Provider Unavailable Oleghe, Efewongbe Primary Care Unavailable Oleghe, Efewongbe Referring Unavailable Oleghe, Efewongbe Attending Unavailable Oleghe, Efewongbe Primary Care Unavailable Oleghe, Efewongbe Referring Unavailable Oleghe, Efewongbe Attending Unavailable Oleghe, Efewongbe Primary Care Unavailable Oleghe, Efewongbe Referring Unavailable John, Álvaro Attending Unavailable Oleghe, Efewongbe Primary Care Unavailable Sami Tovar Referring Unavailable Sami Tovar Attending Unavailable Stevie Bailey Unavailable Oleghe, Efewongbe Primary Care Unavailable Oleghe, Efewongbe Referring Unavailable Oleghe, Efewongbe Attending Unavailable Oleghe, Efewongbe Primary Care Unavailable John, Álvaro Referring Unavailable John, Álvaro Attending Unavailable Oleghe, Efewongbe Primary Care Unavailable Scott PATIENT FINANCIAL SERVICES SPECIALIST, Regina Referring Unavailable Cosmos PATIENT FINANCIAL SERVICES SPECIALIST, Regina Attending Unavailable Oleghe, Efewongbe Primary Care Unavailable Oleghe, Efewongbe Referring Unavailable Oleghe, Efewongbe Attending Unavailable Oleghe, Efewongbe Primary Care Unavailable Oleghe, Efewongbe Referring Unavailable Oleghe, Efewongbe Attending Unavailable Oleghe, Efewongbe Primary Care Unavailable Oleghe, Efewongbe Referring Unavailable Scott PATIENT FINANCIAL SERVICES SPECIALIST, Regina Attending Unavailable Oleghe, Efewongbe Primary Care Unavailable Assessment, Health Risk Attending Unavaila ble Oleghe, Efewongbe Primary Care Unavailable Oleghe, Efewongbe Referring Unavailable Oleghe, Efewongbe Attending Unavailable Oleghe, Efewongbe Primary Care Unavailable Oleghe, Efewongbe Referring Unavailable Demiter Sami Attending Unavailable Oleghe, Efewongbe Primary Care Unavailable Oleghe, Efewongbe Referring Unavailable Oleghe, Efewongbe Attending Unavailable Oleghe, Efewongbe Primary Care Unavailable Oleghe, Efewongbe Referring Unavailable Demiter, Sami Attending Unavailable Oleghe, Efewongbe Primary Care Unavailable Oleghe, Efewongbe Referring Unavailable Stevie Bailey Attending Unavailable Oleghe, Efewongbe Primary Care Unavailable Demiter, Sami Referring Unavailable John Álvaro Attending Unavailable Oleghe, Efewongbe Primary Care Unavailable Nieves Villalobos Attending Unavailabl e Oleghe, Efewongbe Primary Care Unavailable Oleghe, Efewongbe Referring Unavailable John, Álvaro Attending Unavailable Oleghe, Efewongbe Primary Care Unavailable Oleghe, Efewongbe Referring Unavailable Robby Mckinney Attending Unavailable Oleghe, Efewongbe Primary Care Unavailable Oleghe, Efewongbe Referring Unavailable Oleghe, Efewongbe Attending Unavailable Oleghe, Efewongbe Primary Care Unavailable Oleghe, Efewongbe Referring Unavailable John, Álvaro Attending Unavailable Allergies Allergy Classification Reported Allergen(s) Allergy Type Date of Onset Reaction(s) Facility Sulfonamides (antibiotic) (2 sources) Sulfonamides (Antibiotic); Translations: [Sulfa Drugs] Drug Allergy Hives/Urticari a [facility] (20 sources) Sulfonamides (Antibiotic); Translations: [Sulfa Drugs] Allergy to drug (finding) [facility] Work Phone: (1 source) Sulfonamides (Antibiotic) Drug Intolerance 2 Shortness of Breath [facility] Work Phone: (1 source) Sulfonamides (Antibiotic) Allergy to substance 2 Unknown [facility] Work Phone: (1 source) Sulfonamides (Antibiotic) Drug allergy (disorder) 5 [facility]ository (1 source) tamsulosin Drug Allergy 5 [facility] Medications Current Medications Medication Drug Class(es) Dates Sig (Normalized) Sig (Original) ALPRAZolam 0.5 mg oral tablet (20 sources) Benzodiazepine Start: 03-20-2022 End: 03-22-2022 take 1 tablet by mouth once daily Alprazolam (Xanax) 0.5 mg tablet Active 0.5 MG PO DAILY March 22, 2022 4:27pm Start: 05-05-2019 take 1 tablet by [facility] twice daily as needed for anxiety ALPRAZolam [...] 2:15pm Start: 09-29-2020 take 1 tablet by iwnston th every twenty-four hours buPROPion HCl ER [...] day Quantity: 0 Refills: 0 Ordered: 03-Nov-2020 DarrianPeggy Generic Substitution Allowed cholecalciferol 0.125 mg oral capsule (15 sources) Vitamin D Start: 03-28-2022 take 03831 [IU] by mouth once daily Cholecalciferol (Vitamin D3) Active 81196 UNIT PO DAILY March 28, 2022 9:12am [...] mg oral capsule (20 sources) Antihistamine Start: take 1 capsule by mouth twice daily Hydroxyzine Pamoate (Vistaril) 25 mg capsule Active 25 MG PO TWICE A DAY March 19, 2022 11:00pm Start: 01-18-2021 take 1 tablet by winston th every four to six hours as needed for anxiety hydrOXYzine HCl - 25 MG Oral Tablet TAKE 1 TABLET BY MOUTH EVERY 4 TO 6 HOURS NEEDED FOR ANXIETY. Quantity: 30 Refills: 1 Ordered: 06-Jul-2021 Mikayla Vasquez MD Start : 18-Jan-2021 Active levonorgestrel 0.333227 mg/hr intrauterine system (10 sources) Progestin, Progestin-containing Intrauterine Device Start: 10-01-2021 Liletta (52 MG) 19.5 MCG/DAY Intrauterine Intrauterine [...] office mecobalamin (2 sources) Start: 03-28-2022 take 63305 ug by mouth once daily Mecobalamin (Vitamin B12) Active 92447 MCG PO DAILY March 28, 2022 9:13am [...] Comment on above: Take 1 capsule by [facility] twice daily for 5 days. Tirzepatide (Mounjaro) [...] 0 08/25/2020 Active take 2 tablets by [facility] once daily Lexapro 5 mg oral tablet [...] tablet (20 sources) Nonsteroidal Anti-inflammatory Drug Start: 08-10-202 1 take 1 tablet by mouth every eight [...] gone Quantity: 42 Refills: 0 Ordered: 11-May-2021 Monster Heredia DO Start : 11-May-2021 End : 21-Jul-2021 Complete [...] sources) Anxiety disorder; Translations: [Anxiety state, unspecified] Onset: 02-11-2025 Chronic Biliary tract disease (20 sources) Gallstone; Translations: [Calculus of gallbladder without mention of cholecystitis, without mention of obstruction] Episodic Calculus of urinary tract (20 sources) Kidney stone; Translations: [Calculus of kidney] Episodic Complication of device; implant or graft (11 sources) Malposition of intrauterine contraceptive device; Translations: [Other complications due to genitourinary device, implant, and graft] Episodic Contraceptive and procreative management (20 sources) Intrauterine contraceptive device in situ; Translations: [Presence of intrauterine contraceptive device] Episodic Comment on above: 2017; Genitourinary symptoms and ill-defined conditions (4 sources) History of urinary tract infection; Translations: [Increased frequency of urination] Onset: 03-09-2025 Episodic Immunizations and screening for infectious disease (15 sources) Encounter for observation for suspected exposure to other biological agents ruled out; Translations: [Patient encounter status] Onset: 01-02-2020 Episodic Mood disorders (20 sources) Bipolar disorder; Translations: [Bipolar disorder, unspecified] Onset: 07-27-2010 Resolved: 09-15-2020 07-27-2010 Chronic Mood disorders (1 source) Mood disorders; Translations: [Depression, unspecified] Onset: 02-11-2025 Noninfectious gastroenteritis (20 sources) Chronic diarrhea; Translations: [...] sources) HIVES 11-03-2020 Comment on above: HIVES Unclassified (2 sources) Foreign body sensation, throat; Translations: [Foreign body sensation, throat] Onset: 02-11-2025 Past or Other Problems Problem Classification Problem Date Documented Da te Episodic/Chronic Administrative/social admission (1 source) Marital conflict; Translations: [Problems in relationship with spouse or partner] Onset: 01-04-2015 01-04-2015 Episodic Cardiac dysrhythmias (1 source) Tachycardia, unspecified; Translations: [Tachycardia, unspecified] Onset: 12-18-2024 Episodic Conditions associated with dizziness or vertigo (1 source) Dizziness and giddiness; Translations: [Dizziness and giddiness] Onset: 12-01-2024 Episodic Malaise and fatigue (7 sources) Fatigue; Translations: [Other malaise and fatigue] Onset: 04-22-2024 Episodic Other screening for suspected conditions (not mental disorders or infectious disease) (20 sources) Breast neoplasm screening status; Translations: [Other screening mammogram] Onset: 05-09-2024 Episodic Residual codes; unclassified (1 source) Flushing; Translations: [Flushing] Onset: 04-22-2024 Episodic Syncope (1 source) Syncope and collapse; Translations: [Syncope and collapse] Onset: 04-10-2024 Episodic Unclassified (20 sources) Finding of menstrual bleeding; Translations: [Menstruation] Comment on above: AGE 12; NEGATED: Highlighted row has not occurred!Residual codes; unclassified (3 sources) Disease Episodic Results Test Name Value Interpretation Reference Range Facility Modified Barium Swallow Stud [facility] 03-23-2025 Modified Barium Swallow Study [facility] Speech Pathology [address] [place] [address] Modified Barium Swallow Study MR#: [id number] Acct: [id number] Name: CARLIE GIPSON Rep #: [id number] : 1980 44 From: Janice Waldron M.A., [employer] Modified Barium Swallow Patient Information Study Date: 03/23/25 Study Time: 12:45 Direct Billable Minutes: 55 Total Minutes procedure reportin Diagnosis: Globus sensation R09.A2 Referring Physician: J Luis Gutierrez Reason for Referral: Pt and family had sore throats and URI a few months back. Ever since this illness, pt has had increased swallowing difficulty characterized by globus sensation and more effortful swallowing of solids and pills. She senses foods catching or coating her throat, requiring multiple swallows or liquid washes to clear. She denies hx of choking, hx of PNA, hx of GERD symptoms w/ the exception of HB during years back. No particular foods give her more difficulty than others. PCP referred her for this MBSS to further assess concerns for pharyngeal dysphagia and globus sensation. Medical History: Medical History (Updated 02/11/25 @ 16:[address] J Luis Gutierrez MD) Flu vaccine need Low back pain Globus sensation Urinary frequency Photosensitivity dermatitis due to sun Macrocytosis Pre-syncope Tachycardia Malaise Lightheadedness Abnormal CBC Preventative health care Screening for cardiovascular condition Health care maintenance Panic disorder MDD (major depressive disorder) Obstructive sleep apnea Morbid obesity Anxiety and depression Sleep apnea Vitamin B 12 deficiency Vitamin D deficiency Kidney stones IBS (irritable bowel syndrome) Gallstones Seasonal allergies Current Diet Ordered: Regular textures / Thin liquids Dentition: Upper Dentures and Missing Teeth (lower dentition) Mental Status: WNL Respiratory Status: Oxygenating on Room Air Penetration-Aspiration Scale Penetration-Aspiration Scale: OBJECTIVE ASSESSMENT OF SWALLOW FUNCTION (QUANTITATIVE ??? PER TRIAL): PENETRATION / ASPIRATION SCALE (SAWYER): 1 = does not enter airway 2 = enters airway/above vocal folds/ejected 3 = enters airway/above vocal folds/not ejected 4 = enters airway/contacts vocal folds/ejected 5 = enters airway/contacts vocal folds/not ejected 6 = enters airway/below vocal folds/ejected 7 = enters airway/below vocal folds/not ejected despite effort 8 = enters airway/below vocal folds/no effort VIDEOFLOROSCOPIC SCALE SCORE (SAWYER): Grade I = aspiration of material that has penetrated into the laryngeal vestibule, intact cough reflex Grade II = aspiration < 10 % of the bolus, intact cough reflex Grade III = aspiration of < 10 % of the bolus, reduced cough reflex or aspiration of > 10 % of the bolus, intact cough reflex Grade IV = aspiration of > 10 % of the bolus, reduced cough reflex Penetration-Aspiration Scale Score Thin Liquid via teaspoon: Result: 1= does not enter airway Thin Liquid via teaspoon Trial 2: Result: 1= does not enter airway Thin Liquid via large single sip: cup: Result: 1= does not enter airway Thin Liquid via sequential sips: cup: Result: 1= does not enter airway Comment: Esophageal screen - Complete clearance. Pudding via teaspoon: Result: 1= does not enter airway Comment: Esophageal screen - Moderate retention of pudding throughout the esophagus. 1/2 Cookie: Result: 1= does not enter airway Comment: Esophageal screen - Moderate-severe retention of cookie throughout the esophagus w/ min retrograde flow. Thin Liquid via single sip: straw: Result: 1= does not enter airway Comment: Esophageal screen - First liquid wash somewhat cleared retention of cookie and pudding through the LES. Min retrograde flow of liquids. A second liquid wash was provided during the esophageal screen, which cleared a majority of the barium pudding/cookie through the LES. Oral Phase Labial Seal: No Labial Escape Tongue Control During Bolus Hold: Posterior escape of greater than half of bolus Bolus Preparation/Mastication: Timely and efficient chewing and mashing Bolus Transport/Lingual Motion: Brisk tongue motion Oral Residue: Residue collection on oral structures (piecemeal deglutition) Pharyngeal Phase Initiation of Pharyngeal Swallow: Bolus head in pyriforms Soft Palate Elevation: No bolus between soft palate and pharyngeal wall Laryngeal Elevation: Comp. Superior move thyroid cart w/comp. apprx arytenoid cart-epig pet Anterior Hyoid Excursion: Partial anterior movement Epiglottic Movement: Complete inversion Laryngeal Vestibule Closure at Height of Swallow: Complete; no air/contrast in laryngeal vestibule Pharyngeal Stripping Wave: Present - complete Pharyngoesophageal Segment Opening: Complete distension and complete duration; no obstruction of flow Tongue Base Retraction: Trace column of contrast between tongue base post. pharyn (more content not included)... Normal [facility] Urinalysis, Completeon 02-12 AMORPHOUS 2+ URATE Normal [facility] Comment on above: Order Comment: RONY CTOR TO SPECIFY Performed By: #### L 400.0001 ####[facility] [address] [place], [place], [id number] CA OX CRYSTAL 1+ /hpf Normal [facility] Comment on above: Order Comment: RONY CTOR TO SPECIFY Performed By: #### L 400.0001 ####[facility] [address] [place], [place], [id number] EPI,SQUAMOUS 0-5 SEEN Normal 5-10 [facility] Comment on above: Order Comment: COLLE CTOR TO SPECIFY Performed By: #### L 400.0001 ####[facility] [address] [place], [address] WBC 5-10 SEEN Normal 0-5 [facility] Comment on above: Order Comment: COLLE CTOR TO SPECIFY Performed By: #### L 400.0001 ####[facility] [address] [place], [address] BACTERIA 0 SEEN Normal None Seen [facility] Comment on above: Order Comment: COLLE CTOR TO SPECIFY Performed By: #### L 400.0001 ####[facility] [address] [place], [address] Mucus Ql (Urine sed) 0 SEEN Normal [facility] Comment on above: Order Comment: COLLE CTOR TO SPECIFY Performed By: #### L 400.0001 ####[facility] [address] [place], [address] RBC 0 SEEN Normal 0-5 [facility] Comment on above: Order Comment: COLLE CTOR TO SPECIFY Performed By: #### L 400.0001 ####[facility] [address] [place], [address] Internal Medicine Office Vis itozena 02-11-2025 Internal Medicine Office Visit [facility] Internal Medicine [address] [place], [place] [address] OFFICE VISIT Date of Service: 02/11/25 MR#: [id number] Acct: [id number] Name: CHRISTIAN GIPSONGlenroy Fuentes Rep #: [id number] : 1980 Provider: Dr. J Luis wolf MD Age/Sex: 44/F Location: [facility] Status: Signed Intake Vital Signs 10/09/24 18:28 12/01/24 06:44 02/11/25 14:09 Height 5 ft 3 in 5 ft 3 in 5 ft 3 in Weight: 130 lb 2 oz BMI 23.0 BP 112/62 Blood Pressure Location Lt brachial Position Sitting Respiration 16 Pulse 74 Pulse Source Monitor Temp 96.6 F L Temp Source Temporal Pulse Oximetry (%) 74 Oxygen Delivery Method room air Intake Visit Reasons: 4 M FU Chief Complaint: 4 M FU Anesthesiology Technologist Required: No Accompanied by: Self Is patient in pain?: No Allergies Sulfa (Sulfonamide Antibiotics) Allergy (Severe, Verified 02/11/25 14:10) PT UNSURE OF REACTION Medications ???Medication ???Instructions ???Recorded ???Confirmed ???Type hydroxyzine pamoate 25 mg capsule 25 mg PO BID PRN anxiety #120 cap s 03/13/24 02/11/25 Rx (Vistaril) midodrine 10 mg tablet 10 mg PO TID #90 tabs 09/04/24 Rx cholecalciferol (vitamin D3) 125 5,000 unit PO DAILY 10/09/2402/11 History mcg (5,000 unit) capsule semaglutide 0.25 mg or 0.5 mg (2 0.25 mg subcut .h3hsfbc 10/09/24 0 02/11/25 History mg/3 mL) subcutaneous pen injector bupropion HCl 150 mg 24 hr tablet, 150 mg PO QAM #90 tabs 12/01/24 02/11/25 Rx extended release (Wellbutrin XL) cyanocobalamin (vitamin B-12) 1,000 mcg IM QMONTH #10 mL 5 02/11/25 Rx 1,000 mcg/mL injection solution ivabradine 5 mg tablet 5 mg PO BID #60 tabs 12/22/2401/20 Rx alprazolam 0.5 mg tablet (Xanax) 0.5 mg PO DAILY PRN anxiety #20 02/11/25 Rx tabs PFSH Medical History (Updated 02/11/25 @ 16:[address] J Luis Gutierrez MD) Flu vaccine need Low back pain Globus sensation Urinary frequency Photosensitivity dermatitis due to sun Macrocytosis Pre-syncope [...] M FU Details: CARLIE GIPSON, is a 44-year-old female presenting with multiple medical concerns including medication management, lumbar back pain, and a query regarding a urinary tract infection. The patient reports successful management of tachycardia with Ivabradine, resulting in significant improvement in symptoms of lightheadedness and heart-related concerns; these were previously troubling but have now stabilized under the current treatment. Despite this medication success, the patient is still taking Midodrine as her blood pressure without it remains low. Also history of syncope. The patient also has a diagnosis of anxiety disorder, managed with hydroxyzine as needed, and depression for which she is on Wellbutrin. Alprazolam (Xanax) is often used for acute anxiety episodes, and she requires a refill. Lately, she has noted low back pain and questions if this might be due to a UTI due to associated increased frequency of urination. No burning, chills or fever reported. She admits that she sits a lot for work and positioning is not always right. A few months ago, she experienced sore throat and upper respiratory symptoms similar to other family members. However, the patient highlights persistent issues of possible throat swelling leading to difficulty swallowing pills and some foods. No concerns with swallowing liquids. Pills and food subsequently go down but remains uncomfortable. No dark or bloody stools. Attestation: Documentation on this patient encounter was supported using ambient scribe technology/ voice AI technology. The patient consented to (more content not included)... Normal [facility] Glucoseon 12-11-2024 Glucose [Mass/Vol] 83 mg/dL Normal 70-99 [facility] Comment on above: Performed By: #### L 501.0100, L500.4100 #### [facility] [address] [place], [address] Lipid Profileon 12-11-2024 CHOL:HDL 2.13 Normal [facility] Comment on above: Performed By: #### L 501.0100, L500.4100 #### [facility] [address] [place], [address] Cholesterol [Mass/Vol] 132 mg/dL Normal <=200 [facility] Comment on above: Result Comment: Chol esterol level, Desirable <200 mg/dL Borderline high cholesterol 200-239 mg/dL High cholesterol >=240 mg/dL Recommendations of the NCEP Adult Treatment Panel for the following risk-cutoff thresholds for the [place] population. Performed By: #### L 501.0100, L500.4100 #### [facility] [address] [place], [address] Cholesterol in HDL [Mass/Vol] 62 mg/dL Normal [facility] Comment on above: Result Comment: Becka onal Cholesterol Education Program (NCEP) guidelines: <40 mg/dL: Low HDL-cholesterol (major risk factor for CHD) >= 60 mg/dL: High HDL-cholesterol (negative risk factor for CHD) HDL-cholesterol is affected by a number of factors, e.g. smoking, exercise, hormones, sex and age. Performed By: #### L 501.0100, L500.4100 #### [facility] [address] [place], [address] Cholesterol in LDL [Mass/Vol] 64 mg/dL Normal [facility] Comment on above: Result Comment: Bord tkdpop=834-267 mg/dL Higher Mksz=033 mg/dL or greater Performed By: #### L 501.0100, L500.4100 #### [facility] [address] [place], [address] Cholesterol in VLDL [Mass/Vol] 6 mg/dL Normal 5-40 [facility] Comment on above: Performed By: #### L 501.0100, L500.4100 #### [facility] [address] [place], [address] Triglyceride [Mass/Vol] 32 mg/dL Normal [facility] Comment on above: Result Comment: The drugs N-Acetylcysteine and Metamizole may falsely depress this assay. Normal range: <150 mg/dL Borderline High: 150-199 mg/dL High: 200-499 mg/dL Very High: >500 mg/dL Performed By: #### L 501.0100, L500.4100 #### [facility] [address] [place], [address] Cardiology Visit Reporton Cardiology Visit Report [facility] [address] [place], [place] [address] OFFICE VISIT Date of Service: 12/01/24 MR#: [id number] Acct: [id number] Name: CARLIE GIPSON Rep #: [id number] : 1980 Provider: RHIANNON Wright Age/Sex: 44/F Location: [facility] Status: Signed HPI HPI History of [...] air Intake Visit Reasons: 3 M FU Anesthesiology Technologist Required: No Is patient in pain?: No [...] 25 mg PO .COMPLEX #30 tabs 5 12/01/24 Rx tablet,extended release 24 hr midodrine 10 mg tablet 10 mg PO TID #90 tabs 09/04/24 Rx cholecalciferol (vitamin D3) 125 5,000 unit PO DAILY 10/09/2412/01 History mcg (5,000 unit) capsule semaglutide 0.25 mg or 0.5 mg (2 0.25 mg subcut .[id number] 10/09/24 0 12/01/24 History mg/3 mL) subcutaneous [...] Head: normal (more content not included)... Normal [facility] Internal Medicine Office Vis iton 10-09-2024 Internal Medicine Office Visit [facility] [address] [place], [place] [address] OFFICE VISIT Date of Service: 10/09/24 MR#: [id number] Acct: [id number] Name: CARLIE GIPSON Rep #: [id number] : 1980 Provider: Dr. J Luis wolf MD Age/Sex: 43/F Location: [facility] Status: Signed Intake Vital Signs 07/17/24 16:49 [...] M FU Chief Complaint: 4 M FU Anesthesiology Technologist Required: No Is patient in pain?: No [...] or 0.5 mg (2 0.25 mg subcut .a5mligx 10/09/24 0 10/09/24 History mg/3 mL) subcutaneous pen injector [facility] Medical History (Updated 10/09/24 @ 22:46 by [...] limited r (more content not included)... Normal [facility] CBC W/Diff, Automatedon 05-2 -2024 Absolute Lymph 2.34 X10 3/uL Normal 0.83-4.51 [facility] Comment on above: Performed By: #### L 500.4050, L100.0100, L500.4100, L503.0106 #### [facility] [address] [place], [address] Absolute Neut 1.9 X10 3/uL Low 2.0-7.7 [facility] Comment on above: Performed By: #### L 500.4050, L100.0100, L500.4100, L503.0106 #### [facility] [address] [place], [address] Basophils/100 WBC (Bld) 0.8 % Normal 0-1 [facility] Comment on above: Performed By: #### L 500.4050, L100.0100, L500.4100, L503.0106 #### [facility] [address] [place], [address] Eosinophils/100 WBC (Bld) 2.3 % Normal 0-5 [facility] Comment on above: Performed By: #### L 500.4050, L100.0100, L500.4100, L503.0106 #### [facility] [address] [place], [address] Erythrocyte distribution width (RBC) [Ratio] 12.5 % Normal 11.6-14.6 [facility] Comment on above: Performed By: #### L 500.4050, L100.0100, L500.4100, L503.0106 #### [facility] [address] [place], [address] Hematocrit (Bld) [Volume fraction] 37.2 % Normal 37-47 [facility] Comment on above: Performed By: #### L 500.4050, L100.0100, L500.4100, L503.0106 #### [facility] [address] [place], [address] Hemoglobin (Bld) [Mass/Vol] 13.2 g/dL Normal 12.0-15.0 [facility] Comment on above: Performed By: #### L 500.4050, L100.0100, L500.4100, L503.0106 #### [facility] [address] [place], [address] IG% 0.200 Normal 0.0-0.9 [facility] Comment on above: Result Comment: IG% - Immature Granulocytes (promyelocytes, myelocytes and metamyelocytes) > 1% indicates that a LEFT SHIFT is Present. Performed By: #### L 500.4050, L100.0100, L500.4100, L503.0106 #### [facility] [address] [place], [address] Lymphocytes/100 WBC (Bld) 49.1 % High 19-41 [facility] Comment on above: Performed By: #### L 500.4050, L100.0100, L500.4100, L503.0106 #### [facility] [address] [place], [address] MCH (RBC) [Entitic mass] 35.5 pg High 27.0-32.0 [facility] Comment on above: Performed By: #### L 500.4050, L100.0100, L500.4100, L503.0106 #### [facility] [address] [place], [address] MCHC (RBC) [Mass/Vol] 35.5 g/dL Normal 32-36 [facility] Comment on above: Performed By: #### L 500.4050, L100.0100, L500.4100, L503.0106 #### [facility] [address] [place], [address] MCV (RBC) [Entitic vol] 100.0 fL High 81-99 [facility] Comment on above: Performed By: #### L 500.4050, L100.0100, L500.4100, L503.0106 #### [facility] [address] [place], [address] Monocytes/100 WBC (Bld) 8.6 % Normal 0-10 [facility] Comment on above: Performed By: #### L 500.4050, L100.0100, L500.4100, L503.0106 #### [facility] [address] [place], [address] Neutrophils/100 WBC (Bld) 39.0 % Low 47-70 [facility] Comment on above: Performed By: #### L 500.4050, L100.0100, L500.4100, L503.0106 #### [facility] [address] [place], [address] Nucleated RBC (Bld) [#/Vol] 0 10*3/uL Normal 0-5 [facility] Comment on above: Performed By: #### L 500.4050, L100.0100, L500.4100, L503.0106 #### [facility] [address] [place], [address] Platelet mean volume (Bld) [Entitic vol] 10.0 fL Normal 6.2-12.0 [facility] Comment on above: Performed By: #### L 500.4050, L100.0100, L500.4100, L503.0106 #### [facility] [address] [place], [address] Platelets (Bld) [#/Vol] 241 10*3/uL Normal 150-450 [facility] Comment on above: Performed By: #### L 500.4050, L100.0100, L500.4100, L503.0106 #### [facility] [address] [place], [address] RBC (Bld) [#/Vol] 3.72 10*6/uL Low 4.2-5.4 [facility] Comment on above: Performed By: #### L 500.4050, L100.0100, L500.4100, L503.0106 #### [facility] [address] [place], [address] RDW SD 46.3 fl High 35.1-43.9 [facility] Comment on above: Performed By: #### L 500.4050, L100.0100, L500.4100, L503.0106 #### [facility] [address] [place], [address] WBC (Bld) [#/Vol] 4.8 10*3/uL Normal 4.4-11.0 [facility] Comment on above: Performed By: #### L 500.4050, L100.0100, L500.4100, L503.0106 #### [facility] [address] [place], [address] [facility] Metabolic [facility] 10-08-2024 Albumin [Mass/Vol] 4.1 g/dL Normal 3.5-5.0 [facility] Comment on above: Performed By: #### L 500.4050, L100.0100, L500.4100, L503.0106 #### [facility] [address] [place], [address] Albumin/Globulin [Mass ratio] 1.7 {ratio} Normal 0.9-2.4 [facility] Comment on above: Performed By: #### L 500.4050, L100.0100, L500.4100, L503.0106 #### [facility] [address] [place], [address] ALK PHOS 38 U/L Normal 35-104 [facility] Comment on above: Performed By: #### L 500.4050, L100.0100, L500.4100, L503.0106 #### [facility] [address] [place], [address] ALT [Catalytic activity/Vol] 8 U/L Normal <=34 [facility] Comment on above: Performed By: #### L 500.4050, L100.0100, L500.4100, L503.0106 #### [facility] [address] [place], [address] AST [Catalytic activity/Vol] 13 U/L Normal <=31 [facility] Comment on above: Performed By: #### L 500.4050, L100.0100, L500.4100, L503.0106 #### [facility] [address] [place], [address] Bilirubin [Mass/Vol] 0.49 mg/dL Normal 0.00-1.30 [facility] Comment on above: Performed By: #### L 500.4050, L100.0100, L500.4100, L503.0106 #### [facility] [address] [place], [address] BUN/CRE 14.3 RATIO Normal 10-20 [facility] Comment on above: Performed By: #### L 500.4050, L100.0100, L500.4100, L503.0106 #### [facility] [address] [place], [address] Calcium [Mass/Vol] 9.2 mg/dL Normal 7.6-11.0 [facility] Comment on above: Performed By: #### L 500.4050, L100.0100, L500.4100, L503.0106 #### [facility] [address] [place], [address] Chloride [Moles/Vol] 107 mmol/L Normal 98-108 [facility] Comment on above: Performed By: #### L 500.4050, L100.0100, L500.4100, L503.0106 #### [facility] [address] [place], [address] CO2 [Moles/Vol] 23.1 mmol/L Normal 21.0-32.0 [facility] Comment on above: Performed By: #### L 500.4050, L100.0100, L500.4100, L503.0106 #### [facility] [address] [place], [address] Creatinine [Mass/Vol] 0.76 mg/dL Normal 0.70-1.20 [facility] Comment on above: Performed By: #### L 500.4050, L100.0100, L500.4100, L503.0106 #### [facility] [address] [place], [address] GAP 10 Normal 5-15 [facility] Comment on above: Performed By: #### L 500.4050, L100.0100, L500.4100, L503.0106 #### [facility] [address] [place], [address] GFR/1.73 sq M.predicted among non-blacks MDRD (S/P/Bld) [Vol rate/Area] 100 mL/min/{1.73_m2} Normal >60 [facility] Comment on above: Result Comment: mL/m in/1.73m2 CKD-EPI Creatinine Equation (2020) Performed By: #### L 500.4050, L100.0100, L500.4100, L503.0106 #### [facility] [address] [place], [address] Globulin (S) [Mass/Vol] 2.4 g/dL Normal 2.2-4.2 [facility] Comment on above: Performed By: #### L 500.4050, L100.0100, L500.4100, L503.0106 #### [facility] [address] [place], [address] Glucose [Mass/Vol] 89 mg/dL Normal 70-99 [facility] Comment on above: Performed By: #### L 500.4050, L100.0100, L500.4100, L503.0106 #### [facility] [address] [place], [address] Potassium [Moles/Vol] 4.0 mmol/L Normal 3.3-5.1 [facility] Comment on above: Performed By: #### L 500.4050, L100.0100, L500.4100, L503.0106 #### [facility] [address] [place], [address] Sodium [Moles/Vol] 140 mmol/L Normal 133-145 [facility] Comment on above: Performed By: #### L 500.4050, L100.0100, L500.4100, L503.0106 #### [facility] [address] [place], [address] T PROT 6.5 g/dL Normal 5.9-8.4 [facility] Comment on above: Performed By: #### L 500.4050, L100.0100, L500.4100, L503.0106 #### [facility] [address] [place], [address] Urea nitrogen [Mass/Vol] 11 mg/dL Normal 4-19 [facility] Comment on above: Performed By: #### L 500.4050, L100.0100, L500.4100, L503.0106 #### [facility] [address] [place], [address] Lipid Profileon 10-08-2024 CHOL:HDL 2.35 Normal [facility] Comment on above: Performed By: #### L 500.4050, L100.0100, L500.4100, L503.0106 ####[facility] [address] [place], [address] Cholesterol [Mass/Vol] 128 mg/dL Normal <=200 [facility] Comment on above: Result Comment: Chol esterol level, Desirable <200 mg/dL Borderline high cholesterol 200-239 mg/dL High cholesterol >=240 mg/dL Recommendations of the NCEP Adult Treatment Panel for the following risk-cutoff thresholds for the [place] population. Performed By: #### L 500.4050, L100.0100, L500.4100, L503.0106 ####[facility] [address] [place], [address] Cholesterol in HDL [Mass/Vol] 54 mg/dL Normal [facility] Comment on above: Result Comment: Becka onal Cholesterol Education Program (NCEP) guidelines: <40 mg/dL: Low HDL-cholesterol (major risk factor for CHD) >= 60 mg/dL: High HDL-cholesterol (negative risk factor for CHD) HDL-cholesterol is affected by a number of factors, e.g. smoking, exercise, hormones, sex and age. Performed By: #### L 500.4050, L100.0100, L500.4100, L503.0106 ####[facility] [address] [place], [address] Cholesterol in LDL [Mass/Vol] 64 mg/dL Normal [facility] Comment on above: Result Comment: Bord yxzvfi=015-926 mg/dL Higher Hwbw=132 mg/dL or greater Performed By: #### L 500.4050, L100.0100, L500.4100, L503.0106 ####[facility] [address] [place], [address] Cholesterol in VLDL [Mass/Vol] 9 mg/dL Normal 5-40 [facility] Comment on above: Performed By: #### L 500.4050, L100.0100, L500.4100, L503.0106 ####[facility] [address] [place], [address] Triglyceride [Mass/Vol] 47 mg/dL Normal [facility] Comment on above: Result Comment: The drugs N-Acetylcysteine and Metamizole may falsely depress this assay. Normal range: <150 mg/dL Borderline High: 150-199 mg/dL High: 200-499 mg/dL Very High: >500 mg/dL Performed By: #### L 500.4050, L100.0100, L500.4100, L503.0106 ####[facility] [address] [place], [address] Vitamin B12on 10-08-2024 Cobalamin (Vitamin B12) [Mass/Vol] 705 pg/mL Normal 180-914 [facility] Comment on above: Performed By: #### L 500.4050, L100.0100, L500.4100, L503.0106 ####[facility] [address] [place], [address] Cardiology Visit Reporton Cardiology Visit Report [facility] [address] [place], [place] [address] OFFICE VISIT Date of Service: 09/04/24 MR#: [id number] Acct: [id number] Name: CHRISTIAN GIPSONGlenroy Fuentes Rep #: [id number] : 1980 Provider: Dr. Álvaro Lopez MD Age/Sex: 43/F Location: [place] Status: Signed HPI HPI History of Present [...] air Intake Visit Reasons: 3 M FU Anesthesiology Technologist Required: No Accompanied by: Self Is patient [...] Supplemental Info (more content not included)... Normal [facility] Thyroid Peroxidase ABon 03-0 THYR PEROX AB 37 IU/mL High 0-34 [facility] Comment on above: Result Comment: Perf ormed at: - [facility] [address] [id number] Loft Patternmaker: Salvador Jackson PhD, Phone: [phone] Performed By: #### L 3300.6900 ####[facility] [address] [place], [place], [address] Free T3on 07-18-2024 Free T3 [Mass/Vol] 2.9 pg/mL Normal 2.18-3.98 [facility] Comment on above: Order Comment: PT ID NTED LABS DRWN TODAY NOT 08/05/24 Performed By: #### L 501.73148, L506.0400, L501.9520 ####[facility] [address] [place], [place], [address] T4 Free Directon 07-18-2024 T4 FREE DIRECT 1.00 ng/dL Normal 0.76-1.46 [facility] Comment on above: Order Comment: PT ID NTED LABS DRWN TODAY NOT 08/05/24 Performed By: #### L 501.00027, L506.0400, L501.9520 ####[facility] [address] [place], [place], [address] Thyroid Stim Hormone (TSH)on 07-18-2024 TSH 1.820 uIU/mL Normal 0.300-4.200 [facility] Comment on above: Order Comment: [facility] NTED LABS DRWN TODAY NOT 08/05/24 Performed By: #### L 501.07335, L506.0400, L501.9520 ####[facility] [address] [place], [address] Internal Medicine Office Vis itozena 07-17-2024 Internal Medicine Office Visit [facility] [address] [place] [address] [place] [address] OFFICE VISIT Date of Service: 07/17/24 MR#: [id number] Acct: [id number] Name: CARLIE GIPSON Rep #: [id number] : 1980 Provider: Dr. J Luis wolf MD Age/Sex: 43/F Location: [facility] Status: Signed Intake Vital Signs 03/13/24 17:41 [...] doing okay overall. Had labs done by [employer] with very mildly elevated thyroid peroxidase antibody. [...] urination, uri (more content not included)... Normal [facility]gent Care Visit Reporton 0 06-27-2024 Urgent Care Visit Report [facility] [address], [address] [place] [address] OFFICE VISIT Date of Service: 06/27/24 MR#: [id number] Acct: [id number] Name: CARLIE GIPSON Rep #: [id number] : 1980 Provider: RHIANNON Pozo Age/Sex: 43/F Location: [facility] Status: Signed Intake Vital Signs 06/10/24 08:56 [...] Intake Visit Reasons: Diarrhea Chief Complaint: diarrhea Anesthesiology Technologist Required: No Is patient in pain?: No [...] relief. denies travel, new meds, new diet. [facility] Medical History Pre-syncope Tachycardia Malaise Lightheadedness Abnormal [...] Exam Const General: cooperative and healthy appearing [facility] Head: normocephalic and atraumatic Ears: hearing grossly [...] CN's II-XI (more content not included)... Normal [facility] Cardiology Visit Reporton Cardiology Visit Report [facility] [address] [place] [address] OFFICE VISIT Date of Service: 06/10/24 MR#: [id number] Acct: [id number] Name: CARLIE GIPSON Rep #: [id number] : 1980 Provider: Dr. Álvaro Lopez MD Age/Sex: 43/F Location: [facility] Status: Signed HPI HPI History of [...] air Intake Visit Reasons: 3 M FU Anesthesiology Technologist Required: No Accompanied by: Self Is patient [...] orthostatic tac (more content not included)... Normal [facility] Internal Medicine Office Vis itozena 05-07-2024 Internal Medicine Office Visit [facility] [address] [place] [address] [place] [address] OFFICE VISIT Date of Service: 05/07/24 MR#: [id number] Acct: [id number] Name: CARLIE GIPSON Rep #: [id number] : 1980 Provider: RHIANNON Watt Age/Sex: 43/F Location: [facility] Status: Signed Intake Vital Signs 04/22/24 08:15 [...] FU ABNORMAL LABS Chief Complaint: f/u labs Anesthesiology Technologist Required: No Accompanied by: Self Is patient [...] that she had labs ordered by her TRIM M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. Patient presented to the TRIM M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 office with some symptoms consisting of hot [...] increased th (more content not included)... Normal [facility] Echo Completeon 05-02-2024 Echo Complete [facility] [address] [place] [address] Echo Complete 05/02/24 1000 MR#: [id number] Acct: [id number] Name: RENEEUSEBIACARLIE Fuentes Rep #: [id number] : 1980 43 From: Nieves Villalobos MD Attending Dr: Dr. Álvaro Lopez MD Status: REG CLI Ordering Dr: Álvaro Lopez MD Date: 05/02/24 Location: [facility] Sex: F C Admitted: Reason [...] Referring Physician: BRENDA ANN Performed By: Radha Ferrari, TUL[place], RVT 05/06/24 1327 Date Nieves Villalobos MD CC: Dr. Álvaro Lopez MD; Dr. J Luis Gutierrez MD Date Dictated: 05/02/24 1000 Date Transcribed: 05/06/241326 Hospital Pharmacy Director: Signed Normal [facility] Thyroid Peroxidase ABon 12- THYR PEROX AB 49 IU/mL High 0-34 [facility] Comment on above: Result Comment: Perf ormed at: - [facility] [address] [id number] Loft Patternmaker: Salvador Jackson PhD, Phone: [phone] Performed By: #### L 5447.6429, L4805.0570, F473.5196, M406.5490, L506.1000, L3300.1416, L100.0100 ####[facility] [address] [place], [place], [address] CBC W/Diff, Automatedon -0 Absolute Lymph 1.65 X10 3/uL Normal 0.83-4.51 [facility] Comment on above: Performed By: #### L 3300.1750, L3100.5125, L501.9520, L506.0400, L506.1000, L3300.6900, L100.0100 ####[facility] [address] [place], [address] Absolute Neut 1.7 X10 3/uL Low 2.0-7.7 [facility] Comment on above: Performed By: #### L 3300.1750, L3100.5125, L501.9520, L506.0400, L506.1000, L3300.6900, L100.0100 ####[facility] [address] [place], [address] Basophils/100 WBC (Bld) 1.1 % High 0-1 [facility] Comment on above: Performed By: #### L 3300.1750, L3100.5125, L501.9520, L506.0400, L506.1000, L3300.6900, L100.0100 ####[facility] [address] [place], [address] Eosinophils/100 WBC (Bld) 2.1 % Normal 0-5 [facility] Comment on above: Performed By: #### L 3300.1750, L3100.5125, L501.9520, L506.0400, L506.1000, L3300.6900, L100.0100 ####[facility] [address] [place], [address] Erythrocyte distribution width (RBC) [Ratio] 12.5 % Normal 11.6-14.6 [facility] Comment on above: Performed By: #### L 3300.1750, L3100.5125, L501.9520, L506.0400, L506.1000, L3300.6900, L100.0100 ####[facility] [address] [place], [address] Hematocrit (Bld) [Volume fraction] 38.6 % Normal 37-47 [facility] Comment on above: Performed By: #### L 3300.1750, L3100.5125, L501.9520, L506.0400, L506.1000, L3300.6900, L100.0100 ####[facility] [address] [place], [address] Hemoglobin (Bld) [Mass/Vol] 12.9 g/dL Normal 12.0-15.0 [facility] Comment on above: Performed By: #### L 3300.1750, L3100.5125, L501.9520, L506.0400, L506.1000, L3300.6900, L100.0100 ####[facility] [address] [place], [address] IG% 0.300 Normal 0.0-0.9 [facility] Comment on above: Result Comment: IG% - Immature Granulocytes (promyelocytes, myelocytes and metamyelocytes) > 1% indicates that a LEFT SHIFT is Present. Performed By: #### L 3300.1750, L3100.5125, L501.9520, L506.0400, L506.1000, L3300.6900, L100.0100 ####[facility] [address] [place], [address] Lymphocytes/100 WBC (Bld) 44.0 % High 19-41 [facility] Comment on above: Performed By: #### L 3300.1750, L3100.5125, L501.9520, L506.0400, L506.1000, L3300.6900, L100.0100 ####[facility] [address] [place], [address] MCH (RBC) [Entitic mass] 33.4 pg High 27.0-32.0 [facility] Comment on above: Performed By: #### L 3300.1750, L3100.5125, L501.9520, L506.0400, L506.1000, L3300.6900, L100.0100 ####[facility] [address] [place], [address] MCHC (RBC) [Mass/Vol] 33.4 g/dL Normal 32-36 [facility] Comment on above: Performed By: #### L 3300.1750, L3100.5125, L501.9520, L506.0400, L506.1000, L3300.6900, L100.0100 ####[facility] [address] [place], [address] MCV (RBC) [Entitic vol] 100.0 fL High 81-99 [facility] Comment on above: Performed By: #### L 3300.1750, L3100.5125, L501.9520, L506.0400, L506.1000, L3300.6900, L100.0100 ####[facility] [address] [place], [address] Monocytes/100 WBC (Bld) 6.7 % Normal 0-10 [facility] Comment on above: Performed By: #### L 3300.1750, L3100.5125, L501.9520, L506.0400, L506.1000, L3300.6900, L100.0100 ####[facility] [address] [place], [address] Neutrophils/100 WBC (Bld) 45.8 % Low 47-70 [facility] Comment on above: Performed By: #### L 3300.1750, L3100.5125, L501.9520, L506.0400, L506.1000, L3300.6900, L100.0100 ####[facility] [address] [place], [address] Nucleated RBC (Bld) [#/Vol] 0 10*3/uL Normal 0-5 [facility] Comment on above: Performed By: #### L 3300.1750, L3100.5125, L501.9520, L506.0400, L506.1000, L3300.6900, L100.0100 ####[facility] [address] [place], [address] Platelet mean volume (Bld) [Entitic vol] 10.3 fL Normal 6.2-12.0 [facility] Comment on above: Performed By: #### L 3300.1750, L3100.5125, L501.9520, L506.0400, L506.1000, L3300.6900, L100.0100 ####[facility] [address] [place], [address] Platelets (Bld) [#/Vol] 239 10*3/uL Normal 150-450 [facility] Comment on above: Performed By: #### L 3300.1750, L3100.5125, L501.9520, L506.0400, L506.1000, L3300.6900, L100.0100 ####[facility] [address] [place], [address] RBC (Bld) [#/Vol] 3.86 10*6/uL Low 4.2-5.4 [facility] Comment on above: Performed By: #### L 3300.1750, L3100.5125, L501.9520, L506.0400, L506.1000, L3300.6900, L100.0100 ####[facility] [address] [place], [address] RDW SD 46.2 fl High 35.1-43.9 [facility] Comment on above: Performed By: #### L 3300.1750, L3100.5125, L501.9520, L506.0400, L506.1000, L3300.6900, L100.0100 ####[facility] [address] [place], [place], [address] WBC (Bld) [#/Vol] 3.8 10*3/uL Low 4.4-11.0 [facility] Comment on above: Performed By: #### L 3300.1750, L3100.5125, L501.9520, L506.0400, L506.1000, L3300.6900, L100.0100 ####[facility] [address] [facility] [address] [place], [place], [id number] Estradiolon 04-22-2024 ESTRADIOL 47.7 pg/mL Normal [facility] Comment on above: Result Comment: NORM [...] 3300.1750, L3100.5125, L501.9520, L506.0400, L506.1000, L3300.6900, L100.0100 ####[facility] [address] [facility] [place], [place], [address] Follicle Stimulating Hormone on 04-22-2024 FSH 8.7 mIU/mL Normal [facility] Comment on above: Result Comment: NORMAL REFERENCE RANGES FEMALE FOLLICULAR 2.3 - 12.6 mIU/mL MID-CYCLE PEAK 5.2 - 17.5 mIU/mL LUTEAL 1.7 - 12.9 mIU/mL POST-MENOPAUSAL ON MHT 5.9 - 72.8 mIU/mL NOT ON MHT 12.7 - 132.2 mlU/mL MALE 0.7 - 10.8 mIU/mL Performed By: #### L 3300.1750, L3100.5125, L501.9520, L506.0400, L506.1000, L3300.6900, L100.0100 ####[facility] [address] [place], [address] Special Tax Auditor Office Visit Reporton 04-22-2024 Special Tax Auditor Office Visit Report [facility] [address], [address] [place] [address] OFFICE VISIT Date of Service: 04/22/24 MR#: [id number] Acct: [id number] Name: CARLIE GIPSON Rep #: [id number] : 1980 Provider: ZENON charles Age/Sex: 43/F [place] [facility] [place]: Signed Intake Vital Signs 03/13/24 17:41 04/10/24 08:36 04/22/24 08:10 04/22/24 08:15 Height 5 ft 3 in 5 ft 3 in 5 ft 3 in 5 ft 3 in Weight: 135 lb 131 lb 8 oz BMI 23.9 23.3 BP 109/76 102/64 Blood Pressure Location Lt brachial Position Sitting Respiration 18 Pulse 75 Pulse Source NIBP Intake Visit Reasons: Annual ([employer]) Chief Complaint: Annual Anesthesiology Technologist Required: No Is patient in pain?: No [...] No Nurse's Note: No menses with IUD. [facility] Medical History Pre-syncope Tachycardia Malaise Lightheadedness Abnormal [...] Date Name GA/Weeks Outcome Route Bth Weight Gen Labor [facility] Provider FOB Unknown Candelario 2002 Unknown Omkar 2006 HPI Encounter for routine gynecological examination Details: [...] oriented to person and oriented to place [facility] Head: normal to inspection Neck Neck: normal [...] non-tender B (more content not included)... Normal [facility] T4 Free Directon 04-22-2024 T4 FREE DIRECT 0.99 ng/dL Normal 0.76-1.46 [facility] Comment on above: Performed By: #### L 3300.1750, L3100.5125, L501.9520, L506.0400, L506.1000, L3300.6900, L100.0100 ####[facility] [address] [place], [place], [id number] Thyroid Stim Hormone (TSH)on 04-22-2024 TSH 1.270 uIU/mL Normal 0.358-3.740 [facility] Comment on above: Performed By: #### L 3300.1750, L3100.5125, L501.9520, L506.0400, L506.1000, L3300.6900, L100.0100 ####[facility] [address] [place], [address] Vitamin D,25 Hydroxyon 04-22 Vitamin D 25-OH 35.2 ng/mL Normal [facility] Comment on above: Result Comment: Avis min D 25(OH) Status Range Deficiency <20 ng/mL (50nmol/L) Insufficiency 20 - 30 ng/mL (50 - 75 nmol/L) Sufficiency 30 - 100 ng/mL (75 - 250 nmol/L) Toxicity >100 ng/mL (>250 nmol/L) Performed By: #### L 3300.1750, L3100.5125, L501.9520, L506.0400, L506.1000, L3300.6900, L100.0100 ####[facility] [address] [place], [address] 12 Lead EKG performed by [facility] on 04-10-2024 12 Lead EKG performed by [facility] [address] [place] [address] 12 Lead EKG performed by [facility] 04/10/24899 MR#: [id number] Acct: [id number] Name: CARLIE GIPSON Rep #: [id number] : 1980 43 From: Álvaro Lopez MD Attending Dr: Dr. Álvaro Lopez MD Status: DEP AMB Ordering Dr: Álvaro Lopez MD Date: 04/10/24 Location: [place] Sex: F C Admitted: [facility]/12 Lead EKG performed by [facility] ECG Report Interpretation Si nus Rhythm WITHIN NORMAL LIMITSElectronically signed on 06/16/2024 at 11:[address] Álvaro Lopez [employer] Version 8610 06/16/24 1130 Date Álvaro Lopez MD CC: Dr. J Luis Gutierrez MD Date Dictated: 04/10/24899 Date Transcribed: 04/10/24899 Hospital Pharmacy Director: AR Signed Normal [facility] Cardiology Visit Reporton Cardiology Visit Report [facility] [address] [place] [address] OFFICE VISIT Date of Service: 04/10/24 MR#: [id number] Acct: [id number] Name: CARLIE GIPSON Rep #: [id number] : 1980 Provider: Dr. Álvaro Lopez MD Age/Sex: 43/F Location: [place] Status: Signed HPI HPI History of Present [...] room air Intake Visit Reasons: TACHYCARDIA (OLEGHE) Anesthesiology Technologist Required: No Accompanied by: Is patient in [...] you fallen in the past year?: No [facility] Medical History Abnormal CBC Anxiety and depression [...] well nou (more content not included)... Normal [facility] SCRN MAMM (CAD)W/JC BILATo n 04-10-2024 SCRN MAMM (CAD)W/JC BILAT [facility] Imaging Services [address] [place] [address] SCRN MAMM (CAD)W/JC BILAT MR#: [id number] Acct: [id number] Name: CARLIE GIPSON Rep #: [id number] : 1980 F 43 From: Maged barclay MD PCP: Dr. J Luis Gutierrez MD Status: REG [facility] Study: SCRN MAMM (CAD)W/JC BILAT Date of Exam: 03/22 06/13 Exam# [id number] Ordering Dr: J Luis Gutierrez MD :[id number] MAMMOGRAPHY - BILATERAL SCREENING REASON FOR EXAM: [...] delay biopsy of a clinically suspicious abnormality. [id number] Electronically Signed: Maged Madrid MD at 11:13 EST , CC: Dr. J Luis Gutierrez MD Hospital Pharmacy Director: Signed Normal [facility] Absolute lymphocyte counton 03-20-2022 Lymphocytes Auto (Unsp spec) [#/Vol] 3.68 10*3/uL 0.83-4.51 [facility] Work Phone: Basophil percentageon 2021 Basophils/100 WBC (Bld) 0.5 % 0-1 [facility] Work Phone: Bilirubin [Mass/Vol] 0.50 mg/dL 0.20-1.00 [facility] Work Phone: Comment on above: For patients on eltr ombopag therapy, use of Dimension [place] TBIL is not recommended. Chloride [Moles/Vol] 108 mmol/L 98-107 [facility] Work Phone: Cholesterol [Mass/Vol] 174 mg/dL <200 [facility] Work Phone: Comment on above: <200 mg/dL Desirable 200-240 mg/dL Borderline >240 mg/dL High Risk Eosinophils/100 WBC (Bld) 1.2 % 0-5 [facility] Work Phone: Glucose [Mass/Vol] 86 mg/dL 74-106 [facility] Work Phone: [phone] Neutrophils (Bld) [#/Vol] 5.3 10*3/uL 2.0-7.7 [facility] Work Phone: [phone] Neutrophils/100 WBC (Bld) 54.7 % 47-70 [facility] Work Phone: [phone] Potassium [Moles/Vol] 3.9 mmol/L 3.5-5.1 [facility] Work Phone: [phone] Protein [Mass/Vol] 7.3 g/dL 6.4-8.2 [facility] Work Phone: [phone] Sodium [Moles/Vol] 140 mmol/L 136-145 [facility] Work Phone: [phone] Triglyceride [Mass/Vol] 107 mg/dL <199 [facility] Work Phone: Comment on above: The drugs N-Acetylcy steine and Metamizole may falsely depress this assay.Serum Triglycerides Reference Interval Normal <150 mg/dL Borderline high 150 - 199 mg/dL High 200 - 499 mg/dL Very High > or = 500 mg/dL WBC (Bld) [#/Vol] 9.7 10*3/uL 4.4-11.0 [facility] Work Phone: Blood erythrocytes count (nu mber/volume)on 03-20-2022 RBC (Bld) [#/Vol] 4.20 10*6/uL 4.2-5.4 [facility] Work Phone: Blood hemoglobin measurement (mass/volume)on 03-20-2022 Hemoglobin (Bld) [Mass/Vol] 14.4 g/dL 12.0-15.0 [facility] Work Phone: Blood lymphocytes/100 leukoc yteson 03-20-2022 Lymphocytes/100 WBC (Bld) 37.8 % 19-41 [facility] Work Phone: Blood monocytes/100 leukocyt eson 03-20-2022 Monocytes/100 WBC (Bld) 5.5 % 0-10 [facility] Work Phone: Blood platelet mean volumeon 03-20-2022 Platelet mean volume (Bld) [Entitic vol] 10.8 fL 6.2-12.0 [facility] Work Phone: Determination of erythrocyte mean corpuscular volume (MCV)on 03-20-2022 MCV (RBC) [Entitic vol] 98.3 fL 81-99 [facility] Work Phone: Hematocrit Auto (Bld) [Volum e fraction]on 03-20-2022 Hematocrit (Bld) [Volume fraction] 41.3 % 37-47 [facility] Work Phone: Laboratory - Chemistry and C hemistry - challengeon 03-20-2022 ALP [Catalytic activity/Vol] 62 U/L 45-117 [facility] Work Phone: ALT [Catalytic activity/Vol] 28 U/L 13-56 [facility] Work Phone: CO2 [Moles/Vol] 24.0 mmol/L 21.0-32.0 [facility] Work Phone: Cobalamin (Vitamin B12) [Mass/Vol] 320 pg/mL 211-911 [facility] Work Phone: Globulin (S) [Mass/Vol] 3.6 g/dL 2.2-4.2 [facility] Work Phone: Urea nitrogen/Creatinin e [Mass ratio] 14.4 mg/mg 10-20 [facility] Work Phone: Laboratory - Hematology and Cell countson 03-20-2022 Erythrocyte distribution width (RBC) [Entitic vol] 48.0 fL 35.1-43.9 [facility] Work Phone: Erythrocyte distribution width (RBC) [Ratio] 13.3 % 11.6-14.6 [facility] Work Phone: Immature granulocytes/100 WBC (Bld) 0.300 % 0.0-0.9 [facility] Work Phone: [phone] Comment on above: IG% - Immature Granu locytes (promyelocytes, myelocytes and metamyelocytes) > 1% indicates that a LEFT SHIFT is Present. MCH (RBC) [Entitic mass] 34.3 pg 27.0-32.0 [facility] Work Phone: [phone] Nucleated RBC/100 WBC (Bld) [Ratio] 0 % 0-5 [facility] Work Phone: [phone] MCHC Auto (RBC) [Mass/Vol]on 03-20-2022 MCHC (RBC) [Mass/Vol] 34.9 g/dL 32-36 [facility] Work Phone: [phone] No Panel Informationon 03-20 Estimated GFR (MDRD) Amer 120 mL/min >60 [facility] Work Phone: [phone] Comment on above: GFR Calc Estimated GFR (MDRD) Non-Af Amer 99 mL/min >60 [facility] Work Phone: [phone] Comment on above: Non- GFR Calc Vitamin D 25-Hydroxy 32.9 ng/mL [facility] Work Phone: [phone] Comment on above: Vitamin D 25(OH) Sta tus Range Deficiency <20 ng/mL (50nmol/L) Insufficiency 20 - 30 ng/mL (50 - 75 nmol/L) Sufficiency 30 - 100 ng/mL (75 - 250 nmol/L) Toxicity >100 ng/mL (>250 nmol/L) Platelets bldon 03-20-2022 Platelets (Bld) [#/Vol] 286 10*3/uL 150-450 [facility] Work Phone: [phone] Serum or plasma albumin faizan urement (mass/volume)on 03-20-2022 Albumin [Mass/Vol] 3.7 g/dL 3.2-5.0 [facility] Work Phone: [phone] Serum or plasma albumin/glob ulin mass ratioon 03-20-2022 Albumin/Globulin [Mass ratio] 1.0 {ratio} 0.9-2.4 [facility] Work Phone: Serum or plasma calcium faizan urement (mass/volume)on 03-20-2022 Calcium [Mass/Vol] 9.2 mg/dL 8.5-10.1 [facility] Work Phone: [phone] Serum or plasma cholesterol in HDL measurement (mass/volume)on 03-20-2022 Cholesterol in HDL [Mass/Vol] 38 mg/dL >40 [facility] Work Phone: [phone] Comment on above: The drugs N-Acetylcy steine and Metamizole may falsely depress this assay. Reference Range HDL <40 mg/dL Low HDL Cholesterol HDL >or= 60 mg/dL High HDL Cholesterol Serum or plasma cholesterol in VLDL measurement (mass/volume)on 03-20-2022 Cholesterol in VLDL [Mass/Vol] 21 mg/dL 5-40 [facility] Work Phone: [phone] Serum or plasma creatinine m easurement (mass/volume)on 03-20-2022 Creatinine [Mass/Vol] 0.69 mg/dL 0.55-1.02 [facility] Work Phone: Comment on above: The validity of the calculated GFR & GFRAA in patients over 70 years has not been determined. Clinical correlation is essential. Serum or plasma low density lipoprotein (LDL) cholesterol measurement (mass/volume)on 03-20-2022 Cholesterol in LDL [Mass/Vol] 115 mg/dL 0-130 [facility] Work Phone: [phone] Serum or plasma urea nitroge n measurement (mass/volume)on 03-20-2022 Urea nitrogen [Mass/Vol] 10 mg/dL 7-18 [facility] Work Phone: [phone] Thin prep Papanicolaou smear with manual screeningon 03-20-2022 Thin prep Papanicolaou smear with manual screening 15 U/L 15-37 [facility] Work Phone: [phone] Thin prep Papanicolaou smear with manual screening 8 5-15 [facility] Work Phone: [phone] CNPLena 12-19-2021 CNPN Telephone ([facility]) BRANDANCARLIE Alfredo ([id number]) 1980 F Date Time Provider Department 12/19/21 MIKAYLA VASQUEZ [facility] During your visit today, we recorded [...] to ED for further treatment. 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 Allergies As of Date: 12/19/2021 Noted Allergy Reaction SULFA (SULFONAMIDE ANTIBIOTICS) 02/21/2012 12 - Shortness of Breath Date Reviewed: 12/15/2021 Reviewed by: Finn Christian PA-C - Fully Assessed Reason for Visit: Patient Question [2247] Prescriptions as of 12/19/2021 - tirzepatide (MOUNJARO) [...] Encounter Status:Closed by SCARLETT PHILLIPS on 12/19/21 [facility] Bacteria Ur Culton 2 Bacteria identified [...] F Susceptible <=40 , Resistant >40 Abnormal [facility] Comment on above: Performed By: #### 6 30-4 #### [facility] CLIA [id number] [address] [place] [address] [place] CNOVon 12-15-2021 CNOV Office Visit (UCWSTR ) CARLIE GIPSON ([id number]) 1980 F Date Time Provider Department 12/15/21 1:00 PM FINN [facility] During your visit today, we recorded [...] frequency [R35.0] Order(s):URINE CULTURE [SQURCUL] Order #: [id number]. #:[id number] UA DIP, URINE (POC) [[id number]] Order #: [id number]. #:[id number] nitrofurantoin monohydrate and macrocrystal (MACROBID) 100 [...] as directe (more content not included)... Normal [facility] UA DIP, URINE (POC)on 2021 BILIRUBIN UA (POCT) Negative Negative [facility] CLARITY UA (POCT) Clear [facility] COLOR UA (POCT) Dark yellow [facility] GLUCOSE UA (POCT) Negative Negative mg/dL [facility] HEMOGLOBIN/BLOOD UA (POCT) Moderate Abnormal Negative [facility] KETONE UA (POCT) Trace Negative mg/dL [facility] LEUKOCYTES UA (POCT) Moderate Abnormal Negative [facility] NITRITE UA (POCT) Positive Abnormal Negative [facility] PH UA (POCT) 6.5 4.5 - 8.0 [facility] Protein Ql (U) 100 mg/dL Abnormal Negative mg/dL [facility] SPECIFIC GRAVITY UA (POCT) >=1.030 1.005 - 1.030 [facility] UROBILINOGEN UA (POCT) 0.2 E.U./dL Normal E.U./dL [facility] VITAMIN B12on 10-31-2021 Cobalamin (Vitamin B12) [Mass/Vol] 323 pg/mL Normal 211 - 911 [facility] Comment on above: Performed By: #### V TB12 #### [address] [address] VITAMIN D, 25-HYDROXYon 10-19 VITAMIN D, 25-HYDROXY 27 ng/mL Abnormal [facility] Comment on above: Result Comment: . DEFICIENCY: < 20 NG/ML INSUFFICIENCY: 20-29 NG/ML SUFFICIENCY: 30-100 NG/ML THIS ASSAY ACCURATELY QUANTIFIES THE SUM OF VITAMIN D3, 25-HYDROXY AND VIT D2,25-HYDROXY. Performed By: #### V TDOH #### [facility] [address] [place] [address] Vitamin B12, Serumon 022 Cobalamin (Vitamin B12) [Mass/Vol] 323 pg/mL 211 - 911 [facility] 205 DO Work Phone: Vitamin D 25-Hydroxyon 10-31 25-hydroxyvitamin D3 [Mass/Vol] 27 ng/mL Abnormal [facility] 205 DO Work Phone: Comment on above: .DEFICIENCY: < 20 NG /MLINSUFFICIENCY: 20-29 NG/MLSUFFICIENCY: 30-100 NG/MLTHIS ASSAY ACCURATELY QUANTIFIES THE SUM OFVITAMIN D3, 25-HYDROXY AND VIT D2,25-HYDROXY. Office Visit ([facility] Nikkie wood)on 07-21-2021 Follow-up visit Diagnoses/Problems Obesity, morbid, BMI [...] Requested for: 21Jul2021 Patient Discussion/Summary FOllowup October, prior, call concerns. Chief Complaint Pt presents [...] 01/20/2021; COTEST NEG Surgical History History of [place] tooth extraction Family History Family history of [...] Vital Signs Recorded: 21Jul2021 08:08AM Heart Rate96 Woimxevu325, LUE Jmlznstfs04, LUE Height5 ft 3 in Epohmc038 lb 8 oz BMI (more content not included)... Normal GELI Tobacco Screening.on Fall risk assessment a) No falls within the last year [facility] Work Phone: Tobacco use status CPHS b) No [facility] Work Phone: Established Visit (Gastroent erology)on 05-11-2021 Established Visit (Gastroenterology) Diagnoses/Problems Assessed Irritable bowel syndrome (564.1) (K58.9) Orders Irritable bowel syndrome Start: Xifaxan 550 MG Oral Tablet; 1 tablet 3 times daily until gone Rx By: Monster Heredia; Dispense: 0 Days ; #:42 Tablet; Refill: 0;For: Irritable bowel syndrome; CHERI = N; Verified Transmission to [facility]; Last Updated By: Jose Cameron; 05/11/2021 3:07:16 PM Provider Impressions Discussed treatment [...] COTEST NEG Surgical History Problems History of [place] tooth extraction Family History Mother Family history [...] Ibuprofen 80 (more content not included)... Normal [facility] METHYLMALONIC ACIDon 12-2 021 METHYLMALONIC ACID 196 nmol/L Normal 0-378 [facility] Comment on above: Result Comment: This test was developed and its performance characteristics determined by [facility]. It has not been cleared or approved by the Food and Drug Administration. Performed By: #### M MA #### [facility] [address] [place], [place] [id number] Office Visit (Family Nikkie wood)on 05-06-2021 Follow-up visit Diagnoses/Problems Snoring (786.09) (R06.83) Fatigue (780.79) (R53.83) Low serum vitamin D (790.6) (R79.89) Low vitamin B12 level (266.2) (E53.8) BMI 40.0-44.9, adult (V85.41) (Z68.41) Orders Fatigue In Lab PSG Sleep Study, 6 years of age and greater; Status:Hold For - Scheduling; Requested for:[id number]; Non-ambulatory,wheelchair,ot her physical limitations? : No Ensuresis(prep bed), Technology dependent(Gtube/trach)? : No O2 requirements during the study? : No PSG PRECAUTIONS: Please select any applicable precautions : None COMORBIDITIES : None PSG INDICATIONS : Evaluation/treatment of Obstructive Sleep Apnea [G47.33] Study Type : SPLIT - Diagnostic with Treatment Low serum vitamin D, Low vitamin B12 level Vitamin B12, Serum; Status:Active; Requested for:83Rxf7528; Vitamin D 25-Hydroxy; Status:Active; Requested for:00Zxo8750; Patient Discussion/Summary ROutine followup six months, and [...] 01/20/2021; COTEST NEG Surgical History History of [place] tooth extraction Family History Family history of [...] Tablet Loratadine (more content not included)... Normal [facility] Tobacco Screening.on 021 Tobacco use status CPHS b) No [facility] [place] [facility] Work Phone: Methylmalonic Acid, Serumon 05-04-2021 Methylmalonate [Moles/Vol] 196 nmol/L 0-378 [facility] Phone: Comment on above: This test was develo ped and its performance characteristicsdetermined by [facility]. It has not been cleared or approvedby the Food and Drug Administration. VITAMIN B12on 05-04-2021 Cobalamin (Vitamin B12) [Mass/Vol] 231 pg/mL Normal 211 - 911 [facility] Comment on above: Performed By: #### V TB12 ####[address] [place] [address] VITAMIN D, 25-HYDROXYon 04-20 VITAMIN D, 25-HYDROXY 24 ng/mL Abnormal [facility] Comment on above: Result Comment: . DEFICIENCY: < 20 NG/ML INSUFFICIENCY: 20-29 NG/ML SUFFICIENCY: 30-100 NG/ML THIS ASSAY ACCURATELY QUANTIFIES THE SUM OF VITAMIN D3, 25-HYDROXY AND VIT D2,25-HYDROXY. Performed By: #### V TDOH #### [address] [place] [address] Vitamin B12, Serumon 021 Cobalamin (Vitamin B12) [Mass/Vol] 231 pg/mL 211 - 911 [facility] Work Phone: Vitamin D 25-Hydroxyon 05-04 25-hydroxyvitamin D3 [Mass/Vol] 24 ng/mL Abnormal [facility] [employer] Phone: Comment on above: .DEFICIENCY: < 20 NG /MLINSUFFICIENCY: 20-29 NG/MLSUFFICIENCY: 30-100 NG/MLTHIS ASSAY ACCURATELY QUANTIFIES THE SUM OFVITAMIN D3, 25-HYDROXY AND VIT D2,25-HYDROXY. No Panel Informationon 04-22 [facility] Phone: [email or web address]} [facility]-Tony borrego Work Phone: [facility] Surgical Pathology Depar tmenton 04-22-2021 [facility] Surgical Pathology Department Name CARLIE GIPSON Pathologist: LIBERTY LAW M.D., PhD. Date of Procedure: 04/22/2021 Date Received: 04/25/2021 Date Reported 04/29/2021 Submitting Physician: MONSTER HEREDIA, Location: [facility] Copy To/Referring/Attending: MIKAYLA VASQUEZ MD [...] in toto in two cassettes. RCC rcc/04/25/2021 [facility] Department of Pathology [address] [place] [address] Normal [facility] Comment on above: Performed By: #### U [facility] #### [facility] Surgical Pathology Department [address] [place] [address] CORONAVIRUS 2019, SCREEN ASY MPTOMATICon 04-21-2021 SARS-CoV-2 (COVID-19) RNA TERE+probe Ql (Unsp spec) Not detected Normal Not Detected [facility] Comment on above: Result Comment: . This [...] patient management decisions. Fact sheet for providers: https://www.fda.gov/media/267406/download Fact sheet for patients: https://www.fda.gov/media/636036/download This test has received FDA Emergency Use Authorization (EUA) and has been verified by [facility] ([facility]). This test is only authorized for the duration of time that circumstances exist to justify the authorization of the emergency use of in vitro diagnostic tests for the detection of SARS-CoV-2 virus and/or diagnosis of COVID-19 infection under section 564(b)(1) of the Act, 21 U.S.C. 360bbb-3(b)(1), unless the authorization is terminated or revoked sooner. [facility] is certified under CLIA-88 as qualified to perform high complexity testing. Testing is performed in the [facility] laboratories located at [address] [place] [address]. Performed By: #### C OVSC ####[id number] [facility] [place] [address] Covid 19 Resultson 1 SARS-CoV-2 (COVID-19) RNA [...] You may also be contacted by the [facility] to see if any of your [...] or Naproxen (Aleve) can also be used. Dpme-ipc-hjbachw cough and cold medicines can be used according to the instructions on the package. Some tnqp-roo-qpjvswt medicines also contain acetaminophen. Make sure you [...] water are not available, use alcohol-based hand senior product consultant. Avoid touching your eyes, nose, and mouth [...] 24 keely (more content not included)... Normal [facility] CORONAVIRUS 2019, SCREEN ASY MPTOMATICon 04-20-2021 Lab Specimen Source Nasal, Nasopharyngeal Normal [facility] Comment on above: Performed By: #### C OVSC ####[id number] [place] [address] Coronavirus 2019 RNA by PCR, Screening Asymptomticon 04-20-2021 Coronavirus 2019 RNA by PCR, Screening Asymptomtic Not detected Normal See Below -[facility] Gastroentero logy-[address] Work Phone: Comment on above: SOURCE: [...] make patient management decisions.Fact sheet for providers: https://www.fda.gov/media/216055/downloadFact sheet for patients: https://www.fda.gov/media/765901/downloadThis test has received FDA Emergency Use Authorization (EUA) and has been verified by [facility] ([facility]). This test is only authorized for the duration of time that circumstances exist to justify the authorization of the emergency use of in vitro diagnostic tests for the detection of SARS-CoV-2 virus and/or diagnosis of COVID-19 infection under section 564(b)(1) of the Act, 21 U.S.C. 360bbb-3(b)(1), unless the authorization is terminated or revoked sooner. [facility] is certified under CLIA-88 as qualified to perform high complexity testing. Testing is performed in the [facility] laboratories located at [address] [place] [address]. Office Visit (Family Medicin e)on 03-28-2021 Follow-up visit Diagnoses/Problems Chronic diarrhea (787.91) (K52.9) Low serum vitamin D (790.6) (R79.89) Low vitamin B12 level (266.2) (E53.8) Orders Chronic diarrhea, Low serum vitamin D, Low vitamin B12 level Methylmalonic Acid, Serum; Status:Active; Requested for:[id number]; Vitamin B12, Serum; Status:Active; Requested for:10Sxy4507; Vitamin D 25-Hydroxy; Status:Active; Requested for:60Zzv3074; Patient Discussion/Summary Followup four to six weeks, [...] 01/20/2021; COTEST NEG Surgical History History of [place] tooth extraction Family History Family history of [...] Capsule Vitals Vital Signs Recorded: 28Mar2021 08:43AM Esncwtgfifa82.4 F Heart Rate84 Wkimkqyo248, LUE, Sitting Svquitsyh10, LUE, Sitting Height5 ft 3 in Qsnpjy104 lb 9 oz BMI Htfjeujtxp13.61 kg/m2 BSA Calculated2.09 Tobacco Useb) No Physical Exam Constitutional: Alert and in no acute distress. Well developed, well nourished. (more content not included)... Normal GELI PANCREATIC ELASTASE,FECALon 03-28-2021 PANCREATIC ELASTASE,FECAL >800 Normal >=100 [facility] Comment on above: Result Comment: REFE RENCE INTERVAL: Pancreatic Elastase Fecal by Immunoassay Less than 100 ug/g............Severe insufficiency 100 - 199 ug/g................Moderate insufficiency 200 ug/g or greater...........Normal INTERPRETIVE INFORMATION: Pancreatic Elastase Fecal by Immunoassay Reference intervals do not apply for infants less than one month old. Performed by [facility], [address] [facility],[place] [id number] www.[employer], Carole Sandoval MD - Lab. Director Performed By: #### E LAST #### [facility] [address] [place] [address] Tobacco Screening.on 021 Tobacco use status [facility] b) No [employer] Work Phone: CELIAC DISEASE SEROLOGY PANE Bharath 03-25-2021 DEAMIDATED GLIADIN PEPTIDE IGG <1 Normal 0 - 14 [facility] Comment on above: Result Comment: Fals e negative Deamidated Gliadin Peptide Antibody, IgG results can occur in patients already adhering to a gluten-free diet. Tissue Transglutaminase Antibody, IgA is the preferred test for screening patients with suspected Celiac Disease. Performed By: #### C ELP1 #### [facility] [address] [place] [address] TTG AB,IGG <1 Normal 0 - 14 [facility] Comment on above: Result Comment: Fals e negative Tissue Transglutaminase Antibody, IgG results can occur in patients already adhering to a gluten-free diet. Tissue Transglutaminase Antibody, IgA is the preferred test for screening patients with suspected Celiac Disease. Performed By: #### C ELP1 #### [facility] [address] [place] [address] DEAMIDATED GLIADIN PEPTIDE IGA <1 Normal 0 - 14 [facility] Comment on above: Result Comment: Fals e negative Deamidated Gliadin Peptide Antibody, IgA results can occur in patients already adhering to a gluten-free diet or patients with IgA deficiency. Tissue Transglutaminase Antibody, IgA is the preferred test for screening patients with suspected Celiac Disease. Performed By: #### C ELP1 #### [facility] [address] [place] [address] TTG AB,IGA <1 Normal 0 - 14 [facility] Comment on above: Result Comment: Lori ac disease is unlikely. False negative Tissue Transglutaminase Antibody, IgA results can occur in approximately 10% of patients with celiac disease, patients already adhering to a gluten-free diet, or patients with IgA deficiency. Performed By: #### C ELP1 #### [facility] [address] [place] [address] Laboratory - Serology - non- microon 03-25-2021 Gliadin peptide IgA IA Qn (S) <1 0 - 14 [facility] [employer] Work Phone: Comment on above: False negative Deami dated Gliadin Peptide Antibody, IgA results can occur in patients already adhering to a gluten-free diet or patients with IgA deficiency. Tissue Transglutaminase Antibody, IgA is the preferred test for screening patients with suspected Celiac Disease. tTG IgA IA Qn (S) <1 0 - 14 [employer] Work Phone: Comment on above: Celiac disease is un likely. False negative Tissue Transglutaminase Antibody, IgA results can occur in approximately 10% of patients with celiac disease, patients already adhering to a gluten-free diet, or patients with IgA deficiency. tTG IgG IA Qn (S) <1 0 - 14 [employer] Work Phone: Comment on above: False negative Tissu e Transglutaminase Antibody, IgG results can occur in patients already adhering to a gluten-free diet. Tissue Transglutaminase Antibody, IgA is the preferred test for screening patients with suspected Celiac Disease. No Panel Informationon 03-25 <1 0 - 14 [employer] Work Phone: Comment on above: False negative Deami dated Gliadin Peptide Antibody, IgG results can occur in patients already adhering to a gluten-free diet. Tissue Transglutaminase Antibody, IgA is the preferred test for screening patients with suspected Celiac Disease. 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 Reviewed bleeding profile length with patient. All questions answered. Precautions reviewed return Chief Complaint ck iud string no concerns History of Present Xtmtuwp81-eerk-jex presents for IUD follow-up. Patient doing well. [...] COTEST NEG Surgical History Problems History of [place] tooth extraction Family History Mother Family history [...] Tablet Vitals Vital Signs Recorded: 25Mar2021 08:41AM Jqccvdwodar03.9 F Hsfgecpy552 Bvfjwdiay33 Height5 ft 3 in Rtttfw560 lb BMI Elhxhtxtrp47.87 kg/m2 BSA Calculated2.1 Tobacco Useb) No Fall [...] 03-25-2021 Elastase.pancreati c (Stl) [Mass/Mass] >800 >=100 -[facility] [address] Work Phone: Comment on above: REFERENCE INTERVAL: Pancreatic Elastase Fecal by Immunoassay Less than 100 ug/g............Severe insufficiency 100 - 199 ug/g................Moderate insufficiency 200 ug/g or greater...........NormalINTERPRETIVE INFORMATION: Pancreatic Elastase Fecal by ImmunoassayReference intervals do not apply for infants less than one month old.Performed by [facility], [address] [place] [id number] www.[employer], Carole Sandoval MD - Lab. Director Tobacco Screening.on 021 Fall risk assessment a) No falls within the last year [facility] [address] [employer] Work Phone: Tobacco use status [facility] b) No [facility] [address] [employer] Work Phone: Initial Visit (Gastroenterol ogy)on 03-21-2021 Initial Visit (Gastroenterology) Diagnoses/Problems Assessed Chronic diarrhea (787.91) (K52.9) Orders Chronic diarrhea CELIAC DISEASE SEROLOGY PANEL; Status:Active; Requested for:21Mar2021; Perform:Lab Services - Lab To Draw (Blood Test); Due:19Jun2021;Ordered; For:Chronic diarrhea; Ordered By:Monster Heredia; Colonoscopy Diagnostic; Status:Hold For - Scheduling; Requested for:21Mar2021; Perform:[facility]; Due:19Jun2021;Ordered; For:Chronic diarrhea; Ordered By:Monster Heredia; Patient [...] IUD (intrauterine device) in place (V45.51) (Z97.5) 2017 History of Menstruation AGE 12 History of Normal vaginal delivery (650) (O80) 01/2003; 36 WEEKS; MALE; 6LBS 5OZ 06/2005; 35 WEEKS; MALE; 6LBS 2OZ History of Women's annual routine gynecological examination (V72.31) (Z01.419) Resolved Date: 31 Jan 2021 01/20/2021; COTEST NEG Surgical History Problems History of [place] tooth extraction Family History Mother Family history [...] (V17.49) ( (more content not included)... Normal [facility] VITAMIN B12on 03-21-2021 Cobalamin (Vitamin B12) [Mass/Vol] 126 pg/mL Low 211 - 911 [facility] Comment on above: Performed By: #### V TB12 #### [address] [address] VITAMIN D, 25-HYDROXYon VITAMIN D, 25-HYDROXY 11 ng/mL Abnormal [facility] Comment on above: Result Comment: . DEFICIENCY: < 20 NG/ML INSUFFICIENCY: 20-29 NG/ML SUFFICIENCY: 30-100 NG/ML THIS ASSAY ACCURATELY QUANTIFIES THE SUM OF VITAMIN D3, 25-HYDROXY AND VIT D2,25-HYDROXY. Performed By: #### V TDOH #### [address] [address] Vitamin B12, Serumon 021 Cobalamin (Vitamin B12) [Mass/Vol] 126 pg/mL below low threshold 211 - 911 [facility] Phone: Vitamin D 25-Hydroxyon 03-21 25-hydroxyvitamin D3 [Mass/Vol] 11 ng/mL Abnormal [facility] [place] Phone: Comment on above: .DEFICIENCY: < 20 NG /MLINSUFFICIENCY: 20-29 NG/MLSUFFICIENCY: 30-100 NG/MLTHIS ASSAY ACCURATELY QUANTIFIES THE SUM OFVITAMIN D3, 25-HYDROXY AND VIT D2,25-HYDROXY. GC + CHLAMYDIA BY AMPLIFIED DETECTIONon 02-19-2021 CHLAMYDIA TRACH.,AMPLIFIED Negative Normal Negative [facility] Comment on above: Result Comment: The APTIMA Combo 2 assay is FDA-approved for Chlamydia trachomatis and Neisseria gonorrhoeae testing on female endocervical and vaginal swabs, ThinPrep liquid pap samples, male urine samples and urethral swabs. Performance characteristics for Chlamydia trachomatis and Neisseria gonorrhoeae testing on specific iqs-NLX-wmuqkmeq sample types (female urine samples) have been validated by [facility]. This laboratory is certified by CLIA to perform high complexity testing. Samples from all other sites are not validated for this method. Performed By: #### G [facility] ####[id number] [place] [address] N.GONORRHEA,AMPLIF IED Negative Normal Negative [facility] Comment on above: Result Comment: The APTIMA Combo 2 assay is FDA-approved for Chlamydia trachomatis and Neisseria gonorrhoeae testing on female endocervical and vaginal swabs, ThinPrep liquid pap samples, male urine samples and urethral swabs. Performance characteristics for Chlamydia trachomatis and Neisseria gonorrhoeae testing on specific ytg-PFA-qbbbjxuh sample types (female urine samples) have been validated by [facility]. This laboratory is certified by CLIA to perform high complexity testing. Samples from all other sites are not validated for this method. Performed By: #### G [facility] ####[id number] [place] [address] GC + CHLAMYDIA BY AMPLIFIED DETECTIONon 02-18-2021 Lab Specimen Source Urine Normal [facility] Comment on above: Performed By: #### G [facility] ####[id number] [place] [address] GC + Chlamydia By Amplified Detectionon 02-18-2021 C. trachomatis rRNA TERE+probe Ql (Unsp spec) Negative Negative [facility] [address] Work Phone: Comment on above: The APTIMA Combo 2 a ssay is FDA-approved for Chlamydia trachomatis and Neisseria gonorrhoeae testing on female endocervical and vaginal swabs, ThinPrep liquid pap samples, male urine samples and urethral swabs. Performance characteristics for Chlamydia trachomatis and Neisseria gonorrhoeae testing on specific vsd-ACM-eozuixlz sample types (female urine samples) have been validated by [facility]. This laboratory is certified by CLIA to perform high complexity testing. Samples from all other sites are not validated for this method. N. gonorrhoeae rRNA TERE+probe Ql (Unsp spec) Negative Negative [facility] [address] [employer] Work Phone: [phone] Comment on above: SOURCE: Urine The AP TRICE Combo 2 assay is FDA-approved for Chlamydia trachomatis and Neisseria gonorrhoeae testing on female endocervical and vaginal swabs, ThinPrep liquid pap samples, male urine samples and urethral swabs. Performance characteristics for Chlamydia trachomatis and Neisseria gonorrhoeae testing on specific fju-FAU-eorfrmzv sample types (female urine samples) have been validated by [facility]. This laboratory is certified by CLIA to perform high complexity testing. Samples from all other sites are not validated for this method. 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 LMP: 01/21/2021 OFFICE SUPPLY, [facility]: [id number], LOT: [id number], EXP: 06/2024 History of Present Wmkyijd25-pcny-cmt presents for IUD removal and reinsertion. Patient [...] COTEST NEG Surgical History Problems History of [place] tooth extraction Family History Mother Family history [...] FOR ANXIETY. (more content not included)... Normal [facility] Office Visit (Family Medicin e)on 01-31-2021 Follow-up visit Diagnoses/Problems Low vitamin B12 level (266.2) (E53.8) Low serum vitamin D (790.6) (R79.89) Seasonal allergies (477.9) (J30.2) Orders Low serum vitamin D, Low vitamin B12 level Vitamin B12, Serum; Status:Active; Requested for:35Agt2650; Vitamin D 25-Hydroxy; Status:Active; Requested for:26Eeu2860; Patient Discussion/Summary Repeat labs in amonth or [...] developed sneezing, congestion, cough . Went to [facility] in [place] over the weekend and had a negative [...] MALE; 6LBS 2OZ Surgical History History of [place] tooth extraction Family History Family history of [...] well nourished. Results/Data Complete Blood Count + Epswuieqcaja69Uqx7164 01:08PMMikayla Vasquez Test NameResultFlagReference White Blood Cell Count8.2 x10E9/L4.4 - 11.3 Red Blood Cell Count4.32 x10E12/LSee Below Reference Range: 4.00 - 5.20 Nucleated Erythrocyte Count0.1 /100 WBC Tsefcrrqus08.4 g/dLSee Below Reference Range: 12.0 - 16.0 HCT43.2 %See Below Reference Range: 36.0 - 46.0 KIO030 fL80 - 100 MCHC33.4 g/dLSee Below Reference Range: 32.0 - 36.0 Platelet Uifrr933 x10E9/L150 - 450 RDW-CV13.9 %See Below Reference Range: 11.5 - 14.5 Neutrop (more content not included)... Normal [facility] STOOL PATHOGEN PCR PANELon 0 01-21-2021 CAMPYLOBACTER GP. Not detected Normal NOT DETECTED [facility] Comment on above: Performed By: #### S TLPP #### [facility] [address] [place] [id number] NOROVIRUS GI/GII Not detected Normal NOT DETECTED [facility] Comment on above: Performed By: #### S TLPP #### [facility] [address] [place] [address] ROTAVIRUS A Not detected Normal NOT DETECTED [facility] Comment on above: Result Comment: The enteric [...] panel. Performed By: #### S TLPP #### [facility] [address] [place] [id number] SALMONELLA SP. Not detected Normal NOT DETECTED [facility] Comment on above: Performed By: #### S TLPP #### [facility] [address] [place] [address] SHIGA TOXIN 1 Not detected Normal NOT DETECTED [facility] Comment on above: Performed By: #### S TLPP #### [facility] [address] [place] [address] SHIGA TOXIN 2 Not detected Normal NOT DETECTED [facility] Comment on above: Performed By: #### S TLPP #### [facility] [address] [place] [address] SHIGELLA SP. Not detected Normal NOT DETECTED [facility] Comment on above: Performed By: #### S TLPP #### [place] [address] [place] [address] [employer] Not detected Normal NOT DETECTED [facility] Comment on above: Performed By: #### S TLPP #### [facility] [address] [place] [id number] YERSINIA ENTEROCOLITICA Not detected Normal NOT DETECTED [facility] Comment on above: Performed By: #### S TLPP #### [facility] [address] [place] [id number] CBC AND DIFFERENTIALon 01-20 Basophils (Bld) [#/Vol] 0.10 10*3/uL Normal 0.00 - 0.10 [facility] Comment on above: Performed By: #### C BCDF #### [address] [address] Basophils/100 WBC (Bld) 0.9 % Normal 0.0 - 2.0 [facility] Comment on above: Performed By: #### C BCDF #### [address] [address] Eosinophils (Bld) [#/Vol] 0.10 10*3/uL Normal 0.00 - 0.70 [facility] Comment on above: Performed By: #### C BCDF #### [address] [address] Eosinophils/100 WBC (Bld) 1.5 % Normal 0.0 - 6.0 [facility] Comment on above: Performed By: #### C BCDF #### [address] [address] Erythrocyte distribution width (RBC) [Ratio] 13.9 % Normal 11.5 - 14.5 [facility] Comment on above: Performed By: #### C BCDF #### [address] [address] Hematocrit (Bld) [Volume fraction] 43.2 % Normal 36.0 - 46.0 [facility] Comment on above: Performed By: #### C BCDF #### [address] [address] Hemoglobin (Bld) [Mass/Vol] 14.4 g/dL Normal 12.0 - 16.0 [facility] Comment on above: Performed By: #### C BCDF #### [address] [address] Lymphocytes (Bld) [#/Vol] 2.50 10*3/uL Normal 1.20 - 4.80 [facility] Comment on above: Performed By: #### C BCDF #### [address] [address] Lymphocytes/100 WBC (Bld) 30.9 % Normal 13.0 - 44.0 [facility] Comment on above: Performed By: #### C BCDF #### [address] [address] MCHC (RBC) [Mass/Vol] 33.4 g/dL Normal 32.0 - 36.0 [facility] Comment on above: Performed By: #### C BCDF #### [address] [address] MCV (RBC) [Entitic vol] 100 fL Normal 80 - 100 [facility] Comment on above: Performed By: #### C BCDF #### [address] [address] Monocytes (Bld) [#/Vol] 0.50 10*3/uL Normal 0.10 - 1.00 [facility] Comment on above: Performed By: #### C BCDF #### [address] [address] Monocytes/100 WBC (Bld) 6.4 % Normal 2.0 - 10.0 [facility] Comment on above: Performed By: #### C BCDF #### [address] [address] Neutrophils (Bld) [#/Vol] 4.90 10*3/uL Normal 1.20 - 7.70 [facility] Comment on above: Result Comment: Perc ent differential counts (%) should be interpreted in the context of the absolute cell counts (cells/L). Performed By: #### C BCDF #### [address] [address] Neutrophils/100 WBC (Bld) 60.3 % Normal 40.0 - 80.0 [facility] Comment on above: Performed By: #### C BCDF #### [address] [address] NUCLEATED RBC 0.1 /100 WBC Normal [facility] Comment on above: Performed By: #### C BCDF #### [address] [address] Platelets (Bld) [#/Vol] 274 10*3/uL Normal 150 - 450 [facility] Comment on above: Performed By: #### C BCDF #### [address] [address] RBC 4.32 x10E12/L Normal 4.00 - 5.20 [facility] Comment on above: Performed By: #### C BCDF #### [address] [address] WBC (Bld) [#/Vol] 8.2 10*3/uL Normal 4.4 - 11.3 [facility] Comment on above: Performed By: #### C BCDF #### [address] [address] CLOST DIFF. TOXIN, PCRon CLOST.DIFF.TOXIN,P CR Not detected Normal Not Detected [facility] Comment on above: Result Comment: This assay [...] days. Performed By: #### C DTPC #### [address] [address] C. difficile toxin genes TERE+probe Ql (Stl) Not detected See Below [facility] [address] [employer] Work Phone: Comment on above: Reference Range: [...] [Mass/Vol] 4.2 g/dL Normal 3.4 - 5.0 [facility] Comment on above: Performed By: #### C MP #### [address] [address] ALP [Catalytic activity/Vol] 61 U/L Normal 33 - 110 [facility] Comment on above: Performed By: #### C MP #### [address] [address] ALT [Catalytic activity/Vol] 13 U/L Normal 7 - 45 [facility] Comment on above: Result Comment: Beatriz ents treated with Sulfasalazine may generate falsely decreased results for ALT. Performed By: #### C MP #### [address] [address] Anion gap [Moles/Vol] 10 mmol/L Normal 10 - 20 [facility] Comment on above: Performed By: #### C MP #### [address] [address] AST [Catalytic activity/Vol] 12 U/L Normal 9 - 39 [facility] Comment on above: Performed By: #### C MP #### [address] [address] Bilirubin [Mass/Vol] 0.6 mg/dL Normal 0.0 - 1.2 [facility] Comment on above: Performed By: #### C MP #### [address] [address] Calcium [Mass/Vol] 9.1 mg/dL Normal 8.6 - 10.3 [facility] Comment on above: Performed By: #### C MP #### [address] [address] Chloride [Moles/Vol] 107 mmol/L Normal 98 - 107 [facility] Comment on above: Performed By: #### C MP #### [address] [address] Creatinine [Mass/Vol] 0.74 mg/dL Normal 0.50 - 1.05 [facility] Comment on above: Performed By: #### C MP #### [address] [address] GFR- AM. >60 Normal >60 [facility] Comment on above: Result Comment: CALC ULATIONS OF ESTIMATED GFR ARE PERFORMED USING THE MDRD STUDY EQUATION FOR THE IDMS-TRACEABLE CREATININE METHODS. CLIN CHEM 2007;53:766-72 Performed By: #### C MP #### [address] [address] GFR-NON AM. >60 Normal >60 [facility] Comment on above: Performed By: #### C MP #### [address] [address] Glucose [Mass/Vol] 80 mg/dL Normal 74 - 99 [facility] Comment on above: Performed By: #### C MP #### [address] [address] HCO3 (Bld) [Moles/Vol] 25 mmol/L Normal 21 - 32 [facility] Comment on above: Performed By: #### C MP #### [address] [address] Potassium [Moles/Vol] 4.2 mmol/L Normal 3.5 - 5.3 [facility] Comment on above: Performed By: #### C MP #### [address] [address] Protein [Mass/Vol] 7.1 g/dL Normal 6.4 - 8.2 [facility] Comment on above: Performed By: #### C MP #### [address] [address] Sodium [Moles/Vol] 138 mmol/L Normal 136 - 145 [facility] Comment on above: Performed By: #### C MP #### [place] [address] [place] [address] Urea nitrogen [Mass/Vol] 12 mg/dL Normal 6 - 23 [facility] Comment on above: Performed By: #### C MP #### [address] [address] Complete Blood Count + Diffe funmialfredmatthias 01-20-2021 Basophils/100 WBC (Bld) 0.9 % 0.0 - 2.0 [facility] [address] Work Phone: [phone] Erythrocyte distribution width (RBC) [Ratio] 13.9 % See Below [facility] [address] Work Phone: [phone] Comment on above: Reference Range: 11. 5 - 14.5 Hematocrit (Bld) [Volume fraction] 43.2 % See Below [facility] [address] Work Phone: [phone] Comment on above: Reference Range: 36. 0 - 46.0 Hemoglobin (Bld) [Mass/Vol] 14.4 g/dL See Below [facility] [address] Work Phone: [phone] Comment on above: Reference Range: 12. 0 - 16.0 Lymphocytes/100 WBC (Bld) 30.9 % See Below [facility] [address] Work Phone: [phone] Comment on above: Reference Range: 13. 0 - 44.0 MCHC (RBC) [Mass/Vol] 33.4 g/dL See Below [facility] [address] Work Phone: [phone] Comment on above: Reference Range: 32. 0 - 36.0 MCV (RBC) [Entitic vol] 100 fL 80 - 100 [facility] [address] Work Phone: [phone] Monocytes/100 WBC (Bld) 6.4 % 2.0 - 10.0 [facility] [address] Work Phone: [phone] Neutrophils/100 WBC (Bld) 60.3 % See Below [facility] [address] Work Phone: [phone] Comment on above: Reference Range: 40. 0 - 80.0 Platelets (Bld) [#/Vol] 274 10*3/uL 150 - 450 [facility] [address] Work Phone: [phone] RBC (Bld) [#/Vol] 4.32 {x10E12/L} See Below [facility] [address] Work Phone: [phone] Comment on above: Reference Range: 4.0 0 - 5.20 WBC (Bld) [#/Vol] 8.2 10*3/uL 4.4 - 11.3 [facility] [address] Work Phone: [phone] Complete Blood Count + Differential 0.10 {x10E9/L} See Below [facility] [address] Work Phone: [phone] Comment on above: Reference Range: 0.0 0 - 0.10 Reference Range: 0.0 0 - 0.70 Complete Blood Count + Differential 0.50 {x10E9/L} See Below [facility] [address] Work Phone: [phone] Comment on above: Reference Range: 0.1 0 - 1.00 Complete Blood Count + Differential 2.50 {x10E9/L} See Below [facility] [address] Work Phone: [phone] Comment on above: Reference Range: 1.2 0 - 4.80 Complete Blood Count + Differential 4.90 {x10E9/L} See Below [facility] [address] Work Phone: [phone] Comment on above: Reference Range: 1.2 0 - 7.70 Percent differential counts (%) should be interpreted in the context of the absolute cell counts (cells/L). Complete Blood Count + Differential 1.5 % 0.0 - 6.0 [facility] [address] Work Phone: [phone] Complete Blood Count + Differential 0.1 {/100_WBC} [facility] [address] Work Phone: DIGITAL MAMM SCREENING W/ TO Louise 01-20-2021 DIGITAL MAMM SCREENING W/ JC Patient Name: CARLIE GIPSON STUDY: Digital mammography screening with jc; 01/20/2021 2:51 pm ACCESSION NUMBER(S): [id number] ORDERING CLINICIAN: MIKAYLA VASQUEZ INDICATION: Screening. COMPARISON: [...] Electronically signed by: TARUN LYNCH MD Normal [facility] LIPID PANEL (CORONARY RISK 2 )on 01-20-2021 Cholesterol [Mass/Vol] 178 mg/dL Normal 0 - 199 [facility] Comment on above: Result Comment: . AGE [...] dosing. Performed By: #### L IPID #### [address] [address] Cholesterol in HDL [Mass/Vol] 41.0 mg/dL Normal [facility] Comment on above: Result Comment: . AGE VERY LOW LOW NORMAL HIGH 0-19 Y < 35 < 40 40-45 ---- 20-24 Y ---- < 40 >45 ---- >24 Y ---- < 40 40-60 >60 . Performed By: #### L IPID #### [address] [address] Cholesterol in LDL [Mass/Vol] 113 mg/dL High 0 - 99 [facility] Comment on above: Result Comment: . NEAR BORD AGE DESIRABLE OPTIMAL HIGH HIGH VERY HIGH 0-19 Y 0 - 109 --- 110-129 >/= 130 ---- 20-24 Y 0 - 119 --- 120-159 >/= 160 ---- >24 Y 0 - 99 100-129 130-159 160-189 >/=190 . Performed By: #### L IPID #### [address] [address] Cholesterol in VLDL [Mass/Vol] 24 mg/dL Normal 0 - 40 [facility] Comment on above: Performed By: #### L IPID #### [address] [address] Cholesterol.total/ Cholesterol in HDL [Mass ratio] 4.3 {ratio} Normal [facility] Comment on above: Result Comment: REF VALUES DESIRABLE < 3.4 HIGH RISK > 5.0 Performed By: #### L IPID #### [address] [address] Triglyceride [Mass/Vol] 122 mg/dL Normal 0 - 149 [facility] Comment on above: Result Comment: . AGE [...] dosing. Performed By: #### L IPID #### [address] [address] LMPon 01-20-2021 Last menstrual period start date [id number] [facility] [address] [employer] Work Phone: [phone] Laboratory - Chemistry and C hemistry - challengeon 01-20-2021 Albumin BCP dye [Mass/Vol] 4.2 g/dL 3.4 - 5.0 [facility] [address] Work Phone: [phone] ALP [Catalytic activity/Vol] 61 U/L 33 - 110 [facility] [address] Work Phone: [phone] ALT With P-5'-P [Catalytic activity/Vol] 13 U/L 7 - 45 [facility] [employer] Work Phone: [phone] Comment on above: Patients treated wit h Sulfasalazine may generate falsely decreased results for ALT. Anion gap [Moles/Vol] 10 mmol/L 10 - 20 [employer] [address] Work Phone: [phone] AST With P-5'-P [Catalytic activity/Vol] 12 U/L 9 - 39 [facility] [address] Work Phone: [phone] Bilirubin [Mass/Vol] 0.6 mg/dL 0.0 - 1.2 [facility] Work Phone: [phone] Calcium [Mass/Vol] 9.1 mg/dL 8.6 - 10.3 [facility] [address] [employer] Work Phone: [phone] Chloride [Moles/Vol] 107 mmol/L 98 - 107 [facility] Work Phone: [phone] CO2 [Moles/Vol] 25 mmol/L 21 - 32 [facility] [address] [employer] Work Phone: [phone] Creatinine [Mass/Vol] 0.74 mg/dL See Below [facility] [address] Work Phone: [phone] Comment on above: Reference Range: 0.5 0 - 1.05 Glucose [Mass/Vol] 80 mg/dL 74 - 99 [facility] [address] [employer] Work Phone: [phone] Potassium [Moles/Vol] 4.2 mmol/L 3.5 - 5.3 [facility] [address] Work Phone: [phone] Protein [Mass/Vol] 7.1 g/dL 6.4 - 8.2 [facility] [address] [employer] Work Phone: [phone] Sodium [Moles/Vol] 138 mmol/L 136 - 145 [facility] [address] [employer] Work Phone: [phone] Urea nitrogen [Mass/Vol] 12 mg/dL 6 - 23 [facility] [address] Work Phone: [phone] Laboratory - Cytologyon Cytology report Cyto stain.thin prep Doc (Cvx/Vag) [facility] Work Phone: Lipid Panelon 01-20-2021 Cholesterol [Mass/Vol] 178 mg/dL 0 - 199 [facility] Work Phone: [phone] Comment on above: . AGE DESIRABLE [...] Cholesterol in HDL [Mass/Vol] 41.0 mg/dL [facility] [address] Work Phone: [phone] Comment on above: . AGE VERY LOW LOW N ORMAL HIGH 0-19 Y < 35 < 40 40-45 ---- 20- 24 Y ---- < 40 >45 ---- >24 Y ---- < 40 40-60 >60. Cholesterol in LDL [Mass/Vol] 113 mg/dL above high threshold 0 - 99 [facility] [employer] Phone: [phone] Comment on above: . NEAR BORD AGE MYA RABLE OPTIMAL HIGH HIGH VERY HIGH 0-19 Y 0 - 109 --- 110-129 >/= 130 ---- 20-24 Y 0 - 119 --- 120-159 >/= 160 ---- >24 Y 0 - 99 100-129 130-159 160-189 >/=190. Cholesterol.total/ Cholesterol in HDL [Mass ratio] 4.3 {ratio} [employer] Phone: [phone] Comment on above: REF VALUESDESIRABLE < 3.4HIGH RISK > 5.0 Triglyceride [Mass/Vol] 122 mg/dL 0 - 149 [employer] Phone: [phone] Comment on above: . AGE DESIRABLE [...] Lipid Panel 24 mg/dL 0 - 40 [employer] [employer] [facility] Work Phone: [phone] Mamm - Screening Mammogram w / Tomosynthesison 01-20-2021 MG Breast Screening [facility] Work Phone: MG Breast Screening Please click on the link to view the study images Normal [employer] [facility] [facility] Work Phone: No Panel Informationon 01-20 >60 >60 [facility] [employer] Phone: Comment on above: CALCULATIONS OF MARIKA MATED GFR ARE PERFORMED USING THE MDRD STUDY EQUATION FOR THE IDMS-TRACEABLE CREATININE METHODS. CLIN CHEM 2007;53:766-72 TRIM M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 - Office Visiton TRIM M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 - Office Visit Diagnoses/Problems Assessed Screening for cervical cancer (V76.2) (Z12.4) Women's annual routine gynecological examination (V72.31) (Z01.419) Screening for breast cancer (V76.10) (Z12.39) Orders PAP FIELD MARKETING LEAD, Cytology; Status:In Progress - Specimen/Data Collected; Done: 20Jan2021 Last Menstrual Period (LMP): : 01/01/2021 PAP [...] FOR 01/20/2021. LMP: 12/22/2020 History of Present [id number] presents for annual exam. Patient safe home [...] 6LBS 2OZ Surgical History Problems History of [place] tooth extraction Family History Mother Family history [...] Oral T (more content not included)... Normal [facility] STOOL PATHOGEN PCR PANELon 0 01-20-2021 Lab Specimen Source Normal [facility] Comment on above: Performed By: #### S TL #### [facility] [address] [place] [address] Campylobacter sp DNA.diarrheagenic TERE+probe Ql (Stl) Not detected See Below [facility] [employer] Phone: Comment on above: Reference Range: NOT DETECTED E. coli stx1 gene TERE+probe Ql (Unsp spec) Not detected See Below [facility] [employer] Phone: Comment on above: Reference Range: NOT DETECTED E. coli stx2 gene TERE+probe Ql (Unsp spec) Not detected See Below [facility] [employer] Phone: Comment on above: Reference Range: NOT DETECTED Norovirus genogroup I and II RNA TERE+probe Nom (Stl) Not detected See Below [facility] [employer] Phone: Comment on above: Reference Range: NOT DETECTED Rotavirus RNA TERE+probe Nom (Stl) Not detected See Below [facility] [employer] Phone: Comment on above: Reference Range: NOT [...] Ql (Unsp spec) Not detected See Below [facility] [employer] Work Phone: Comment on above: Reference Range: NOT DETECTED Vibrio sp DNA TERE+probe Nom (Unsp spec) Not detected See Below [facility] [employer] Phone: Comment on above: Reference Range: NOT DETECTED Yersinia sp DNA TERE+probe Nom (Unsp spec) Not detected See Below [facility] [employer] Phone: Comment on above: SOURCE: Reference Ra nge: NOT DETECTED STOOL PATHOGEN PCR PANEL Not detected See Below [facility] [employer] Phone: Comment on above: Reference Range: NOT DETECTED TSH WITH REFLEX TO FREE T4 I F ABNORMALon 01-20-2021 TSH Qn 1.40 m[IU]/L Normal 0.44 - 3.98 [facility] [address] Work Phone: Comment on above: Reference Range: 0.4 4 - 3.98 TSH testing is performed using different testing methodology at [facility] than at other [facility]. Direct result comparisons should only be made within the same method. Result Comment: TSH testing is performed using different testing methodology at [facility] than at other [facility]. Direct result comparisons should only be made within the same method. Performed By: #### T HYDS #### [address] [address] VITAMIN B12on 01-20-2021 Cobalamin (Vitamin B12) [Mass/Vol] 123 pg/mL Low 211 - 911 [facility] Comment on above: Performed By: #### V TB12 #### [address] [address] VITAMIN D, 25-HYDROXYon VITAMIN D, 25-HYDROXY 27 ng/mL Abnormal [facility] Comment on above: Result Comment: . DEFICIENCY: < 20 NG/ML INSUFFICIENCY: 20-29 NG/ML SUFFICIENCY: 30-100 NG/ML THIS ASSAY ACCURATELY QUANTIFIES THE SUM OF VITAMIN D3, 25-HYDROXY AND VIT D2,25-HYDROXY. Performed By: #### V TDOH #### [address] [address] Vitamin B12, Serumon 021 Cobalamin (Vitamin B12) [Mass/Vol] 123 pg/mL below low threshold 211 - 911 [facility] [address] [employer] Work Phone: Vitamin D 25-Hydroxyon 01-20 25-hydroxyvitamin D3 [Mass/Vol] 27 ng/mL Abnormal [facility] [address] Work Phone: Comment on above: .DEFICIENCY: < 20 NG /MLINSUFFICIENCY: 20-29 NG/MLSUFFICIENCY: 30-100 NG/MLTHIS ASSAY ACCURATELY QUANTIFIES THE SUM OFVITAMIN D3, 25-HYDROXY AND VIT D2,25-HYDROXY. Office Visit (Family Medicin e)on 01-18-2021 Follow-up visit Diagnoses/Problems Encounter for [...] Complete Blood Count + Differential; Status:Active; Requested for:[id number]; Comprehensive Metabolic Panel; Status:Active; Requested for:18Jan2021; Lipid Panel; Status:Active; Requested for:18Jan2021; STOOL PATHOGEN PCR PANEL; Status:Active; Requested for:18Jan2021; TSH WITH REFLEX TO FREE T4 IF ABNORMAL; Status:Active; Requested for:18Jan2021; Vitamin B12, Serum; Status:Active; Requested for:18Jan2021; Vitamin D 25-Hydroxy; Status:Active; Requested for:18Jan2021; Patient Discussion/Summary Followup q 6 -12 mos, [...] their discretion BMI over 40 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 Has had daily chronic [...] 15 Sep 2020 Surgical History History of [place] tooth extraction Family History Family history of [...] Intrauterine Intrauterine Device Vitals Vital Signs Recorded: 18Jan2021 08:09AM Mmaguinhziv87.4 F Heart Rate72 [id number], LUE, Sitting Xgrtfhkpb83, LUE, Sitting Height5 ft 3 in Weight (more content not included)... Normal GEL[facility] Tobacco Screening.on 021 Tobacco use status CPHS b) No [facility] [facility] Phone: [employer]matthias 12-28-2020 CNOV Office Visit ([facility] ) CARLIE GIPSON ([id number]) 1980 F Date Time Provider Department 12/28/20 7:45 PM TIESHA ANDERSON [facility] During your visit today, we recorded the following information about you: Temperature Pulse Respiration Blood pressure 98.1 degrees 83/minute 16/minute 128/76 Weight 107.2 kg Tiesha Andersno PA-C 12/28/2020 8:24 PM Signed This note was created using NoteWriter. Subjective Carlie Fuentes Brandan is a 40 year old female. HPI [...] Diagnosis:Urinary frequency [R35.0] Order(s):UA DIP, URINE (POC) [5106238] Order #: [id number]. #:[id number] URINE CULTURE [SQURCUL] Order #: [id number] cephALEXin (KEFLEX) 500 mg capsuleTake 1 capsule by mouth twice daily for 7 days.Disp: 14 capsuleRfl: 0 ibuprofen (MOTRIN) 800 mg tabletTake 1 tablet by mouth every 8 hours as needed for pain (with food.).Disp: 20 tabletRfl: 0 Prescriptions as of 12/28/2020 - escitalopram oxalate (LEXAPRO) 10 mg tabl (more content not included)... Normal [facility] Urine Cultureon 12-28-2020 Bacteria identified Cx Nom (U) Sp. Request/Comment: - Specimen received in preservative Culture Result - <10,000 CFU/ml Lactose negative gram negative bacilli --> ABNORMAL ALERT Insignificant colony count. No further workup. --> ABNORMAL ALERT 10,000 - <50,000 CFU/ml Normal urogenital jed Critically abnormal [facility] Comment on above: Performed By: #### U RCUL #### [facility] [address] [id number] Provider Note - ED v2on 10-19 Provider [...] significant events or known past surgical history. 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 Integumentary: Fair skin. Mcgraw wheals of varying sizes scattered in patches [...] monitor e (more content not included)... Normal [facility] Office Visit (Family Nikkie wood)on 09-29-2020 Follow-up visit Diagnoses/Problems Encounter for preventive [...] Status: Hold For - Scheduling Requested for: [id number] Anxiety disorder, Health Maintenance, Irritable bowel syndrome [...] 15 Sep 2020 Surgical History History of [place] tooth extraction Family History Family history of [...] Intrauterine Intrauterine Device Vitals Vital Signs Recorded: [id number] 09:38AM Tobacco Useb) No Physical Exam Constitutional: [...] 15 Sep 2020 Surgical History History of [place] tooth extraction Family History Family history of [...] Sep 15 2020 8:49AM EST (Author) Normal [facility] Visit (Family Medicin e)on 08-25-2020 Follow-up [...] chronic (296.80) (F31.9) Surgical History History of [place] tooth extraction Family History Family history of [...] 0.5 TABLET Twice daily PRN anxiety; Therapy: [id number] to (Evaluate:25May2019) Requested for: 40Nlj1522; Last Rx:[id number] Ordered Rx By: Mikayla Vasquez; Dispense: 20 Days ; #:20 Tablet; Refill: 0;For: Anxiety disorder, Health Maintenance; CHERI = N; Verified Transmission to [facility]; Last Updated By: [facility]; 08/25/2020 8:41:42 AM Mirena (52 MG) 20 [...] Anxiety disorder; CHERI = N; Sent To: [facility]; Last Updated By: [employer]; 08/25/2020 8:41:38 AM Anxiety disorder, Health Maintenance Renew: ALPRAZolam 0.5 MG Oral Tablet; TAKE 1 TABLET Twice daily PRN anxiety/panic Rx By: Mikayla Vasquez; Dispense: 5 Days ; #:10 Tablet; Refill: 0;For: Anxiety disorder, Health Maintenance; CHERI = N; Sent To: [facility] [facility]; Last Updated By: [employer]; 08/25/2020 8:41:42 AM Patient Discussion/Summary Followup 3 weeks, virtual is fine, call concerns. 'Scores and Scales' Signatures Electronically signed by : Mikayla Vasquez MD; Aug 25 2020 8:42AM EST (Author) Normal [facility] [facility], Urineon 04-09-2020 Bacteria identified Cx Nom (U) PATIENT: CARLIE GIPSON LOCATION: [facility]#: [id number] : 80 AGE: SEX: F ORDERED BY: CARRILLO VASQUEZ: URINE COLLECTED: 04/09/20 14:34ANTIBIOTICS AT MERVAT.: RECEIVED : 04/09/20 23:32SITE: Clean Catch/Voided Clean Catch/Voided Clean Catch/Voided Clean Catch/Voided Clean Catch/Voided Clean Catch/Voided R E S U L T S URINE CULTURE,BACTERIAL FINAL 04/11/20 08:46 NO SIGNIFICANT GROWTH. 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 This test was developed and its performance characteristics determined by [facility]. This test has been authorized by FDA under an Emergency Use Authorization (EUA). This test has been validated in accordance with the FDA's Guidance Document Policy for Diagnostics Testing in Laboratories Certified to Perform High Complexity Testing under CLIA prior to Emergency use Authorization for Coronavirus Disease 2019 during the Public Health Emergency issued on July 19, 2019. [facility] [address] [place] [address] Winston Urias III, M.D. 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 [facility] Comment on above: Result Comment: Nega tive for This test was developed and its performance characteristics determined by [facility]'s [facility] [place]. This test has been authorized by FDA [...] developed and its performance characteristics determined by [facility] [place]. This test has been authorized by FDA [...] developed and its performance characteristics determined by [facility] [place]. This test has been authorized by FDA [...] 2019. Performed By: #### C OVID #### [facility] Routine Lab [address] [id number] Coronavirus 2019on 0 COVID 19 Source PATIENT FINANCIAL SERVICES SPECIALIST UN Normal [facility] Comment on above: Performed By: #### C OVID #### [facility] Routine Lab [address] [id number] MA Mamm Diag w/CAD if perf a nd 3D Bilon 01-13-2019 Bilirubin.direct [Mass/Vol] Exam Date/Time: 01/06/2019 08:27 EDT Reason for Exam: FIBROCYSTIC BREAST DISEASE DIFFUSE CYSTIC MASTOPATHY OF RIGHT BREAST 3D PT NEEDS BILAT BREAST US;Other (please specify) Report STUDY: Digital diagnostic mammogram bilateral with jc, right breast ultrasound; 01/06/2019 8:27 am; 01/06/2019 8:41 am ACCESSION NUMBER(S): [id number]; [id number] ORDERING CLINICIAN: Mikayla Vasquez INDICATION: Palpable mass [...] am Signed by: Tarun Lynch MD Technologist: JAMES Assessment: BI-RADS Category 2-Benign finding Recommendation: Normal interval follow-up Normal [facility] US Breast Unilateral Rt Henrietta fischermatthias 01-13-2019 US Breast Unilateral Rt Limited Exam Date/Time: 01/06/2019 08:41 EDT Reason for Exam: FIBROCYSTIC BREAST DISEASE DIFFUSE CYSTIC MASTOPATHY OF RIGHT BREAST 3D PT NEEDS BILAT BREAST US;Fibrocystic Breast Disease Report STUDY: Digital diagnostic mammogram bilateral with jc, right breast ultrasound; 01/06/2019 8:27 am; 01/06/2019 8:41 am ACCESSION NUMBER(S): [id number]; [id number] ORDERING CLINICIAN: Mikayla Vasquez INDICATION: Palpable mass [...] 2-Benign finding Recommendation: Normal interval follow-up Normal [facility] Vital Signs Date Time Vital Sign Value Performing Clinician Facility 03-20-2022 14:23-0400 Body height 165.[address] Mikayla Vasquez Work Phone: [facility] Work Phone: 03-20-2022 14:23-0400 Body mass index (BMI) [Ratio] 34.9 kg/m2 Dr. Mikayla Vasquez Work Phone: [facility] Work Phone: 03-20-2022 14:23-0400 Body temperature 98.3 [degF] Dr. Mikayla Vasquez Work Phone: [facility] Work Phone: 03-20-2022 14:23-0400 Body weight 95.[address] Mikayla Vasquez Work Phone: [facility] Work Phone: 03-20-2022 14:23-0400 Diastolic blood pressure 84 mm[Hg] Dr. Mikayla Vasquez Work Phone: [facility] Work Phone: 03-20-2022 14:23-0400 Heart rate 75 /min Dr. Mikayla Vasquez Work Phone: [facility] Work Phone: 03-20-2022 14:23-0400 Respiratory rate 14 /min Dr. Mikayla Vasquez Work Phone: [facility] Work Phone: 03-20-2022 14:23-0400 SaO2% (BldA) [Mass fraction] 99 % Dr. Mikayla Vasquez Work Phone: [facility] Work Phone: 03-20-2022 14:23-0400 Systolic blood pressure 116 mm[Hg] Dr. Mikayla Vasquez Work Phone: [facility] Work Phone: 12-15-2021 13:07-0400 Body temperature 98.8 [degF] Finn Christian PA-C Work Phone: [facility] 12-15-2021 13:07-0400 Body weight 107.14 kg Finn Bogner PA-C Work Phone: [facility] 12-15-2021 13:07-0400 Diastolic blood pressure 78 mm[Hg] Finn Bogner PA-C Work Phone: [facility] 12-15-2021 13:07-0400 Heart rate 81 /min Finn Bogner PA-C Work Phone: [facility] 12-15-2021 13:07-0400 Respiratory rate 18 /min Finn Bogner PA-C Work Phone: [facility] 12-15-2021 13:07-0400 SaO2% (BldA) [Mass fraction] 98 % Finn Bogner PA-C Work Phone: [facility] 12-15-2021 13:07-0400 Systolic blood pressure 132 mm[Hg] Finn Bogner PA-C Work Phone: [facility] 07-21-2021 08:08-0500 Body height 160.02 cm Mikayla Vasquez Work Phone: [facility] Work Phone: 07-21-2021 08:08-0500 Body mass index (BMI) [Ratio] 42.25 kg/m2 Mikayla Vasquez Work Phone: [facility] Work Phone: 07-21-2021 08:08-0500 Body surface area Derived from formula 2.08 m2 Mikayla Vasquez Work Phone: [facility] Work Phone: 07-21-2021 08:08-0500 Body weight 108.18 kg Mikayla Vasquez Work Phone: [facility] Work Phone: 07-21-2021 08:08-0500 Diastolic blood pressure 84 mm[Hg] Mikayla Vasquez Work Phone: [facility] Work Phone: 07-21-2021 08:08-0500 Heart rate 96 /min Mikayla Vasquez Work Phone: [facility] Work Phone: 07-21-2021 08:08-0500 SaO2% (BldA) [Mass fraction] 98 % Mikayla Vasquez Work Phone: [facility] Work Phone: 07-21-2021 08:08-0500 Systolic blood pressure 124 mm[Hg] Mikayla Vasquez Work Phone: [facility] Work Phone: 05-11-2021 10:13-0500 Body height 160.02 cm Mikayla Vasquez Work Phone: [facility] Work Phone: 05-11-2021 10:13-0500 Body mass index (BMI) [Ratio] 42.51 kg/m2 Mikayla Vasquez Work Phone: [facility] Work Phone: 05-11-2021 10:13-0500 Body surface area Derived from formula 2.09 m2 Mikayla Vasquez Work Phone: [facility] Work Phone: 05-11-2021 10:13-0500 Body temperature 97.3 [degF] Mikayla Vasquez Work Phone: [facility] Work Phone: 05-11-2021 10:13-0500 Body weight 108.86 kg Mikayla Vasquez Work Phone: [facility] Work Phone: 05-11-2021 10:13-0500 Diastolic blood pressure 80 mm[Hg] Mikayla Vasquez Work Phone: [facility] Work Phone: 05-11-2021 10:13-0500 Respiratory rate 16 /min Mikayla Vasquez Work Phone: [facility] Work Phone: 05-11-2021 10:13-0500 Systolic blood pressure 110 mm[Hg] Mikayla Vasquez Work Phone: [facility] Work Phone: 05-06-2021 08:48-0500 Body height 160.02 cm Mikayla Vasquez Work Phone: [facility] Work Phone: 05-06-2021 08:48-0500 Body mass index (BMI) [Ratio] 42.53 kg/m2 Mikayla Vasquez Work Phone: [facility] Work Phone: 05-06-2021 08:48-0500 Body surface area Derived from formula 2.09 m2 Mikayla Vasquez Work Phone: [facility] Work Phone: 05-06-2021 08:48-0500 Body temperature 97.5 [degF] Mikayla Vasquez Work Phone: [facility] Work Phone: 05-06-2021 08:48-0500 Body weight 108.89 kg Mikayla Vasquez Work Phone: [facility] Work Phone: 05-06-2021 08:48-0500 Diastolic blood pressure 80 mm[Hg] Mikayla Vasquez Work Phone: [facility] Work Phone: 05-06-2021 08:48-0500 Heart rate 84 /min Mikayla Vasquez Work Phone: [facility] Work Phone: 05-06-2021 08:48-0500 Systolic blood pressure 126 mm[Hg] Mikayla Vasquez Work Phone: [facility] Work Phone: 03-28-2021 08:43-0500 Body height 160.02 cm Mikayla Vasqeuz Work Phone: [facility] Work Phone: 03-28-2021 08:43-0500 Body mass index (BMI) [Ratio] 42.61 kg/m2 Mikayla Vasquez Work Phone: [facility] Work Phone: 03-28-2021 08:43-0500 Body surface area Derived from formula 2.09 m2 Mikayla Vasquez Work Phone: [facility] Work Phone: 03-28-2021 08:43-0500 Body temperature 98.4 [degF] Mikayla Vasquez Work Phone: [facility] Work Phone: 03-28-2021 08:43-0500 Body weight 109.12 kg Mikayla Vasquez Work Phone: [facility] Work Phone: 03-28-2021 08:43-0500 Diastolic blood pressure 80 mm[Hg] Mikayla Vasquez Work Phone: [facility] [place] Work Phone: 03-28-2021 08:43-0500 Heart rate 84 /min Mikayla Vasquez Work Phone: [facility] [place] [facility] Work Phone: 03-28-2021 08:43-0500 Systolic blood pressure 128 mm[Hg] Mikayla Vasquez Work Phone: [facility] Work Phone: 03-25-2021 08:41-0400 Body height 160.02 cm Mikayla Manzanares Vasquez Work Phone: [place] [address] [address] Work Phone: 03-25-2021 08:41-0400 Body mass index (BMI) [Ratio] 42.87 kg/m2 Mikayla Manzanares Vasquez Work Phone: [place] [address] [address] Work Phone: 03-25-2021 08:41-0400 Body surface area Derived from formula 2.1 m2 Mikayla Manzanares Vasquez Work Phone: [place] [address] [address] Work Phone: 03-25-2021 08:41-0400 Body temperature 96.9 [degF] Mikayla Vasquez Work Phone: [address] Work Phone: 03-25-2021 08:41-0400 Body weight 109.77 kg Mikayla Manzanares Vasquez Work Phone: [place] [address] [address] Work Phone: 03-25-2021 08:41-0400 Diastolic blood pressure 80 mm[Hg] Mikayla Vasquez Work Phone: [place] [address] [address] Work Phone: 03-25-2021 08:41-0400 Systolic blood pressure 126 mm[Hg] Mikayla Vasquez Work Phone: [place] [address] [address] Work Phone: 03-21-2021 09:51-0400 Body height 160.02 cm Mikayla Vasquez Work Phone: [facility] Work Phone: 03-21-2021 09:51-0400 Body mass index (BMI) [Ratio] 41.63 kg/m2 Mikayla Vasquez Work Phone: [facility] [facility] Work Phone: 03-21-2021 09:51-0400 Body surface area Derived from formula 2.07 m2 Mikayla Vasquez Work Phone: [facility] [facility] Work Phone: 03-21-2021 09:51-0400 Body temperature 97.5 [degF] Mikayla Vasquez Work Phone: [facility] [facility] Work Phone: 03-21-2021 09:51-0400 Body weight 106.6 kg Mikayla [facility]quez [facility] Work Phone: 03-21-2021 09:51-0400 Diastolic blood pressure 84 mm[Hg] Mikayla Vasquez [facility] Work Phone: 03-21-2021 09:51-0400 Systolic blood pressure 120 mm[Hg] Mikayla Vasquez Work Phone: [facility] Work Phone: 02-18-2021 09:08-0400 Body height 160.02 cm Mikayla Vasquez Work Phone: [address] Work Phone: 02-18-2021 09:08-0400 Body mass index (BMI) [Ratio] 41.63 kg/m2 Mikayla Vasquez Work Phone: [address] Work Phone: 02-18-2021 09:08-0400 Body surface area Derived from formula 2.07 m2 Mikayla Vasquez Work Phone: [address] Work Phone: 02-18-2021 09:08-0400 Body temperature 97.8 [degF] Mikayla Vasquez Work Phone: [place] [address] [address] Work Phone: 02-18-2021 09:08-0400 Body weight 106.6 kg Mikayla Vasquez Work Phone: [place] [address] [address] Work Phone: 02-18-2021 09:08-0400 Diastolic blood pressure 80 mm[Hg] Mikayla Vasquez Work Phone: [place] [address] [address] Work Phone: 02-18-2021 09:08-0400 Systolic blood pressure 120 mm[Hg] Mikayla Vasquez Work Phone: [place] [address] [address] Work Phone: 01-20-2021 13:52-0400 Body height 160.02 cm Mikayla Vasquez Work Phone: [place] [address] [address] Work Phone: 01-20-2021 13:52-0400 Body mass index (BMI) [Ratio] 41.63 kg/m2 Mikayla Vasquez Work Phone: [place] [address] [address] Work Phone: 01-20-2021 13:52-0400 Body surface area Derived from formula 2.07 m2 Mikayla Vasquez Work Phone: [place] [address] [address] Work Phone: 01-20-2021 13:52-0400 Body temperature 97.8 [degF] Mikayla Vasquez Work Phone: [place] [address] [address] Work Phone: 01-20-2021 13:52-0400 Body weight 106.6 kg Mikayla Vasquez Work Phone: [place] [address] [address] Work Phone: 01-20-2021 13:52-0400 Diastolic blood pressure 80 mm[Hg] Mikayla Vasquez Work Phone: [address] Work Phone: 01-20-2021 13:52-0400 Systolic blood pressure 118 mm[Hg] Mikayla Vasquez Work Phone: [address] Work Phone: 01-18-2021 08:09-0400 Body height 160.02 cm Mikayla Vasquez Work Phone: [facility] Work Phone: 01-18-2021 08:09-0400 Body mass index (BMI) [Ratio] 41.63 kg/m2 Mikayla Vasquez Work Phone: [facility] Work Phone: 01-18-2021 08:09-0400 Body surface area Derived from formula 2.07 m2 Mikayla Vasquez Work Phone: [facility] Work Phone: 01-18-2021 08:09-0400 Body temperature 98.4 [degF] Mikayla Vasquez Work Phone: [facility] Work Phone: 01-18-2021 08:09-0400 Body weight 106.6 kg Mikayla Vasquez Work Phone: [facility] Work Phone: 01-18-2021 08:09-0400 Diastolic blood pressure 80 mm[Hg] Mikayla Vasquez Work Phone: [facility] Work Phone: 01-18-2021 08:09-0400 Heart rate 72 /min Mikayla Vasquez Work Phone: [facility] Work Phone: 01-18-2021 08:09-0400 Systolic blood pressure 130 mm[Hg] Mikayla Vasquez Work Phone: [facility] Work Phone: 11-03-2020 11:01-0400 Body height 160 cm Mikayla Vasquez Other Phone: [facility] 11-03-2020 11:01-0400 Body temperature 98.6 [degF] Mikayla Vasquez Other Phone: [facility] 11-03-2020 11:01-0400 Diastolic blood pressure 86 mm[Hg] Mikayla Vasquez Other Phone: [facility] 11-03-2020 11:01-0400 Heart rate 77 /min Mikayla Vasquez Other Phone: [facility] 11-03-2020 11:01-0400 Respiratory rate 16 /min Mikayla Vasquez Other Phone: [facility] 11-03-2020 11:01-0400 SaO2% (BldA) [Mass fraction] 97 % Mikayal Vasquez Other Phone: [facility] 11-03-2020 11:01-0400 Systolic blood pressure 121 mm[Hg] Mikayla Vasquez Other Phone: [facility] Encounters Encounter Date Encounter Type Care Provider Facility Start: 03-23-2025 ambulatory Efewongbe Oleghe Facili ty:[facility] Start: 03-03-2025 End: 03-03-2025 ambulatory Efewongbe Oleghe Facility:[facility] Start: 02-11-2025 End: 02-12-2025 ambulatory Efewongbe Oleghe Facility:[facility] Start: 12-11-2024 ambulatory Efewongbe Oleghe Facili ty:[facility] Start: 12-08-2024 ambulatory Efewongbe Oleghe Facili ty:[facility] Start: 12-08-2024 End: 12-08-2024 ambulatory Efewongbe Oleghe Facility:[facility] Start: 12-01-2024 End: 12-01-2024 ambulatory Efewongbe Oleghe Facility:[facility] Start: 10-09-2024 End: 10-09-2024 ambulatory Efewongbe Oleghe Facility:[facility] Start: 10-08-2024 End: 10-08-2024 ambulatory Efewongbe Oleghe Facility:[facility] Start: 09-04-2024 End: 09-04-2024 ambulatory Efewongbe Oleghe Facility:[facility] Start: 07-17-2024 End: 07-18-2024 ambulatory Stevie JURADO Facility:[facility] Start: 06-27-2024 End: 06-27-2024 ambulatory Efewongbe Oleghe Facility:[facility] Start: 06-10-2024 End: 06-10-2024 ambulatory Efewongbe Oleghe Facility:[facility] Start: 05-07-2024 End: 05-07-2024 ambulatory Efewongbe Oleghe Facility:[facility] Start: 05-02-2024 ambulatory Efewongbe Oleghe Facili ty:[facility] Start: 05-02-2024 End: 05-02-2024 ambulatory Efewongbe Oleghe Facility:[facility] Start: 04-22-2024 End: 04-22-2024 ambulatory Efewongbe Oleghe Facility:[facility] Start: 04-22-2024 End: 04-22-2024 ambulatory Efewongbe Oleghe Facility:[facility] Start: 04-10-2024 End: 04-10-2024 ambulatory Efewongbe Oleghe Facility:[facility] Start: 04-10-2024 End: 04-10-2024 ambulatory Efewongbe Oleghe Facility:[facility] Start: 03-30-2022 End: 03-30-[address] Mikayla Vasquez Work Phone: [facility] Work Phone: Start: 03-30-2022 End: 03-30-[address] Mikayla Vasquez Work Phone: [facility] Start: 03-21-2022 Non-patient / Non-visit Dr. Suzanne Vasquez Work Phone: [facility] [facility] Start: 03-20-[address] Mikayla Vasquez Work Phone: [facility] Work Phone: Start: 03-20-2022 End: 03-20-2022 Encounter for general adult medical examination without abnormal findings Dr. Mikayla Vasquez Work Phone: [facility] Start: 03-20-2022 End: 03-20-[address] Mikayla Vasquez Work Phone: [facility] Start: 12-15-2021 End: 12-15-2021 Office outpatient new 30 minutes Finn Christian PA-C Work Phone: [facility] Comment on above: Urinary frequency (P rimary Dx) Start: 11-23-2021 AUDIT Mikayla Vasquez Work Phone: [facility] [address] DO Work Phone: Start: 07-21-2021 Office outpatient vi sit 25 minutes Mikayla Vasquez Work Phone: [facility] Work Phone: Start: 07-13-2021 Patient encounter procedure Mikayla Vasquez Work Phone: [facility] Work Phone: Start: 07-06-2021 Rx Renewal Mikayla Vasquez Work Phone: [facility] [address] DO Work Phone: Start: 05-11-2021 FUV, Provider: Monster Heredia, Status: Pen, Time: 2:30 PM Mikayla Vasquez Work Phone: [facility] Work Phone: Start: 05-11-2021 Office outpatient vi sit 15 minutes Mikayla Vasquez Work Phone: [facility] Work Phone: Start: 05-10-2021 Chart Update Mikayla Vasquez Work Phone: [facility] Work Phone: Start: 05-06-2021 FUV, Provider: Mikayla Vasquez, Status: Pen, Time: 8:40 AM Mikayla Vasquez Work Phone: [facility] Work Phone: Start: 05-06-2021 Office outpatient vi sit 25 minutes Mikayla Vasquez Work Phone: [facility] Work Phone: Start: 05-05-2021 Chart Update Mikayla Vasquez Work Phone: [facility] Work Phone: Start: 04-25-2021 AUDIT Mikayla Vasquez Work Phone: [facility] Work Phone: Start: 04-22-2021 COLON, Provider: Monster Heredia, Status: Pen, Time: 9:30 AM Mikayla Vasquez Work Phone: [facility] Work Phone: Start: 04-21-2021 Chart Update Mikayla Vasquez Work Phone: [facility] Work Phone: Start: 03-29-2021 Chart Update Mikayla Vasquez Work Phone: [facility] Work Phone: Start: 03-25-2021 FUV, Provider: Makeda Lucas, Status: Pen, Time: 8:45 AM Mikayla Vasquez Work Phone: [facility] 120 Work Phone: Start: 03-25-2021 Office outpatient vi sit 10 minutes Mikayla Vasquez Work Phone: [address] Work Phone: Start: 03-22-2021 Chart Update Mikayla Vasquez Work Phone: [facility] Work Phone: Start: 03-21-2021 Office outpatient ne w 45 minutes Mikayla Vasquez Work Phone: [facility] [address] Work Phone: Start: 02-21-2021 Chart Update Mikayla Vasquez Work Phone: [place] [address] [address] Work Phone: Start: 02-18-2021 Patient encounter procedure Mikayla Vasquez Work Phone: [place] [address] [address] Work Phone: Start: 01-28-2021 Chart Update Mikayla Vasquez Work Phone: [place] [address] [address] Work Phone: Start: 01-25-2021 Chart Update Mikayla Vasquez Work Phone: -[facility] Work Phone: Start: 01-22-2021 Chart Update Mikayla Vasquez Work Phone: -[facility] Work Phone: Start: 01-21-2021 Chart Update Mikayla Vasquez Work Phone: -[facility] Work Phone: Start: 01-20-2021 Initial preventive medicine new patient 40-64yrs Mikayla Vasquez Work Phone: [place] [address] [address] Work Phone: Start: 01-18-2021 Office outpatient vi sit 25 minutes Mikayla Vasquez Work Phone: -[facility] Work Phone: Start: 12-20-2020 Chart Update Mikayla Vasquez Work Phone: [facility] [employer] Work Phone: Start: 11-03-2020 End: 11-03-2020 Emergency department patient visit Janice Raymundo [facility] Start: 04-09-2020 Patient encounter procedure [facility] Work Phone: Start: 02-04-2020 Patient encounter procedure Mikayla Vasquez [facility] Work Phone: Start: 01-02-2020 End: 01-02-2020 Patient encounter procedure ANNAMARIE MARROQUIN [facility] Start: 11-13-2019 Patient encounter procedure [facility] Work Phone: Start: End: Patient encounter status Mikayla Vasquez Work Phone: [facility] Work Phone: Patient encounter procedure Mikayla Vasquez Work Phone: [employer] Work Phone: End: 01-31-2021 Patient encounter procedure Mikayla Vasquez Work Phone: [facility] [employer] Work Phone: Comment on above: 01/20/2021; COTEST NEG ; Procedures Date Procedure Procedure Detail Performing Clinician Start: 03-30-2022 Screening mammography D r. Mikayla Vasquez Work Phone: Start: 12-15-2021 Urnls dip stick/tabl et rgnt auto w/o microscopy [facility] Provider Start: 04-22-2021 Colonoscopy Mikayla turner Work Phone: Start: 04-09-2020 Culture bacterial quanttative colony count urine Mikayla Vasquez Extraction of wisdom tooth Neel Vasquez Plan of Treatment Date Care Activity Detail Author Start: 03-20-2022 Patient referral [facility] Work Phone: Start: 02-10-2022 Patient encounter procedure ANNUAL, Provider: Makeda Lucas, Status: Pen, Time: 8:[address] Work Phone: Start: 01-19-2022 Influenza vaccination INFLUENZA (#1) [facility] Start: 12-02-2021 FUV, Provider: Makeda Lucas, Status: Pen, Time: 1:30 PM FUV, Provider: Makeda Lucas, Status: Pen, Time: 1:30 PM [facility] DO Work Phone: Start: 11-04-2021 EPV, Provider: Mikayla Vasquez, Status: Pen, Time: 8:00 AM EPV, Provider: Mikayla Vasquez, Status: Pen, Time: 8:00 AM [facility] Work Phone: Start: 07-21-2021 EPV, Provider: Mikayla Vasquez, Status: Pen, Time: 8:00 AM EPV, Provider: Mikayla Vasquez, Status: Pen, Time: 8:00 AM [facility] Work Phone: Start: 07-14-2021 ADLTSPLIT, Provider: [facility],[id number], Status: Pen, Time: 8:30 PM ADLTSPLIT, Provider: [facility] RM 2,[id number], Status: Pen, Time: 8:30 PM [facility] DO Work Phone: Start: 07-06-2021 ADLTSPLIT, Provider: [facility] RM 1,[id number], Status: Pen, Time: 7:30 PM ADLTSPLIT, Provider: [facility] RM 1,[id number], Status: Pen, Time: 7:30 PM [facility] Work Phone: Start: 05-06-2021 FUV, Provider: Mikayla Vasquez, Status: Pen, Time: 8:40 AM FUV, Provider: Mikayla Vasquez, Status: Pen, Time: 8:40 AM [facility] and 120 Work Phone: Start: 04-22-2021 COLON, Provider: Monster Heredia, Status: Pen, Time: 9:30 AM COLON, Provider: Monster Heredia, Status: Pen, Time: 9:30 AM [facility] and 120 Work Phone: Start: 03-28-2021 FUV, Provider: Mikayla Vasquez, Status: Pen, Time: 8:40 AM FUV, Provider: Mikayla Vasquez, Status: Pen, Time: 8:40 AM [facility] Work Phone: Start: 03-25-2021 FUV, Provider: Makeda Lucas, Status: Pen, Time: 8:45 AM FUV, Provider: Makeda Lucas, Status: Pen, Time: 8:[address] Work Phone: Start: 03-21-2021 NPV, Provider: Monster Heredia, Status: Pen, Time: 9:45 AM NPV, Provider: Monster Heredia, Status: Pen, Time: 9:45 AM [facility] Work Phone: Start: 02-18-2021 IUDRMVL, Provider: Makeda Lucas, Status: Pen, Time: 8:45 AM IUDRMVL, Provider: Makeda Lucas, Status: Pen, Time: 8:[address] Work Phone: Start: 01-31-2021 VIRFUVHOME, Provider : Mikayla Vasquez, Status: Pen, Time: 8:20 AM VIRFUVHOMMook, Provider: Mikayla Vasquez, Status: Pen, Time: 8:[address] Work Phone: Start: 01-20-2021 NPV, Provider: Makeda Lucas, Status: Pen, Time: 1:30 PM NPV, Provider: Makeda Lucas, Status: Pen, Time: 1:30 PM [facility] Work Phone: Start: 2020 Mammography MAMMOGRAM [facility] Start: 2010 HPV TESTING HPV TESTING [facility] Start: 2001 PAP TESTING PAP TESTING [facility] Start: 11-22-1999 Urine microalbumin profile DTAP,TDAP,TD (1 - Tdap) [facility] Start: 1998 HEPATITIS C SCREENING HEPATITIS C SC REENING [facility] Start: 1998 HIV SCREENING HIV SCREENING [facility] Bacteria identified in Urine by Culture URINE CULTURE Microbiology Routine Urinary frequency Ordered: 12/15/2021 [facility] Work Phone: Comment on above: Ordered: 12/15/2021 Patient referral [facility] Work Phone: Immunizations Immunization Date Immunization Notes Care Provider [facility] 03-20-2022 influenza, seasonal, injectable Dr. Mikayla Vasquez Work Phone: [facility] Work Phone: 02-25-2021 Pfizer-BioNTech COVI D-19 Vacc 30 MCG/0.3ML Intramuscular Suspension Mikayla Vasquez Work Phone: [facility] [facility] Work Phone: 01-19-2021 influenza virus vacc ine, unspecified formulation Mikayla Vasquez Work Phone: [facility] Work Phone: Comment on above: Series: 01-19-2021 influenza, injectabl e, quadrivalent, preservative free Mikayla Vasquez Work Phone: [address] Work Phone: 06-05-2020 Pfizer-BioNTech COVI D-19 Vacc 30 MCG/0.3ML Intramuscular Suspension Mikayla Vasquez Work Phone: [facility] Work Phone: 05-15-2020 Pfizer-BioNTech COVI D-19 Vacc 30 MCG/0.3ML Intramuscular Suspension Mikayla Vasquez Work Phone: [facility] Work Phone: 03-03-2020 influenza virus vacc ine, unspecified formulation Mikayla Vasquez Work Phone: [facility] Work Phone: Comment on above: Series: 03-03-2020 influenza, seasonal, injectable Mikayla Vasquez [facility] Work Phone: 03-13-2018 influenza, injectabl e, quadrivalent, preservative free Mikayla Vasquez Work Phone: [facility] Work Phone: 03-13-2013 influenza, seasonal, injectable Mikayla Vasquez Work Phone: [facility] Work Phone: 05-23-2009 novel influenza-H1N1 -09, preservative-free, injectable Mikayla Vasquez Work Phone: [facility] Work Phone: 03-20-2009 influenza virus vacc ine, whole virus Mikayla Vasquez Work Phone: [facility] Work Phone: 04-26-2008 influenza virus vacc ine, whole virus Mikayla Vasquez Work Phone: [facility] Work Phone: 04-11-2007 influenza virus vacc ine, whole virus Mikayla Vasquez Work Phone: [facility] Work Phone: 07-20-2006 tetanus toxoid, adsorbed [place] Vasquez Work Phone: [facility] Work Phone: 07-13-2006 hepatitis B vaccine, adult dosage Mikayla Vasquez Work Phone: [facility] Work Phone: Payers Date Payer Category Payer Self-pay [id number] 2024 Unknown [id number] 2024 Unknown [id number] 2020 Unknown 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 [employer] [id number] 2020-Present [phone] [address] [place] [address] PPO [id number] 1980 Unknown [id number] 51 Private Health Insurance [id number] Private Health Insurance [place] [id number] Unknown Unknown [facility] [id number] Unknown [id number] [id number] 62 Unknown [id number] 2.16.840.1.455146.3.579.2.4 62 Unknown [id number] 2.16.840.1.491804.3.579.2.4 62 Unknown [id number] 2.16.840.1.904159.3.579.2.4 62 Unknown [id number] 2.16.840.1.573221.3.579.2.4 62 Unknown [id number] 2.16.840.1.849774.3.579.2.4 62 Unknown [id number] 2.16.840.1.039495.3.579.2.4 62 Unknown [id number] 2.16.840.1.321709.3.579.2.4 62 Unknown [id number] 2.16.840.1.633184.3.579.2.4 62 Unknown [id number] 2.16.840.1.042939.3.579.2.4 62 Unknown [id number] 2.16.840.1.733916.3.579.2.4 62 Unknown [id number] 2.16.840.1.875304.3.579.2.4 62 Unknown [id number] 2.16.840.1.538013.3.579.2.4 62 Unknown [id number] 2.16.840.1.619394.3.579.2.4 62 Unknown [id number] 2.16.840.1.055592.3.579.2.4 62 Unknown [id number] 2.16.840.1.504533.3.579.2.4 62 Unknown [id number] 2.16.840.1.338126.3.579.2.4 62 Unknown [id number] 2.16.840.1.934616.3.579.2.4 62 Unknown [id number] 2.16.840.1.330958.3.579.2.4 62 Unknown [id number] 2.16.840.1.933539.3.579.2.4 62 Unknown [id number] 2.16.840.1.883729.3.579.2.4 62 Unknown [id number] 2.16.840.1.795820.3.579.2.4 62 Social History Date Type Detail Facility Start: 03-20-2022 Tobacco smokin g consumption unknown [facility] Former smoker Former smoker -[facility] [facility] Phone: Start: 01-31-2015 Tobacco smoking status NHIS Ex-smoker [facility] History of tobacco use Cigarette Smoker [facility] Start: 01-31-2015 Tobacco use and exposure Smokeless tobacco non-user [facility] Start: 12-15-2021 Alcohol intake Current drinke r of alcohol (finding) [facility] Start: 06-22-2016 History SDOH Alcohol Comment rare [facility] Start: 1980 Sex Assigned At Not on file [facility] Start: 12-05-2021 End: 12-15-2021 Exposure to SARS-CoV-2 (event) Not sure [facility] Start: 1980 Sex Assigned At Female [facility] Work Phone: NEGATED: Highlighted row - - [facility] Work Phone: Functional Status Date Assessment Result Facility NEGATED: Highlighted row Functional performance Functional status health issues are not documented Disease [facility] Work Phone: Mental Status Date Assessment Result Facility NEGATED: Highlighted row Cognitive function [Interpretation] Cognitive status health issues are not documented Disease [facility] [employer] Phone: Clinical Notes 03-21-2015 to 12-15-2021 Finn Christian PA-C - 12/15/2021 1:16 PM EDT Note Date & Type Note Facility 12-15-2021 Note HNO ID: [id number] Author: Finn Christian PA-C Service: ? Author Type: Physician Electroplating Worker Type: Progress Notes Filed: 12/15/2021 2:24 PM [...] to seek care sooner. Finn Christian PA-C [facility] 12-15-2021 History of Present illness Narrative 12/15/2021 [...] Finn Christian PA-C documented in this encounter [facility] 04-27-2021 History of Present illness Narrative Patient [...] consider beginning Lotronex 0.5 mg twice daily. [facility] [id number] Work Phone: 01-20-2021 Note 21 Date of Procedure: 01/20/2021 Pathologist: [facility], Cytology Date Reported: 01/28/2021 Date Received: [...] patient?s Pap test results. Please refer to ASCCP current guidelines for the use of HPV DNA testing, result interpretation, and patient management. The performance of this test was verified by the Molecular Diagnostic Laboratory at [facility]. The lab is certified under the Clinical Laboratory Amendments of 1988 (CLIA 88) as qualified to perform high complexity clinical laboratory testing. This specimen has been analyzed by the LabtripPrep Imaging System ([employer] an automated imaging and review system, which assists the laboratory in evaluating cells on ThinPrep Pap tests. Following automated imaging, selected galeana from every slide were reviewed by a rotating field assembler and/or pathologist. Electronically Signed Out By [facility], Cytology//LHP By the signature on this [...] Source of Specimen A: THINPREP PAP CERVICAL [facility] Department of Pathology [address] [place] [address] [facility] Comment on above: Performed By: #### C ####[facility] [id number] [facility] [id number] 01-12-2021 History of Present illness Narrative Initial [...] patient is not using an assistive device. [facility] Work Phone: 01-11-2021 History of Present illness [...] patient is not using an assistive device. [facility] Work Phone: 12-28-2020 Note HNO ID: [id number] Author: Tiesha Anderson PA-C Service: ? Author Type: Physician Electroplating Worker Type: Progress Notes Filed: 12/28/2020 8:24 PM Note Text: This note was created using [employer]. Subjective Carlie Gipson is a 40 year [...] (POC) - URINE CULTURE Tiesha Anderson PA-C [facility] 03-24-2015 History of Present illness Narrative Patient [...] measuring 7.5 mm, without gallbladder wall thickening. [facility] [id number] Work Phone: 03-21-2015 History of Present illness [...] measuring 7.5 mm, without gallbladder wall thickening. 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 * Has had daily chronic diarrhea for at least five years, states was told in the past she had irritable bowel and advised to use more fiber, it used to help but hasn't recently. Multiple loose watery stools daily. * Advised not to use hydroxyzine and alprazolam together. [facility] Work Phone: History of Present illness [id number] presents for annual exam. Patient safe home [...] acute concerns. Patient s cheduled for mammogram today.[employer] Work Phone: History of Present illness [id number] presents for IUD removal and reinsertion. Patient notes more pain and clots with this last IUD. Patient notes prior IUD had no pain or bleeding at all. Patient is no acute concernsWomenDonate Your [employer] Work Phone: History of Present illness [id number] presents for IUD follow-up. Patient doing well. However the cramps during placement afterwards but since then delivered spotting. Patient unsure of her cycle after a day after the IUD andit was normal. Patient notes her last cycle this time was not anywhere near his clot if no clots atall. Patient has not had intimacy yet.[employer] Work Phone: History of Present illness Narrative* [...] benefits of working toward ideal body weight [facility] Work Phone: History of Present illness Narrative* [...] a month after she starts. She has shopasZwittle machine but its not auto titrate, he doesn't need it after weight loss. She would need to go have a titration study and doesn't want to do that, will just wait on the auto titrate machine. [facility] Work Phone: History of Present illness [...] just wait on the auto titrate machine. [facility] Work Phone: Summary Purpose Family History [...] Grandmother, Aunt(V16.3, Z80.3) Comments:MAternal GM 60s. Maurisio ternal Aunt 67; Status:Active Family history of [...] Will No January 21 6:11am Power of Patent Attorney No January 22, 2020 6:11am Chief Complaint [...] NO CONCNERS. 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 DATE CREATED AUTHOR AUTHOR'S ORGANIZ ATION 01/04/2020 [facility] DATE CREATED AUTHOR AUTHOR'S ORGANIZ ATION 01/13/2020 [facility] DATE CREATED AUTHOR AUTHOR'S ORGANIZ ATION 07/19/[address] [facility] DATE CREATED AUTHOR AUTHOR'S ORGANIZ ATION 07/22/2021 [employer] DATE CREATED AUTHOR AUTHOR'S ORGANIZ ATION 10/31/2021 [facility] DATE CREATED AUTHOR AUTHOR'S ORGANIZ ATION 12/19/2021 [facility] DATE CREATED AUTHOR AUTHOR'S ORGANIZ ATION 03/24/2025 [facility] <item> Privacy Markings (unrecogniz ed section and [...] or prosecute any alcohol or drug abuse patient.[facility] Reason for Visit (unrecogniz ed section and content) Reason Comments Urinary Frequency burning, x1 day Care Teams (unrecognized sec tion and content) Revival Clerk Relationship Specialty Start Date End Date Mikayla Vasquez MD [address] [id number] PCP - General Family Practice 12/15/21 Goals (unrecognized section and content) Goals may [...] BE BASED ON THE PRIMARY CLINICAL RECORDS. [employer] provides no warranty or guarantee of the accuracy or completeness of information in this document.
== END | disposition home or self-care (01) ==
PROVIDERS: PCP Internal Medicine; Referring Provider Internal Medicine; Visit Provider Internal Medicine
DX: N60.02 Solitary cyst of left breast (principal)
CPT/HCPCS: 76642; 77065